=== PATIENT | female | born 1965 | race Caucasian/White ===

== ENCOUNTER → 2020-06-30 17:28 | Outpatient (BNVA) | payer MEDICARE, MEDICAID, SELFPAY | PROVIDERS: PCP Family Medicine; Visit Provider Internal Medicine Pulmonary Disease | DX: Z01.812 Encounter for preprocedural laboratory examination (principal); Z20.828 Contact with and (suspected) exposure to other viral communicable diseases | CPT/HCPCS: 87635 ==

== ENCOUNTER 2020-07-04 11:06 | Outpatient (CLI) | payer MEDICARE, MEDICAID, SELFPAY ==
[2020-07-04 15:00] VITALS: BP 119/72; BP 126/76; O2SAT 83; O2SAT 91
--- NOTE | 2020-07-04 15:11 | PFTS_ITS ---
Date of Study:07/04/20 Date of Dictation: MECHANICS: Forced vital capacity (FVC) is reduced. Forced expiratory volume in one second (FEV1) is very severely reduced . FEV1/FVC is reduced No significant response to bronchodilator . FLOW VOLUME LOOP: Scooping of end expiratory limb suggestive of air way obstruction. LUNG VOLUMES: not measured DIFFUSING CAPACITY FOR CARBON MONOXIDE: moderately reduced . INTERPRETATION: The Spirometry suggestive of obstructive ventilatory defect. Moderately reduced gas transfer. Please correlate clinically. MTDD
== END 2020-07-04 11:07 | disposition home or self-care (01) ==
PROVIDERS: PCP Family Medicine; Visit Provider Internal Medicine Pulmonary Disease
DX: E11.319 Type 2 diabetes mellitus with unspecified diabetic retinopathy without macular edema (principal); E11.42 Type 2 diabetes mellitus with diabetic polyneuropathy; E11.649 Type 2 diabetes mellitus with hypoglycemia without coma; Z79.4 Long term (current) use of insulin; E78.00 Pure hypercholesterolemia, unspecified; I10 Essential (primary) hypertension; E11.9 Type 2 diabetes mellitus without complications
CPT/HCPCS: 36415; 80053; 80061; 83036; 94060; 94618; 94726; 99205; J7611

== ENCOUNTER 2020-07-04 11:07 | Outpatient (CLI) | payer MEDICARE, MEDICAID, SELFPAY ==
[2020-07-04 12:16] LABS: Alanine Aminotransferase 13 U/L (0-33); Albumin Level 3.2 g/dL (3.5-5.2); Alkaline Phosphatase 134 IU/L (35-105); Anion Gap 9.5 (5-19); Aspartate Amino Transferase 16 U/L (0-32); Blood Urea Nitrogen 9 mg/dL (6-20); Calcium 7.6 mg/dL (8.5-10.5); Carbon Dioxide 38 mmol/L (22-29); Chloride 93 mmol/L (98-107); Chol HDL Ratio 4.08 mg/dL (0.0-4.40); Cholesterol 196 mg/dL (0-200); Globulin 3.7 g/dL (1.3-4.6); Glomerular Filtration Rate 87.5 mL/min (90-130); Glucose 445 mg/dL (65-115); HDL Cholesterol 48 mg/dL (60-100); LDL Cholesterol Calculated 116 mg/dL (50-129); LDL HDL Ratio 2.42 RATIO (0.00-3.22); Osmolality Calculated 300 mOsm/kg (285-295); Potassium 4.5 mmol/L (3.5-5.1); Sodium 136 mmol/L (136-145); Total Bilirubin 0.2 mg/dL (0.15-1.2); Total Protein 6.9 g/dL (6.6-8.7); Triglycerides 158 mg/dL (0-150)
[2020-07-04 14:23] LABS: Estmated Average Glucose 275; Hemoglobin A1C 11.2 % (4.0-6.0)
== END 2020-07-04 11:08 | disposition home or self-care (01) ==
PROVIDERS: PCP Family Medicine; Visit Provider Internal Medicine
DX: E11.9 Type 2 diabetes mellitus without complications (principal); E78.00 Pure hypercholesterolemia, unspecified
CPT/HCPCS: 36415; 80053; 80061; 83036

== ENCOUNTER 2020-07-23 08:29 | Outpatient (CLI) | payer MEDICARE, MEDICAID, SELFPAY ==
--- NOTE | 2020-07-23 08:30 | MR_ITS ---
WS: [id number] MRI NECK WITH CONTRAST TECHNIQUE: Noncontrast axial T1, axial T2 FSE fat sat, coronal T2 fat sat, coronal T1, coronal T1 fat sat, sagittal T2 fat sat, plus contrast enhanced coronal, sagittal, and axial T1 fat sat images obta ined. CLINICAL INFORMATION: DYSPHAGIA COMPARISON: None. FINDINGS: Images moderately degraded by patient motion. Parotid glands are normal. Normal submandibular glands. Normal posterior nasopharynx. Prominent enhan cing symmetric tissue at the tongue base may represent prominent lymphoid tissue although unusually p rominent for a patient this age. Tongue base mass is not excluded and Recommend direct visualization. Otherwise no evidence of supraglottic or glottic mass. Normal piriform sinuses. Prominent left jugulo digastric lymph node measuring 11 mm in short axis dimension. Prominent right supraclavicular lymph n ode measuring 10 mm in short axis dimension. Otherwise no cervical lymphadenopathy. Normal posterior fossa. Normal vascular flow voids at the skull base. Paranasal sinuses and mastoid air cells appear w ell aerated. Normal parapharyngeal fat. MR/MR orbit face neck wo/w* [id number] IMPRESSION: 1. Prominent symmetric enhancing tissue at the tongue base may represent lymph oid tissue but unusually prominent for patient this age. Tongue base neoplasm n ot excluded. Recommend direct visualization for further evaluation. 2. Otherwise no evidence of supraglottic or glottic mass. 3. Normal parapharyngeal fat. 4. Prominent left jugulodigastric and right supraclavicular lymph nodes upper limits of normal. Otherwise no cervical lymphadenopathy. 5. Partially visualized paranasal sinuses and mastoid air cells are well aerat ed.
== END 2020-07-23 08:30 | disposition home or self-care (01) ==
LOC: RADSHAW 08:29
PROVIDERS: PCP Family Medicine; Visit Provider Specialist
DX: R13.10 Dysphagia, unspecified (principal)
CPT/HCPCS: 70543; A9577

== ENCOUNTER 2020-08-01 12:00 | Outpatient (CLI) | payer MEDICARE, MEDICAID, SELFPAY | END 2020-08-01 12:01 | disposition home or self-care (01) | LOC: SLEEP 08-03 11:36 | PROVIDERS: PCP Family Medicine; Visit Provider Internal Medicine Pulmonary Disease | DX: G47.33 Obstructive sleep apnea (adult) (pediatric) (principal) | CPT/HCPCS: G0399 ==

== ENCOUNTER 2020-08-20 13:22 | Outpatient (CLI) | payer MEDICARE, MEDICAID, SELFPAY ==
--- NOTE | 2020-08-20 14:14 | ECG_ITS ---
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 Measurements Intervals [place] Rate: 97 P: 70 ND: 160 QRS: 75 QRSD: 78 T: 75 QT: 367 QTc: 468 Interpretive Statements SINUS RHYTHM Compared to ECG 06/10/2018 14:09:07 No significant changes Electronically Signed On 08-21-2020 6:08:41 REAL ESTATE AGENCY LICENSEE by Nita Meza M.D. [email or web address] Technology Corpcleveland clinic medina hospital.[employer]/store/NU/[id number] f
[2020-08-20 14:52] LABS: Alanine Aminotransferase 51 U/L (0-33); Albumin Level 3.4 g/dL (3.5-5.2); Alkaline Phosphatase 231 IU/L (35-105); Anion Gap 12.3 (5-19); Aspartate Amino Transferase 22 U/L (0-32); Blood Urea Nitrogen 10 mg/dL (6-20); Calcium 7.4 mg/dL (8.5-10.5); Carbon Dioxide 37 mmol/L (22-29); Chloride 90 mmol/L (98-107); Globulin 4.4 g/dL (1.3-4.6); Glucose 220 mg/dL (65-115); Osmolality Calculated 286 mOsm/kg (285-295); Potassium 4.3 mmol/L (3.5-5.1); Sodium 135 mmol/L (136-145); Total Bilirubin 0.3 mg/dL (0.15-1.2); Total Protein 7.8 g/dL (6.6-8.7)
== END 2020-08-20 13:23 | disposition home or self-care (01) ==
PROVIDERS: PCP Family Medicine; Visit Provider Specialist
DX: Z01.810 Encounter for preprocedural cardiovascular examination (principal); R13.19 Other dysphagia
CPT/HCPCS: 36415; 80053; 93005

== ENCOUNTER → 2020-08-23 13:56 | Outpatient (BNVA) | payer MEDICARE, MEDICAID, SELFPAY | PROVIDERS: PCP Family Medicine; Visit Provider Internal Medicine Pulmonary Disease | DX: R06.02 Shortness of breath (principal) | CPT/HCPCS: 87635 ==

== ENCOUNTER 2020-08-28 07:06 | Day surgery (SDC) | payer MEDICARE, MEDICAID, SELFPAY ==
[2020-08-27 12:49] VITALS: BMI 43.2
[2020-08-28 07:36] LABS: Glucose Point of Care 263 mg/dL (70-110)
[2020-08-28] MEDS: sodium chloride 0.9% 1,000 ML 30 ML IV (07:36)
[2020-08-28 07:42] VITALS: BP 124/85; PULSE 105; RESP 18; TEMP 36.3; O2SAT 92
--- NOTE | 2020-08-28 07:47 | ANES.PREANE2 ---
Pre-Anesthetic Assessment Pre-Anesthetic Assessment: Height/Weight: Height 1.6 m Weight 110.677 kg Temp Pulse Resp BP Pulse Ox 97.3 F L 105 H 18 124/85 92 08/28/20 07:42 08/28/20 07:42 08/28/20 07:42 08/28/20 07:42 08/28/20 07:42 Preop Diagnosis: Tongue mass Proposed Procedure: Operation Date: 08/28/20 08:50 Proposed Procedures p Direct Laryngoscopy with biopsy [id number] R13.19 J35.1(Not Applicable) - Duran Portillo MD s Esophagoscopy(Not Applicable) - Duran Portillo MD s Tonsillectomy(Not Applicable) - Duran Portillo MD Familial anesthetic complications: Does like to lay flat d/t her COPD, has trouble breathing. No toher issues Was Beta Shayla taken within 24 hours: N/A Last intake: Intake Last Liquid Date 08/27/20 Last Liquid Time 22:00 Last Solid Date 08/27/20 Last Solid Time 17:00 Social: Social History: No alcohol and No tobacco Comment: former smoker Exam: Pre-Anes Outpt Exam: alert, oriented x 3, clear to auscultation bilaterally and regular rate & rhythm Airway: Cervical ROM: WNL MP: 3 Dentition: Other (missing, poor dentition, rotten and discolored) Pulmonary: Pulmonary: COPD (severe) and Sleep apnea Comments: obesity hypoventilation syndrome (3 L NC during the day and trilogy at night) Lung nodules s/p resection CV/HEM: CV/HEM: HTN (states she's on losartan for kidney protection, no HTN) Metabolic: Metabolic: DM, Hyperlipidemia and Morbid obesity Comments: cushingoid appearance, has been taking prednisone chronically, but has now stopped it Anesthetic Plan: ASA status: 4 Anesthesia: General Risk of > 500 ml blood loss (7ml/kg in children): No Meds/Allergies Current Medications: Current Medications Generic Name Dose Route Start Last Admin Trade Name Freq PRN Reason Stop Dose Admin Sodium Chloride 1,000 mls @ 30 ml s/hr 08/28/20 07:15 08/28/20 07:36 Sodium Chloride 0.9% IV 30 mls/hr .Q24H JOSE Administration PFSH Anesthesia PFSH: Medical History Anxiety disorder Asthma Chronic obstructive pulmonary disease Hypercholesteremia Type 2 diabetes mellitus Surgical History History of carpal tunnel release History of tonsillectomy History of total abdominal hysterectomy Family History Father , at the of 70 Diabetes Cancer lung CAD (coronary artery disease) Mother , at the age of 55 Hypertension Lung disease Social History Smoking and tobacco status: current every day smoker cigarettes Packs smoked per day: 0.5 Years cigarettes smoked: 35 Quit status (tobacco): considering quitting Second hand smoke exposure: Yes Smoking risk assessment/counseling performed?: Yes Alcohol intake: current Alcohol intake frequency: holidays/special occasions only Alcohol type: wine Desire information about substance/drug rehabilitation?: No Counseling given: No Caregiver/support person: No Lives independently: Yes Household members: children Housing: House Marital status: Legally Current occupational status: disabled Pets and animals: No History of recent travel: No Current gender identity: Female Data Anesthesia Other Labs: Laboratory Results - last 48 hr 08/28/20 07:34 POC Glucose 263 H Cardiac Studies: No Data to Display
[2020-08-28] MEDS: insulin regular-human 100 units/1 mL 10 UNIT IVP (07:52)
--- NOTE | 2020-08-28 09:09 | W.PM.OPSUD ---
Surgery/Procedure H&P Update DATE OF PROCEDURE: August 28, 2020 DATE H&P PERFORMED: 08/17/20 H&P UPDATE INFORMATION: I have reviewed H&P completed within last 30 days, I have examined patient prior to procedure and No changes to prior documentation PREOP DIAGNOSIS: Lingual tonsillar hypertrophy, Dysphagia PRIMARY INDICATION FOR PROCEDURE: Lingual tonsilar hypertrophy, Dysphagia PLANNED PROCEDURE: Operation Date: 08/28/20 08:50 Proposed Procedures p Direct Laryngoscopy with biopsy [id number] R13.19 J35.1(Not Applicable) - Duran Portillo MD s Esophagoscopy(Not Applicable) - Duran Portillo MD s Tonsillectomy(Not Applicable) - Duran Portillo MD
--- NOTE | 2020-08-28 09:38 | PM.OP ---
Operative Report Date of procedure: August 28, 2020 Pre-op Diagnosis: Lingual tonsillar hypertrophy, Dysphagia Post-op diagnosis: same Post-op Findings: N/A - See below Procedure Done: None Pathology: none sent Surgeon: Duran Portillo Anesthesia: General Estimated blood loss (mL): 0 IV fluids (mL): 0 Complications: N/A Findings: N/A Condition: stable Disposition: same day Brief History: 54 yo wf with a h/o dysphagia and lingual tonsillar hypertrophy who presents today for surgical evaluation and therapy. Procedure: The patient was done from the preop holding area was taken the operating where she operating room. There was a communication mishap and the patient was unable to attend her preop visit, but on review of her pulmonology records anesthesia was uncomfortable with placing the patient under general anesthesia. After reviewing the patient's pulmonology records and pulmonology clearance, we (ENT and Anesthesia) elected to cancel the case and reschedule her for evaluation at [facility]. I explained this to the patient and her daughter - they express understanding and agree with this plan.
--- NOTE | 2020-08-28 09:44 | PC.NURSE ---
SURGERY ABORTED. PATIENT TO BE REFERRED TO [facility]. SEE PHYSICIAN, ANESTHESIA NOTES
== END 2020-08-28 09:53 | disposition home or self-care (01) ==
PROVIDERS: PCP Family Medicine; Visit Provider Specialist
PROC: (CPT 31536; principal; 2020-08-28 08:50)
DX: Z53.8 Procedure and treatment not carried out for other reasons (principal); J35.1 Hypertrophy of tonsils; R13.10 Dysphagia, unspecified; Z87.891 Personal history of nicotine dependence; J44.9 Chronic obstructive pulmonary disease, unspecified; Z99.81 Dependence on supplemental oxygen; I10 Essential (primary) hypertension; E11.9 Type 2 diabetes mellitus without complications; E78.5 Hyperlipidemia, unspecified; E66.01 Morbid (severe) obesity due to excess calories; Z68.41 Body mass index [BMI] 40.0-44.9, adult
CPT/HCPCS: 31536; 12345; 36416; 82962; 96374; J1815; J7030

== ENCOUNTER 2020-09-14 12:19 | Inpatient (IN) | payer MEDICARE, MEDICAID, SELFPAY ==
[2020-09-14] VITALS (46 sets, daily range): BP systolic 95–152; BP diastolic 62–84; PULSE 91–101; RESP 13–24; TEMP 36.7–36.9; O2SAT 74–95; BMI 43.2
--- NOTE | 2020-09-14 12:51 | XR_ITS ---
WS: [id number] Portable AP upright chest, 09/14/2020 Clinical Data: SOB, hypoxia Comparison: Portable chest, 06/10/2018. Findings: No nodules, masses or effusions are seen. The heart is normal. The pulmonary vascularity is not increased. No pneumonia or pneumothorax is seen. Monitor leads are on the chest wall. XR/XR chest 1V portable [id number] Impression: Negative chest.
--- NOTE | 2020-09-14 12:51 | ECG_ITS ---
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 Measurements Intervals [place] Rate: 93 P: FL: QRS: 84 QRSD: 82 T: 73 QT: 358 QTc: 446 Interpretive Statements Sinus rhythm with occasional PVCs ABNORMAL RHYTHM ECG Compared to ECG 08/20/2020 14:02:31 Aberrant conduction of supraventricular beat(s) now present Sinus rhythm no longer present Electronically Signed On 09-14-2020 23:14:55 CDT by Kaya Mansfield M.D. [email or web address] [email or web address] dublin method[facility] hospital.[employer]/store/NU/[id number] f
[2020-09-14 13:04] LABS: ABG PH Result 7.32 (7.35-7.45); Arterial Blood Gas Hematocrit 44.6 % (37-47); Base Excess ABG 15.8 mmol/L (-2.0-2.0); Blood Gas Allen Test Pos; Blood Gas Operator Identificat CAK; Blood Gas Sample Site Brachial, left; Blood Gas Sample Type Arterial; HCO3 ABG 47.1 mmol/L (22-26); Oxygen Device NC; PO2 ABG 71.6 mmHg (80.0-100.0)
[2020-09-14 13:06] LABS: ABG PCO2 92.2 mmHg (35-45)
[2020-09-14 13:16] LABS: Basophils % 0.3 %; Eosinophils # 0.1 10^3/uL (0.0-0.8); Eosinophils % 0.6 %; Hemoglobin 14.6 g/dL (11.5-15.3); Lymphocytes # 1.2 10^3/uL (0.8-4.8); Lymphocytes % 14.8 %; Mean Corpuscular HGB Conc 28.6 g/dL (30.0-36.0); Mean Corpuscular Hemoglobin 27.1 pg (28.0-34.0); Mean Corpuscular Volume 94.6 fL (81-99); Mean Platelet Volume 9.7 fL (7.4-10.4); Monocytes # 0.5 10^3/uL (0.2-0.9); Monocytes % 6.9 %; Neutrophils # 6.04 10^3/uL (1.8-7.7); Neutrophils % 77.1 %; Nucleated Red Blood Cells % 0 %; Platelet Count 208 10^3/cmm (130-400); Red Blood Count 5.39 10^6/uL (4.1-5.3); White Blood Count 7.8 10^3/uL (4.0-10.0)
[2020-09-14 13:32] LABS: D Dimer 0.53 ug/mIFEU (0-0.59)
[2020-09-14 13:38] LABS: Lactic Sepsis W/Reflex 1.2 mmol/L (0.5-2.2)
[2020-09-14 13:40] LABS: Troponin T (5th) Once 8 ng/L (0-10)
[2020-09-14 13:50] LABS: NT Pro B Type Natriuretic Pept 113 pg/mL (0-125); Procalcitonin 0.05 ng/mL (0-0.5)
[2020-09-14 14:01] LABS: Alanine Aminotransferase 41 U/L (0-33); Albumin Level 3.5 g/dL (3.5-5.2); Alkaline Phosphatase 174 IU/L (35-105); Anion Gap 8.4 (5-19); Aspartate Amino Transferase 20 U/L (0-32); Blood Urea Nitrogen 13 mg/dL (6-20); C Reactive Protein 19.6 mg/L (0.0-4.9); Calcium 7.5 mg/dL (8.5-10.5); Chloride 87 mmol/L (98-107); Globulin 3.7 g/dL (1.3-4.6); Glucose 243 mg/dL (65-115); Osmolality Calculated 288 mOsm/kg (285-295); Potassium 4.4 mmol/L (3.5-5.1); Sodium 135 mmol/L (136-145); Total Bilirubin 0.4 mg/dL (0.15-1.2); Total Protein 7.2 g/dL (6.6-8.7)
[2020-09-14 14:06] LABS: Carbon Dioxide 44 mmol/L (22-29)
--- NOTE | 2020-09-14 14:08 | PC.PHAR ---
PT STATES SHE TAKES CARE OF HER OWN MEDICATIONS-PT STATES SHE IS ONLY USING BROVANA AND IPRA-ALBU IN THE [facility]UL[facility] STATES THEY HAVE A ARNUITY INHALER READY FOR THE PT TO SVP DIGITAL AD SALES FILLED ON 09/07/20-PT STATES SHE USES NOVOLOG FLEXPEN SLIDING SCALE QID (WITH MEALS AND HS)-[facility] LAST FILLED ON 09/11/20 FOR 10 UNITS BEFORE EACH MEAL PLUS SLIDING SCALE-PT STATES SHE USES LANTUS SOLOSTAR 50 UNITS AT BEDTIME-[facility] LAST FILLED ON 09/10/20 25 UNITS BEDTIME-
[2020-09-14 15:24] LABS: ABG PCO2 89.6 mmHg (35-45); ABG PH Result 7.34 (7.35-7.45); Arterial Blood Gas Hematocrit 43.9 % (37-47); Base Excess ABG 17.3 mmol/L (-2.0-2.0); Blood Gas Allen Test Pos; Blood Gas Operator Identificat CAK; Blood Gas Sample Site Brachial, left; Blood Gas Sample Type Arterial; HCO3 ABG 48.2 mmol/L (22-26); Oxygen Device BIPAP
[2020-09-14] MEDS: azithromycin 500 MG in sodium chloride 0.9% 250 ML 250 MG IV (15:35)
[2020-09-14 15:43] LABS: SARS Covid-2 Antigen Negative (Negative)
[2020-09-14 15:43] LABS: Influenza A by IFA Negative (Negative); Influenza B by IFA Negative (Negative)
[2020-09-14 15:51] LABS: Glucose Point of Care 189 mg/dL (70-110)
--- NOTE | 2020-09-14 16:56 | P.HP_ITS ---
Providers/Chief Complaint Admitting Physician: Torri Bettencourt MD Primary Care Provider: Wes Hart MD Chief Complaint: LOW OXYGEN History of Present Illness Patricia Butcher is a 54 year old female with PMH as outlined below, significantly diabetes, COPD on 3 L home oxygen and obesity hypoventilation syndrome on triology at night, recently moved [place] [facility] [place]. She presents to the ER today due to worsening shortness of breath over the past week. Also reports subjective fever. She went to [facility] to get tested for covid and was noted to be hypoxic to sp02 60s and sent over to the ER. ABG upon presentation with acute hypoxic hypercapnic respiratory failure for which she was placed on BiPAP. In spite of 1 hour on the BiPAP CO2 still ranging between 80-90. Rapid Covid ag negative. No increased sputum production. D dimer negative, CXR without consolidation. + smoker, states has not smoked in last 3 weeks . No chest pain. Review of Systems General: Reports: 10 or more systems reviewed and unremarkable except in HPI and below Const: Denies: fever(s), chills or body aches Eyes: Denies: change in vision, blurry vision or photophobia ENMT: Denies: throat pain, enlarged tonsils, odynophagia, hoarseness or nasal congestion Card: Denies: chest pain, palpitations, irregular heart rhythm, edema, swelling of feet/ankles, lightheadedness, pre-syncope, dyspnea on exertion or orthopnea Resp: Denies: dyspnea, productive cough, non-productive cough, wheezing, stridor, pain on inspiration, change in phlegm color, hemoptysis or chest congestion GI: Denies: abdominal pain, nausea, vomiting, hematemesis, coffee ground e mesis, dysphagia, heartburn, diarrhea, constipation, GI cramping, change in stool character, hematochezia or melena : Denies: flank pain, difficulty voiding, dysuria, urinary frequency, urinary urgency, urinary hesitancy or hematuria Musc: Denies: neck pain, back pain, extremity pain, joint swelling, joint warmth or deformity Neuro: Denies: headache(s), numbness in extremities, weakness in extremities, sensory changes, difficulty walking, frequent falls, dizziness, vertigo, behavioral changes, Slurred speech present or seizure-like activity Psych: Denies: anxiety, depression, suicidal ideation or homicidal ideation Endo: Denies: polyuria, polydipsia, tired all the time, cold intolerance or hot flashes Mario/Lymph: Denies: easy bruising or easy bleeding Medications/Allergies Home Medications Medication Instructions Recorded Confirmed Last Taken Type clonazepam 0.5 mg tablet 0.5 mg PO TID PRN 06/07/20 09/14/20 09/13/20 History dapagliflozin 10 mg tablet 10 mg PO DAILY 06/07/20 09/14/20 09/13/20 History duloxetine 30 mg capsule,delayed 30 mg PO DAILY 06/07/20 09/14/20 09/13/20 Histo ry release insulin glargine 100 unit/mL (3 See Rx Instructions .ROUTE 06/07/20 09/14/20 08/27/20 History mL) subcutaneous pen .COMPLEX ml losartan 50 mg tablet 25 mg PO DAILY tab 06/07/20 09/14/20 08/28/20 History albuterol sulfate 90 mcg/actuation 2 puff INHALATION QID PRN #18 g 07/19/20 09/14/20 08/28/20 Rx aerosol inhaler arformoterol 15 mcg/2 mL solution 2 ml INHALATION Q12H #60 ml 08/09/20 09/14/20 08/28/20 Rx for nebulization budesonide 0.25 mg/2 mL suspension 0.5 mg INHALATION BID #60 ml 08/09/20 09/14/20 08/27/20 Rx for nebulization fluticasone furoate [Arnuity See Rx Instructions .ROUTE .COMPLEX 09/14/20 09/14/20 Unknown History Ellipta] insulin aspart U-100 [Novolog See Rx Instructions .ROUTE .COMPLEX 09/14/20 09/14/20 Unknown History Flexpen U-100 Insulin] ipratropium-albuterol 3 ml INHALATION QID PRN 09/14/20 09/14/20 Unknown History ipratropium-albuterol [Combivent 1 puff INHALATION QID PRN 09/14/20 09/14/20 Unknown History Respimat] liraglutide [Victoza 3-Greg] 1.8 mg SUBCUT QAM 09/14/20 09/14/20 09/13/20 History prednisone 10 mg PO EVERY OTHER DAY 09/14/20 09/14/20 09/12/20 History Allergies Allergy/AdvReac Type Severity Reaction Status Date / Time naproxen Allergy Mild nausea and Verified 09/14/20 13:48 vomiting Penicillins Allergy Mild itching Verified 09/14/20 13:48 PFSH Acute PFSH: Medical History Anxiety disorder Asthma Chronic obstructive pulmonary disease Hypercholesteremia Type 2 diabetes mellitus Surgical History History of carpal tunnel release History of tonsillectomy History of total abdominal hysterectomy Family History Father , at the of 70 Diabetes Cancer lung CAD (coronary artery disease) Mother , at the age of 55 Hypertension Lung disease Social History Smoking and tobacco status: current every day smoker cigarettes Packs smoked per day: 0.5 Years cigarettes smoked: 35 Quit status (tobacco): considering quitting Second hand smoke exposure: Yes Smoking risk assessment/counseling performed?: Yes Alcohol intake: current Alcohol intake frequency: holidays/special occasions only Alcohol type: wine Desire information about substance/drug rehabilitation?: No Counseling given: No Caregiver/support person: No Lives independently: Yes Household members: children Housing: House Marital status: Legally Current occupational status: disabled Pets and animals: No History of recent travel: No Current gender identity: Female Vitals/I&O/Wt Last Vital Signs Temp 98.5 F 09/14/20 12:28 Pulse 100 09/14/20 16:32 Resp 20 H 09/14/20 16:32 BP 125/79 09/14/20 16:32 Pulse Ox 94 09/14/20 16:32 Weight last 48 hrs Weight 110.677 kg Physical Exam Narrative: EXAM NARRATIVE: General: No acute distress, AO x3 HEENT: PERRLA, pupils bilaterally equal and reactive, pallors not present Chest: Coarse breath sounds, no added sounds, equal good air entry bilaterally CVS: S1-S2 regular, no murmurs, no tachycardia, no gallops, no rubs Abdomen: Soft, nontender, no organomegaly, bowel sounds present Neuro: No focal deficits, no facial deformity, AO x3, power 5/5 in all limbs Extremities: no edema, clubbing or cyanosis Data : 09/14/20 13:04 09/14/20 13:04 Other Labs: Laboratory Results WBC 7.8 10^3/uL (4.0-10.0) 09/14/20 13:04 RBC 5.39 10^6/uL (4.1-5.3) H 09/14/20 13:04 Hgb 14.6 g/dL (11.5-15.3) 09/14/20 13:04 Hct 51.0 % (37.0-47.0) H 09/14/20 13:04 MCV 94.6 fL (81-99) 09/14/20 13:04 MCH 27.1 pg (28.0-34.0) L 09/14/20 13:04 MCHC 28.6 g/dL (30.0-36.0) L 09/14/20 13:04 RDW 14.0 % (12.1-15.1) 09/14/20 13:04 Plt Count 208 10^3/cmm (130-400) 09/14/20 13:04 MPV 9.7 fL (7.4-10.4) 09/14/20 13:04 Neut % (Auto) 77.1 % 09/14/20 13:04 Lymph % (Auto) 14.8 % 09/14/20 13:04 [place] % (Auto) 6.9 % 09/14/20 13:04 Eos % (Auto) 0.6 % 09/14/20 13:04 Baso % (Auto) 0.3 % 09/14/20 13:04 Neut # (Auto) 6.04 10^3/uL (1.8-7.7) 09/14/20 13:04 Lymph # (Auto) 1.2 10^3/uL (0.8-4.8) 09/14/20 13:04 [place] # (Auto) 0.5 10^3/uL (0.2-0.9) 09/14/20 13:04 Eos # (Auto) 0.1 10^3/uL (0.0-0.8) 09/14/20 13:04 Baso # (Auto) 0.0 10^3/uL (0.0-0.1) 09/14/20 13:04 Nucleated RBC % (auto) 0 % 09/14/20 13:04 Nucleated RBCs # 0.0 /100WBC 09/14/20 13:04 D-Dimer 0.53 ug/mIFEU (0-0.59) 09/14/20 13:04 Specimen Type Arterial 09/14/20 15:12 Sample Site Brachial, left 09/14/20 15:12 ABG pH 7.34 (7.35-7.45) L 09/14/20 15:12 ABG pCO2 89.6 mmHg (35-45) H* 09/14/20 15:12 ABG pO2 53.0 mmHg (80.0-100.0) L 09/14/20 15:12 ABG HCO3 48.2 mmol/L (22-26) H 09/14/20 15:12 ABG Base Excess 17.3 mmol/L (-2.0-2.0) H 09/14/20 15:12 Carlos Test Pos 09/14/20 15:12 Hematocrit 43.9 % (37-47) 09/14/20 15:12 O2 Delivery Device Bipap 09/14/20 15:12 O2 Liters/Min 5.0 % 09/14/20 12:53 FiO2 30.0 % 09/14/20 15:12 Locomotive Repairer Diesel ID Cak 09/14/20 15:12 Sodium 135 mmol/L (136-145) L 09/14/20 13:04 Potassium 4.4 mmol/L (3.5-5.1) 09/14/20 13:04 Chloride 87 mmol/L (98-107) L 09/14/20 13:04 Carbon Dioxide 44 mmol/L (22-29) H* 09/14/20 13:04 Anion Gap 8.4 (5-19) 09/14/20 13:04 BUN 13 mg/dL (6-20) 09/14/20 13:04 Creatinine 0.4 mg/dL (0.5-0.9) L 09/14/20 13:04 GFR Calculation 167.0 mL/min (90-130) H 09/14/20 13:04 Glucose 243 mg/dL (65-115) H 09/14/20 13:04 POC Glucose 189 mg/dL (70-110) H 09/14/20 15:48 Calculated Osmolality 288 mOsm/kg (285-295) 09/14/20 13:04 Lactic Acid 1.2 mmol/L (0.5-2.2) 09/14/20 13:04 Calcium 7.5 mg/dL (8.5-10.5) L 09/14/20 13:04 Total Bilirubin 0.4 mg/dL (0.15-1.2) 09/14/20 13:04 AST 20 U/L (0-32) 09/14/20 13:04 ALT 41 U/L (0-33) H 09/14/20 13:04 Alkaline Phosphatase 174 IU/L (35-105) H 09/14/20 13:04 Troponin T Gen 5 ng/L 8 ng/L (0-10) 09/14/20 13:04 C-Reactive Protein 19.6 mg/L (0.0-4.9) H 09/14/20 13:04 NT-Pro-B Natriuret Pep 113 pg/mL (0-125) 09/14/20 13:04 Total Protein 7.2 g/dL (6.6-8.7) 09/14/20 13:04 Albumin 3.5 g/dL (3.5-5.2) 09/14/20 13:04 Globulin 3.7 g/dL (1.3-4.6) 09/14/20 13:04 Procalcitonin 0.05 ng/mL (0-0.5) 09/14/20 13:04 Influenza Type A Ag Negative (Negative) 09/14/20 14:45 Influenza Type B Ag Negative (Negative) 09/14/20 14:45 SARS-CoV-2 Ag (Rapid) Negative (Negative) 09/14/20 13:04 Impressions Chest X-Ray 09/14/20 12:51 Impression: Negative chest. 09/14/20 09/14/20 12:53 15:12 ABG pH 7.32 L 7.34 L ABG pCO2 92.2 H* 89.6 H* ABG pO2 71.6 L 53.0 L ABG HCO3 47.1 H 48.2 H ABG Base Excess 15.8 H 17.3 H Attestation for Other Data: I personally reviewed and interpreted the following: Other data: CXR, ABG A&P Assessment and plan (1) Acute on chronic respiratory failure with hypoxia and hypercapnia: Admit to ICU given hypoxic ypercapneic respiratory failure from COPD exacerbation Solumedrol 60mg iv q8h duoneb q4h tonja, budesonide 0.5mg BID tonja, albuterol prn continue Bipap until Ph on blood gas normalized, rpt ABG in one hour procal negative, CXR without consolidation, low suspcion for PNA BNP 113, no current signs of pulmonary edema or volume overload Status: Acute (2) Long-term insulin use: continue insulin sliding scale Status: Acute (3) Type 2 diabetes mellitus: Status: Acute Qualifiers: 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 use Diabetes mellitus complication status: with neurologic complications Diabetes mellitus complication detail: with polyneuropathy Qualified Code(s): E11.42 - Type 2 diabetes mellitus with diabetic polyneuropathy; Z79.4 - 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
[2020-09-14 21:28] LABS: Glucose Point of Care 294 mg/dL (70-110)
[2020-09-14] MEDS: budesonide 0.5 mg/2 mL Neb INHALATION (22:04)
[2020-09-14] MEDS: ipratropium-albuterol 3 mL Neb INHALATION (22:04)
--- NOTE | 2020-09-14 22:40 | W.ED.SOB ---
HPI - SOB/Dyspnea General: Chief Complaint: Shortness of Breath/Dyspnea Stated Complaint: LOW OXYGEN Source: patient Mode of arrival: ambulatory Limitations: no limitations History of Present Illness: HPI Narrative: Patient is a 54-year-old female with a history of COPD, diabetes mellitus, hypertension, obesity who presents to the emergency department with complaints of shortness of breath. She wears home oxygen all the time on between 2 and 4 L/min but states that in the last few days she has been feeling short of breath even while on oxygen. She denies any fever, but has some cough. She denies any chest pain. Denies any sick contacts. MD elicited complaint: shortness of breath Pertinent past history: COPD and diabetes Onset (ago): day(s) (1) Timing: constant Severity: severe Exacerbating factors: nothing Relieving factors: nothing Known history of: COPD and diabetes Associated symptoms: Reports cough; Deny abdominal pain, chest congestion, chest pain, diaphoresis, dizziness, extremity pain, fever(s), hemoptysis, lightheadedness, myalgias, nausea, orthopnea, palpitations, paresthesias, polydipsia, polyuria, rash, sense of impending doom, syncope or vomiting Treatment prior to arrival: oxygen Related Data: Home oxygen amount: 3 liters Review of Systems General: Reports: 10 or more systems reviewed and unremarkable except in HPI and below Const: Denies: fever(s) or diaphoresis Eyes: Denies: change in vision or blurry vision ENMT: Denies: throat pain, enlarged tonsils, odynophagia, hoarseness, mouth pain or swelling of lips/tongue Card: Denies: chest pain, palpitations, lightheadedness, syncope or orthopnea Resp: Denies: hemoptysis or chest congestion GI: Denies: abdominal pain, nausea or vomiting : Denies: flank pain, difficulty voiding, dysuria, urinary frequency, urinary urgency or urinary hesitancy Musc: Denies: extremity pain Skin/Breast: Denies: rash, pruritus or erythema Neuro: Denies: dizziness Endo: Denies: polyuria or polydipsia PFS ED PFSH: Medical History (Reviewed 09/14/20 @ 22:44 by Juan Jose Maravilla MD, [facility] [place] Anxiety disorder Asthma Chronic obstructive pulmonary disease Hypercholesteremia Type 2 diabetes mellitus Surgical History (Reviewed 09/14/20 @ 22:44 by Juan Jose Maravilla MD, [facility] [place] History of carpal tunnel release History of tonsillectomy History of total abdominal hysterectomy Family History (Reviewed 09/14/20 @ 22:44 by Juan Jose Maravilla MD, [facility] [place] Father , at the of 70 Diabetes Cancer lung CAD (coronary artery disease) Mother , at the age of 55 Hypertension Lung disease Social History (Reviewed 09/14/20 @ 22:44 by Juan Jose Maravilla MD, [facility] [place] Smoking and tobacco status: current every day smoker cigarettes Packs smoked per day: 0.5 Years cigarettes smoked: 35 Quit status (tobacco): considering quitting Second hand smoke exposure: Yes Smoking risk assessment/counseling performed?: Yes Alcohol intake: current Alcohol intake frequency: holidays/special occasions only Alcohol type: wine Desire information about substance/drug rehabilitation?: No Counseling given: No Caregiver/support person: No Lives independently: Yes Household members: children Housing: House Marital status: Legally Current occupational status: disabled Pets and animals: No History of recent travel: No Current gender identity: Female Physical Exam Const: COMMON NORMALS: no acute distress, average body habitus, patient oriented x3, no limitations, healthy appearing, alert and well nourished HENMT: COMMON NORMALS: normocephalic, atraumatic and moist oral mucous membranes HEAD & SCALP: normocephalic and atraumatic Neck/C-Spine: COMMON NORMALS: no meningeal signs and no JVD Resp: COMMON NORMALS: normal respiratory effort, No retractions, No use of accessory muscles and percussion normal AUSCULTATION: diminished lung sounds PERCUSSION: percussion normal Cardio: COMMON NORMALS: no JVD, regular rate, regular rhythm, S1 normal heart sound present, S2 normal heart sound present, No gallops present (Cardio), No clicks present (Cardio), No murmurs present (Cardio), No rub (Cardio) and Peripheral pulses 2+ throughout RATE: regular rate RHYTHM: regular rhythm HEART SOUNDS: S1 normal heart sound present and S2 normal heart sound present PERIPHERAL PULSES: Peripheral pulses 2+ throughout GI: COMMON NORMALS: Normal to inspection, nondistended, normoactive bowel sounds present, Soft to palpation, non-tender, No hepatosplenomegaly present, no masses and no bruits PALPATION: Yes Soft to palpation and Yes No hepatosplenomegaly present Extremity: COMMON NORMALS: normal to inspection, full ROM, capillary refill normal, no calf tenderness and no pedal edema Neuro: COMMON NORMALS: patient oriented x3 SENSORIUM/ORIENTATION: Yes alert MENINGEAL SIGNS: Yes no meningeal signs Skin: COMMON NORMALS: no rashes or lesions noted, no wounds, turgor normal, no jaundice, no petechiae and no mottling GENERAL SKIN EXAM: no rashes or lesions noted and turgor normal Course Reevaluation(s): Reevaluation #1: Discussed her labs and imaging findings with her, advised that she is in respiratory failure and will benefit from inpatient stay. She voiced understanding and all questions answered. Time: 15:45 Consultations: Consultation #1: Discussed the patient with Dr. Bettencourt, she kindly accepted the patient to her service. Time: 15:52 Vital Signs: Vital signs: Vital Signs Temperature 98.5 F 09/14/20 20:53 Pulse Rate 99 09/14/20 22:20 Respiratory Rate 17 09/14/20 22:20 Blood Pressure 128/62 09/14/20 22:20 Pulse Oximetry 93 09/14/20 22:20 MDM - SOB/Dyspnea MDM Narrative: Medical decision making narrative: 54-year-old female patient with a history of COPD who presents to the emergency department with worsening shortness of breath. In the emergency department evaluation is consistent with a COPD exacerbation and acute respiratory failure with hypercapnia. She had critically elevated PCO2 on blood gas and required BiPAP. She was given a dose of corticosteroids and IV antibiotics and admitted to the ICU for further evaluation and management. Medical Records: Attestation: I reviewed the patient's medical records. Lab Data: Attestation: I reviewed the patient's lab results. Labs: Lab Results 09/14/20 09/14/20 09/14/20 Range/Units 12:53 13:04 13:04 WBC 7.8 (4.0-10.0) 10^3/ uL RBC 5.39 H (4.1-5.3) 10^6/u L Hgb 14.6 (11.5-15.3) g/dL Hct 51.0 H (37.0-47.0) % MCV 94.6 (81-99) fL MCH 27.1 L (28.0-34.0) pg MCHC 28.6 L (30.0-36.0) g/dL RDW 14.0 (12.1-15.1) % Plt Count 208 (130-400) 10^3/c mm MPV 9.7 (7.4-10.4) fL Neut % (Auto) 77.1 % Lymph % (Auto) 14.8 % Leslie % (Auto) 6.9 % Eos % (Auto) 0.6 % Baso % (Auto) 0.3 % Neut # (Auto) 6.04 (1.8-7.7) 10^3/u L Lymph # (Auto) 1.2 (0.8-4.8) 10^3/u L Leslie # (Auto) 0.5 (0.2-0.9) 10^3/u L Eos # (Auto) 0.1 (0.0-0.8) 10^3/u L Baso # (Auto) 0.0 (0.0-0.1) 10^3/u L Nucleated RBC % (a uto) 0 % Nucleated RBCs # 0.0 /100WBC D-Dimer 0.53 (0-0.59) ug/mIFE U Specimen Type Arterial Sample Site Brachial, left ABG pH 7.32 L (7.35-7.45) ABG pCO2 92.2 H* (35-45) mmHg ABG pO2 71.6 L (80.0-100.0) mmH g ABG HCO3 47.1 H (22-26) mmol/L ABG Base Excess 15.8 H (-2.0-2.0) mmol/ L Carlos Test Pos Hematocrit 44.6 (37-47) % O2 Delivery Device Nc O2 Liters/Min 5.0 % FiO2 % Comp Field Case Manager ID Cak Sodium (136-145) mmol/L Potassium (3.5-5.1) mmol/L Chloride (98-107) mmol/L Carbon Dioxide (22-29) mmol/L Anion Gap (5-19) BUN (6-20) mg/dL Creatinine (0.5-0.9) mg/dL GFR Calculation (90-130) mL/min Glucose (65-115) mg/dL POC Glucose (70-110) mg/dL Calculated Osmolal ity (285-295) mOsm/k g Lactic Acid (0.5-2.2) mmol/L Calcium (8.5-10.5) mg/dL Total Bilirubin (0.15-1.2) mg/dL AST (0-32) U/L ALT (0-33) U/L Alkaline Phosphata se (35-105) IU/L Troponin T Gen 5 n g/L (0-10) ng/L C-Reactive Protein (0.0-4.9) mg/L NT-Pro-B Natriuret Pep (0-125) pg/mL Total Protein (6.6-8.7) g/dL Albumin (3.5-5.2) g/dL Globulin (1.3-4.6) g/dL Procalcitonin (0-0.5) ng/mL Influenza Type A A g (Negative) Influenza Type B A g (Negative) SARS-CoV-2 Ag (Rap id) (Negative) 09/14/20 09/14/20 09/14/20 Range/Units 13:04 13:04 13:04 WBC (4.0-10.0) 10^3/ uL RBC (4.1-5.3) 10^6/u L Hgb (11.5-15.3) g/dL Hct (37.0-47.0) % MCV (81-99) fL MCH (28.0-34.0) pg MCHC (30.0-36.0) g/dL RDW (12.1-15.1) % Plt Count (130-400) 10^3/c mm MPV (7.4-10.4) fL Neut % (Auto) % Lymph % (Auto) % Leslie % (Auto) % Eos % (Auto) % Baso % (Auto) % Neut # (Auto) (1.8-7.7) 10^3/u L Lymph # (Auto) (0.8-4.8) 10^3/u L Leslie # (Auto) (0.2-0.9) 10^3/u L Eos # (Auto) (0.0-0.8) 10^3/u L Baso # (Auto) (0.0-0.1) 10^3/u L Nucleated RBC % (a uto) % Nucleated RBCs # /100WBC D-Dimer (0-0.59) ug/mIFE U Specimen Type Sample Site ABG pH (7.35-7.45) ABG pCO2 (35-45) mmHg ABG pO2 (80.0-100.0) mmH g ABG HCO3 (22-26) mmol/L ABG Base Excess (-2.0-2.0) mmol/ L Carlos Test Hematocrit (37-47) % O2 Delivery Device O2 Liters/Min % FiO2 % Comp Field Case Manager ID Sodium 135 L (136-145) mmol/L Potassium 4.4 (3.5-5.1) mmol/L Chloride 87 L (98-107) mmol/L Carbon Dioxide 44 H* (22-29) mmol/L Anion Gap 8.4 (5-19) BUN 13 (6-20) mg/dL Creatinine 0.4 L (0.5-0.9) mg/dL GFR Calculation 167.0 H (90-130) mL/min Glucose 243 H (65-115) mg/dL POC Glucose (70-110) mg/dL Calculated Osmolal ity 288 (285-295) mOsm/k g Lactic Acid 1.2 (0.5-2.2) mmol/L Calcium 7.5 L (8.5-10.5) mg/dL Total Bilirubin 0.4 (0.15-1.2) mg/dL AST 20 (0-32) U/L ALT 41 H (0-33) U/L Alkaline Phosphata se 174 H (35-105) IU/L Troponin T Gen 5 n g/L 8 (0-10) ng/L C-Reactive Protein 19.6 H (0.0-4.9) mg/L NT-Pro-B Natriuret Pep 113 (0-125) pg/mL Total Protein 7.2 (6.6-8.7) g/dL Albumin 3.5 (3.5-5.2) g/dL Globulin 3.7 (1.3-4.6) g/dL Procalcitonin 0.05 (0-0.5) ng/mL Influenza Type A A g (Negative) Influenza Type B A g (Negative) SARS-CoV-2 Ag (Rap id) (Negative) 09/14/20 09/14/20 09/14/20 Range/Units 13:04 14:45 15:12 WBC (4.0-10.0) 10^3/ uL RBC (4.1-5.3) 10^6/u L Hgb (11.5-15.3) g/dL Hct (37.0-47.0) % MCV (81-99) fL MCH (28.0-34.0) pg MCHC (30.0-36.0) g/dL RDW (12.1-15.1) % Plt Count (130-400) 10^3/c mm MPV (7.4-10.4) fL Neut % (Auto) % Lymph % (Auto) % Leslie % (Auto) % Eos % (Auto) % Baso % (Auto) % Neut # (Auto) (1.8-7.7) 10^3/u L Lymph # (Auto) (0.8-4.8) 10^3/u L Leslie # (Auto) (0.2-0.9) 10^3/u L Eos # (Auto) (0.0-0.8) 10^3/u L Baso # (Auto) (0.0-0.1) 10^3/u L Nucleated RBC % (a uto) % Nucleated RBCs # /100WBC D-Dimer (0-0.59) ug/mIFE U Specimen Type Arterial Sample Site Brachial, left ABG pH 7.34 L (7.35-7.45) ABG pCO2 89.6 H* (35-45) mmHg ABG pO2 53.0 L (80.0-100.0) mmH g ABG HCO3 48.2 H (22-26) mmol/L ABG Base Excess 17.3 H (-2.0-2.0) mmol/ L Carlos Test Pos Hematocrit 43.9 (37-47) % O2 Delivery Device Bipap O2 Liters/Min % FiO2 30.0 % Comp Field Case Manager ID Cak Sodium (136-145) mmol/L Potassium (3.5-5.1) mmol/L Chloride (98-107) mmol/L Carbon Dioxide (22-29) mmol/L Anion Gap (5-19) BUN (6-20) mg/dL Creatinine (0.5-0.9) mg/dL GFR Calculation (90-130) mL/min Glucose (65-115) mg/dL POC Glucose (70-110) mg/dL Calculated Osmolal ity (285-295) mOsm/k g Lactic Acid (0.5-2.2) mmol/L Calcium (8.5-10.5) mg/dL Total Bilirubin (0.15-1.2) mg/dL AST (0-32) U/L ALT (0-33) U/L Alkaline Phosphata se (35-105) IU/L Troponin T Gen 5 n g/L (0-10) ng/L C-Reactive Protein (0.0-4.9) mg/L NT-Pro-B Natriuret Pep (0-125) pg/mL Total Protein (6.6-8.7) g/dL Albumin (3.5-5.2) g/dL Globulin (1.3-4.6) g/dL Procalcitonin (0-0.5) ng/mL Influenza Type A A g Negative (Negative) Influenza Type B A g Negative (Negative) SARS-CoV-2 Ag (Rap id) Negative (Negative) 09/14/20 Range/Units 15:48 WBC (4.0-10.0) 10^3/ uL RBC (4.1-5.3) 10^6/u L Hgb (11.5-15.3) g/dL Hct (37.0-47.0) % MCV (81-99) fL MCH (28.0-34.0) pg MCHC (30.0-36.0) g/dL RDW (12.1-15.1) % Plt Count (130-400) 10^3/c mm MPV (7.4-10.4) fL Neut % (Auto) % Lymph % (Auto) % Leslie % (Auto) % Eos % (Auto) % Baso % (Auto) % Neut # (Auto) (1.8-7.7) 10^3/u L Lymph # (Auto) (0.8-4.8) 10^3/u L Leslie # (Auto) (0.2-0.9) 10^3/u L Eos # (Auto) (0.0-0.8) 10^3/u L Baso # (Auto) (0.0-0.1) 10^3/u L Nucleated RBC % (a uto) % Nucleated RBCs # /100WBC D-Dimer (0-0.59) ug/mIFE U Specimen Type Sample Site ABG pH (7.35-7.45) ABG pCO2 (35-45) mmHg ABG pO2 (80.0-100.0) mmH g ABG HCO3 (22-26) mmol/L ABG Base Excess (-2.0-2.0) mmol/ L Carlos Test Hematocrit (37-47) % O2 Delivery Device O2 Liters/Min % FiO2 % Comp Field Case Manager ID Sodium (136-145) mmol/L Potassium (3.5-5.1) mmol/L Chloride (98-107) mmol/L Carbon Dioxide (22-29) mmol/L Anion Gap (5-19) BUN (6-20) mg/dL Creatinine (0.5-0.9) mg/dL GFR Calculation (90-130) mL/min Glucose (65-115) mg/dL POC Glucose 189 H (70-110) mg/dL Calculated Osmolal ity (285-295) mOsm/k g Lactic Acid (0.5-2.2) mmol/L Calcium (8.5-10.5) mg/dL Total Bilirubin (0.15-1.2) mg/dL AST (0-32) U/L ALT (0-33) U/L Alkaline Phosphata se (35-105) IU/L Troponin T Gen 5 n g/L (0-10) ng/L C-Reactive Protein (0.0-4.9) mg/L NT-Pro-B Natriuret Pep (0-125) pg/mL Total Protein (6.6-8.7) g/dL Albumin (3.5-5.2) g/dL Globulin (1.3-4.6) g/dL Procalcitonin (0-0.5) ng/mL Influenza Type A A g (Negative) Influenza Type B A g (Negative) SARS-CoV-2 Ag (Rap id) (Negative) Imaging Data^: CXR: Attestation: I personally reviewed and interpreted this imaging study as follows: Radiologist's impression: [address] [place] [address] XRay Report Signed Patient: Patricia Butcher #: [id number] : 1965Acct#:[id number] Age/Sex: 54 / FADM Date: 09/14/20 Loc: ERRoom/Bed: Attending Dr: Ordering Provider/Ordering MD: Juan Jose Maravilla MD, [facility] [place] of Service: 09/14/20 Procedure(s): XR chest 1V portable [id number] Accession Number(s): [id number] Report Number: [id number] WS: [id number] Portable AP upright chest, 09/14/2020 Clinical Data: SOB, hypoxia Comparison: Portable chest, 06/10/2018. Findings: No nodules, masses or effusions are seen. The heart is normal. The pulmonary vascularity is not increased. No pneumonia or pneumothorax is seen. Monitor leads are on the chest wall. XR/XR chest 1V portable [id number] Impression: Negative chest. Dictated By:Elaine Sauceda MD Signed By:Elaine Sauceda MDSigned Date/Time:09/14/20 1324 DD/ 1324 EKG Data^: EKG 1: Attestation: I personally reviewed and interpreted this EKG as follows: EKG Interpretation Date: 09/14/20 EKG interpretation time: 13:05 Computer Generated Interpretation: [address] [place] [address] Electrocardiograph Report Draft Patient: Patricia Butcher #: [id number] : 1965Acct#:[id number] Age/Sex: 54 / FADM Date: 09/14/20 Loc: ERRoom/Bed: Attending Dr: Ordering Provider/Ordering MD: Juan Jose Maravilla MD, [facility] [place] of Service: 09/14/20 Procedure(s): ECG 12 lead EKG Accession Number(s): [id number] Report Number: [id number] [facility] Test Date: 2020-09-14 Pat Name: Patricia Butcher Department: Room: Gender: Female Cartographic Technician: : 1965 Requested By: Juan Jose Maravilla I Order Number: [id number] Reading MD: Measurements Intervals [place] Rate: 93 P: [place]: QRS: 84 QRSD: 82 T: 73 QT: 358 QTc: 446 Interpretive Statements ATRIAL FLUTTER/TACHYCARDIA WITH ABERRANT CONDUCTION OR VENTRICULAR PREMATURE COMPLEXES ABNORMAL RHYTHM ECG No previous ECG available for comparison [email or web address] Dictated By:INTERFACE,USER Signed By:Signed Date/Time: DD/ 1305 Critical Care Time Critical Care Time: Critical Care Time: Yes Total Critical Care Time: 60 Attestation: This case had a high probability of a clinically significant, sudden, or life threatening deterioration of this patient's condition which required my full and direct attention, intervention and personal management. Discharge Plan Discharge Patient Disposition: Admitted As Inpatient Admit Provider: Torri Bettencourt Clinical Impression: Acute on chronic respiratory failure with hypoxia and hypercapnia, Acute exacerbation of chronic obstructive airways disease, Obesity hypoventilation syndrome Condition: Stable Coding Level of Care Code ED Property Management Bookkeeper for Aditya Lyons
[2020-09-15] VITALS (101 sets, daily range): BP systolic 99–158; BP diastolic 65–91; PULSE 70–124; RESP 4–27; TEMP 36.4–36.6; O2SAT 86–98
--- NOTE | 2020-09-15 01:05 | PC.NURSE ---
TRANSFER FROM ER Patient received from ED at 210. Patient is on nasal cannula at 4L and is alert and oriented x 4. Patient is sinus rhythm and denies any pain at this time. Patients blood sugar is 294, 10 units novolog given.
--- NOTE | 2020-09-15 01:26 | PC.NURSE ---
report received from Lilliam CONRAD and care transferred to ANAMARIA Burciaga
--- NOTE | 2020-09-15 01:49 | PC.NURSE ---
patient pannis cleaned and interdry applied by nurse.
[2020-09-15] MEDS: ipratropium-albuterol 3 mL Neb INHALATION (02:32)
[2020-09-15 03:43] LABS: Basophils % 0.1 %; Eosinophils % 0.2 %; Hematocrit 47.7 % (37.0-47.0); Hemoglobin 14.2 g/dL (11.5-15.3); Lymphocytes # 0.6 10^3/uL (0.8-4.8); Lymphocytes % 6.9 %; Mean Corpuscular HGB Conc 29.8 g/dL (30.0-36.0); Mean Corpuscular Hemoglobin 27.4 pg (28.0-34.0); Mean Corpuscular Volume 92.1 fL (81-99); Monocytes % 0.5 %; Neutrophils # 8.14 10^3/uL (1.8-7.7); Nucleated Red Blood Cells % 0 %; Platelet Count 190 10^3/cmm (130-400); Red Blood Count 5.18 10^6/uL (4.1-5.3); Red Cell Distribution Width 13.2 % (12.1-15.1); White Blood Count 8.9 10^3/uL (4.0-10.0)
[2020-09-15 04:06] LABS: Alanine Aminotransferase 30 U/L (0-33); Alkaline Phosphatase 147 IU/L (35-105); Anion Gap 9.3 (5-19); Aspartate Amino Transferase 13 U/L (0-32); Blood Urea Nitrogen 15 mg/dL (6-20); Calcium 7.6 mg/dL (8.5-10.5); Chloride 87 mmol/L (98-107); Glucose 263 mg/dL (65-115); Osmolality Calculated 290 mOsm/kg (285-295); Potassium 4.3 mmol/L (3.5-5.1); Sodium 135 mmol/L (136-145); Total Bilirubin 0.4 mg/dL (0.15-1.2)
[2020-09-15 04:09] LABS: Carbon Dioxide 43 mmol/L (22-29)
[2020-09-15 07:33] LABS: Glucose Point of Care 232 mg/dL (70-110)
[2020-09-15] MEDS: losartan 50 mg Tablet 25 MG PO (08:02)
[2020-09-15] MEDS: duloxetine 30 mg Capsule PO (08:02)
--- NOTE | 2020-09-15 11:05 | P.PN_ITS ---
Subjective Subjective: Interval history: feels close to baseline. coughing but no sputum which would be normal for her. She is nervous for final COVID test. Says she was tested negtive 5 other times. Able to walk to bathroom today. Medications: Reviewed: Yes Vitals/I&O/Wt Last Vital Signs Temp 98 F 09/15/20 10:00 Pulse 95 09/15/20 10:00 Resp 15 09/15/20 10:00 BP 138/80 09/15/20 10:00 Pulse Ox 93 09/15/20 10:00 09/14/20 09/15/20 09/15/20 22:59 06:59 14:59 Intake Total 250 / 250 250 / 250 Output Total 450 / 450 Balance 250 / 250 -200 / -200 Weight last 48 hrs Weight 113.455 kg Weight 115.485 kg Weight 110.677 kg Physical Exam Narrative: EXAM NARRATIVE: General: Patient appears older than her stated age of 54 she is in no distress. She is morbidly obese. Heart normal S1-S2 without murmurs clicks gallops or rubs regular rate and rhythm Lungs: Poor air movement overall expiratory wheezing throughout prolonged expiration phase Abdomen: Soft nontender nondistended positive bowel sounds Extremities: No clubbing cyanosis or edema Data : 09/15/20 03:27 09/15/20 03:27 A&P Assessment and plan (1) Acute exacerbation of chronic obstructive airways disease: Baseline on 3L oxygen with trilogy at night with normal sats of 88-92%. Currently on 5L sating 93%. Turned down to 4L with RN present. Wean steroids to solumedrol 40 mg q12h On appropriate inhalers and nebs Status: Acute (2) Acute on chronic respiratory failure with hypoxia and hypercapnia: close to baseline. increase ambulation. order PT Status: Acute (3) Hypertension: continue home meds Status: Acute Qualifiers: Hypertension type: essential hypertension Qualified Code(s): I10 - Essential (primary) hypertension (4) Diabetic retinopathy associated with controlled type 2 diabetes mellitus: Status: Acute (5) Long-term insulin use: Status: Acute (6) Type 2 diabetes mellitus: Status: Acute Qualifiers: Diabetes mellitus residential insulin use: with residential use Diabetes mellitus complication status: with neurologic complications Diabetes mellitus complication detail: with polyneuropathy Qualified Code(s): E11.42 - Type 2 diabetes mellitus with diabetic polyneuropathy; Z79.4 - [facility] (current) use of insulin (7) URTI (acute upper respiratory infection): with COPD exac. pt placed on zmax for 5 days. Status: Acute (8) Chronic obstructive pulmonary disease: Status: Acute Qualifiers: COPD type: emphysema Emphysema type: centrilobular Qualified Code(s): J43.2 - Centrilobular emphysema (9) Smoker: Status: Acute (10) Obesity hypoventilation syndrome: Status: Acute Attestations Medical Necessity Statement*: just off bipap. requires another MN which will be second. Coding Level of Care Code Acute Training Lead for [facility] Fwd Diagnoses Acute exacerbation of chronic obstructive airways disease J44.1 Acute on chronic respiratory failure with hypoxia and hypercapnia J96.21; J96.22 Hypertension I10 Hypertension type: essential hypertension Diabetic retinopathy associated with controlled type 2 diabetes mellitus E11.319 Long-term insulin use Z79.4 Type 2 diabetes mellitus E11.42; Z79.4 Diabetes mellitus superintendent terminal insulin use: with residential use Diabetes mellitus complication status: with neurologic complications Diabetes mellitus complication detail: with polyneuropathy URTI (acute upper respiratory infection) J06.9 Chronic obstructive pulmonary disease J43.2 COPD type: emphysema Emphysema type: centrilobular Smoker F17.200 Obesity hypoventilation syndrome E66.2
[2020-09-15 11:34] LABS: Glucose Point of Care 302 mg/dL (70-110)
[2020-09-15] MEDS: azithromycin 250 mg Tablet 500 MG PO (11:39)
[2020-09-15] MEDS: heparin 5,000 unit/mL INJ 1 mL 5000 UNIT SUBCUT ×2 (11:39→18:16)
[2020-09-15 16:51] LABS: Coronavirus Test Green County Not Detected
[2020-09-15 16:56] LABS: Glucose Point of Care 306 mg/dL (70-110)
[2020-09-15] MEDS: budesonide 0.5 mg/2 mL Neb INHALATION (19:50)
[2020-09-15] MEDS: saline nasal spray 44mL Btl 1 SPRAY NASAL (19:56)
[2020-09-15] MEDS: CLONazepam 0.5 mg Tablet PO (20:04)
[2020-09-15 20:48] LABS: Glucose Point of Care 290 mg/dL (70-110)
--- NOTE | 2020-09-15 21:52 | PC.NURSE ---
Received bed side shift report from off going nurse. Pt's plan of care reviewed. Pt resting in bed watching tv. Respirations are even and unlabored. No s/sx of distress noted. Pt denies any pains or concerns at this time. Pt is asking for her anxiety medication before she has to wear to bi-pap tonight. Bed in lowest and locked position, call light and water within reach, x's 2 rails up. Will continue to monitor pt.
[2020-09-16] VITALS (21 sets, daily range): BP systolic 116–148; BP diastolic 66–89; PULSE 78–105; RESP 12–28; TEMP 36.5–37.3; O2SAT 89–98; BMI 45.2
[2020-09-16] MEDS: ipratropium-albuterol 3 mL Neb INHALATION ×2 (03:01→08:28)
[2020-09-16] MEDS: heparin 5,000 unit/mL INJ 1 mL 5000 UNIT SUBCUT ×2 (03:50→10:16)
[2020-09-16 05:27] LABS: Hemoglobin 13.9 g/dL (11.5-15.3); Lymphocytes # 1.1 10^3/uL (0.8-4.8); Lymphocytes % 11.8 %; Mean Corpuscular HGB Conc 29.6 g/dL (30.0-36.0); Mean Corpuscular Hemoglobin 26.9 pg (28.0-34.0); Mean Corpuscular Volume 91.1 fL (81-99); Monocytes # 0.3 10^3/uL (0.2-0.9); Monocytes % 2.8 %; Neutrophils # 7.97 10^3/uL (1.8-7.7); Neutrophils % 85.1 %; Nucleated Red Blood Cells % 0 %; Platelet Count 213 10^3/cmm (130-400); Red Blood Count 5.16 10^6/uL (4.1-5.3); Red Cell Distribution Width 13.5 % (12.1-15.1); White Blood Count 9.4 10^3/uL (4.0-10.0)
[2020-09-16 05:51] LABS: Alanine Aminotransferase 25 U/L (0-33); Albumin Level 3.2 g/dL (3.5-5.2); Alkaline Phosphatase 142 IU/L (35-105); Anion Gap 8.5 (5-19); Aspartate Amino Transferase 12 U/L (0-32); Blood Urea Nitrogen 19 mg/dL (6-20); Calcium 7.6 mg/dL (8.5-10.5); Chloride 90 mmol/L (98-107); Glucose 290 mg/dL (65-115); Osmolality Calculated 297 mOsm/kg (285-295); Potassium 4.5 mmol/L (3.5-5.1); Sodium 137 mmol/L (136-145); Total Bilirubin 0.3 mg/dL (0.15-1.2); Total Protein 7.2 g/dL (6.6-8.7)
[2020-09-16 05:53] LABS: Carbon Dioxide 43 mmol/L (22-29)
--- NOTE | 2020-09-16 07:00 | PC.NURSE ---
Report received, care assumed. Monitor alarms, plan of care et previous orders reviewed. Please see physical assessment et vital sign flow sheet for details.
[2020-09-16 07:37] LABS: Glucose Point of Care 253 mg/dL (70-110)
[2020-09-16] MEDS: losartan 50 mg Tablet 25 MG PO (08:02)
[2020-09-16] MEDS: duloxetine 30 mg Capsule PO (08:02)
[2020-09-16] MEDS: azithromycin 250 mg Tablet 500 MG PO (08:02)
[2020-09-16] MEDS: budesonide 0.5 mg/2 mL Neb INHALATION (08:28)
--- NOTE | 2020-09-16 09:35 | PC.NURSE ---
Dr. Schmitt to see patient. Updated on patient condition.New orders noted et implemented. Will continue to monitor.
[2020-09-16] MEDS: CLONazepam 0.5 mg Tablet PO (10:10)
[2020-09-16] MEDS: insulin glargine 100 units/1 mL 25 UNIT SUBCUT (10:11)
--- NOTE | 2020-09-16 10:15 | P.DS_ITS ---
Discharge Providers Date of Admission: 09/14/20 16:00 Date of Discharge: September 16, 2020 Attending Provider at Admission: Torri Bettencourt MD Attending Provider at Discharge: Kumar Rocha DO Primary Care Provider: Wes Hart MD Diagnoses at Discharge Discharge Diagnosis (1) Acute exacerbation of chronic obstructive airways disease: Status: Acute (2) Acute on chronic respiratory failure with hypoxia and hypercapnia: Status: Acute (3) Hypertension: Status: Acute Qualifiers: Hypertension type: essential hypertension Qualified Code(s): I10 - Essential (primary) hypertension (4) Diabetic retinopathy associated with controlled type 2 diabetes mellitus: Status: Acute (5) Long-term insulin use: Status: Acute (6) Type 2 diabetes mellitus: Status: Acute Qualifiers: Diabetes mellitus adjunct faculty for medical terminology insulin use: with adjunct faculty for medical terminology use Diabetes mellitus complication status: with neurologic complications Diabetes mellitus complication detail: with polyneuropathy Qualified Code(s): E11.42 - Type 2 diabetes mellitus with diabetic polyneuropathy; Z79.4 - halfway (current) use of insulin (7) URTI (acute upper respiratory infection): Status: Acute (8) Chronic obstructive pulmonary disease: Status: Acute Qualifiers: COPD type: emphysema Emphysema type: centrilobular Qualified Code(s): J43.2 - Centrilobular emphysema (9) Smoker: Status: Acute (10) Obesity hypoventilation syndrome: Status: Acute Reason for Visit Reason for Visit: LOW OXYGEN Hospital Course Hospital Course Patient admitted for acute on chronic respiratory failure. She was requiring more oxygen and was also hypercapnic. She was placed on BiPAP. Patient was tested for COVID. Rapid COVID was negative as well as confirmatory PCR. she received IV steroids and improved over the course of a few days. Initally she received IV antibiotics. I switched to po zithromax for total 5 days. Rx written. Pt returned to baseline 3L of oxygen. Please note that pt is significantly hypercapneic and expected pulse ox should range from 88-92% otherwise her CO2 rises and pt becomes confused. she declines SNF recommendation however she is agreeable to [facility] for RN, PT, OT. Physical Exam Narrative: EXAM NARRATIVE: EXAM NARRATIVE: General: Patient appears older than her stated age of 54 she is in no distress. She is morbidly obese. Heart normal S1-S2 without murmurs clicks gallops or rubs regular rate and rhythm Lungs: Poor air movement overall. only end expiratory wheezing today, prolonged expiration phase Abdomen: Soft nontender nondistended positive bowel sounds Extremities: No clubbing cyanosis or edema Discharge Data Data Completed and Pending: Completed Studies During Hospitalization Category Date Time Status XR chest 1V chavo ble [id number] Stat Exams 09/14/20 12:51 Completed Pending at discharge Category Date Time Status Complete Blood Co unt w/Auto AM LABS Lab 09/17/20 04:00 Ordered Comprehensive Met abolic Panel AM LA BS Lab 09/17/20 04:00 Ordered Labs from last 24 hours 09/16/20 09/16/20 09/16/20 07:23 04:52 04:52 WBC 9.4 RBC 5.16 Hgb 13.9 Hct 47.0 MCV 91.1 MCH 26.9 L MCHC 29.6 L RDW 13.5 Plt Count 213 MPV 10.0 Neut % (Auto) 85.1 Lymph % (Auto) 11.8 [place] % (Auto) 2.8 Eos % (Auto) 0.0 Baso % (Auto) 0.0 Neut # (Auto) 7.97 H Lymph # (Auto) 1.1 [place] # (Auto) 0.3 Eos # (Auto) 0.0 Baso # (Auto) 0.0 Nucleated RBC % (a uto) 0 Nucleated RBCs # 0.0 Sodium 137 Potassium 4.5 Chloride 90 L Carbon Dioxide 43 H* Anion Gap 8.5 BUN 19 Creatinine 0.4 L GFR Calculation 167.0 H Glucose 290 H POC Glucose 253 H Calculated Osmolal ity 297 H Calcium 7.6 L Total Bilirubin 0.3 AST 12 ALT 25 Alkaline Phosphata se 142 H Total Protein 7.2 Albumin 3.2 L Globulin 4.0 Nasal/Oral COVID-1 9 PCR 09/15/20 09/15/20 09/15/20 19:55 16:54 11:31 WBC RBC Hgb Hct MCV MCH MCHC RDW Plt Count MPV Neut % (Auto) Lymph % (Auto) [place] % (Auto) Eos % (Auto) Baso % (Auto) Neut # (Auto) Lymph # (Auto) [place] # (Auto) Eos # (Auto) Baso # (Auto) Nucleated RBC % (a uto) Nucleated RBCs # Sodium Potassium Chloride Carbon Dioxide Anion Gap BUN Creatinine GFR Calculation Glucose POC Glucose 290 H 306 H 302 H Calculated Osmolal ity Calcium Total Bilirubin AST ALT Alkaline Phosphata se Total Protein Albumin Globulin Nasal/Oral COVID-1 9 PCR 09/14/20 14:45 WBC RBC Hgb Hct MCV MCH MCHC RDW Plt Count MPV Neut % (Auto) Lymph % (Auto) [place] % (Auto) Eos % (Auto) Baso % (Auto) Neut # (Auto) Lymph # (Auto) [place] # (Auto) Eos # (Auto) Baso # (Auto) Nucleated RBC % (a uto) Nucleated RBCs # Sodium Potassium Chloride Carbon Dioxide Anion Gap BUN Creatinine GFR Calculation Glucose POC Glucose Calculated Osmolal ity Calcium Total Bilirubin AST ALT Alkaline Phosphata se Total Protein Albumin Globulin Nasal/Oral COVID-1 9 PCR Not detected Vitals: Last Vital Signs Temp 99.1 F 09/16/20 07:00 Pulse 89 09/16/20 10:00 Resp 17 09/16/20 10:00 BP 116/66 09/16/20 10:00 Pulse Ox 93 09/16/20 10:00 Discharge Plan Discharge Patient Disposition: Home Condition: Stable Prescriptions: New azithromycin 250 mg Tablet 500 mg PO DAILY Qty: 7 RF: 0 Saline Mist 0.65 % Aerosol,Mcdonald 1 spray nasal PRN PRN (Reason: Dryness) Qty: 1 RF: 0 Continued albuterol sulfate [Ventolin HFA] 90 mcg/actuation HFA aerosol inhaler 2 puff inhalation QID PRN (Reason: shortness of breath or wheezing) Qty: 18 RF: 3 Lantus Solostar U-100 Insulin 100 unit/mL (3 mL) insulin pen See Rx Instructions .ROUTE .COMPLEX RF: 0 Farxiga 10 mg tablet 10 mg PO DAILY RF: 0 losartan 50 mg tablet 25 mg PO DAILY RF: 0 clonazepam 0.5 mg tablet 0.5 mg PO TID PRN (Reason: Anxiety) RF: 0 duloxetine 30 mg capsule,delayed release(DR/EC) 30 mg PO DAILY RF: 0 Brovana 15 mcg/2 mL solution for nebulization 2 ml inhalation Q12H Qty: 60 RF: 3 budesonide [Pulmicort] 0.25 mg/2 mL suspension for nebulization 0.5 mg inhalation BID Qty: 60 RF: 3 prednisone 10 mg tablet 10 mg PO EVERY OTHER DAY RF: 0 ipratropium-albuterol 0.5 mg-3 mg(2.5 mg base)/3 mL solution for nebulization 3 ml INHALATION QID PRN (Reason: Shortness Of Breath) RF: 0 Novolog Flexpen U-100 Insulin 100 unit/mL (3 mL) insulin pen See Rx Instructions .ROUTE .COMPLEX RF: 0 Victoza 3-Greg 0.6 mg/0.1 mL (18 mg/3 mL) pen injector 1.8 mg SUBCUT QAM RF: 0 Arnuity Ellipta 100 mcg/actuation blister with device See Rx Instructions .ROUTE .COMPLEX RF: 0 Combivent Respimat 20-100 mcg/actuation mist 1 puff INHALATION QID PRN (Reason: Shortness Of Breath) RF: 0 Discharge Orders: Discharge Order (Routine); Ordered 09/16/20 Ordered By: Kumar Rocha Discharge Diet: Advance as tolerated Discharge Activity: Increase activity as tolerated Discharge Attestations Time Spent in Discharge Care*: greater than 30 min Quality Metrics Clinical Quality Measures During this hospital stay, did patient experience: None Coding Level of Care Code Acute g FW DC note Diagnoses Acute exacerbation of chronic obstructive airways disease J44.1 Acute on chronic respiratory failure with hypoxia and hypercapnia J96.21; J96.22 Hypertension I10 Hypertension type: essential hypertension Diabetic retinopathy associated with controlled type 2 diabetes mellitus E11.319 Long-term insulin use Z79.4 Type 2 diabetes mellitus E11.42; Z79.4 Diabetes mellitus adjunct faculty for medical terminology insulin use: with adjunct faculty for medical terminology use Diabetes mellitus complication status: with neurologic complications Diabetes mellitus complication detail: with polyneuropathy URTI (acute upper respiratory infection) J06.9 Chronic obstructive pulmonary disease J43.2 COPD type: emphysema Emphysema type: centrilobular Smoker F17.200 Obesity hypoventilation syndrome E66.2
[2020-09-16 10:49] LABS: Glucose Point of Care 415 mg/dL (70-110)
--- NOTE | 2020-09-17 13:22 | PC.RESP ---
Smoking Cessation and Pulmonary Rehab discussed on phone with pt. Pt scheduled for Evaluation in Pulmonary Rehab.
== END 2020-09-16 15:00 | disposition home health service (06) | DRG 189 ==
LOC: ER 16:12 → ICU 19:06
PROVIDERS: Admitting Provider Student in an Organized Health Care Education/Training Program; Emergency Provider Family Medicine; PCP Family Medicine; Visit Provider Internal Medicine
DX: J96.22 Acute and chronic respiratory failure with hypercapnia (principal); E66.2 Morbid (severe) obesity with alveolar hypoventilation; Z68.42 Body mass index [BMI] 45.0-49.9, adult; J96.21 Acute and chronic respiratory failure with hypoxia; E11.42 Type 2 diabetes mellitus with diabetic polyneuropathy; Z79.4 Long term (current) use of insulin; J43.2 Centrilobular emphysema; F17.210 Nicotine dependence, cigarettes, uncomplicated; I10 Essential (primary) hypertension; E11.319 Type 2 diabetes mellitus with unspecified diabetic retinopathy without macular edema; Z20.822 Contact with and (suspected) exposure to COVID-19; Z99.81 Dependence on supplemental oxygen; F41.9 Anxiety disorder, unspecified
CPT/HCPCS: 36415; 36416; 36600; 71045; 80053; 82803; 82962; 83605; 83880; 84145; 84484; 85025; 85378; 86140; 87426; 87635; 87804; 93005; 94640; 94660; 94664; 96365; 96372; 96375; 97110; 97116; 97161; 97530; 99285; 99291; J0456; J1644; J1815 ×2; J2920; J2930; J3535; J7050; J7626; Q0144

== ENCOUNTER 2020-10-09 12:45 | Outpatient (RCR) | payer MEDICARE, MEDICAID, SELFPAY | END 2020-10-26 23:59 | disposition home or self-care (01) | LOC: PULRHB 12:45 | PROVIDERS: PCP Family Medicine; Visit Provider Internal Medicine Pulmonary Disease | DX: J44.9 Chronic obstructive pulmonary disease, unspecified (principal) | CPT/HCPCS: 94618; G0424 ==

== ENCOUNTER 2020-10-27 06:00 | Outpatient (RCR) | payer MEDICARE, MEDICAID, SELFPAY | END 2020-11-26 23:59 | disposition home or self-care (01) | LOC: PULRHB 06:00 | PROVIDERS: PCP Family Medicine; Visit Provider Internal Medicine Pulmonary Disease | DX: J44.9 Chronic obstructive pulmonary disease, unspecified (principal) | CPT/HCPCS: G0424 ==

== ENCOUNTER 2020-11-02 12:41 | Outpatient (CLI) | payer MEDICARE, MEDICAID, SELFPAY ==
--- NOTE | 2020-11-02 12:50 | XR_ITS ---
WS: [id number] Chest 2 views, 11/02/2020 Clinical Data: ACUTE BRONCHITIS Comparison: Portable chest, 09/14/2020. Findings: No nodules, masses or effusions are seen. The heart is normal. The pulmonary vascularity is not increased. No pneumonia or pneumothorax is seen. XR/XR chest 2V* [id number] Impression: Negative chest.
== END 2020-11-02 12:42 | disposition home or self-care (01) ==
PROVIDERS: PCP Family Medicine; Visit Provider Family Medicine
DX: J20.9 Acute bronchitis, unspecified (principal)
CPT/HCPCS: 71046

== ENCOUNTER 2020-11-06 10:52 | Inpatient (IN) | payer MEDICARE, MEDICAID, SELFPAY ==
[2020-11-06] VITALS (15 sets, daily range): BP systolic 95–160; BP diastolic 61–89; PULSE 86–110; RESP 16–28; TEMP 36.6–37.3; O2SAT 89–98; BMI 42.8
--- NOTE | 2020-11-06 11:04 | XRR_ITS ---
PROCEDURE INFORMATION: Exam: XR Chest Exam date and time: 11/06/2020 11:05 AM Age: 54 years old Clinical indication: Cough and dyspnea; Additional info: Dyspnea/cough TECHNIQUE: Imaging protocol: XR of the chest. Views: 1 view. COMPARISON: CR XR chest 2V* [id number] 11/02/2020 12:55 PM FINDINGS: Lungs: Unremarkable. No consolidation. Pleural spaces: Unremarkable. No pleural effusion. No pneumothorax. Heart/Mediastinum: Unremarkable. No cardiomegaly. Bones/joints: Unremarkable. XR/XR chest 1V portable [id number] IMPRESSION: No acute findings.
[2020-11-06 11:32] LABS: ABG PH Result 7.36 (7.35-7.45); Arterial Blood Gas Hematocrit 45.6 % (37-47); Blood Gas Allen Test Pos; Blood Gas Sample Type Arterial; Carboxyhemoglobin 6.5 %THgb (0.4-20.1); HCO3 ABG 43.6 mmol/L (22-26); HGB O2 Sat 87.7 % (95-100); Methemoglobin 0.8 % (0.4-1.5); Oxygen Saturation ABG 94.6; PO2 ABG 69.3 mmHg (80.0-100.0); Potassium Level - ABG 3.3 mmol/L (3.5-5.0); Total Hemoglobin 14.9 g/dL (12-16)
[2020-11-06 11:33] LABS: Alveolar-Arterial Oxygen Gradi 12.7 mmHg (5-10); Blood Gas Operator Identificat ED; Blood Gas Sample Site Radial, left; Oxygen Device NC
[2020-11-06 11:34] LABS: ABG PCO2 76.9 mmHg (35-45)
--- NOTE | 2020-11-06 11:46 | ED_ITS ---
HPI - SOB/Dyspnea General: Chief Complaint: Shortness of Breath/Dyspnea Stated Complaint: SHORT OF BREATH Time Seen by Provider: 11/06/20 10:56 History of Present Illness: HPI Narrative: 54-year-old female with a history of COPD comes in complaining of shortness of breath she was seen last week there is at her primary care doctor with a complaint of hemoptysis was started on Zithromax and prednisone. She has not been feeling any better today was at Dr. Blount's office and was satting 74% with a productive cough she usually wears 3 L by nasal cannula and was wearing that at the time. I turned up to 6 L and the staff brought her here to the emergency room on arrival here she is still short of breath lightheaded and dizzy. Her oxygen is immediately turned down is concerned that she was retaining CO2. She does report being done with the steroids. She has been using albuterol 5-6 times a day with minimal relief of symptoms. MD elicited complaint: shortness of breath and cough Pertinent past history: COPD Onset (ago): day(s) Timing: constant Severity: moderate Exacerbating factors: exertion, movement and coughing Relieving factors: oxygen, rest and bronchodilators Associated symptoms: Reports chest congestion, cough and hemoptysis; Deny abdominal pain, chest pain, diaphoresis, dizziness, extremity pain, fever(s), lightheadedness, myalgias, nausea, orthopnea, palpitations, paresthesias, polydipsia, polyuria, rash, sense of impending doom, syncope or vomiting Treatment prior to arrival: oxygen Review of Systems Const: Denies: fever(s) or diaphoresis ENMT: Denies: throat pain, ear or mastoid pain, nasal discharge or nasal congestion Card: Denies: chest pain, palpitations, lightheadedness, syncope or orthopnea Resp: Reports: dyspnea, productive cough, hemoptysis and chest congestion GI: Denies: abdominal pain, nausea or vomiting : Denies: flank pain, difficulty voiding, dysuria, urinary frequency or urinary urgency Musc: Denies: extremity pain Skin/Breast: Denies: rash or pruritus Neuro: Denies: dizziness Endo: Denies: polyuria or polydipsia PFSH ED PFSH: Medical History Anxiety disorder Asthma Chronic obstructive pulmonary disease Chronic respiratory failure with hypoxia and hypercapnia Diabetic retinopathy associated with controlled type 2 diabetes mellitus Erythrocytosis Hypercholesteremia Hypertension Hypokalemia Long-term insulin use Obesity hypoventilation syndrome Obesity hypoventilation syndrome Smoker Type 2 diabetes mellitus Surgical History History of carpal tunnel release History of tonsillectomy History of total abdominal hysterectomy Family History Father , at the of 70 Diabetes Cancer lung CAD (coronary artery disease) Mother , at the age of 55 Hypertension Lung disease Social History Smoking and tobacco status: current every day smoker cigarettes Years cigarettes smoked: 35 Quit status (tobacco): considering quitting Second hand smoke exposure: Yes Smoking risk assessment/counseling performed?: Yes Alcohol intake: current Alcohol intake frequency: holidays/special occasions only Alcohol type: wine Desire information about substance/drug rehabilitation?: No Counseling given: No Caregiver/support person: No Lives independently: Yes Household members: children Housing: House Marital status: Legally Current occupational status: disabled Pets and animals: No History of recent travel: No Current gender identity: Female Physical Exam Const: COMMON NORMALS: no acute distress GENERAL APPEARANCE: cooperative and comfortable ORIENTATION/CONSCIOUSNESS: Yes awake, Yes oriented to person, Yes oriented to place and Yes oriented to time HENMT: COMMON NORMALS: normocephalic, atraumatic and hearing grossly normal bilaterally HEAD & SCALP: normocephalic and atraumatic Neck/C-Spine: COMMON NORMALS: no JVD Resp: AUSCULTATION: rhonchi and wheezes Cardio: COMMON NORMALS: no JVD, regular rate, regular rhythm and No murmurs present (Cardio) RATE: regular rate RHYTHM: regular rhythm GI: COMMON NORMALS: Soft to palpation and No hepatosplenomegaly present AUSCULTATION: Yes normoactive bowel sounds PALPATION: Yes Soft to palpation, No Tenderness to palpation present (GI), No Guarding due to palpation present (GI) and Yes No hepatosplenomegaly present Extremity: COMMON NORMALS: normal to inspection, capillary refill normal, no clubbing, cyanosis or edema, no calf tenderness and no pedal edema Neuro: SENSORIUM/ORIENTATION: Yes oriented to person, Yes oriented to place and Yes oriented to time Skin: COMMON NORMALS: no rashes or lesions noted GENERAL SKIN EXAM: no rashes or lesions noted Course Vital Signs: Vital signs: Vital Signs Temperature 98.5 F 11/08/20 13:26 Pulse Rate 96 11/08/20 13:26 Respiratory Rate 18 11/08/20 13:26 Blood Pressure 138/81 11/08/20 13:26 Pulse Oximetry 94 11/08/20 13:26 MDM - SOB/Dyspnea MDM Narrative: Medical decision making narrative: Discussed with patient acute exacerbation COPD surgery given steroids and nebs. Chest x-ray did not show anything concerning other than chronic respiratory changes. Will admit discussed Dr. Cunningham orders written at this point he did not have clinical indication that Covid is a concern. Lab Data: Labs: Lab Results 11/06/20 11/06/20 11/06/20 Range/Units 11:21 11:41 11:41 WBC 9.2 (4.0-10.0) 10^3/ uL RBC 5.67 H (4.1-5.3) 10^6/u L Hgb 15.5 H (11.5-15.3) g/dL Hct 51.5 H (37.0-47.0) % MCV 90.8 (81-99) fL MCH 27.3 L (28.0-34.0) pg MCHC 30.1 (30.0-36.0) g/dL RDW 14.0 (12.1-15.1) % Plt Count 229 (130-400) 10^3/c mm MPV 9.7 (7.4-10.4) fL Neut % (Auto) 66.0 % Lymph % (Auto) 25.9 % [place] % (Auto) 5.9 % Eos % (Auto) 1.5 % Baso % (Auto) 0.4 % Neut # (Auto) 6.09 (1.8-7.7) 10^3/u L Lymph # (Auto) 2.4 (0.8-4.8) 10^3/u L [place] # (Auto) 0.5 (0.2-0.9) 10^3/u L Eos # (Auto) 0.1 (0.0-0.8) 10^3/u L Baso # (Auto) 0.0 (0.0-0.1) 10^3/u L Nucleated RBC % (a uto) 0 % Nucleated RBCs # 0.0 /100WBC Specimen Type Arterial Sample Site Radial, left ABG pH 7.36 (7.35-7.45) ABG pCO2 76.9 H* (35-45) mmHg ABG pO2 69.3 L (80.0-100.0) mmH g ABG HCO3 43.6 H (22-26) mmol/L ABG O2 Saturation 94.6 ABG Base Excess 14.0 H (-2.0-2.0) mmol/ L Carlos Test Pos A-a O2 Gradient 12.7 H (5-10) mmHg Hematocrit 45.6 (37-47) % Hgb O2 Saturation 87.7 L (95-100) % Carboxyhemoglobin 6.5 (0.4-20.1) %THgb Methemoglobin 0.8 (0.4-1.5) % Total Hemoglobin 14.9 (12-16) g/dL Sodium 140.0 140 (131-143) mmol/L Potassium 3.3 L 3.3 L (3.5-5.0) mmol/L Glucose 190.0 H 183 H (70-115) mg/dL Ionized Calcium 1.0 L (1.1-1.4) mmol/L O2 Delivery Device Nc O2 Liters/Min 4.0 % FiO2 36.0 % Income Auditor ID Ed Chloride 92 L (98-107) mmol/L Carbon Dioxide 42 H* (22-29) mmol/L Anion Gap 9.3 (5-19) BUN 8 (6-20) mg/dL Creatinine 0.3 L (0.5-0.9) mg/dL GFR Calculation 232.7 H (90-130) mL/min Calculated Osmolal ity 293 (285-295) mOsm/k g Calcium 7.5 L (8.5-10.5) mg/dL Total Bilirubin 0.4 (0.15-1.2) mg/dL AST 13 (0-32) U/L ALT 9 (0-33) U/L Alkaline Phosphata se 153 H (35-105) IU/L Total Protein 7.5 (6.6-8.7) g/dL Albumin 3.7 (3.5-5.2) g/dL Globulin 3.8 (1.3-4.6) g/dL Urine Color (Yellow) Urine Appearance (CLEAR) Urine pH (5-7) Ur Specific Gravit y (1.005-1.030) Urine Protein (Negative) Urine Glucose (UA) (Normal) Urine Ketones (Negative) Urine Blood (Negative) Urine Nitrate (Negative) Urine Bilirubin (Negative) Urine Urobilinogen (Negative) mg/dL Ur Leukocyte Isabella ase (Negative) Urine RBC (0-2) /hpf Urine WBC (0-5) /hpf Ur Squamous Epith Cells (0-5) /hpf Amorphous Sediment Urine Bacteria (NONE) /hpf Urine Yeast /hpf 11/06/20 11/06/20 Range/Units 12:27 13:21 WBC (4.0-10.0) 10^3/ uL RBC (4.1-5.3) 10^6/u L Hgb (11.5-15.3) g/dL Hct (37.0-47.0) % MCV (81-99) fL MCH (28.0-34.0) pg MCHC (30.0-36.0) g/dL RDW (12.1-15.1) % Plt Count (130-400) 10^3/c mm MPV (7.4-10.4) fL Neut % (Auto) % Lymph % (Auto) % [place] % (Auto) % Eos % (Auto) % Baso % (Auto) % Neut # (Auto) (1.8-7.7) 10^3/u L Lymph # (Auto) (0.8-4.8) 10^3/u L [place] # (Auto) (0.2-0.9) 10^3/u L Eos # (Auto) (0.0-0.8) 10^3/u L Baso # (Auto) (0.0-0.1) 10^3/u L Nucleated RBC % (a uto) % Nucleated RBCs # /100WBC Specimen Type Arterial Sample Site Radial, left ABG pH 7.36 (7.35-7.45) ABG pCO2 81.7 H* (35-45) mmHg ABG pO2 72.1 L (80.0-100.0) mmH g ABG HCO3 46.0 H (22-26) mmol/L ABG O2 Saturation 94.9 ABG Base Excess 15.8 H (-2.0-2.0) mmol/ L Carlos Test Pos A-a O2 Gradient 11.6 H (5-10) mmHg Hematocrit 45.6 (37-47) % Hgb O2 Saturation 88.7 L (95-100) % Carboxyhemoglobin 5.8 (0.4-20.1) %THgb Methemoglobin 0.8 (0.4-1.5) % Total Hemoglobin 14.9 (12-16) g/dL Sodium 139.0 (131-143) mmol/L Potassium 3.2 L (3.5-5.0) mmol/L Glucose 158.0 H (70-115) mg/dL Ionized Calcium 1.0 L (1.1-1.4) mmol/L O2 Delivery Device Bipap O2 Liters/Min % FiO2 36.0 % Income Auditor ID Ed Chloride (98-107) mmol/L Carbon Dioxide (22-29) mmol/L Anion Gap (5-19) BUN (6-20) mg/dL Creatinine (0.5-0.9) mg/dL GFR Calculation (90-130) mL/min Calculated Osmolal ity (285-295) mOsm/k g Calcium (8.5-10.5) mg/dL Total Bilirubin (0.15-1.2) mg/dL AST (0-32) U/L ALT (0-33) U/L Alkaline Phosphata se (35-105) IU/L Total Protein (6.6-8.7) g/dL Albumin (3.5-5.2) g/dL Globulin (1.3-4.6) g/dL Urine Color Yellow (Yellow) Urine Appearance Cloudy (CLEAR) Urine pH 6 (5-7) Ur Specific Gravit y 1.015 (1.005-1.030) Urine Protein Neg (Negative) Urine Glucose (UA) Norm (Normal) Urine Ketones Negative (Negative) Urine Blood Neg (Negative) Urine Nitrate Negative (Negative) Urine Bilirubin Neg (Negative) Urine Urobilinogen Norm (Negative) mg/dL Ur Leukocyte Isabella ase 2+ H (Negative) Urine RBC 0-4 H (0-2) /hpf Urine WBC 5-10 H (0-5) /hpf Ur Squamous Epith Cells 25-40 H (0-5) /hpf Amorphous Sediment Not Reportable Urine Bacteria 2+ H (NONE) /hpf Urine Yeast 2+ H /hpf Discharge Plan Discharge Patient Disposition: Admitted As Inpatient Admit Provider: Denver Cunningham Clinical Impression: Acute exacerbation of chronic obstructive airways disease, Chronic respiratory failure with hypercapnia, Type 2 diabetes mellitus Condition: Stable Coding Level of Care Code ED Studio Associate for Aditya Lyons
[2020-11-06 12:00] LABS: Basophils % 0.4 %; Eosinophils # 0.1 10^3/uL (0.0-0.8); Eosinophils % 1.5 %; Hematocrit 51.5 % (37.0-47.0); Hemoglobin 15.5 g/dL (11.5-15.3); Lymphocytes # 2.4 10^3/uL (0.8-4.8); Lymphocytes % 25.9 %; Mean Corpuscular HGB Conc 30.1 g/dL (30.0-36.0); Mean Corpuscular Hemoglobin 27.3 pg (28.0-34.0); Mean Corpuscular Volume 90.8 fL (81-99); Mean Platelet Volume 9.7 fL (7.4-10.4); Monocytes # 0.5 10^3/uL (0.2-0.9); Monocytes % 5.9 %; Neutrophils # 6.09 10^3/uL (1.8-7.7); Nucleated Red Blood Cells % 0 %; Platelet Count 229 10^3/cmm (130-400); Red Blood Count 5.67 10^6/uL (4.1-5.3); White Blood Count 9.2 10^3/uL (4.0-10.0)
--- NOTE | 2020-11-06 12:00 | ECG_ITS ---
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 Measurements Intervals [place] Rate: 94 P: 73 DC: 150 QRS: 76 QRSD: 81 T: 74 QT: 363 QTc: 454 Interpretive Statements SINUS RHYTHM POSSIBLE LEFT ATRIAL ENLARGEMENT [-0.1mV P WAVE IN V1/V2] Compared to ECG 09/14/2020 13:05:09 Ventricular premature complex(es) no longer present Electronically Signed On 11-06-2020 19:26:01 CDT by Kaya Mansfield M.D. [id number]
[2020-11-06 12:14] LABS: Alanine Aminotransferase 9 U/L (0-33); Albumin Level 3.7 g/dL (3.5-5.2); Alkaline Phosphatase 153 IU/L (35-105); Anion Gap 9.3 (5-19); Aspartate Amino Transferase 13 U/L (0-32); Blood Urea Nitrogen 8 mg/dL (6-20); Calcium 7.5 mg/dL (8.5-10.5); Chloride 92 mmol/L (98-107); Globulin 3.8 g/dL (1.3-4.6); Glomerular Filtration Rate 232.7 mL/min (90-130); Glucose 183 mg/dL (65-115); Osmolality Calculated 293 mOsm/kg (285-295); Potassium 3.3 mmol/L (3.5-5.1); Sodium 140 mmol/L (136-145); Total Bilirubin 0.4 mg/dL (0.15-1.2); Total Protein 7.5 g/dL (6.6-8.7)
[2020-11-06 12:25] LABS: Carbon Dioxide 42 mmol/L (22-29)
[2020-11-06 12:39] LABS: Add Urine Microscopic? YES; Bilirubin Urine Neg (Negative); Blood Urine Neg (Negative); Glucose Urine UA Norm (Normal); Ketones Urine Negative (Negative); Leukocyte Esterase Urine 2+ (Negative); Nitrate Urine Negative (Negative); Protein Urine Neg (Negative); Specific Gravity, Urine 1.015 (1.005-1.030); Urine Appearance Cloudy (CLEAR); Urine Color Yellow (Yellow); Urobilinogen Urine Norm (Negative); pH Urine 6 (5-7)
[2020-11-06 13:30] LABS: ABG PH Result 7.36 (7.35-7.45); Arterial Blood Gas Hematocrit 45.6 % (37-47); Base Excess ABG 15.8 mmol/L (-2.0-2.0); Blood Gas Allen Test Pos; Blood Gas Sample Type Arterial; Carboxyhemoglobin 5.8 %THgb (0.4-20.1); HGB O2 Sat 88.7 % (95-100); Methemoglobin 0.8 % (0.4-1.5); Oxygen Saturation ABG 94.9; PO2 ABG 72.1 mmHg (80.0-100.0); Potassium Level - ABG 3.2 mmol/L (3.5-5.0); Total Hemoglobin 14.9 g/dL (12-16)
[2020-11-06 13:32] LABS: Alveolar-Arterial Oxygen Gradi 11.6 mmHg (5-10); Blood Gas Operator Identificat ED; Blood Gas Sample Site Radial, left; Oxygen Device BIPAP
[2020-11-06 13:33] LABS: ABG PCO2 81.7 mmHg (35-45)
--- NOTE | 2020-11-06 13:41 | ECG_ITS ---
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 Measurements Intervals [place] Rate: 96 P: 69 [place]: 161 QRS: 77 QRSD: 76 T: 76 QT: 380 QTc: 481 Interpretive Statements SINUS RHYTHM POSSIBLE LEFT ATRIAL ENLARGEMENT [-0.1mV P WAVE IN V1/V2] Compared to ECG 09/14/2020 13:05:09 Ventricular premature complex(es) no longer present Electronically Signed On 11-06-2020 19:23:16 CDT by Kaya Mansfield M.D. [email or web address] ([id number]
[2020-11-06 14:06] LABS: Bacteria Urine 2+ /hpf; RBC Urine 0-4 /hpf (0-2); Squamous Epithelial Cell Urine 25-40 /hpf (0-5)
[2020-11-06 14:07] LABS: Add Urine Culture? No
[2020-11-06] MEDS: levofloxacin-dextrose 5 % 500 MG/100 ML PREMIX 100 MG IV (14:33)
--- NOTE | 2020-11-06 15:04 | DCPLANNER ---
senior sales operations manager had message to schedule an outpatient echo and carotid for patient. senior sales operations manager faxed signed order to centralized scheduling, will call for appointment information.
--- NOTE | 2020-11-06 15:37 | PM.HP ---
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 Upon arrival in the ER she was worked up for above-mentioned complaint. Imaging studies; XR chest : No infiltrates, no pulmonary effusion, no acute findings EKG; normal sinus rhythm, ABG: pH: 7.38, PCO2:81, PO2:72, FiO2: 30% ECA medications: Solu-Medrol 125 mg IV 1 time dose, levofloxacin: 500 mg IV 1 time dose. DuoNeb's She was placed on BiPAP Review of Systems Const: Denies: fever(s), chills, body aches, change in appetite or diaphoresis Card: Denies: palpitations, edema or swelling of feet/ankles Resp: Denies: pain on inspiration GI: Denies: abdominal pain, nausea, vomiting, diarrhea or constipation : Denies: flank pain Musc: Denies: back pain, extremity pain or extremity swelling Neuro: Denies: headache(s), difficulty walking or confusion Medications/Allergies Home Medications Medication Instructions Recorded Confirmed Last Taken Type clonazepam 0.5 mg tablet 0.5 mg PO TID PRN 06/07/20 11/06/20 11/05/20 History dapagliflozin 10 mg tablet 10 mg PO DAILY 06/07/20 11/06/20 09/13/20 History duloxetine 30 mg capsule,delayed 30 mg PO DAILY 06/07/20 11/06/20 09/13/20 History release insulin glargine 100 unit/mL (3 75 unit SUBCUT BEDTIME ml 06/07/20 11/06/20 11/05/20 History mL) subcutaneous pen losartan 50 mg tablet 25 mg PO DAILY tab 06/07/20 11/06/20 08/28/20 History Combivent Respimat 1 puff INHALATION QID PRN 09/14/20 11/06/20 Unknown History Victoza 3-Greg 1.8 mg SUBCUT QAM 09/14/20 11/06/20 11/05/20 History insulin aspart U-100 [Novolog See Rx Instructions .ROUTE .COMPLEX 09/14/20 11/06/20 11/05/20 History Flexpen U-100 Insulin] see pharmacy comment albuterol sulfate 90 mcg/actuation 2 puff INHALATION Q6H PRN #8.5 g 10/24/20 11/06/20 11/06/20 Rx aerosol inhaler ipratropium 0.5 mg-albuterol 3 mg 3 ml INHALATION QID PRN #360 ml 10/24/20 11/06/20 Unknown Rx (2.5 mg base)/3 mL nebulization soln doxycycline hyclate 100 mg PO BID 11/06/20 11/06/20 11/05/20 History xnxtrdliunr-lqiroqxey-rpqbhnri 1 ea INHALATION DAILY 11/06/20 11/06/20 Unknown History [Trelegy Ellipta] levofloxacin 750 mg PO DAILY 11/06/20 11/06/20 Unknown History methylprednisolone 4 mg tablets in See Rx Instructions PO PER PKG DIR 11/06/20 11/06/20 11/05/20 History a dose pack see pharmacy comment revefenacin [Yupelri] 175 mcg INHALATION QAM 11/06/20 11/06/20 11/05/20 History Allergies Allergy/AdvReac Type Severity Reaction Status Date / Time naproxen Allergy Mild nausea and Verified 11/06/20 12:26 vomiting Penicillins Allergy Mild itching Verified 11/06/20 12:26 PFSH Acute PFSH: Medical History (Updated 11/06/20 @ 19:25 by Denver Cunningham MD) Anxiety disorder Asthma Chronic obstructive pulmonary disease Diabetic retinopathy associated with controlled type 2 diabetes mellitus Hypercholesteremia Hypertension Long-term insulin use Obesity hypoventilation syndrome Smoker Type 2 diabetes mellitus Surgical History History of carpal tunnel release History of tonsillectomy History of total abdominal hysterectomy Family History Father , at the of 70 Diabetes Cancer lung CAD (coronary artery disease) Mother , at the age of 55 Hypertension Lung disease Social History Smoking and tobacco status: current every day smoker cigarettes Years cigarettes smoked: 35 Quit status (tobacco): considering quitting Second hand smoke exposure: Yes Smoking risk assessment/counseling performed?: Yes Alcohol intake: current Alcohol intake frequency: holidays/special occasions only Alcohol type: wine Desire information about substance/drug rehabilitation?: No Counseling given: No Caregiver/support person: No Lives independently: Yes Household members: children Housing: House Marital status: Legally Current occupational status: disabled Pets and animals: No History of recent travel: No Current gender identity: Female Vitals/I&O/Wt Last Vital Signs Temp 98.4 F 11/06/20 11:01 Pulse 87 11/06/20 14:40 Resp 18 11/06/20 14:40 BP 130/73 11/06/20 14:40 Pulse Ox 93 11/06/20 14:40 Weight last 48 hrs Weight 109.769 kg Physical Exam Const: COMMON NORMALS: patient oriented x3 HENMT: COMMON NORMALS: normocephalic, atraumatic, hearing grossly normal bilaterally and external ears normal HEAD & SCALP: normocephalic and atraumatic EXTERNAL EAR: Yes external ears normal Eye: COMMON NORMALS: no scleral icterus GENERAL EYE: appearance normal, both eyes and all related structures Resp: COMMON NORMALS: normal respiratory effort OTHER: Bilateral wheezing present in both the lungs mcintosh Cardio: COMMON NORMALS: regular rate, regular rhythm, S1 normal heart sound present, S2 normal heart sound present, No gallops present (Cardio), No murmurs present (Cardio), No rub (Cardio) and Peripheral pulses 2+ throughout RATE: regular rate RHYTHM: regular rhythm HEART SOUNDS: S1 normal heart sound present and S2 normal heart sound present PERIPHERAL PULSES: Peripheral pulses 2+ throughout GI: COMMON NORMALS: Normal to inspection, nondistended, normoactive bowel sounds present, Soft to palpation, non-tender, No hepatosplenomegaly present and no masses AUSCULTATION: Yes normoactive bowel sounds PALPATION: Yes Soft to palpation and Yes No hepatosplenomegaly present RECTAL EXAM: deferred Extremity: COMMON NORMALS: no clubbing, cyanosis or edema and no pedal edema Neuro: COMMON NORMALS: patient oriented x3 Data : 11/06/20 11:41 11/06/20 11:41 Micro: Microbiology 11/06/20 13:45 Blood Culture - Preliminary Blood SPECIMEN COLLECTED 11/06/20 11:41 Blood Culture - Preliminary Blood SPECIMEN COLLECTED A&P Assessment and plan (1) Chronic obstructive pulmonary disease: Solu-Medrol 60 IV every 8h daily DuoNeb's Levofloxacin 750 mg IV daily BiPAP Status: Acute Qualifiers: COPD type: emphysema Emphysema type: centrilobular Qualified Code(s): J43.2 - Centrilobular emphysema (2) Chronic respiratory failure with hypoxia and hypercapnia: Status: Acute (3) Obesity hypoventilation syndrome: Status: Acute (4) Hypertension: Status: Acute Qualifiers: Hypertension type: essential hypertension Qualified Code(s): I10 - Essential (primary) hypertension (5) Type 2 diabetes mellitus: Status: Acute Qualifiers: Diabetes mellitus prison insulin use: with computer terminal operator use Diabetes mellitus complication status: with neurologic complications Diabetes mellitus complication detail: with polyneuropathy Qualified Code(s): E11.42 - Type 2 diabetes mellitus with diabetic polyneuropathy; Z79.4 - prison (current) use of insulin (6) Erythrocytosis: Status: Acute (7) Hypokalemia: Status: Acute Additional A&P Information CODE STATUS: Full code DVT prophylaxis: Lovenox 40 mg subcu daily Disposition: Home Attestations Medical Necessity Statement*: Patient needs to be in hospital for management of COPD exacerbation. 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
[2020-11-06] MEDS: ipratropium-albuterol 3 mL Neb INHALATION ×2 (15:59→21:12)
[2020-11-06 16:40] LABS: Glucose Point of Care 197 mg/dL (70-110)
[2020-11-06] MEDS: potassium chloride ER 20 mEq Tablet PO (17:09)
[2020-11-06] MEDS: enoxaparin 40 mg/0.4 mL Syringe SUBCUT (17:09)
[2020-11-06 17:38] LABS: ABG PH Result 7.38 (7.35-7.45); Arterial Blood Gas Hematocrit 47.9 % (37-47); Base Excess ABG 14.3 mmol/L (-2.0-2.0); Blood Gas Allen Test Pos; Blood Gas Sample Type Arterial; HCO3 ABG 43.6 mmol/L (22-26); PO2 ABG 55.9 mmHg (80.0-100.0)
[2020-11-06 17:39] LABS: ABG PCO2 73.3 mmHg (35-45); Blood Gas Operator Identificat ED; Blood Gas Sample Site Radial, right; Oxygen Device NC
[2020-11-06] MEDS: acetaminophen 325 mg Tablet 650 MG PO (18:05)
[2020-11-06 21:10] LABS: Glucose Point of Care 384 mg/dL (70-110)
[2020-11-06] MEDS: insulin glargine 100 units/1 mL 50 UNIT SUBCUT (22:11)
[2020-11-06] MEDS: CLONazepam 0.5 mg Tablet PO (22:20)
[2020-11-07] VITALS (19 sets, daily range): BP systolic 120–146; BP diastolic 64–87; PULSE 72–101; RESP 16–20; TEMP 36.4–37.1; O2SAT 92–98
[2020-11-07] MEDS: ipratropium-albuterol 3 mL Neb INHALATION ×5 (03:22→19:13)
[2020-11-07 06:35] LABS: Basophils % 0.1 %; Hematocrit 48.9 % (37.0-47.0); Hemoglobin 14.9 g/dL (11.5-15.3); Lymphocytes # 0.8 10^3/uL (0.8-4.8); Lymphocytes % 9.4 %; Mean Corpuscular HGB Conc 30.5 g/dL (30.0-36.0); Mean Corpuscular Volume 88.7 fL (81-99); Mean Platelet Volume 9.8 fL (7.4-10.4); Monocytes # 0.1 10^3/uL (0.2-0.9); Monocytes % 0.8 %; Neutrophils # 7.99 10^3/uL (1.8-7.7); Neutrophils % 89.1 %; Nucleated Red Blood Cells % 0 %; Platelet Count 229 10^3/cmm (130-400); Red Blood Count 5.51 10^6/uL (4.1-5.3); Red Cell Distribution Width 13.3 % (12.1-15.1)
[2020-11-07 06:44] LABS: Alanine Aminotransferase 9 U/L (0-33); Albumin Level 3.3 g/dL (3.5-5.2); Alkaline Phosphatase 132 IU/L (35-105); Anion Gap 11.8 (5-19); Aspartate Amino Transferase 8 U/L (0-32); Blood Urea Nitrogen 10 mg/dL (6-20); Calcium 7.3 mg/dL (8.5-10.5); Carbon Dioxide 37 mmol/L (22-29); Chloride 94 mmol/L (98-107); Globulin 3.7 g/dL (1.3-4.6); Glomerular Filtration Rate 232.7 mL/min (90-130); Glucose 266 mg/dL (65-115); Osmolality Calculated 296 mOsm/kg (285-295); Potassium 3.8 mmol/L (3.5-5.1); Sodium 139 mmol/L (136-145); Total Bilirubin 0.3 mg/dL (0.15-1.2)
[2020-11-07 07:02] LABS: Magnesium 1.9 mg/dL (1.7-2.3)
[2020-11-07 07:06] LABS: Glucose Point of Care 269 mg/dL (70-110)
[2020-11-07 07:33] LABS: NT Pro B Type Natriuretic Pept 130 pg/mL (0-125)
[2020-11-07] MEDS: duloxetine 30 mg Capsule PO (07:45)
[2020-11-07] MEDS: losartan 50 mg Tablet 25 MG PO (07:45)
--- NOTE | 2020-11-07 10:37 | PC.NURSE ---
Offered patient a bath and she said she wanted to wait until after lunch. Did change linens.
[2020-11-07 10:56] LABS: Glucose Point of Care 312 mg/dL (70-110)
[2020-11-07] MEDS: acetaminophen 325 mg Tablet 650 MG PO (12:45)
--- NOTE | 2020-11-07 13:17 | PM.PN ---
Subjective Subjective: Interval history: Patient continues to complain of shortness of breath, particularly with minimal exertion. Her other vitals and labs have been reviewed. Vitals/I&O/Wt Last Vital Signs Temp 98.7 F 11/07/20 12:00 Pulse 73 11/07/20 12:00 Resp 16 11/07/20 12:00 BP 133/87 11/07/20 12:00 Pulse Ox 98 11/07/20 12:00 11/06/20 11/07/20 11/07/20 22:59 06:59 14:59 Intake Total 700 / 700 820 / 820 Balance 700 / 700 820 / 820 Weight last 48 hrs Weight 109.769 kg Physical Exam Const: COMMON NORMALS: patient oriented x3 HENMT: COMMON NORMALS: normocephalic, atraumatic, hearing grossly normal bilaterally and external ears normal HEAD & SCALP: normocephalic and atraumatic EXTERNAL EAR: Yes external ears normal Eye: COMMON NORMALS: no scleral icterus GENERAL EYE: appearance normal, both eyes and all related structures Resp: COMMON NORMALS: normal respiratory effort OTHER: Bilateral wheezing present in both the lungs mcintosh Cardio: COMMON NORMALS: regular rate, regular rhythm, S1 normal heart sound present, S2 normal heart sound present, No gallops present (Cardio), No murmurs present (Cardio), No rub (Cardio) and Peripheral pulses 2+ throughout RATE: regular rate RHYTHM: regular rhythm HEART SOUNDS: S1 normal heart sound present and S2 normal heart sound present PERIPHERAL PULSES: Peripheral pulses 2+ throughout GI: COMMON NORMALS: Normal to inspection, nondistended, normoactive bowel sounds present, Soft to palpation, non-tender, No hepatosplenomegaly present and no masses AUSCULTATION: Yes normoactive bowel sounds PALPATION: Yes Soft to palpation and Yes No hepatosplenomegaly present RECTAL EXAM: deferred Extremity: COMMON NORMALS: no clubbing, cyanosis or edema and no pedal edema Neuro: COMMON NORMALS: patient oriented x3 Data : 11/07/20 05:36 11/07/20 05:36 Micro: Microbiology 11/06/20 11:41 Blood Culture - Preliminary Blood NEGATIVE TO DATE 11/06/20 13:45 Blood Culture - Preliminary Blood SPECIMEN COLLECTED A&P Assessment and plan (1) Chronic obstructive pulmonary disease: Solu-Medrol 60 IV every 8h daily DuoNeb's Levofloxacin 750 mg IV daily BiPAP Status: Acute Qualifiers: COPD type: emphysema Emphysema type: centrilobular Qualified Code(s): J43.2 - Centrilobular emphysema (2) Chronic respiratory failure with hypoxia and hypercapnia: Status: Acute (3) Obesity hypoventilation syndrome: Status: Acute (4) Hypertension: Status: Acute Qualifiers: Hypertension type: essential hypertension Qualified Code(s): I10 - Essential (primary) hypertension (5) Type 2 diabetes mellitus: Status: Acute Qualifiers: Diabetes mellitus complication detail: with polyneuropathy Diabetes mellitus complication status: with neurologic complications Diabetes mellitus correction insulin use: with correction use Qualified Code(s): E11.42 - Type 2 diabetes mellitus with diabetic polyneuropathy; Z79.4 - terminal carman (current) use of insulin (6) Erythrocytosis: Status: Acute (7) Hypokalemia: Resolved Status: Acute Additional A&P Information CODE STATUS: Full code DVT prophylaxis: Lovenox 40 mg subcu daily Disposition: Home Attestations Medical Necessity Statement*: Patient needs to be in hospital for management of COPD exacerbation. 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
[2020-11-07] MEDS: levofloxacin-dextrose 5 % 750 MG/150 ML PREMIX 100 MG IV (15:49)
[2020-11-07] MEDS: enoxaparin 40 mg/0.4 mL Syringe SUBCUT (15:49)
[2020-11-07 17:34] LABS: Glucose Point of Care 422 mg/dL (70-110)
[2020-11-07 20:04] LABS: Glucose Point of Care 286 mg/dL (70-110)
[2020-11-07] MEDS: insulin glargine 100 units/1 mL 50 UNIT SUBCUT (21:22)
[2020-11-08] VITALS (17 sets, daily range): BP systolic 109–138; BP diastolic 64–81; PULSE 69–96; RESP 17–18; TEMP 36.1–36.9; O2SAT 93–96
[2020-11-08] MEDS: ipratropium-albuterol 3 mL Neb INHALATION ×4 (00:02→11:17)
[2020-11-08] MEDS: CLONazepam 0.5 mg Tablet PO (00:50)
[2020-11-08 06:06] LABS: Basophils % 0.1 %; Hemoglobin 14.5 g/dL (11.5-15.3); Lymphocytes # 0.9 10^3/uL (0.8-4.8); Lymphocytes % 7.5 %; Mean Corpuscular HGB Conc 30.2 g/dL (30.0-36.0); Mean Corpuscular Hemoglobin 27.1 pg (28.0-34.0); Mean Corpuscular Volume 89.6 fL (81-99); Mean Platelet Volume 10.1 fL (7.4-10.4); Monocytes # 0.2 10^3/uL (0.2-0.9); Monocytes % 1.8 %; Neutrophils # 11.13 10^3/uL (1.8-7.7); Neutrophils % 90.1 %; Nucleated Red Blood Cells % 0 %; Platelet Count 237 10^3/cmm (130-400); Red Blood Count 5.36 10^6/uL (4.1-5.3); Red Cell Distribution Width 13.6 % (12.1-15.1); White Blood Count 12.4 10^3/uL (4.0-10.0)
[2020-11-08 06:16] LABS: Alanine Aminotransferase 9 U/L (0-33); Albumin Level 3.2 g/dL (3.5-5.2); Alkaline Phosphatase 128 IU/L (35-105); Anion Gap 7.3 (5-19); Aspartate Amino Transferase 8 U/L (0-32); Blood Urea Nitrogen 13 mg/dL (6-20); Calcium 7.3 mg/dL (8.5-10.5); Carbon Dioxide 40 mmol/L (22-29); Chloride 92 mmol/L (98-107); Globulin 3.6 g/dL (1.3-4.6); Glucose 221 mg/dL (65-115); Osmolality Calculated 287 mOsm/kg (285-295); Potassium 4.3 mmol/L (3.5-5.1); Sodium 135 mmol/L (136-145); Total Bilirubin 0.3 mg/dL (0.15-1.2); Total Protein 6.8 g/dL (6.6-8.7)
[2020-11-08 06:44] LABS: Glucose Point of Care 227 mg/dL (70-110)
[2020-11-08] MEDS: duloxetine 30 mg Capsule PO (08:28)
[2020-11-08] MEDS: losartan 50 mg Tablet 25 MG PO (08:28)
--- NOTE | 2020-11-08 11:27 | P.DS_ITS ---
Discharge Providers Date of Admission: 11/06/20 13:56 Date of Discharge: November 08, 2020 Attending Provider at Admission: Denver Cunningham MD Attending Provider at Discharge: Denver Cunningham MD Primary Care Provider: Wes Hart MD Diagnoses at Discharge Discharge Diagnosis (1) Chronic obstructive pulmonary disease: Qualifiers: COPD type: emphysema Emphysema type: centrilobular Qualified Code(s): J43.2 - Centrilobular emphysema (2) Chronic respiratory failure with hypoxia and hypercapnia: (3) Obesity hypoventilation syndrome: (4) Hypertension: Qualifiers: Hypertension type: essential hypertension Qualified Code(s): I10 - Essential (primary) hypertension (5) Type 2 diabetes mellitus: Qualifiers: Diabetes mellitus complication detail: with polyneuropathy Diabetes mellitus complication status: with neurologic complications Diabetes mellitus [facility] insulin use: with termite helper use Qualified Code(s): E11.42 - Type 2 diabetes mellitus with diabetic polyneuropathy; Z79.4 - jail (current) use of insulin (6) Erythrocytosis: (7) Hypokalemia: Reason for Visit Reason for Visit: SHORT OF BREATH Hospital Course Hospital Course Beatris Butcher is a 54 year old female with past medical history of COPD Gold class D on 3 L home oxygen, diabetes, obesity hypoventilation syndrome,on triology at night, came in today with worsening shortness of breath as well as cough with productive of sputum for the past 3 to 4 days, 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 Upon arrival in the ER she was worked up for above-mentioned complaint. Imaging studies; XR chest : No infiltrates, no pulmonary effusion, no acute findings , EKG; normal sinus rhythm, ABG: pH: 7.38, PCO2:81, PO2:72, FiO2: 30% ECA medications: Solu-Medrol 125 mg IV 1 time dose, levofloxacin: 500 mg IV 1 time dose. DuoNeb's. During the hospital stay she was continued on duo nebs, steroids, BiPAP at night, levofloxacin antibiotic. She responded well to the above medical management, at the time of discharge, her shortness of breath had improved,she was at her baseline oxygen requirement. She was afebrile, hemodynamically stable. She was discharged on, steroids for additional 5 days, along with levofloxacin oral for additional 5 days. She will continue to follow as an outpatient. Physical Exam Const: COMMON NORMALS: patient oriented x3 HENMT: COMMON NORMALS: normocephalic, atraumatic, hearing grossly normal bilaterally and external ears normal HEAD & SCALP: normocephalic and atraumatic EXTERNAL EAR: Yes external ears normal Eye: COMMON NORMALS: no scleral icterus GENERAL EYE: appearance normal, both eyes and all related structures Resp: COMMON NORMALS: normal respiratory effort and clear to auscultation bilaterally AUSCULTATION: clear to auscultation bilaterally Cardio: COMMON NORMALS: regular rate, regular rhythm, S1 normal heart sound present, S2 normal heart sound present, No gallops present (Cardio), No murmurs present (Cardio), No rub (Cardio) and Peripheral pulses 2+ throughout RATE: regular rate RHYTHM: regular rhythm HEART SOUNDS: S1 normal heart sound present and S2 normal heart sound present PERIPHERAL PULSES: Peripheral pulses 2+ throughout GI: COMMON NORMALS: Normal to inspection, nondistended, normoactive bowel sounds present, Soft to palpation, non-tender, No hepatosplenomegaly present and no masses AUSCULTATION: Yes normoactive bowel sounds PALPATION: Yes Soft to palpation and Yes No hepatosplenomegaly present RECTAL EXAM: deferred Extremity: COMMON NORMALS: no clubbing, cyanosis or edema and no pedal edema Neuro: COMMON NORMALS: patient oriented x3 Discharge Data Data Completed and Pending: Completed Studies During Hospitalization Category Date Time Status XR chest 1V chavo ble [id number] Stat Exams 11/06/20 11:04 Completed Pending at discharge Category Date Time Status Blood Culture Sta t Lab 11/06/20 13:45 Results Complete Blood Co unt w/Auto AM LABS Lab 11/09/20 04:00 Ordered Comprehensive Met abolic Panel AM LA BS Lab 11/09/20 04:00 Ordered Sputum Culture an d Gram Stain Stat Lab 11/06/20 11:03 Uncollected Labs from last 24 hours 11/08/20 11/08/20 11/08/20 06:03 04:29 04:29 WBC 12.4 H RBC 5.36 H Hgb 14.5 Hct 48.0 H MCV 89.6 MCH 27.1 L MCHC 30.2 RDW 13.6 Plt Count 237 MPV 10.1 Neut % (Auto) 90.1 Lymph % (Auto) 7.5 Barton % (Auto) 1.8 Eos % (Auto) 0.0 Baso % (Auto) 0.1 Neut # (Auto) 11.13 H Lymph # (Auto) 0.9 Barton # (Auto) 0.2 Eos # (Auto) 0.0 Baso # (Auto) 0.0 Nucleated RBC % (a uto) 0 Nucleated RBCs # 0.0 Sodium 135 L Potassium 4.3 Chloride 92 L Carbon Dioxide 40 H Anion Gap 7.3 BUN 13 Creatinine 0.4 L GFR Calculation 167.0 H Glucose 221 H POC Glucose 227 H Calculated Osmolal ity 287 Calcium 7.3 L Total Bilirubin 0.3 AST 8 ALT 9 Alkaline Phosphata se 128 H Total Protein 6.8 Albumin 3.2 L Globulin 3.6 11/07/20 11/07/20 20:01 16:37 WBC RBC Hgb Hct MCV MCH MCHC RDW Plt Count MPV Neut % (Auto) Lymph % (Auto) Barton % (Auto) Eos % (Auto) Baso % (Auto) Neut # (Auto) Lymph # (Auto) Barton # (Auto) Eos # (Auto) Baso # (Auto) Nucleated RBC % (a uto) Nucleated RBCs # Sodium Potassium Chloride Carbon Dioxide Anion Gap BUN Creatinine GFR Calculation Glucose POC Glucose 286 H 422 H Calculated Osmolal ity Calcium Total Bilirubin AST ALT Alkaline Phosphata se Total Protein Albumin Globulin Vitals: Last Vital Signs Temp 98.0 F 11/08/20 07:43 Pulse 89 11/08/20 11:23 Resp 18 11/08/20 11:17 BP 123/73 11/08/20 08:28 Pulse Ox 96 11/08/20 11:17 Discharge Plan Discharge Patient Disposition: Home Condition: Stable Prescriptions: New prednisone 20 mg tablet 20 mg PO DAILY Qty: 5 RF: 0 levofloxacin 500 mg tablet 500 mg PO DAILY 5 Days RF: 0 Continued Lantus Solostar U-100 Insulin 100 unit/mL (3 mL) insulin pen 75 unit SUBCUT BEDTIME RF: 0 Farxiga 10 mg tablet 10 mg PO DAILY RF: 0 losartan 50 mg tablet 25 mg PO DAILY RF: 0 clonazepam 0.5 mg tablet 0.5 mg PO TID PRN (Reason: Anxiety) RF: 0 duloxetine 30 mg capsule,delayed release(DR/EC) 30 mg PO DAILY RF: 0 ipratropium-albuterol 0.5 mg-3 mg(2.5 mg base)/3 mL solution for nebulization 3 ml INHALATION QID PRN (Reason: Shortness Of Breath) Qty: 360 RF: 3 albuterol sulfate 90 mcg/actuation HFA aerosol inhaler 2 puff inhalation Q6H PRN (Reason: shortness of breath or wheezing) Qty: 8.5 RF: 3 doxycycline hyclate 100 mg capsule 100 mg PO BID RF: 0 Trelegy Ellipta 100-62.5-25 mcg blister with device 1 ea INHALATION DAILY RF: 0 Yupelri 175 mcg/3 mL solution for nebulization 175 mcg inhalation QAM RF: 0 insulin aspart U-100 [Novolog Flexpen U-100 Insulin] 100 unit/mL (3 mL) insulin pen See Rx Instructions .ROUTE .COMPLEX RF: 0 Victoza 3-Greg 0.6 mg/0.1 mL (18 mg/3 mL) pen injector 1.8 mg SUBCUT QAM RF: 0 Combivent Respimat 20-100 mcg/actuation mist 1 puff INHALATION QID PRN (Reason: Shortness Of Breath) RF: 0 Discontinued methylprednisolone 4 mg tablets,dose pack See Rx Instructions PO PER PKG DIR RF: 0 levofloxacin 750 mg tablet 750 mg PO DAILY RF: 0 Discharge Orders: Discharge Order (Routine); Ordered 11/08/20 Ordered By: Denver Cunningham Referrals: DatarBienvenido MD [Physician] - 6 Weeks ([facility] will call you with an appointment.) Patient Instructions: COPD, Prednisone (By mouth), Levofloxacin (By mouth), Hyperglycemia, COPD Stoplight, Opioid Safety Discharge Attestations Time Spent in Discharge Care*: less than 30 min Specific Discharge Activities: educating patient, educating and/or supporting family/caregiver, discussing with pcp/other providers, discussing with case management rn/social workers/dc planners, documenting/other paperwork and evaluating patient/reviewing data Status at Discharge: Cognitive status at discharge: cognitively intact , Behavioral status at discharge: cooperative , Functional status at discharge: independent ambulation Overall status at discharge: patient is back to baseline Quality Metrics Clinical Quality Measures During this hospital stay, did patient experience: None Coding Level of Care Code Acute Chg FW DC note Diagnoses Chronic obstructive pulmonary disease J43.2 COPD type: emphysema Emphysema type: centrilobular Chronic respiratory failure with hypoxia and hypercapnia J96.11; J96.12 Obesity hypoventilation syndrome E66.2 Hypertension I10 Hypertension type: essential hypertension Type 2 diabetes mellitus E11.42; Z79.4 Diabetes mellitus complication detail: with polyneuropathy Diabetes mellitus complication status: with neurologic complications Diabetes mellitus [facility] insulin use: with termite helper use Erythrocytosis D75.1 Hypokalemia E87.6
[2020-11-08 11:30] LABS: Glucose Point of Care 285 mg/dL (70-110)
--- NOTE | 2020-11-22 08:54 | DCPLANNER ---
Patient has a follow up appointment scheduled for Thursday December 24, 2020 at 1:30 for an outpatient echo and 2l15 for an outpatient carotid.
--- NOTE | 2021-01-23 07:11 | DCPLANNER ---
Patient had a follow up appointment scheduled for 12.24.20 for an outpatient echo and carotid - patient did not attend appointment.
== END 2020-11-08 14:03 | disposition home or self-care (01) | DRG 191 ==
LOC: ER 11:35 → MEDSURG 15:36
PROVIDERS: Admitting Provider Internal Medicine; Emergency Provider Family Medicine; PCP Family Medicine; Visit Provider Internal Medicine
DX: J43.2 Centrilobular emphysema (principal); E66.2 Morbid (severe) obesity with alveolar hypoventilation; Z68.41 Body mass index [BMI] 40.0-44.9, adult; J96.12 Chronic respiratory failure with hypercapnia; J96.11 Chronic respiratory failure with hypoxia; Z99.81 Dependence on supplemental oxygen; E11.42 Type 2 diabetes mellitus with diabetic polyneuropathy; E11.319 Type 2 diabetes mellitus with unspecified diabetic retinopathy without macular edema; F41.9 Anxiety disorder, unspecified; E78.00 Pure hypercholesterolemia, unspecified; I10 Essential (primary) hypertension; F17.210 Nicotine dependence, cigarettes, uncomplicated; E87.6 Hypokalemia; Z79.4 Long term (current) use of insulin; Z79.51 Long term (current) use of inhaled steroids
CPT/HCPCS: 36415; 36416; 36600; 71045; 80051; 80053; 81001; 82330; 82803; 82805; 82962; 83735; 83880; 85025; 87040; 93005; 94640; 94660; 96365; 96372; 96375; 99291; J1650; J1815 ×2; J1956; J2930

== ENCOUNTER 2020-11-23 14:58 | Inpatient (IN) | payer MEDICARE, MEDICAID, SELFPAY ==
[2020-11-23] VITALS (13 sets, daily range): BP systolic 106–142; BP diastolic 53–99; PULSE 102–136; RESP 17–22; TEMP 37.2–39.2; O2SAT 84–94; BMI 42.0
--- NOTE | 2020-11-23 15:25 | XR_ITS ---
WS: [id number] Exam: XR chest 1V portable [id number] Date/Time of Exam: 11/23/2020 3:25 PM Reason For Exam: fever, SOB Comparison 11/07/2019. There is consolidating pneumonia in the lower lobe of the right lung. The left lung is clear. The john gs are fully inflated. No pleural effusion. Normal cardiomediastinal structures and bony elements. XR/XR chest 1V portable [id number] IMPRESSION: 1. Consolidating right lower lobe pneumonia.
--- NOTE | 2020-11-23 15:30 | ECG_ITS ---
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 Measurements Intervals Turner Rate: 130 P: 69 WY: 138 QRS: 83 QRSD: 84 T: 78 QT: 297 QTc: 437 Interpretive Statements SINUS TACHYCARDIA ABNORMAL RHYTHM ECG Compared to ECG 11/06/2020 13:48:23 Sinus rhythm no longer present Electronically Signed On 11-24-2020 9:46:17 CDT by Nita Meza M.D. [id number]
--- NOTE | 2020-11-23 15:34 | W.ED.SOB ---
HPI - SOB/Dyspnea General: Chief Complaint: Shortness of Breath/Dyspnea Stated Complaint: FEVER HIGH BLOOD SUGAR Time Seen by Provider: 11/23/20 15:16 Source: patient Mode of arrival: ambulatory Limitations: no limitations History of Present Illness: HPI Narrative: This is a 55-year-old female patient with severe COPD, who is on oxygen at 4 L/min at baseline. This morning she woke up with a fever that went as high as 101.5, has increased shortness of breath, states that her blood sugar was in the 500s earlier at home. She got back from [place] last night where she was seen for possible biopsy of a tongue lesion which is concerning for cancer. She said the provider felt she was too high risk for the procedure. On arrival to the emergency department she was with an oxygen saturation of 84% on 4 L of oxygen. Had a temperature of 102.5. She has not had COVID-19 or the vaccination. She has frequent episodes of pneumonia. MD elicited complaint: shortness of breath Pertinent past history: COPD and diabetes Onset (ago): hour(s) (8) Context: recent illness Timing: constant Severity: severe Exacerbating factors: nothing Relieving factors: nothing Known history of: COPD Associated symptoms: Reports cough and lightheadedness; Deny abdominal pain, chest congestion, chest pain, diaphoresis, dizziness, extremity pain, fever(s), hemoptysis, myalgias, nausea, orthopnea, palpitations, paresthesias, polydipsia, polyuria, rash, sense of impending doom, syncope or vomiting Treatment prior to arrival: oxygen Review of Systems General: Reports: 10 or more systems reviewed and unremarkable except in HPI and below Const: Denies: fever(s) or diaphoresis Card: Reports: lightheadedness; Denies: chest pain, palpitations, syncope or orthopnea Resp: Denies: hemoptysis or chest congestion GI: Denies: abdominal pain, nausea or vomiting Musc: Denies: extremity pain Neuro: Denies: dizziness Endo: Denies: polyuria or polydipsia PFS ED PFSH: Medical History (Updated 11/24/20 @ 00:32 by Juan Jose Maravilla MD, [facility] [place] Acute exacerbation of chronic obstructive airways disease Anxiety disorder Asthma Chronic obstructive pulmonary disease Chronic respiratory failure with hypercapnia Chronic respiratory failure with hypoxia and hypercapnia Diabetic retinopathy associated with controlled type 2 diabetes mellitus Erythrocytosis Hypercholesteremia Hypertension Hypokalemia Long-term insulin use Obesity hypoventilation syndrome Obesity hypoventilation syndrome Smoker Type 2 diabetes mellitus Type 2 diabetes mellitus Surgical History History of carpal tunnel release History of tonsillectomy History of total abdominal hysterectomy Family History Father , at the of 70 Diabetes Cancer lung CAD (coronary artery disease) Mother , at the age of 55 Hypertension Lung disease Social History Smoking and tobacco status: current some day smoker cigarettes Years cigarettes smoked: 35 Quit status (tobacco): considering quitting Second hand smoke exposure: Yes Smoking risk assessment/counseling performed?: Yes Alcohol intake: current Alcohol intake frequency: holidays/special occasions only Alcohol type: wine Desire information about substance/drug rehabilitation?: No Counseling given: No Caregiver/support person: No Lives independently: Yes Household members: children Housing: House Marital status: Legally Current occupational status: disabled Pets and animals: No History of recent travel: No Current gender identity: Female Physical Exam Const: COMMON NORMALS: no acute distress, average body habitus, patient oriented x3, no limitations, healthy appearing, alert and well nourished HENMT: COMMON NORMALS: normocephalic, atraumatic and moist oral mucous membranes HEAD & SCALP: normocephalic and atraumatic Neck/C-Spine: COMMON NORMALS: no meningeal signs and no JVD Resp: COMMON NORMALS: normal respiratory effort, No retractions, No use of accessory muscles, clear to auscultation bilaterally and percussion normal AUSCULTATION: clear to auscultation bilaterally PERCUSSION: percussion normal Cardio: COMMON NORMALS: no JVD, regular rate, regular rhythm, S1 normal heart sound present, S2 normal heart sound present, No gallops present (Cardio), No clicks present (Cardio), No murmurs present (Cardio), No rub (Cardio) and Peripheral pulses 2+ throughout RATE: regular rate RHYTHM: regular rhythm HEART SOUNDS: S1 normal heart sound present and S2 normal heart sound present PERIPHERAL PULSES: Peripheral pulses 2+ throughout GI: COMMON NORMALS: Normal to inspection, nondistended, normoactive bowel sounds present, Soft to palpation, non-tender, No hepatosplenomegaly present, no masses and no bruits PALPATION: Yes Soft to palpation and Yes No hepatosplenomegaly present Extremity: COMMON NORMALS: normal to inspection, full ROM, capillary refill normal, no calf tenderness and no pedal edema Neuro: COMMON NORMALS: patient oriented x3 SENSORIUM/ORIENTATION: Yes alert MENINGEAL SIGNS: Yes no meningeal signs Course ED course: 1615: Updated her on her chest x-ray findings, upon her white cell counts. Explained that she has pneumonia and I have ordered cefepime. She will be admitted to the hospital since she is hypoxic, has a significant white cell count and has a pneumonia. Her other labs are pending including lactic acid. She voiced understanding and is in agreement with the plan. Consultations: Consultation #1: Discussed the patient with Dr. Mariee, hospitalist and he kindly accepted patient to his service. Time: 16:36 Vital Signs: Vital signs: Vital Signs Temperature 97.1 F L 11/24/20 00:00 Pulse Rate 106 H 11/24/20 00:00 Respiratory Rate 18 11/24/20 00:00 Blood Pressure 122/53 11/24/20 00:00 Pulse Oximetry 97 11/24/20 00:00 MDM - SOB/Dyspnea MDM Narrative: Medical decision making narrative: 55-year-old female patient who was brought into the emergency department with with fever, shortness of breath, and in the ED she was hypoxic on her usual 4 L of oxygen. She needed to have her oxygen levels increased to 6 L/min to maintain her saturations above 90%. In the emergency department she was febrile, tachycardic, had a right lower lobe pneumonia, and still meets sepsis criteria. She was given a dose of intravenous cefepime in the ED and admitted to the hospital for further evaluation and management. She also had significant leukocytosis. Lab Data: Labs: Lab Results 11/23/20 11/23/20 11/23/20 Range/Units 15:14 15:30 15:40 WBC (4.0-10.0) 10^3/ uL RBC (4.1-5.3) 10^6/u L Hgb (11.5-15.3) g/dL Hct (37.0-47.0) % MCV (81-99) fL MCH (28.0-34.0) pg MCHC (30.0-36.0) g/dL RDW (12.1-15.1) % Plt Count (130-400) 10^3/c mm MPV (7.4-10.4) fL Neut % (Auto) % Lymph % (Auto) % [place] % (Auto) % Eos % (Auto) % Baso % (Auto) % Neut # (Auto) (1.8-7.7) 10^3/u L Lymph # (Auto) (0.8-4.8) 10^3/u L [place] # (Auto) (0.2-0.9) 10^3/u L Eos # (Auto) (0.0-0.8) 10^3/u L Baso # (Auto) (0.0-0.1) 10^3/u L Nucleated RBC % (a uto) % Nucleated RBCs # /100WBC D-Dimer (0-0.59) ug/mIFE U Specimen Type Arterial Sample Site Radial, left ABG pH 7.47 H (7.35-7.45) ABG pCO2 53.3 H (35-45) mmHg ABG pO2 65.9 L (80.0-100.0) mmH g ABG HCO3 38.3 H (22-26) mmol/L ABG Base Excess 12.2 H (-2.0-2.0) mmol/ L Carlos Test Pos Hematocrit 45.8 (37-47) % O2 Delivery Device Nc O2 Liters/Min 6.0 % Consulting Senior Practice Director ID [id number] Sodium (136-145) mmol/L Potassium (3.5-5.1) mmol/L Chloride (98-107) mmol/L Carbon Dioxide (22-29) mmol/L Anion Gap (5-19) BUN (6-20) mg/dL Creatinine (0.5-0.9) mg/dL GFR Calculation (90-130) mL/min Glucose (65-115) mg/dL POC Glucose 191 H (70-110) mg/dL Calculated Osmolal ity (285-295) mOsm/k g Lactic Acid (0.5-2.2) mmol/L Calcium (8.5-10.5) mg/dL Magnesium (1.7-2.3) mg/dL Total Bilirubin (0.15-1.2) mg/dL AST (0-32) U/L ALT (0-33) U/L Alkaline Phosphata se (35-105) IU/L Troponin T Baselin e (0-10) ng/L Total Protein (6.6-8.7) g/dL Albumin (3.5-5.2) g/dL Globulin (1.3-4.6) g/dL Urine Color (Yellow) Urine Appearance (CLEAR) Urine pH (5-7) Ur Specific Gravit y (1.005-1.030) Urine Protein (Negative) Urine Glucose (UA) (Normal) Urine Ketones (Negative) Urine Blood (Negative) Urine Nitrate (Negative) Urine Bilirubin (Negative) Urine Urobilinogen (Negative) mg/dL Ur Leukocyte Isabella ase (Negative) Urine RBC (0-2) /hpf Urine WBC (0-5) /hpf Ur Squamous Epith Cells (0-5) /hpf Amorphous Sediment Urine Bacteria (NONE) /hpf Urine Yeast /hpf Influenza Type A A g (Negative) Influenza Type B A g (Negative) SARS-CoV-2 Ag (Rap id) Negative (Negative) 11/23/20 11/23/20 11/23/20 Range/Units 15:40 15:40 15:40 WBC 23.0 H (4.0-10.0) 10^3/ uL RBC 5.44 H (4.1-5.3) 10^6/u L Hgb 14.8 (11.5-15.3) g/dL Hct 47.6 H (37.0-47.0) % MCV 87.5 (81-99) fL MCH 27.2 L (28.0-34.0) pg MCHC 31.1 (30.0-36.0) g/dL RDW 13.9 (12.1-15.1) % Plt Count 198 (130-400) 10^3/c mm MPV 10.5 H (7.4-10.4) fL Neut % (Auto) 86.3 % Lymph % (Auto) 4.5 % [place] % (Auto) 7.6 % Eos % (Auto) 0.0 % Baso % (Auto) 0.3 % Neut # (Auto) 19.86 H (1.8-7.7) 10^3/u L Lymph # (Auto) 1.0 (0.8-4.8) 10^3/u L [place] # (Auto) 1.7 H (0.2-0.9) 10^3/u L Eos # (Auto) 0.0 (0.0-0.8) 10^3/u L Baso # (Auto) 0.1 (0.0-0.1) 10^3/u L Nucleated RBC % (a uto) 0 % Nucleated RBCs # 0.0 /100WBC D-Dimer (0-0.59) ug/mIFE U Specimen Type Sample Site ABG pH (7.35-7.45) ABG pCO2 (35-45) mmHg ABG pO2 (80.0-100.0) mmH g ABG HCO3 (22-26) mmol/L ABG Base Excess (-2.0-2.0) mmol/ L Carlos Test Hematocrit (37-47) % O2 Delivery Device O2 Liters/Min % Consulting Senior Practice Director ID Sodium 135 L (136-145) mmol/L Potassium 4.1 (3.5-5.1) mmol/L Chloride 91 L (98-107) mmol/L Carbon Dioxide 34 H (22-29) mmol/L Anion Gap 14.1 (5-19) BUN 10 (6-20) mg/dL Creatinine 0.5 (0.5-0.9) mg/dL GFR Calculation 128.6 (90-130) mL/min Glucose 181 H (65-115) mg/dL POC Glucose (70-110) mg/dL Calculated Osmolal ity 284 L (285-295) mOsm/k g Lactic Acid 2.0 (0.5-2.2) mmol/L Calcium 7.8 L (8.5-10.5) mg/dL Magnesium (1.7-2.3) mg/dL Total Bilirubin 1.0 (0.15-1.2) mg/dL AST 22 (0-32) U/L ALT 33 (0-33) U/L Alkaline Phosphata se 171 H (35-105) IU/L Troponin T Baselin e (0-10) ng/L Total Protein 6.3 L (6.6-8.7) g/dL Albumin 3.7 (3.5-5.2) g/dL Globulin 2.6 (1.3-4.6) g/dL Urine Color (Yellow) Urine Appearance (CLEAR) Urine pH (5-7) Ur Specific Gravit y (1.005-1.030) Urine Protein (Negative) Urine Glucose (UA) (Normal) Urine Ketones (Negative) Urine Blood (Negative) Urine Nitrate (Negative) Urine Bilirubin (Negative) Urine Urobilinogen (Negative) mg/dL Ur Leukocyte Isabella ase (Negative) Urine RBC (0-2) /hpf Urine WBC (0-5) /hpf Ur Squamous Epith Cells (0-5) /hpf Amorphous Sediment Urine Bacteria (NONE) /hpf Urine Yeast /hpf Influenza Type A A g (Negative) Influenza Type B A g (Negative) SARS-CoV-2 Ag (Rap id) (Negative) 11/23/20 11/23/20 11/23/20 Range/Units 15:40 15:40 15:40 WBC (4.0-10.0) 10^3/ uL RBC (4.1-5.3) 10^6/u L Hgb (11.5-15.3) g/dL Hct (37.0-47.0) % MCV (81-99) fL MCH (28.0-34.0) pg MCHC (30.0-36.0) g/dL RDW (12.1-15.1) % Plt Count (130-400) 10^3/c mm MPV (7.4-10.4) fL Neut % (Auto) % Lymph % (Auto) % [place] % (Auto) % Eos % (Auto) % Baso % (Auto) % Neut # (Auto) (1.8-7.7) 10^3/u L Lymph # (Auto) (0.8-4.8) 10^3/u L [place] # (Auto) (0.2-0.9) 10^3/u L Eos # (Auto) (0.0-0.8) 10^3/u L Baso # (Auto) (0.0-0.1) 10^3/u L Nucleated RBC % (a uto) % Nucleated RBCs # /100WBC D-Dimer (0-0.59) ug/mIFE U Specimen Type Sample Site ABG pH (7.35-7.45) ABG pCO2 (35-45) mmHg ABG pO2 (80.0-100.0) mmH g ABG HCO3 (22-26) mmol/L ABG Base Excess (-2.0-2.0) mmol/ L Carlos Test Hematocrit (37-47) % O2 Delivery Device O2 Liters/Min % Consulting Senior Practice Director ID Sodium (136-145) mmol/L Potassium (3.5-5.1) mmol/L Chloride (98-107) mmol/L Carbon Dioxide (22-29) mmol/L Anion Gap (5-19) BUN (6-20) mg/dL Creatinine (0.5-0.9) mg/dL GFR Calculation (90-130) mL/min Glucose (65-115) mg/dL POC Glucose (70-110) mg/dL Calculated Osmolal ity (285-295) mOsm/k g Lactic Acid (0.5-2.2) mmol/L Calcium (8.5-10.5) mg/dL Magnesium 1.8 (1.7-2.3) mg/dL Total Bilirubin (0.15-1.2) mg/dL AST (0-32) U/L ALT (0-33) U/L Alkaline Phosphata se (35-105) IU/L Troponin T Baselin e 8 (0-10) ng/L Total Protein (6.6-8.7) g/dL Albumin (3.5-5.2) g/dL Globulin (1.3-4.6) g/dL Urine Color (Yellow) Urine Appearance (CLEAR) Urine pH (5-7) Ur Specific Gravit y (1.005-1.030) Urine Protein (Negative) Urine Glucose (UA) (Normal) Urine Ketones (Negative) Urine Blood (Negative) Urine Nitrate (Negative) Urine Bilirubin (Negative) Urine Urobilinogen (Negative) mg/dL Ur Leukocyte Isabella ase (Negative) Urine RBC (0-2) /hpf Urine WBC (0-5) /hpf Ur Squamous Epith Cells (0-5) /hpf Amorphous Sediment Urine Bacteria (NONE) /hpf Urine Yeast /hpf Influenza Type A A g Negative (Negative) Influenza Type B A g Negative (Negative) SARS-CoV-2 Ag (Rap id) (Negative) 11/23/20 11/23/20 Range/Units 16:15 16:30 WBC (4.0-10.0) 10^3/ uL RBC (4.1-5.3) 10^6/u L Hgb (11.5-15.3) g/dL Hct (37.0-47.0) % MCV (81-99) fL MCH (28.0-34.0) pg MCHC (30.0-36.0) g/dL RDW (12.1-15.1) % Plt Count (130-400) 10^3/c mm MPV (7.4-10.4) fL Neut % (Auto) % Lymph % (Auto) % [place] % (Auto) % Eos % (Auto) % Baso % (Auto) % Neut # (Auto) (1.8-7.7) 10^3/u L Lymph # (Auto) (0.8-4.8) 10^3/u L [place] # (Auto) (0.2-0.9) 10^3/u L Eos # (Auto) (0.0-0.8) 10^3/u L Baso # (Auto) (0.0-0.1) 10^3/u L Nucleated RBC % (a uto) % Nucleated RBCs # /100WBC D-Dimer 1.63 H (0-0.59) ug/mIFE U Specimen Type Sample Site ABG pH (7.35-7.45) ABG pCO2 (35-45) mmHg ABG pO2 (80.0-100.0) mmH g ABG HCO3 (22-26) mmol/L ABG Base Excess (-2.0-2.0) mmol/ L Carlos Test Hematocrit (37-47) % O2 Delivery Device O2 Liters/Min % Consulting Senior Practice Director ID Sodium (136-145) mmol/L Potassium (3.5-5.1) mmol/L Chloride (98-107) mmol/L Carbon Dioxide (22-29) mmol/L Anion Gap (5-19) BUN (6-20) mg/dL Creatinine (0.5-0.9) mg/dL GFR Calculation (90-130) mL/min Glucose (65-115) mg/dL POC Glucose (70-110) mg/dL Calculated Osmolal ity (285-295) mOsm/k g Lactic Acid (0.5-2.2) mmol/L Calcium (8.5-10.5) mg/dL Magnesium (1.7-2.3) mg/dL Total Bilirubin (0.15-1.2) mg/dL AST (0-32) U/L ALT (0-33) U/L Alkaline Phosphata se (35-105) IU/L Troponin T Baselin e (0-10) ng/L Total Protein (6.6-8.7) g/dL Albumin (3.5-5.2) g/dL Globulin (1.3-4.6) g/dL Urine Color [place] (Yellow) Urine Appearance Cloudy (CLEAR) Urine pH 5 (5-7) Ur Specific Gravit y 1.025 (1.005-1.030) Urine Protein 3+ H (Negative) Urine Glucose (UA) 2+ (Normal) Urine Ketones 1+ H (Negative) Urine Blood 2+ H (Negative) Urine Nitrate Negative (Negative) Urine Bilirubin 1+ H (Negative) Urine Urobilinogen 4 H (Negative) mg/dL Ur Leukocyte Isabella ase 1+ H (Negative) Urine RBC 5-10 H (0-2) /hpf Urine WBC 15-25 H (0-5) /hpf Ur Squamous Epith Cells 25-40 H (0-5) /hpf Amorphous Sediment Not Reportable Urine Bacteria 3+ H (NONE) /hpf Urine Yeast 3+ H /hpf Influenza Type A A g (Negative) Influenza Type B A g (Negative) SARS-CoV-2 Ag (Rap id) (Negative) Imaging Data^: CTA Chest: Attestation: I personally reviewed and interpreted this imaging study as follows: Radiologist's impression: [address] [id number] Scan ReportSigned Patient: Patricia ButcherUnit #: [id number]: [id number]#:[id number]/Sex: 55 / FADM Date: 11/23/20Loc: [facility]/Bed: 250-2Attending Dr: Rey Mariee MD Ordering Provider/Ordering MD: Juan Jose Maravilla MD, [facility] [place] Date of Service: 11/23/20 Procedure(s): CT angio chest PE protcl [id number] Accession Number(s): [id number] Report Number: [id number] PROCEDURE INFORMATION: Exam: CTA Chest With Contrast Exam date and time: 11/23/2020 5:27 PM Age: 55 years old Clinical indication: Shortness of breath; Additional info: SOB w tachycardia TECHNIQUE: Imaging protocol: Computed tomographic angiography of the chest with contrast. 3D rendering (Not supervised by radiologist): MIP and/or 3D reconstructed images were created by the technologist. Radiation optimization: All CT scans at this facility use at least one of these dose optimization techniques: automated exposure control; mA and/or kV adjustment per patient size (includes targeted exams where dose is matched to clinical indication); or iterative reconstruction. Contrast material: OMNI 350; Contrast volume: 69 ml; Contrast route: INTRAVENOUS (IV); COMPARISON: CR (CHEST, ) 11/23/2020 3:43 PM RADIATION DOSE METRICS: Total DLP (mGy-cm): 600.33 FINDINGS: Pulmonary arteries: There is no evidence of filling defects within the pulmonary arterial circulation to suggest pulmonary embolism. Aorta: There is no thoracic aortic aneurysm or dissection. Lungs: There is moderate centrilobular emphysema. There is pneumonic consolidation of much of the right lower lobe involving mainly the basilar segments and sparing the medial basal segment and the superior segment. There is minimal peripheral infiltrate at the left lung base. Pleural spaces: Unremarkable. No pneumothorax. No pleural effusion. Heart: Unremarkable. No cardiomegaly. No pericardial effusion. Lymph nodes: There is mild right paratracheal and subcarinal adenopathy with paratracheal nodes measuring up to 14 x 29 mm in subcarinal adenopathy measuring around 17 x 36 mm period Bones/joints: Unremarkable. No acute fracture. Soft tissues: Unremarkable. CT/CT angio chest PE protcl [id number] IMPRESSION: 1. Lobar pneumonia right lower lobe 2. Mild mediastinal adenopathy of uncertain significance. 3. No evidence of pulmonary embolism. Radiation Dose CTDIVOL = (mGy): DLP = 600.33 (mGy-cm) Dictated By:Xavier Allen By:Xavier Allen Date/Time:11/23/20 1909DD/ 1749 CXR: Attestation: I personally reviewed and interpreted this imaging study as follows: Radiologist's impression: [address] [facility], [place] [address]SGpq ReportSigned Patient: Patricia Butcher #: [id number]: [id number]#:[id number]/Sex: 55 / FADM Date: 11/23/20Loc: [facility]/Bed:Attending Dr: Ordering Provider/Ordering MD: Juan Jose Maravilla MD, [facility] [place] Date of Service: 11/23/20 Procedure(s): XR chest 1V portable [id number] Accession Number(s): [id number] Report Number: [id number] WS: [id number] Exam: XR chest 1V portable [id number] Date/Time of Exam: 11/23/2020 3:25 PM Reason For Exam: fever, SOB Comparison 11/07/2019. There is consolidating pneumonia in the lower lobe of the right lung. The left lung is clear. The lungs are fully inflated. No pleural effusion. Normal cardiomediastinal structures and bony elements. XR/XR chest 1V portable [id number] IMPRESSION: 1. Consolidating right lower lobe pneumonia. Dictated By:Saira Zhang By:Saira Zhang Date/Time:11/23/20 1554DD/ 1553 EKG Data^: EKG 1: Attestation: I personally reviewed and interpreted this EKG as follows: EKG Interpretation Date: 11/23/20 EKG interpretation time: 16:40 Prior EKG tracings: not available for review Interpretation: Sinus tachycardia. Heart rate [address] changes. EKG 2: Attestation: I personally reviewed and interpreted this EKG as follows: EKG Interpretation Date: 11/23/20 EKG interpretation time: 18:07 Prior EKG tracings: available for review Interpretation: Sinus tachycardia. Heart rate [address] changes. No significant change from earlier Discharge Plan Discharge Patient Disposition: Admitted As Inpatient Admit Provider: Rey Mariee Clinical Impression: Sepsis with acute hypoxic respiratory failure Qualifiers: Sepsis type: sepsis due to unspecified organism Severe sepsis shock status: without septic shock Qualified Code(s): A41.9 - Sepsis, unspecified organism Chronic obstructive pulmonary disease Qualifiers: COPD type: unspecified COPD Qualified Code(s): J44.9 - Chronic obstructive pulmonary disease, unspecified Pneumonia Qualifiers: Pneumonia type: due to unspecified organism Laterality: right Lung location: lower lobe of lung Qualified Code(s): J18.9 - Pneumonia, unspecified organism Condition: Stable Coding Level of Care Code ED Quality Assurance Qa Lab Analyst for g Fwd Exam Detailed
[2020-11-23 15:51] LABS: ABG PCO2 53.3 mmHg (35-45); ABG PH Result 7.47 (7.35-7.45); Arterial Blood Gas Hematocrit 45.8 % (37-47); Base Excess ABG 12.2 mmol/L (-2.0-2.0); Blood Gas Allen Test Pos; Blood Gas Sample Site Radial, left; Blood Gas Sample Type Arterial; HCO3 ABG 38.3 mmol/L (22-26); Oxygen Device NC; PO2 ABG 65.9 mmHg (80.0-100.0)
[2020-11-23 15:58] LABS: Basophils # 0.1 10^3/uL (0.0-0.1); Basophils % 0.3 %; Hematocrit 47.6 % (37.0-47.0); Hemoglobin 14.8 g/dL (11.5-15.3); Lymphocytes % 4.5 %; Mean Corpuscular HGB Conc 31.1 g/dL (30.0-36.0); Mean Corpuscular Hemoglobin 27.2 pg (28.0-34.0); Mean Corpuscular Volume 87.5 fL (81-99); Mean Platelet Volume 10.5 fL (7.4-10.4); Monocytes # 1.7 10^3/uL (0.2-0.9); Monocytes % 7.6 %; Neutrophils # 19.86 10^3/uL (1.8-7.7); Neutrophils % 86.3 %; Nucleated Red Blood Cells % 0 %; Platelet Count 198 10^3/cmm (130-400); Red Blood Count 5.44 10^6/uL (4.1-5.3); Red Cell Distribution Width 13.9 % (12.1-15.1)
[2020-11-23 16:13] LABS: SARS Covid-2 Antigen Negative (Negative)
[2020-11-23 16:16] LABS: Alanine Aminotransferase 33 U/L (0-33); Albumin Level 3.7 g/dL (3.5-5.2); Alkaline Phosphatase 171 IU/L (35-105); Anion Gap 14.1 (5-19); Aspartate Amino Transferase 22 U/L (0-32); Blood Urea Nitrogen 10 mg/dL (6-20); Calcium 7.8 mg/dL (8.5-10.5); Carbon Dioxide 34 mmol/L (22-29); Chloride 91 mmol/L (98-107); Creatinine Clr Calc Pharmacy 151.1554; Globulin 2.6 g/dL (1.3-4.6); Glomerular Filtration Rate 128.6 mL/min (90-130); Glucose 181 mg/dL (65-115); Influenza A by IFA Negative (Negative); Influenza B by IFA Negative (Negative); Osmolality Calculated 284 mOsm/kg (285-295); Potassium 4.1 mmol/L (3.5-5.1); Sodium 135 mmol/L (136-145); Total Protein 6.3 g/dL (6.6-8.7)
[2020-11-23] MEDS: cefepime 2,000 MG in sodium chloride 0.9% (plus) 50 ML 100 MG IV (16:22)
[2020-11-23 16:23] LABS: Troponin(5th) Baseline 8 ng/L (0-10)
[2020-11-23 16:55] LABS: Urine Color Orange (Yellow)
[2020-11-23 16:56] LABS: Add Urine Microscopic? YES; Bilirubin Urine 1+ (Negative); Blood Urine 2+ (Negative); Glucose Urine UA 2+ (Normal); Ketones Urine 1+ (Negative); Leukocyte Esterase Urine 1+ (Negative); Nitrate Urine Negative (Negative); Protein Urine 3+ (Negative); Specific Gravity, Urine 1.025 (1.005-1.030); Urine Appearance Cloudy (CLEAR); Urobilinogen Urine 4 mg/dL (Negative); pH Urine 5 (5-7)
[2020-11-23 16:57] LABS: D Dimer 1.63 ug/mIFEU (0-0.59)
[2020-11-23 17:03] LABS: WBC Urine 15-25 /hpf (0-5)
[2020-11-23 17:11] LABS: Add Urine Culture? No; Bacteria Urine 3+ /hpf; Squamous Epithelial Cell Urine 25-40 /hpf (0-5)
--- NOTE | 2020-11-23 17:14 | P.HP_ITS ---
Providers/Chief Complaint Primary Care Provider: Wes Hart MD Chief Complaint: FEVER HIGH BLOOD SUGAR History of Present Illness Pleasant 55-year-old lady with history of advanced COPD, GRISELDA, OHS, head and neck lesion in her lingular tonsil with consideration of biopsy at [facility], but was found to be too high risk for procedure, as well as with consideration of resection, deemed to be too high risk of aspiration after procedure, had just come back yesterday from [place], has been progressively getting more short of breath, with cough, yellowish, greenish, sputum, also with pink tinge, was having some pain in her right side, has been also having cramps in her legs. At home noted fever 101.5, here febrile with 102.5 temperature noted in ER. Sinus tachycardia 130s. Blood pressure 142/80. Respirate 18. Saturation 94% on 6 L. Normally on 4 L nasal cannula at home. At home she also uses a trilogy machine. She has a nebulizer. Follows with pulmonology in clinic. She is still an active smoker, smoking about 4 cigarettes a day. States she cut down from about 4 packs a day. States she is aware she needs to quit entirely. She reports that she may on occasion cough with food or drink but states this is not common. WBC count noted 23,000. Denies receiving recent steroids. Previously on pr ednisone daily but was weaned off. ABG 7.47/53.3/65.9. Sodium 135, glucose 181, but says has been having a lot of trouble keeping her glucose down currently. Normally follows with endocrinology. Says glucose has been as high as 500. Calcium 7.4. Alk phos 171, appears to be chronically elevated. Total protein 6.3. UA with 3+ protein, 1+ ketones, 2+ blood, negative nitrate, 1+ bilirubin, 4 urobilinogen, 1+ leukocyte Estrace, pending cell counts. Rapid influenza and COVID-19 antigens are negative. EKG with sinus tachycardia. Chest x-ray with consolidating right lower lobe pneumonia. Review of Systems Const: Reports: fever(s), malaise and other (LE cramps) Eyes: Denies: change in vision or eye redness ENMT: Denies: throat pain, oral sores or ear or mastoid pain Card: Denies: chest pain, edema, pre-syncope or dyspnea on exertion Resp: Reports: dyspnea, productive cough, change in phlegm color and hemoptysis ([place] phlegm) GI: Reports: nausea; Denies: abdominal pain, vomiting, diarrhea, constipation, hematochezia or melena : Denies: flank pain, urinary frequency or hematuria Musc: Reports: muscle cramps (legs, feet); Denies: back pain, joint swelling or joint redness Skin/Breast: Denies: rash, sores or new lesions Neuro: Denies: headache(s), numbness in extremities, weakness in extremities, dizziness, confusion or seizure-like activity Endo: Denies: polyuria or polydipsia Mario/Lymph: Denies: easy bleeding or purpura All/Imm: Denies: urticaria, throat swelling or tongue swelling Medications/Allergies Home Medications Medication Instructions Recorded Confirmed Last Taken Type clonazepam 0.5 mg tablet 0.5 mg PO TID PRN 06/07/20 11/23/20 11/23/20 History dapagliflozin 10 mg tablet 10 mg PO DAILY 06/07/20 11/23/20 11/23/20 History duloxetine 30 mg capsule,delayed 30 mg PO DAILY 06/07/20 11/23/20 11/23/20 History release insulin glargine 100 unit/mL (3 75 unit SUBCUT BEDTIME ml 06/07/20 11/23/20 11/23/20 History mL) subcutaneous pen 44 units losartan 50 mg tablet 25 mg PO DAILY tab 06/07/20 11/23/20 08/28/20 History Combivent Respimat 1 puff INHALATION QID PRN 09/14/20 11/23/20 11/23/20 History Victoza 3-Greg 1.8 mg SUBCUT QAM 09/14/20 11/23/20 11/22/20 History insulin aspart U-100 [Novolog See Rx Instructions .ROUTE .COMPLEX 09/14/20 11/23/20 11/23/20 History Flexpen U-100 Insulin] 50 units albuterol sulfate 90 mcg/actuation 2 puff INHALATION Q6H PRN #8.5 g 10/24/20 11/23/20 11/23/20 Rx aerosol inhaler ipratropium 0.5 mg-albuterol 3 mg 3 ml INHALATION QID PRN #360 ml 10/24/20 11/23/20 11/23/20 Rx (2.5 mg base)/3 mL nebulization soln Shreyapelri 175 mcg INHALATION QAM 11/06/20 11/23/20 11/23/20 History Allergies Allergy/AdvReac Type Severity Reaction Status Date / Time naproxen Allergy Mild nausea and Verified 11/23/20 15:37 vomiting Penicillins Allergy Mild itching Verified 11/23/20 15:37 PFSH Acute PFSH: Medical History (Updated 11/23/20 @ 17:38 by Rey Mariee MD) Acute exacerbation of chronic obstructive airways disease Anxiety disorder Asthma Chronic obstructive pulmonary disease Chronic respiratory failure with hypercapnia Chronic respiratory failure with hypoxia and hypercapnia Diabetic retinopathy associated with controlled type 2 diabetes mellitus Erythrocytosis Hypercholesteremia Hypertension Hypokalemia Long-term insulin use Obesity hypoventilation syndrome Obesity hypoventilation syndrome Smoker Type 2 diabetes mellitus Type 2 diabetes mellitus Surgical History History of carpal tunnel release History of tonsillectomy History of total abdominal hysterectomy Family History Father , at the of 70 Diabetes Cancer lung CAD (coronary artery disease) Mother , at the age of 55 Hypertension Lung disease Social History Smoking and tobacco status: current some day smoker cigarettes Years cigarettes smoked: 35 Quit status (tobacco): considering quitting Second hand smoke exposure: Yes Smoking risk assessment/counseling performed?: Yes Alcohol intake: current Alcohol intake frequency: holidays/special occasions only Alcohol type: wine Desire information about substance/drug rehabilitation?: No Counseling given: No Caregiver/support person: No Lives independently: Yes Household members: children Housing: House Marital status: Legally Current occupational status: disabled Pets and animals: No History of recent travel: No Current gender identity: Female Vitals/I&O/Wt Last Vital Signs Temp 102.5 F H 11/23/20 15:00 Pulse 130 H 11/23/20 15:50 Resp 18 11/23/20 15:50 BP 142/80 11/23/20 15:50 Pulse Ox 94 11/23/20 15:50 Weight last 48 hrs Weight 107.501 kg Physical Exam Narrative: EXAM NARRATIVE: Significant other at bedside. Const: COMMON NORMALS: no acute distress and patient oriented x3 GENERAL APPEARANCE: cooperative and anxious NUTRITIONAL APPEARANCE: obese HENMT: COMMON NORMALS: oropharynx normal Neck/C-Spine: COMMON NORMALS: no JVD Resp: COMMON NORMALS: normal respiratory effort AUSCULTATION: rhonchi, wheezes and diminished lung sounds Cardio: COMMON NORMALS: no JVD, regular rhythm, S1 normal heart sound present, S2 normal heart sound present and No murmurs present (Cardio) RHYTHM: regular rhythm HEART SOUNDS: S1 normal heart sound present and S2 normal heart sound present GI: COMMON NORMALS: Normal to inspection, nondistended, normoactive bowel sounds present, Soft to palpation and non-tender PALPATION: Yes Soft to palpation Extremity: COMMON NORMALS: no joint enlargement and no pedal edema Neuro: COMMON NORMALS: patient oriented x3 and moves all extremities Skin: COMMON NORMALS: no rashes or lesions noted GENERAL SKIN EXAM: no rashes or lesions noted and dry skin Data : 11/23/20 15:40 11/23/20 15:40 Micro: Microbiology 11/23/20 16:25 Blood Culture - Preliminary Blood SPECIMEN COLLECTED 11/23/20 16:30 Blood Culture - Preliminary Blood SPECIMEN COLLECTED A&P Assessment and plan (1) Sepsis with acute hypoxic respiratory failure: Pneumonia with noted right lower lobe consolidation, with fever, leuk ocytosis, sinus tachycardia, sepsis. No sign of septic shock at this point, although lactate is borderline at 2. Blood cultures collected. So far received cefepime. Given she was recently in the hospital in [place] we will continue with coverage for possible hospital- acquired pneumonia, cefepime, vancomycin. Collect sputum cultures, urine bacterial antigens, nasal MRSA. She reports rare aspiration with food or drink. Will obtain speech therapy evaluation. Appears to also have concomitant COPD exacerbation with cough, productive yellowish-green sputum, with pink tinge. Dyspnea, hypoxia. Requiring 6 L oxygen whereas normally uses 4. With hypoxia, hypercapnia on ABG. Previously on daily steroids, however, was weaned off. Add methylprednisolone to antibiotics as above for severe COPD exacerbation. Breathing treatments. Pulmonary toilet. Cultures as above. With recent travel, pink-tinged sputum, leg cramps, also reported transient pain in the right side chest, with sinus tachycardia, cough, although as discussed with her does have what appears to be pneumonia, sepsis, however, is also at high risk of PE. D-dimer was checked in ER and is abnormal. As per discussion with her regarding risks and benefits and ER physician we are obtaining CT angiogram chest to additionally assess possibility of PE. Status: Acute (2) Pneumonia: As above Status: Acute (3) Tonsillar enlargement: Assess for possible resection at [facility] in [place], however, found to be too high risk for procedure as well as to high risk for aspiration subsequently, and so procedure was canceled. Status: Acute (4) Obesity hypoventilation syndrome: On trilogy at home. Continue AVAPS here. Status: Acute (5) Asthma: Status: Acute (6) Type 2 diabetes mellitus: Recently with hyperglycemia which is difficult to control, likely secondary to acute infection, sepsis. Continue Lantus, sliding scale insulin. Glucose monitoring. Consistent carbohydrate diet. Status: Acute Qualifiers: Diabetes mellitus terminal operations manager insulin use: with fdc use Diabetes mellitus complication status: with neurologic complications Diabetes mellitus c omplication detail: with polyneuropathy Qualified Code(s): E11.42 - Type 2 diabetes mellitus with diabetic polyneuropathy; Z79.4 - ocean transportation intermediary (current) use of insulin (7) Smoker: We discussed smoking cessation for 5 minutes. She is well aware that she needs to quit especially in the setting of advanced leg disease, as well as head and neck tonsillar hypertrophy with possible lesion, she states has cut down to about 4 cigarettes/day. States she never smokes near oxygen and is aware of fire hazard. She is continue to try to quit. We will provide her with nicotine replacement as needed for cravings. Continue to encourage cessation. Status: Acute (8) Acute exacerbation of chronic obstructive airways disease: As above Status: Acute (9) Leg cramps: Check magnesium. Recent travel, abnormal D-dimer. Check lower extremity duplex ultrasound. Status: Acute (10) D-dimer, elevated: As above. Status: Acute Additional A&P Information Anxiety/depression Other chronic medical problems noted Attestations Medical Necessity Statement*: Admission of over 2 midnights is going to be needed for assessment management of sepsis with pneumonia, COPD suppression, acute on chronic hypoxic respiratory failure, and lady with advanced age chronic lung disease, chronic hypoxia, current smoker. Coding Level of Care Code Acute Waiter/[employer]ress [employer] for g Fwd Diagnoses Sepsis with acute hypoxic respiratory failure A41.9; R65.20; J96.01 Pneumonia J18.9 Tonsillar enlargement J35.1 Obesity hypoventilation syndrome E66.2 Asthma J45.909 Type 2 diabetes mellitus E11.42; Z79.4 Diabetes mellitus fdc insulin use: with terminal operations manager use Diabetes mellitus complication status: with neurologic complications Diabetes mellitus complication detail: with polyneuropathy Smoker F17.200 Acute exacerbation of chronic obstructive airways disease J44.1 Leg cramps R25.2 D-dimer, elevated R79.89
--- NOTE | 2020-11-23 17:15 | CTR_ITS ---
PROCEDURE INFORMATION: Exam: CTA Chest With Contrast Exam date and time: 11/23/2020 5:27 PM Age: 55 years old Clinical indication: Shortness of breath; Additional info: SOB w tachycardia TECHNIQUE: Imaging protocol: Computed tomographic angiography of the chest with contrast. 3D rendering (Not supervised by radiologist): MIP and/or 3D reconstructed images were created by the technologist. Radiation optimization: All CT scans at this facility use at least one of these dose optimization techniques: automated exposure control; mA and/or kV adjustment per patient size (includes targeted exams where dose is matched to clinical indication); or iterative reconstruction. Contrast material: OMNI 350; Contrast volume: 69 ml; Contrast route: INTRAVENOUS (IV); COMPARISON: CR (CHEST, ) 11/23/2020 3:43 PM RADIATION DOSE METRICS: Total DLP (mGy-cm): 600.33 FINDINGS: Pulmonary arteries: There is no evidence of filling defects within the pulmonary arterial circulation to suggest pulmonary embolism. Aorta: There is no thoracic aortic aneurysm or dissection. Lungs: There is moderate centrilobular emphysema. There is pneumonic consolidation of much of the right lower lobe involving mainly the basilar segments and sparing the medial basal segment and the superior segment. There is minimal peripheral infiltrate at the left lung base. Pleural spaces: Unremarkable. No pneumothorax. No pleural effusion. Heart: Unremarkable. No cardiomegaly. No pericardial effusion. Lymph nodes: There is mild right paratracheal and subcarinal adenopathy with paratracheal nodes measuring up to 14 x 29 mm in subcarinal adenopathy measuring around 17 x 36 mm period Bones/joints: Unremarkable. No acute fracture. Soft tissues: Unremarkable. CT/CT angio chest PE protcl [id number] IMPRESSION: 1. Lobar pneumonia right lower lobe 2. Mild mediastinal adenopathy of uncertain significance. 3. No evidence of pulmonary embolism. Radiation Dose CTDIVOL = (mGy): DLP = 600.33 (mGy-cm)
--- NOTE | 2020-11-23 17:30 | ECG_ITS ---
[facility] Test Date: 2020-11-23 Pat Name: Patricia Butcher Department: Room: 250 Gender: Female Director Surface Transportation: : 1965 Requested By: Juan Jose Maravilla I Order Number: [id number] Carlos MD: Nita Meza M.D. Measurements Intervals [place] Rate: 127 P: 70 [place]: 144 QRS: 75 QRSD: 83 T: 77 QT: 292 QTc: 425 Interpretive Statements SINUS TACHYCARDIA ABNORMAL RHYTHM ECG Compared to ECG 11/23/2020 16:40:03 No significant changes Electronically Signed On 11-24-2020 9:51:42 CDT by Nita Meza M.D. [email or web address], [facility] [id number]
[2020-11-23] MEDS: iohexol 350 mg/mL 100 mL Btl IV (17:31)
[2020-11-23 17:56] LABS: Magnesium 1.8 mg/dL (1.7-2.3)
[2020-11-23] MEDS: acetaminophen 325 mg Tablet 650 MG PO (18:25)
[2020-11-23 19:13] LABS: Glucose Point of Care 191 mg/dL (70-110)
[2020-11-23] MEDS: ipratropium-albuterol 3 mL Neb INHALATION ×2 (19:37→23:00)
[2020-11-23 20:02] LABS: Troponin 5 2HR 8.96 ng/L (0-10); Troponin 5 2HR Delta 0.96 ABS# (0-10)
[2020-11-23] MEDS: heparin 5,000 unit/mL INJ 1 mL 5000 UNIT SUBCUT (20:43)
[2020-11-23] MEDS: insulin glargine 100 units/1 mL 75 UNIT SUBCUT (20:47)
[2020-11-23 20:53] LABS: Glucose Point of Care 292 mg/dL (70-110)
[2020-11-23] MEDS: vancomycin 1,250 MG/250 ML PIGGYBACK 200 MG IV (20:56)
[2020-11-23] MEDS: cefepime 1,000 MG in sodium chloride 0.9% (plus) 50 ML 100 MG IV (23:51)
[2020-11-24] VITALS (21 sets, daily range): BP systolic 96–136; BP diastolic 53–78; PULSE 85–109; RESP 14–18; TEMP 36.2–37.1; O2SAT 90–98
[2020-11-24 00:29] LABS: Glucose Point of Care 235 mg/dL (70-110)
[2020-11-24] MEDS: ipratropium-albuterol 3 mL Neb INHALATION ×5 (03:32→20:50)
[2020-11-24 06:31] LABS: Glucose Point of Care 285 mg/dL (70-110)
[2020-11-24 07:03] LABS: Basophils # 0.1 10^3/uL (0.0-0.1); Basophils % 0.3 %; Eosinophils # 0.1 10^3/uL (0.0-0.8); Eosinophils % 0.4 %; Hemoglobin 14.6 g/dL (11.5-15.3); Lymphocytes # 0.8 10^3/uL (0.8-4.8); Lymphocytes % 4.1 %; Mean Corpuscular HGB Conc 30.4 g/dL (30.0-36.0); Mean Corpuscular Hemoglobin 27.3 pg (28.0-34.0); Mean Corpuscular Volume 89.7 fL (81-99); Mean Platelet Volume 10.5 fL (7.4-10.4); Monocytes # 0.4 10^3/uL (0.2-0.9); Monocytes % 2.2 %; Neutrophils % 92.1 %; Nucleated Red Blood Cells % 0 %; Platelet Count 218 10^3/cmm (130-400); Red Blood Count 5.35 10^6/uL (4.1-5.3); White Blood Count 19.3 10^3/uL (4.0-10.0)
--- NOTE | 2020-11-24 07:24 | PC.NURSE ---
US at bedside
[2020-11-24 07:37] LABS: Alanine Aminotransferase 23 U/L (0-33); Albumin Level 3.1 g/dL (3.5-5.2); Alkaline Phosphatase 162 IU/L (35-105); Anion Gap 14.4 (5-19); Aspartate Amino Transferase 20 U/L (0-32); Blood Urea Nitrogen 15 mg/dL (6-20); Calcium 7.9 mg/dL (8.5-10.5); Carbon Dioxide 34 mmol/L (22-29); Chloride 91 mmol/L (98-107); Globulin 3.8 g/dL (1.3-4.6); Glomerular Filtration Rate 166.3 mL/min (90-130); Glucose 292 mg/dL (65-115); Osmolality Calculated 292 mOsm/kg (285-295); Potassium 4.4 mmol/L (3.5-5.1); Sodium 135 mmol/L (136-145); Total Bilirubin 0.6 mg/dL (0.15-1.2); Total Protein 6.9 g/dL (6.6-8.7)
[2020-11-24] MEDS: heparin 5,000 unit/mL INJ 1 mL 5000 UNIT SUBCUT ×2 (07:45→21:08)
[2020-11-24] MEDS: pantoprazole DR 40 mg Tablet PO (07:46)
[2020-11-24] MEDS: duloxetine 30 mg Capsule PO (07:46)
[2020-11-24] MEDS: cefepime 1,000 MG in sodium chloride 0.9% (plus) 50 ML 100 MG IV ×3 (07:56→23:54)
[2020-11-24] MEDS: vancomycin 1,250 MG/250 ML PIGGYBACK 200 MG IV (09:19)
[2020-11-24 10:46] LABS: Add Urine Microscopic? YES; Bilirubin Urine 1+ (Negative); Blood Urine 2+ (Negative); Glucose Urine UA 4+ (Normal); Ketones Urine 2+ (Negative); Leukocyte Esterase Urine 1+ (Negative); Nitrate Urine Negative (Negative); Protein Urine 1+ (Negative); Urine Appearance Hazy (CLEAR); Urine Color Yellow (Yellow); Urobilinogen Urine Norm (Negative); pH Urine 5 (5-7)
[2020-11-24 10:47] LABS: Bacteria Urine 2+ /hpf
[2020-11-24 10:48] LABS: Add Urine Culture? Yes
[2020-11-24 11:03] LABS: Glucose Point of Care 371 mg/dL (70-110)
--- NOTE | 2020-11-24 14:06 | PM.PN ---
Subjective Subjective: Interval history: She is feeling slight bit better. Still coughing. Having chills. Has not had a bowel movement/no diarrhea. No nausea vomiting. Vitals/I&O/Wt Last Vital Signs Temp 97.9 F 11/24/20 11:02 Pulse 102 H 11/24/20 11:44 Resp 16 11/24/20 11:41 BP 96/62 11/24/20 11:02 Pulse Ox 95 11/24/20 11:41 11/23/20 11/24/20 11/24/20 22:59 06:59 14:59 Intake Total 300 / 300 50 / 350 690 / 690 Output Total 300 / 300 Balance 300 / 300 -250 / 50 690 / 690 Weight last 48 hrs Weight 113.03 kg Weight 107.501 kg Physical Exam Const: COMMON NORMALS: no acute distress, patient oriented x3 and alert GENERAL APPEARANCE: cooperative and anxious NUTRITIONAL APPEARANCE: obese ORIENTATION/CONSCIOUSNESS: Yes awake HENMT: COMMON NORMALS: oropharynx normal Neck/C-Spine: COMMON NORMALS: no JVD Resp: COMMON NORMALS: normal respiratory effort AUSCULTATION: no rhonchi, wheezes (With improvement) and diminished lung sounds Cardio: COMMON NORMALS: no JVD, regular rhythm, S1 normal heart sound present, S2 normal heart sound present and No murmurs present (Cardio) RHYTHM: regular rhythm HEART SOUNDS: S1 normal heart sound present and S2 normal heart sound present GI: COMMON NORMALS: Normal to inspection, nondistended, normoactive bowel sounds present, Soft to palpation and non-tender PALPATION: Yes Soft to palpation Extremity: COMMON NORMALS: no joint enlargement and no pedal edema Neuro: COMMON NORMALS: patient oriented x3 and moves all extremities SENSORIUM/ORIENTATION: Yes alert Skin: COMMON NORMALS: no rashes or lesions noted GENERAL SKIN EXAM: no rashes or lesions noted and dry skin Data : 11/24/20 05:58 11/24/20 05:58 Micro: Microbiology 11/24/20 06:24 MRSA Culture - Final Nose 11/24/20 06:36 Gram Stain - Final Sputum - Expectorated Sputum 11/24/20 06:23 Legionella Urinary Antigen - Final Urine,Voided Bacterial Antigens - Final 11/23/20 16:25 Blood Culture - Preliminary Blood SPECIMEN COLLECTED 11/23/20 16:30 Blood Culture - Preliminary Blood SPECIMEN COLLECTED A&P Assessment and plan (1) Sepsis with acute hypoxic respiratory failure: Overall slightly better. Sepsis improving. Mild decrease in leukocytosis to 19,000. Some persistence of sinus tachycardia 102. Still symptomatic. Wheezing, rhonchi with improvement. Oxygen requirement appears to be improving. Continue IV antibiotic treatment with cefepime, vancomycin. Follow-up culture results. Sputum Gram stain so far mixed with moderate gram-positive cocci in clusters, moderate budding yeast. Few gram-positive rods. Follow-up culture results. MRSA PCR negative. If continues to improve, will likely discontinue vancomycin. Urine bacterial antigens including strep pneumo, HIV, GBS, Legionella negative. Was seen by speech therapy. She reports rare aspiration with food or drink. Appears to also have concomitant COPD exacerbation with cough, productive yellowish-green sputum, with pink tinge. Dyspnea, hypoxia. On admit requiring 6 L oxygen whereas normally uses 4. With hypoxia, hypercapnia on ABG. Previously on daily steroids, however, was weaned off. Continue methylprednisolone for now at current dose given soft blood pressure, 96/62. Possible adrenal insufficiency. With recent travel, normal D-dimer, pancreas pain, cramps, assessed by CT angiogram chest./Possible PE. No PE noted. Venous duplex negative for DVT. Status: Acute Qualifiers: Sepsis type: sepsis due to unspecified organism Severe sepsis shock status: without septic shock Qualified Code(s): A41.9 - Sepsis, unspecified organism; R65.20 - Severe sepsis without septic shock; J96.01 - Acute respiratory failure with hypoxia (2) Pneumonia: As above Status: Acute Qualifiers: Laterality: right Lung location: lower lobe of lung Pneumonia type: due to unspecified organism Qualified Code(s): J18.9 - Pneumonia, unspecified organism (3) Tonsillar enlargement: Assess for possible resection at [facility] in [place], however, found to be too high risk for procedure as well as to high risk for aspiration subsequently, and so procedure was canceled. Status: Acute (4) Obesity hypoventilation syndrome: On trilogy at home. Continue AVAPS here. Requested to inquire if her machine can be brought here. Status: Acute (5) Asthma: Status: Acute (6) Type 2 diabetes mellitus: Persistent hypoglycemia. Lowest glucose 181 yesterday afternoon. Expect will be difficult to control in presence of steroid as well. Increase Lantus to 77 units. Continue high-dose sliding scale. Glucose monitoring. Consistent carbohydrate diet. Status: Acute Qualifiers: Diabetes mellitus detention insulin use: with detention use Diabetes mellitus complication status: with neurologic complications Diabetes mellitus complication detail: with polyneuropathy Qualified Code(s): E11.42 - Type 2 diabetes mellitus with diabetic polyneuropathy; Z79.4 - medical terminologist (current) use of insulin (7) Smoker: Continue to encourage cessation. Status: Acute (8) Acute exacerbation of chronic obstructive airways disease: As above Status: Acute (9) Leg cramps: Magnesium 1.8. Give magnesium replacement. No VTE on lower extremity duplex. Status: Acute (10) D-dimer, elevated: As above. CTA negative for PE. No VTE on lower extremity duplex. Status: Acute Additional A&P Information Anxiety/depression Other chronic medical problems noted Attestations Medical Necessity Statement*: Admission for assessment management of pneumonia, COPD exacerbation, and lady with underlying OHS, optimization of hyperglycemia with underlying diabetes, requiring steroids, previously with chronic steroid use, with possible adrenal insufficiency. Coding Level of Care Code Acute Head Golf Coach for [facility] Fwd Diagnoses Sepsis with acute hypoxic respiratory failure A41.9; R65.20; J96.01 Sepsis type: sepsis due to unspecified organism Severe sepsis shock status: without septic shock Pneumonia J18.9 Laterality: right Lung location: lower lobe of lung Pneumonia type: due to unspecified organism Tonsillar enlargement J35.1 Obesity hypoventilation syndrome E66.2 Asthma J45.909 Type 2 diabetes mellitus E11.42; Z79.4 Diabetes mellitus manager long term care insulin use: with detention use Diabetes mellitus complication status: with neurologic complications Diabetes mellitus complication detail: with polyneuropathy Smoker F17.200 Acute exacerbation of chronic obstructive airways disease J44.1 Leg cramps R25.2 D-dimer, elevated R79.89
[2020-11-24] MEDS: magnesium sulfate premix 2 GM/50 ML PIGGYBACK IV (14:37)
[2020-11-24 16:51] LABS: Glucose Point of Care 359 mg/dL (70-110)
[2020-11-24] MEDS: CLONazepam 0.5 mg Tablet PO (19:18)
--- NOTE | 2020-11-24 19:19 | PC.NURSE ---
Report to Angélica CONRAD at this time.
--- NOTE | 2020-11-24 19:28 | USR_ITS ---
PROCEDURE INFORMATION: Exam: US Duplex Lower Extremity Veins, Bilateral Exam date and time: 11/24/2020 7:08 AM Age: 55 years old Clinical indication: Pain; Leg, lower; Bilateral; Additional info: Assess poss vte TECHNIQUE: Imaging protocol: Real-time duplex ultrasound of the extremities with 2-D may scale, color Doppler flow and spectral waveform analysis with image documentation. Complete exam focused on the bilateral lower extremity veins. COMPARISON: No relevant prior studies available. FINDINGS: Right deep veins: Unremarkable. The common femoral, femoral, proximal profunda femoral and popliteal veins are patent without thrombus. Normal Doppler waveforms. Normal compressibility and/or augmentation response. Right superficial veins: Saphenofemoral junction is patent without thrombus. Left deep veins: Unremarkable. The common femoral, femoral, proximal profunda femoral and popliteal veins are patent without thrombus. Normal Doppler waveforms. Normal compressibility and/or augmentation response. Left superficial veins: Saphenofemoral junction is patent without thrombus. Soft tissues: Unremarkable. US/CV venous duplex [facility] [id number] IMPRESSION: No evidence of deep vein thrombosis.
[2020-11-24 20:42] LABS: Glucose Point of Care 460 mg/dL (70-110)
[2020-11-24] MEDS: insulin glargine 100 units/1 mL 77 UNIT SUBCUT (21:08)
[2020-11-24] MEDS: vancomycin 1,250 MG/250 ML PIGGYBACK 250 MG IV (21:08)
[2020-11-25] VITALS (23 sets, daily range): BP systolic 99–122; BP diastolic 60–76; PULSE 81–105; RESP 13–21; TEMP 35.9–36.6; O2SAT 88–99
[2020-11-25] MEDS: ipratropium-albuterol 3 mL Neb INHALATION ×6 (00:18→21:00)
[2020-11-25 06:16] LABS: Glucose Point of Care 331 mg/dL (70-110)
[2020-11-25 06:22] LABS: Basophils % 0.2 %; Hematocrit 47.5 % (37.0-47.0); Hemoglobin 14.4 g/dL (11.5-15.3); Lymphocytes # 0.6 10^3/uL (0.8-4.8); Lymphocytes % 3.7 %; Mean Corpuscular HGB Conc 30.3 g/dL (30.0-36.0); Mean Corpuscular Hemoglobin 27.3 pg (28.0-34.0); Mean Corpuscular Volume 90.1 fL (81-99); Mean Platelet Volume 10.5 fL (7.4-10.4); Monocytes # 0.3 10^3/uL (0.2-0.9); Monocytes % 1.9 %; Neutrophils # 15.88 10^3/uL (1.8-7.7); Neutrophils % 93.4 %; Nucleated Red Blood Cells % 0 %; Platelet Count 235 10^3/cmm (130-400); Red Blood Count 5.27 10^6/uL (4.1-5.3); Red Cell Distribution Width 13.8 % (12.1-15.1)
[2020-11-25 06:44] LABS: Alanine Aminotransferase 19 U/L (0-33); Albumin Level 2.8 g/dL (3.5-5.2); Alkaline Phosphatase 145 IU/L (35-105); Aspartate Amino Transferase 12 U/L (0-32); Blood Urea Nitrogen 23 mg/dL (6-20); Calcium 7.7 mg/dL (8.5-10.5); Carbon Dioxide 33 mmol/L (22-29); Chloride 90 mmol/L (98-107); Creatinine Clr Calc Pharmacy 159.0396; Globulin 4.4 g/dL (1.3-4.6); Glomerular Filtration Rate 128.6 mL/min (90-130); Glucose 329 mg/dL (65-115); Osmolality Calculated 290 mOsm/kg (285-295); Sodium 132 mmol/L (136-145); Total Bilirubin 0.3 mg/dL (0.15-1.2); Total Protein 7.2 g/dL (6.6-8.7)
[2020-11-25 06:47] LABS: Anion Gap 13.1 (5-19); Potassium 4.1 mmol/L (3.5-5.1)
[2020-11-25] MEDS: heparin 5,000 unit/mL INJ 1 mL 5000 UNIT SUBCUT ×2 (07:48→20:47)
[2020-11-25] MEDS: CLONazepam 0.5 mg Tablet PO ×2 (07:49→21:28)
[2020-11-25] MEDS: pantoprazole DR 40 mg Tablet PO (07:49)
[2020-11-25] MEDS: losartan 50 mg Tablet 25 MG PO (07:51)
[2020-11-25] MEDS: duloxetine 30 mg Capsule PO (07:54)
[2020-11-25] MEDS: cefepime 1,000 MG in sodium chloride 0.9% (plus) 50 ML 100 MG IV ×3 (07:58→23:00)
[2020-11-25] MEDS: vancomycin 1,250 MG/250 ML PIGGYBACK 250 MG IV (09:03)
--- NOTE | 2020-11-25 09:12 | PC.NURSE ---
Patient's Vancomycin was held until the lab was drawn.
[2020-11-25 09:58] LABS: Vancomycin Trough 8.5 ug/mL (10-15)
[2020-11-25] MEDS: vancomycin 750 MG in sodium chloride 0.9% 250 ML 250 MG IV (10:39)
[2020-11-25 10:58] LABS: Glucose Point of Care 495 mg/dL (70-110)
--- NOTE | 2020-11-25 15:21 | PM.PN ---
Subjective Subjective: Interval history: She is doing about the same. She is coughing. Today is having a headache. Oxygenation worsened slightly today, requiring 6 L of oxygen. Leg cramps have resolved. Vitals/I&O/Wt Last Vital Signs Temp 97.8 F 11/25/20 15:07 Pulse 96 11/25/20 15:07 Resp 17 11/25/20 15:07 BP 116/62 11/25/20 15:07 Pulse Ox 95 11/25/20 15:07 11/25/20 11/25/20 11/25/20 06:59 14:59 22:59 Intake Total 300 / 1440 860 / 860 Output Total 1800 / 1800 Balance -1500 / -360 860 / 860 Weight last 48 hrs Weight 117.208 kg Weight 113.03 kg Physical Exam Const: COMMON NORMALS: no acute distress, patient oriented x3 and alert GENERAL APPEARANCE: cooperative and anxious NUTRITIONAL APPEARANCE: obese ORIENTATION/CONSCIOUSNESS: Yes awake HENMT: COMMON NORMALS: oropharynx normal Neck/C-Spine: COMMON NORMALS: no JVD Resp: COMMON NORMALS: normal respiratory effort AUSCULTATION: no rhonchi, no wheezes and diminished lung sounds Cardio: COMMON NORMALS: no JVD, regular rhythm, S1 normal heart sound present, S2 normal heart sound present and No murmurs present (Cardio) RHYTHM: regular rhythm HEART SOUNDS: S1 normal heart sound present and S2 normal heart sound present GI: COMMON NORMALS: Normal to inspection, nondistended, normoactive bowel sounds present, Soft to palpation and non-tender PALPATION: Yes Soft to palpation Extremity: COMMON NORMALS: no joint enlargement and no pedal edema Neuro: COMMON NORMALS: patient oriented x3 and moves all extremities SENSORIUM/ORIENTATION: Yes alert Skin: COMMON NORMALS: no rashes or lesions noted GENERAL SKIN EXAM: no rashes or lesions noted and dry skin Data : 11/25/20 05:28 11/25/20 05:28 Micro: Microbiology 11/24/20 06:23 Urine Culture - Preliminary Urine,Clean Catch 11/24/20 06:36 Gram Stain - Final Sputum - Expectorated Sputum Sputum Culture - Preliminary 11/23/20 16:25 Blood Culture - Preliminary Blood NEGATIVE TO DATE 11/23/20 16:30 Blood Culture - Preliminary Blood NEGATIVE TO DATE 11/24/20 06:24 MRSA Culture - Final Nose A&P Assessment and plan (1) Sepsis with acute hypoxic respiratory failure: Increasing oxygen requirement up to 6 L. Leukocytosis is somewhat better. Tachycardia improved. She has been using incentive spirometer, but not the flutter valve. Instructed on use. Continue antibiotics at this time. With hypoxia, headache we will check COVID-19 PCR. Will follow-up additional chest x-ray. Follow-up culture results. Sputum Gram stain so far mixed with moderate gram-positive cocci in clusters, moderate budding yeast. Few gram-positive rods. Follow-up culture results. MRSA PCR negative. If shows improvement, will likely discontinue vancomycin. Urine bacterial antigens including strep pneumo, HIV, GBS, Legionella negative. Was seen by speech therapy. She reports rare aspiration with food or drink. Continue steroids, antibiotic for COPD exacerbation. This appears to be improving, wheezing resolved. Decrease Solu-Medrol dose. Possible adrenal sufficiency with improvement, blood pressures improved. Previously on daily steroids, however, was taken off. CTA on admission. No PE noted. Venous duplex negative for DVT. Status: Acute Qualifiers: Sepsis type: sepsis due to unspecified organism Severe sepsis shock status: without septic shock Qualified Code(s): A41.9 - Sepsis, unspecified organism; R65.20 - Severe sepsis without septic shock; J96.01 - Acute respiratory failure with hypoxia (2) Pneumonia: As above Status: Acute Qualifiers: Laterality: right Lung location: lower lobe of lung Pneumonia type: due to unspecified organism Qualified Code(s): J18.9 - Pneumonia, unspecified organism (3) Tonsillar enlargement: Assess for possible resection at [facility] in [place], however, found to be too high risk for procedure as well as to high risk for aspiration subsequently, and so procedure was canceled. Status: Acute (4) Obesity hypoventilation syndrome: On trilogy at home. Was started on AVAPS, but did better with BiPAP here. Continue trilogy at home. Requested to inquire if her machine can be brought here. Status: Acute (5) Asthma: Status: Acute (6) Type 2 diabetes mellitus: Severe hyperglycemia, will additionally increase Lantus dose. Lantus 80 units. Continue high-dose sliding scale. Glucose monitoring. Consistent carbohydrate diet. Status: Acute Qualifiers: Diabetes mellitus drafter heating and ventilating insulin use: with care home use Diabetes mellitus complication status: with neurologic complications Diabetes mellitus complication detail: with polyneuropathy Qualified Code(s): E11.42 - Type 2 diabetes mellitus with diabetic polyneuropathy; Z79.4 - correction (current) use of insulin (7) Smoker: Continue to encourage cessation. Status: Acute (8) Acute exacerbation of chronic obstructive airways disease: As above Status: Acute (9) Leg cramps: Leg cramps resolved after magnesium replacement. No VTE on lower extremity duplex. Status: Acute (10) D-dimer, elevated: As above. CTA negative for PE. No VTE on lower extremity duplex. Status: Acute Additional A&P Information Anxiety/depression Other chronic medical problems noted Attestations Medical Necessity Statement*: Continue admission for assessment management of hypoxic respiratory failure, pneumonia, CAP exacerbation, hyperglycemia. Coding Level of Care Code Acute Clinical Trial Associate for [facility] Fwd Diagnoses Sepsis with acute hypoxic respiratory failure A41.9; R65.20; J96.01 Sepsis type: sepsis due to unspecified organism Severe sepsis shock status: without septic shock Pneumonia J18.9 Laterality: right Lung location: lower lobe of lung Pneumonia type: due to unspecified organism Tonsillar enlargement J35.1 Obesity hypoventilation syndrome E66.2 Asthma J45.909 Type 2 diabetes mellitus E11.42; Z79.4 Diabetes mellitus drafter heating and ventilating insulin use: with care home use Diabetes mellitus complication status: with neurologic complications Diabetes mellitus complication detail: with polyneuropathy Smoker F17.200 Acute exacerbation of chronic obstructive airways disease J44.1 Leg cramps R25.2 D-dimer, elevated R79.89
[2020-11-25 16:54] LABS: Glucose Point of Care 349 mg/dL (70-110)
--- NOTE | 2020-11-25 19:19 | PC.NURSE ---
Report to Becca MARTIN at this time
[2020-11-25 21:17] LABS: Glucose Point of Care 376 mg/dL (70-110)
[2020-11-25] MEDS: insulin glargine 100 units/1 mL 80 UNIT SUBCUT (21:27)
[2020-11-26] VITALS (23 sets, daily range): BP systolic 98–124; BP diastolic 53–69; PULSE 85–98; RESP 12–93; TEMP 36.2–36.7; O2SAT 92–99
[2020-11-26] MEDS: ipratropium-albuterol 3 mL Neb INHALATION ×7 (00:40→23:07)
--- NOTE | 2020-11-26 06:00 | XRR_ITS ---
PROCEDURE INFORMATION: Exam: XR Chest Exam date and time: 11/26/2020 7:00 AM Age: 55 years old Clinical indication: Shortness of breath; Patient HX: SOB and hypoxia. History of emphysema. TECHNIQUE: Imaging protocol: XR of the chest. Views: 1 view. COMPARISON: CR (CHEST, ) 11/23/2020 3:43 PM FINDINGS: Lungs: Airspace opacity in the right lower lobe, corresponding to consolidation seen on chest CT. Left basilar atelectasis. Possible trace right pleural effusion. No pneumothorax. Pleural spaces: See Lungs finding. Heart/Mediastinum: Stable cardiomediastinal silhouette. Bones/joints: Unremarkable. XR/XR chest 1V portable [id number] IMPRESSION: Right lower lobe pneumonia.
[2020-11-26 06:45] LABS: Basophils % 0.1 %; Hematocrit 44.1 % (37.0-47.0); Hemoglobin 13.4 g/dL (11.5-15.3); Lymphocytes # 0.7 10^3/uL (0.8-4.8); Mean Corpuscular HGB Conc 30.4 g/dL (30.0-36.0); Mean Corpuscular Volume 88.9 fL (81-99); Mean Platelet Volume 10.5 fL (7.4-10.4); Monocytes # 0.3 10^3/uL (0.2-0.9); Monocytes % 2.1 %; Neutrophils # 13.21 10^3/uL (1.8-7.7); Neutrophils % 92.4 %; Nucleated Red Blood Cells % 0 %; Platelet Count 218 10^3/cmm (130-400); Red Blood Count 4.96 10^6/uL (4.1-5.3); Red Cell Distribution Width 13.8 % (12.1-15.1); White Blood Count 14.3 10^3/uL (4.0-10.0)
[2020-11-26 06:49] LABS: Glucose Point of Care 268 mg/dL (70-110)
[2020-11-26 07:04] LABS: Alanine Aminotransferase 18 U/L (0-33); Alkaline Phosphatase 129 IU/L (35-105); Anion Gap 11.5 (5-19); Aspartate Amino Transferase 8 U/L (0-32); Blood Urea Nitrogen 25 mg/dL (6-20); Calcium 7.4 mg/dL (8.5-10.5); Carbon Dioxide 34 mmol/L (22-29); Chloride 93 mmol/L (98-107); Globulin 3.6 g/dL (1.3-4.6); Glomerular Filtration Rate 231.8 mL/min (90-130); Glucose 299 mg/dL (65-115); Osmolality Calculated 294 mOsm/kg (285-295); Potassium 4.5 mmol/L (3.5-5.1); Sodium 134 mmol/L (136-145); Total Bilirubin 0.2 mg/dL (0.15-1.2); Total Protein 6.6 g/dL (6.6-8.7)
--- NOTE | 2020-11-26 09:05 | PC.SOCIAL ---
*IMM UPDATE* Systems Technologist gave verbal IMM update to patient. Patient verbalized understanding. 11/26/20 @ 0852 Initialed, dated, timed and placed in chart.
[2020-11-26] MEDS: cefepime 1,000 MG in sodium chloride 0.9% (plus) 50 ML 100 MG IV ×2 (09:57→15:16)
[2020-11-26] MEDS: duloxetine 30 mg Capsule PO (09:58)
[2020-11-26] MEDS: pantoprazole DR 40 mg Tablet PO (09:58)
[2020-11-26] MEDS: losartan 50 mg Tablet 25 MG PO (10:00)
[2020-11-26] MEDS: heparin 5,000 unit/mL INJ 1 mL 5000 UNIT SUBCUT ×2 (10:00→21:37)
[2020-11-26] MEDS: CLONazepam 0.5 mg Tablet PO ×2 (10:03→21:39)
[2020-11-26 11:23] LABS: Glucose Point of Care 360 mg/dL (70-110)
[2020-11-26 16:48] LABS: Glucose Point of Care 254 mg/dL (70-110)
--- NOTE | 2020-11-26 20:42 | PM.PN ---
Subjective Subjective: Interval history: She is gradually improving. Down to 4 L oxygen. Still feeling somewhat weak. Cough. Not bringing up much phlegm. Vitals/I&O/Wt Last Vital Signs Temp 97.8 F 11/26/20 19:43 Pulse 91 11/26/20 20:06 Resp 16 11/26/20 19:55 BP 106/66 11/26/20 19:43 Pulse Ox 95 11/26/20 19:55 11/26/20 11/26/20 11/26/20 06:59 14:59 22:59 Intake Total 550 / 2060 910 / 910 170 / 1080 Output Total 500 / 500 600 / 1100 Balance 550 / 2060 410 / 410 -430 / -20 Weight last 48 hrs Weight 114.56 kg Weight 117.208 kg Physical Exam Const: COMMON NORMALS: no acute distress, patient oriented x3 and alert GENERAL APPEARANCE: cooperative and anxious NUTRITIONAL APPEARANCE: obese ORIENTATION/CONSCIOUSNESS: Yes awake HENMT: COMMON NORMALS: oropharynx normal Neck/C-Spine: COMMON NORMALS: no JVD Resp: COMMON NORMALS: normal respiratory effort AUSCULTATION: no rhonchi, no wheezes and diminished lung sounds (Improving) Cardio: COMMON NORMALS: no JVD, regular rhythm, S1 normal heart sound present, S2 normal heart sound present and No murmurs present (Cardio) RHYTHM: regular rhythm HEART SOUNDS: S1 normal heart sound present and S2 normal heart sound present GI: COMMON NORMALS: Normal to inspection, nondistended, normoactive bowel sounds present, Soft to palpation and non-tender PALPATION: Yes Soft to palpation Extremity: COMMON NORMALS: no joint enlargement and no pedal edema Neuro: COMMON NORMALS: patient oriented x3 and moves all extremities SENSORIUM/ORIENTATION: Yes alert Skin: COMMON NORMALS: no rashes or lesions noted GENERAL SKIN EXAM: no rashes or lesions noted and dry skin Data : 11/26/20 06:11 11/26/20 06:11 Micro: Microbiology 11/24/20 06:36 Gram Stain - Final Sputum - Expectorated Sputum Sputum Culture - Final Strep agalactiae - (group b) A&P Assessment and plan (1) Sepsis with acute hypoxic respiratory failure: Oxygen requirement improving. Down to 4 L nasal cannula. No wheezing, rhonchi. Reports good try to cough up phlegm, but nothing coming up. Add Mucinex. Discussed with her to continue flutter valve, incentive parameter. We will de-escalate from IV steroid, monitor condition. Start prednisone. Continue antibiotic. Stop vancomycin. Follow-up sputum culture result. Overall condition appears to be improving. If continues to improve, potentially may be able to return home within the next 1-2 days. Follow-up pending COVID-19 PCR. Repeat chest x-ray with persistent right lower lobe pneumonia. MRSA PCR negative. If shows improvement, will likely discontinue vancomycin. Urine bacterial antigens including strep pneumo, HIV, GBS, Legionella negative. Was seen by speech therapy. On admission she reported rare aspiration with food or drink. We have not seen this in the hospital. Continue steroids, antibiotic for COPD exacerbation. This appears to be improving, wheezing resolved. Decrease Solu-Medrol dose. Possible adrenal sufficiency with improvement, blood pressures improved. Previously on daily steroids, however, was taken off. Taper down steroids, attempt to switch to oral. CTA on admission. No PE noted. Venous duplex negative for DVT. She asks to update Dr. Reyez if possible of the events of the hospitalization. Status: Acute Qualifiers: Sepsis type: sepsis due to unspecified organism Severe sepsis shock status: without septic shock Qualified Code(s): A41.9 - Sepsis, unspecified organism; R65.20 - Severe sepsis without septic shock; J96.01 - Acute respiratory failure with hypoxia (2) Pneumonia: As above Status: Acute Qualifiers: Laterality: right Lung location: lower lobe of lung Pneumonia type: due to unspecified organism Qualified Code(s): J18.9 - Pneumonia, unspecified organism (3) Tonsillar enlargement: Assess for possible resection at [facility] in [place], however, found to be too high risk for procedure as well as to high risk for aspiration subsequently, and so procedure was canceled. Status: Acute (4) Obesity hypoventilation syndrome: On trilogy at home. Was started on AVAPS, but did better with BiPAP here. Continue trilogy at home. Requested to inquire if her machine can be brought here. Status: Acute (5) Asthma: Status: Acute (6) Type 2 diabetes mellitus: Severe hyperglycemia, will additionally increase Lantus dose to 82 units. Anticipate insulin requirements are decreased with tapering of steroids. Continue high-dose sliding scale. Glucose monitoring. Consistent carbohydrate diet. Status: Acute Qualifiers: Diabetes mellitus skilled nursing insulin use: with skilled nursing use Diabetes mellitus complication status: with neurologic complications Diabetes mellitus complication detail: with polyneuropathy Qualified Code(s): E11.42 - Type 2 diabetes mellitus with diabetic polyneuropathy; Z79.4 - meterman (current) use of insulin (7) Smoker: Continue to encourage cessation. Status: Acute (8) Acute exacerbation of chronic obstructive airways disease: As above Status: Acute (9) Leg cramps: Leg cramps resolved after magnesium replacement. No VTE on lower extremity duplex. Status: Acute (10) D-dimer, elevated: As above. CTA negative for PE. No VTE on lower extremity duplex. Status: Acute Additional A&P Information Anxiety/depression Other chronic medical problems noted Attestations Medical Necessity Statement*: Continue admission for assessment management of acute pneumonia, hypoxia, and lady with underlying OHS, tonsillar enlargement, current smoker, with adrenal insufficiency requiring stress dose steroids support and taper. De-escalation of antibiotics and steroids. Coding Level of Care Code Acute Plastic Worker for [facility] Fwd Diagnoses Sepsis with acute hypoxic respiratory failure A41.9; R65.20; J96.01 Sepsis type: sepsis due to unspecified organism Severe sepsis shock status: without septic shock Pneumonia J18.9 Laterality: right Lung location: lower lobe of lung Pneumonia type: due to unspecified organism Tonsillar enlargement J35.1 Obesity hypoventilation syndrome E66.2 Asthma J45.909 Type 2 diabetes mellitus E11.42; Z79.4 Diabetes mellitus skilled nursing insulin use: with intermodal owner operator truck driver use Diabetes mellitus complication status: with neurologic complications Diabetes mellitus complication detail: with polyneuropathy Smoker F17.200 Acute exacerbation of chronic obstructive airways disease J44.1 Leg cramps R25.2 D-dimer, elevated R79.89
[2020-11-26 20:52] LABS: Glucose Point of Care 295 mg/dL (70-110)
[2020-11-26] MEDS: insulin glargine 100 units/1 mL 82 UNIT SUBCUT (21:38)
[2020-11-26 22:11] LABS: Vancomycin Trough 14.7 ug/mL (10-15)
[2020-11-27] VITALS (17 sets, daily range): BP systolic 97–135; BP diastolic 58–81; PULSE 83–104; RESP 13–20; TEMP 36.4–37.1; O2SAT 89–98
[2020-11-27] MEDS: cefepime 1,000 MG in sodium chloride 0.9% (plus) 50 ML 100 MG IV ×3 (00:03→17:06)
[2020-11-27] MEDS: ipratropium-albuterol 3 mL Neb INHALATION ×3 (03:02→20:26)
[2020-11-27 06:15] LABS: Basophils # 0.1 10^3/uL (0.0-0.1); Basophils % 0.4 %; Hematocrit 45.8 % (37.0-47.0); Hemoglobin 13.6 g/dL (11.5-15.3); Lymphocytes # 2.3 10^3/uL (0.8-4.8); Lymphocytes % 15.5 %; Mean Corpuscular HGB Conc 29.7 g/dL (30.0-36.0); Mean Corpuscular Hemoglobin 27.1 pg (28.0-34.0); Mean Corpuscular Volume 91.2 fL (81-99); Mean Platelet Volume 10.2 fL (7.4-10.4); Monocytes # 0.9 10^3/uL (0.2-0.9); Neutrophils # 11.44 10^3/uL (1.8-7.7); Neutrophils % 76.3 %; Nucleated Red Blood Cells % 0 %; Platelet Count 253 10^3/cmm (130-400); Red Blood Count 5.02 10^6/uL (4.1-5.3); Red Cell Distribution Width 14.2 % (12.1-15.1)
[2020-11-27 06:30] LABS: Alanine Aminotransferase 20 U/L (0-33); Albumin Level 3.1 g/dL (3.5-5.2); Alkaline Phosphatase 120 IU/L (35-105); Anion Gap 8.3 (5-19); Aspartate Amino Transferase 10 U/L (0-32); Blood Urea Nitrogen 22 mg/dL (6-20); Calcium 7.5 mg/dL (8.5-10.5); Carbon Dioxide 38 mmol/L (22-29); Chloride 98 mmol/L (98-107); Globulin 3.1 g/dL (1.3-4.6); Glomerular Filtration Rate 231.8 mL/min (90-130); Glucose 121 mg/dL (65-115); Osmolality Calculated 295 mOsm/kg (285-295); Potassium 4.3 mmol/L (3.5-5.1); Sodium 140 mmol/L (136-145); Total Bilirubin 0.3 mg/dL (0.15-1.2); Total Protein 6.2 g/dL (6.6-8.7)
[2020-11-27 06:49] LABS: Glucose Point of Care 97 mg/dL (70-110)
[2020-11-27] MEDS: losartan 50 mg Tablet 25 MG PO (08:41)
[2020-11-27] MEDS: guaiFENesin 600 mg Tablet 1200 MG PO ×2 (08:41→17:01)
[2020-11-27] MEDS: pantoprazole DR 40 mg Tablet PO (08:41)
[2020-11-27] MEDS: heparin 5,000 unit/mL INJ 1 mL 5000 UNIT SUBCUT ×2 (08:41→17:01)
[2020-11-27] MEDS: predniSONE 20 mg Tablet 40 MG PO (08:41)
[2020-11-27] MEDS: duloxetine 30 mg Capsule PO (08:41)
[2020-11-27] MEDS: CLONazepam 0.5 mg Tablet PO ×2 (08:47→21:26)
[2020-11-27 10:59] LABS: Glucose Point of Care 157 mg/dL (70-110)
[2020-11-27 13:14] LABS: Coronavirus Test Green County Not Detected
[2020-11-27 17:03] LABS: Glucose Point of Care 156 mg/dL (70-110)
--- NOTE | 2020-11-27 17:23 | P.PN_ITS ---
Subjective Subjective: Interval history: Hospital course, labs appreciated. Examination patient lying comfortably in bed. States she is not feeling well today. She is feeling tired and weak been down. Currently she is on 4 L saturating 96%. Patient was sitting up in chair for around 2 hours prior to the day today. Patient denying any cough, abdominal pain, headache. As per the nurse patient not having any cough during feeding as well. Vitals/I&O/Wt Last Vital Signs Temp 98.1 F 11/27/20 15:18 Pulse 95 11/27/20 15:18 Resp 17 11/27/20 15:18 BP 97/59 11/27/20 15:18 Pulse Ox 93 11/27/20 15:18 11/27/20 11/27/20 11/27/20 06:59 14:59 22:59 Intake Total 800 / 1880 530 / 530 Output Total 700 / 1800 350 / 350 Balance 100 / 80 180 / 180 Weight last 48 hrs Weight 114.986 kg Weight 114.56 kg Data : 11/27/20 05:40 11/27/20 05:40 Micro: Microbiology 11/24/20 06:23 Urine Culture - Final Urine,Clean Catch A&P Assessment and plan (1) Acute exacerbation of chronic obstructive airways disease: As above Status: Acute (2) Sepsis with acute hypoxic respiratory failure: Status: Acute Qualifiers: Sepsis type: sepsis due to unspecified organism Severe sepsis shock status: without septic shock Qualified Code(s): A41.9 - Sepsis, unspecified organism; R65.20 - Severe sepsis without septic shock; J96.01 - Acute respiratory failure with hypoxia (3) Pneumonia: As above Status: Acute Qualifiers: Laterality: right Lung location: lower lobe of lung Pneumonia type: due to unspecified organism Qualified Code(s): J18.9 - Pneumonia, unspecified organism (4) Tonsillar enlargement: Assess for possible resection at [facility] in [place], however, found to be too high risk for procedure as well as to high risk for aspiration subsequently, and so procedure was canceled. Status: Acute (5) Obesity hypoventilation syndrome: On trilogy at home. Was started on AVAPS, but did better with BiPAP here. Continue trilogy at home. Requested to inquire if her machine can be brought here. Status: Acute (6) Asthma: Status: Acute (7) Type 2 diabetes mellitus: Status: Acute Qualifiers: Diabetes mellitus intermediate school teacher insulin use: with half-way use Diabetes mellitus complication status: with neurologic complications Diabetes mellitus complication detail: with polyneuropathy Qualified Code(s): E11.42 - Type 2 diabetes mellitus with diabetic polyneuropathy; Z79.4 - halfway (current) use of insulin (8) Smoker: Continue to encourage cessation. Status: Acute (9) Leg cramps: Leg cramps resolved after magnesium replacement. No VTE on lower extremity duplex. Status: Acute (10) D-dimer, elevated: As above. CTA negative for PE. No VTE on lower extremity duplex. Status: Acute Additional A&P Information Sepsis with acute hypoxic respiratory failure: Resolving. Patient is at baseline oxygen supplementation. For now continue with cefepime. Sputum culture growing strep. Can most likely be discharged on Augmentin but patient is penicillin allergic so will be discharged on Keflex. Speech and swallow evaluation appreciated. Will check modified barium swallow. Oxygen supplementation keeping saturation over 88%. Continue DuoNeb every 6 hour. Continue prednisone 40 mg daily. Most likely patient will need a slow taper as an outpatient with close follow-up with architectural manager. Type 2 diabetes mellitus: Blood sugars elevated early in the admission. Continue with Lantus 80 units at bedtime. Insulin Sliding scale at high-dose. Carb consistent diet. Anxiety/depression Other chronic medical problems noted. Full code. Cardiac carb consistent diet for now. Heparin for DVT prophylaxis. Attestations Medical Necessity Statement*: Patient requires further hospitalization for management of acute hypoxic respiratory failure because of aspiration pneumonia, obstructive sleep apnea, exacerbation of COPD. Time Spent in Patient Care: Greater than 35 minutes (>than 50% of time spent in counselling and/or direct pt care on unit) . Coding Level of Care Code Acute Airline Mechanic for [facility] Fwd Diagnoses Acute exacerbation of chronic obstructive airways disease J44.1 Sepsis with acute hypoxic respiratory failure A41.9; R65.20; J96.01 Sepsis type: sepsis due to unspecified organism Severe sepsis shock status: without septic shock Pneumonia J18.9 Laterality: right Lung location: lower lobe of lung Pneumonia type: due to unspecified organism Tonsillar enlargement J35.1 Obesity hypoventilation syndrome E66.2 Asthma J45.909 Type 2 diabetes mellitus E11.42; Z79.4 Diabetes mellitus intermediate school teacher insulin use: with half-way use Diabetes mellitus complication status: with neurologic complications Diabetes mellitus complication detail: with polyneuropathy Smoker F17.200 Leg cramps R25.2 D-dimer, elevated R79.89
[2020-11-27 21:01] LABS: Glucose Point of Care 149 mg/dL (70-110)
[2020-11-27] MEDS: insulin glargine 100 units/1 mL 80 UNIT SUBCUT (21:27)
[2020-11-28] VITALS (12 sets, daily range): BP systolic 107–145; BP diastolic 66–79; PULSE 57–98; RESP 14–18; TEMP 36.4–37.1; O2SAT 91–98
[2020-11-28] MEDS: heparin 5,000 unit/mL INJ 1 mL 5000 UNIT SUBCUT ×2 (01:20→08:18)
[2020-11-28] MEDS: cefepime 1,000 MG in sodium chloride 0.9% (plus) 50 ML 100 MG IV ×2 (02:15→10:12)
[2020-11-28] MEDS: ipratropium-albuterol 3 mL Neb INHALATION ×2 (02:25→08:31)
[2020-11-28 02:44] LABS: Basophils # 0.1 10^3/uL (0.0-0.1); Basophils % 0.7 %; Eosinophils # 0.1 10^3/uL (0.0-0.8); Eosinophils % 0.6 %; Hematocrit 45.5 % (37.0-47.0); Hemoglobin 13.5 g/dL (11.5-15.3); Lymphocytes # 2.7 10^3/uL (0.8-4.8); Lymphocytes % 23.1 %; Mean Corpuscular HGB Conc 29.7 g/dL (30.0-36.0); Mean Corpuscular Hemoglobin 27.2 pg (28.0-34.0); Mean Corpuscular Volume 91.5 fL (81-99); Mean Platelet Volume 9.8 fL (7.4-10.4); Monocytes # 1.1 10^3/uL (0.2-0.9); Monocytes % 9.3 %; Neutrophils # 7.54 10^3/uL (1.8-7.7); Nucleated Red Blood Cells % 0 %; Platelet Count 227 10^3/cmm (130-400); Red Blood Count 4.97 10^6/uL (4.1-5.3); White Blood Count 11.8 10^3/uL (4.0-10.0)
[2020-11-28 03:09] LABS: Alanine Aminotransferase 20 U/L (0-33); Albumin Level 2.7 g/dL (3.5-5.2); Alkaline Phosphatase 104 IU/L (35-105); Aspartate Amino Transferase 17 U/L (0-32); Blood Urea Nitrogen 16 mg/dL (6-20); Calcium 7.3 mg/dL (8.5-10.5); Chloride 98 mmol/L (98-107); Glomerular Filtration Rate 231.8 mL/min (90-130); Glucose 64 mg/dL (65-115); Osmolality Calculated 293 mOsm/kg (285-295); Sodium 142 mmol/L (136-145); Total Bilirubin 0.2 mg/dL (0.15-1.2); Total Protein 5.7 g/dL (6.6-8.7)
[2020-11-28 03:14] LABS: Carbon Dioxide 44 mmol/L (22-29)
[2020-11-28 07:21] LABS: Glucose Point of Care 31 mg/dL (70-110)
[2020-11-28 07:21] LABS: Glucose Point of Care 32 mg/dL (70-110)
[2020-11-28 07:21] LABS: Glucose Point of Care 165 mg/dL (70-110)
[2020-11-28 07:21] LABS: Glucose Point of Care 29 mg/dL (70-110)
--- NOTE | 2020-11-28 07:22 | PC.NURSE ---
BLOOD GLUCOSE: THE AUTOMOTIVE SERVICES MANAGER REPORTED TO THIS NURSE THAT THE PATIENT'S BLOOD SUGAR WAS 31. INSTRUCTED AUTOMOTIVE SERVICES MANAGER TO RECHECK IN OPPOSITE HAND AND THE RESULT WAS 29. FOLLOWED PROTOCOL THE PATIENT WAS GIVEN ORANGE JUICE WITH SUGAR, CHEERIOS WITH SUGAR ADDED, AND SOME PEDRO CRACKERS WITH PEANUT BUTTER. ALONG WITH ALL THAT THE PATIENT RECIEVED IVP D-50. 15 MINUTES FOLLOWING D-50, THE PATIENT'S BLOOD SUGAR IS 165.
[2020-11-28 08:09] LABS: Glucose 169 mg/dL (65-115)
[2020-11-28 08:13] LABS: Glucose Point of Care 167 mg/dL (70-110)
[2020-11-28] MEDS: predniSONE 20 mg Tablet 40 MG PO (08:17)
[2020-11-28] MEDS: duloxetine 30 mg Capsule PO (08:17)
[2020-11-28] MEDS: pantoprazole DR 40 mg Tablet PO (08:17)
[2020-11-28] MEDS: CLONazepam 0.5 mg Tablet PO (08:18)
[2020-11-28] MEDS: guaiFENesin 600 mg Tablet 1200 MG PO (08:18)
[2020-11-28] MEDS: losartan 50 mg Tablet 25 MG PO (08:18)
--- NOTE | 2020-11-28 09:30 | FL_ITS ---
WS: [id number] Modified barium swallow, 11/28/2020 Clinical Data: Pharyngeal dysphagia Comparison: None. Fluoroscopy time: 2.3 minutes. Findings: The patient had a delayed bolus propulsion but there was a functional seal. There was penetration wit h thin barium. There is no observed aspiration but the patient didn't cough. There is delayed bolus p ropulsion because of weakness of the hilar laryngeal and pharyngeal musculature. FL/FL barium swallow modifd [id number] Impression: 1. Delayed bolus propulsion. 2. Penetration but no observed aspiration, however coughing did occur. 3. Delayed bolus propulsion.
--- NOTE | 2020-11-28 10:20 | PC.SOCIAL ---
IMM Updated Updated pt on Pg 2 IMM. Explained to pt Pg 2 IMM. Provided pt a copy. Signed, dated, & timed copy in chart.
[2020-11-28 11:04] LABS: Glucose Point of Care 226 mg/dL (70-110)
--- NOTE | 2020-11-28 13:50 | P.DS_ITS ---
Discharge Providers Date of Admission: 11/23/20 16:42 Date of Discharge: November 28, 2020 Attending Provider at Admission: Rey Mariee Attending Provider at Discharge: Edson Varela MD Primary Care Provider: Wes Hart MD Diagnoses at Discharge Discharge Diagnosis (1) Acute exacerbation of chronic obstructive airways disease: Status: Acute (2) Sepsis with acute hypoxic respiratory failure: Status: Acute Qualifiers: Sepsis type: sepsis due to unspecified organism Severe sepsis shock status: without septic shock Qualified Code(s): A41.9 - Sepsis, unspecified organism; R65.20 - Severe sepsis without septic shock; J96.01 - Acute respiratory failure with hypoxia (3) Pneumonia: Status: Acute Qualifiers: Laterality: right Lung location: lower lobe of lung Pneumonia type: due to unspecified organism Qualified Code(s): J18.9 - Pneumonia, unspecified organism (4) Tonsillar enlargement: Status: Acute (5) Obesity hypoventilation syndrome: Status: Acute (6) Asthma: Status: Acute (7) Type 2 diabetes mellitus: Status: Acute Qualifiers: Diabetes mellitus ferry terminal supervisor insulin use: with skilled nursing use Diabetes mellitus complication status: with neurologic complications Diabetes mellitus complication detail: with polyneuropathy Qualified Code(s): E11.42 - Type 2 diabetes mellitus with diabetic polyneuropathy; Z79.4 - custodial (current) use of insulin (8) Smoker: Status: Acute (9) Leg cramps: Status: Acute (10) D-dimer, elevated: Status: Acute (11) Oropharyngeal dysphagia: Status: Acute Reason for Visit Reason for Visit: FEVER HIGH BLOOD SUGAR Hospital Course Hospital Course Pleasant 55-year-old lady with history of advanced COPD, GRISELDA, OHS, head and neck lesion in her lingular tonsil with consideration of biopsy at [facility], but was found to be too high risk for procedure, as well as with consideration of resection, deemed to be too high risk of aspiration after procedure, had just come back yesterday from [place], has been progressively getting more short of breath, with cough, yellowish, greenish, sputum, also with pink tinge, was having some pain in her right side, has been also having cramps in her legs. At home noted fever 101.5, here febrile with 102.5 temperature noted in ER. Sinus tachycardia 130s. Blood pressure 142/80. Respirate 18. Saturation 94% on 6 L. Normally on 4 L nasal cannula at home. At home she also uses a trilogy machine. She has a nebulizer. Follows with pulmonology in clinic. She is still an active smoker, smoking about 4 cigarettes a day. States she cut down from about 4 packs a day. States she is aware she needs to quit entirely. She reports that she may on occasion cough with food or drink but states this is not common. WBC count noted 23,000. Denies receiving recent steroids. Previously on prednisone daily but was weaned off. ABG 7.47/53.3/65.9. Sodium 135, glucose 181, but says has been having a lot of trouble keeping her glucose down currently. Normally follows with endocrinology. Says glucose has been as high as 500. Calcium 7.4. Alk phos 171, appears to be chronically elevated. Total protein 6.3. UA with 3+ protein, 1+ ketones, 2+ blood, negative nitrate, 1+ bilirubin, 4 urobilinogen, 1+ leukocyte Estrace, pending cell counts. Rapid influenza and COVID-19 antigens are negative. EKG with sinus tachycardia. Chest x-ray with consolidating right lower lobe pneumonia. Found patient went to the hospital for further management of aspiration pneumonia. Patient was seen multiple times by speech therapy and diet was modified accordingly. Sputum culture finally grew strep for which her antibiotics were tailored accordingly. Patient responded well to the treatment and is back on her baseline oxygen requirement of 4 L. Her hospital stay was complicated by labile blood sugar levels. Patient is advised to take Lantus 30 units twice daily along with insulin sliding scale. She is advised to maintain blood sugar diary for next 1 week and prior to follow-up with her primary care provider for further adjustment of hypoglycemics as needed. Patient underwent modified barium swallow which showed oropharyngeal dysphagia for which she is advised to follow-up with speech therapy as an outpatient for further evaluation. Patient is also advised to follow-up with ENT physician at [place] who refills have been provided to the patient for further evaluation of tonsillar enlargement and possible surgery as an outpatient. Physical Exam Narrative: EXAM NARRATIVE: Significant other at bedside. Const: COMMON NORMALS: no acute distress, patient oriented x3 and alert GENERAL APPEARANCE: cooperative and anxious NUTRITIONAL APPEARANCE: obese ORIENTATION/CONSCIOUSNESS: Yes awake HENMT: COMMON NORMALS: oropharynx normal Neck/C-Spine: COMMON NORMALS: no JVD Resp: COMMON NORMALS: normal respiratory effort AUSCULTATION: no rhonchi, no wheezes and diminished lung sounds (Improving) Cardio: COMMON NORMALS: no JVD, regular rhythm, S1 normal heart sound present, S2 normal heart sound present and No murmurs present (Cardio) RHYTHM: regular rhythm HEART SOUNDS: S1 normal heart sound present and S2 normal heart sound present GI: COMMON NORMALS: Normal to inspection, nondistended, normoactive bowel sounds present, Soft to palpation and non-tender PALPATION: Yes Soft to palpation Extremity: COMMON NORMALS: no joint enlargement and no pedal edema Neuro: COMMON NORMALS: patient oriented x3 and moves all extremities SENSORIUM/ORIENTATION: Yes alert Skin: COMMON NORMALS: no rashes or lesions noted GENERAL SKIN EXAM: no rashes or lesions noted and dry skin Discharge Data Data Completed and Pending: Completed Studies During Hospitalization Category Date Time Status CT angio chest PE protcl [id number] Stat Cat Scan 11/23/20 17:15 Completed FL barium swallow modifd [id number] Rout ine Exams 11/28/20 09:30 Completed XR chest 1V chavo ble [id number] Routine Exams 11/26/20 06:00 Completed XR chest 1V chavo ble [id number] Urgent Exams 11/23/20 15:25 [place] [id number] Routin e Ultrasound 11/24/20 19:28 Completed Pending at discharge Category Date Time Status Blood Culture Sta t Lab 11/23/20 16:25 Results Complete Blood Co unt w/Auto AM LABS Lab 11/29/20 04:00 Ordered Comprehensive Met abolic Panel AM LA BS Lab 11/29/20 04:00 Ordered Labs from last 24 hours 11/28/20 11/28/20 11/28/20 10:58 08:08 07:17 WBC RBC Hgb Hct MCV MCH MCHC RDW Plt Count MPV Neut % (Auto) Lymph % (Auto) [place] % (Auto) Eos % (Auto) Baso % (Auto) Neut # (Auto) Lymph # (Auto) [place] # (Auto) Eos # (Auto) Baso # (Auto) Nucleated RBC % (a uto) Nucleated RBCs # Sodium Potassium Chloride Carbon Dioxide Anion Gap BUN Creatinine GFR Calculation Glucose POC Glucose 226 H 167 H 165 H Calculated Osmolal ity Calcium Total Bilirubin AST ALT Alkaline Phosphata se Total Protein Albumin Globulin 11/28/20 11/28/20 11/28/20 07:14 07:00 06:52 WBC RBC Hgb Hct MCV MCH MCHC RDW Plt Count MPV Neut % (Auto) Lymph % (Auto) [place] % (Auto) Eos % (Auto) Baso % (Auto) Neut # (Auto) Lymph # (Auto) [place] # (Auto) Eos # (Auto) Baso # (Auto) Nucleated RBC % (a uto) Nucleated RBCs # Sodium Potassium Chloride Carbon Dioxide Anion Gap BUN Creatinine GFR Calculation Glucose 169 H POC Glucose 32 L* 29 L* Calculated Osmolal ity Calcium Total Bilirubin AST ALT Alkaline Phosphata se Total Protein Albumin Globulin 11/28/20 11/28/20 11/28/20 06:49 02:33 02:33 WBC 11.8 H RBC 4.97 Hgb 13.5 Hct 45.5 MCV 91.5 MCH 27.2 L MCHC 29.7 L RDW 14.0 Plt Count 227 MPV 9.8 Neut % (Auto) 64.0 Lymph % (Auto) 23.1 [place] % (Auto) 9.3 Eos % (Auto) 0.6 Baso % (Auto) 0.7 Neut # (Auto) 7.54 Lymph # (Auto) 2.7 [place] # (Auto) 1.1 H Eos # (Auto) 0.1 Baso # (Auto) 0.1 Nucleated RBC % (a uto) 0 Nucleated RBCs # 0.0 Sodium 142 Potassium 4.0 Chloride 98 Carbon Dioxide 44 H* Anion Gap 4.0 L BUN 16 Creatinine 0.3 L GFR Calculation 231.8 H Glucose 64 L POC Glucose 31 L* Calculated Osmolal ity 293 Calcium 7.3 L Total Bilirubin 0.2 AST 17 ALT 20 Alkaline Phosphata se 104 Total Protein 5.7 L Albumin 2.7 L Globulin 3.0 11/27/20 11/27/20 20:58 16:43 WBC RBC Hgb Hct MCV MCH MCHC RDW Plt Count MPV Neut % (Auto) Lymph % (Auto) [place] % (Auto) Eos % (Auto) Baso % (Auto) Neut # (Auto) Lymph # (Auto) [place] # (Auto) Eos # (Auto) Baso # (Auto) Nucleated RBC % (a uto) Nucleated RBCs # Sodium Potassium Chloride Carbon Dioxide Anion Gap BUN Creatinine GFR Calculation Glucose POC Glucose 149 H 156 H Calculated Osmolal ity Calcium Total Bilirubin AST ALT Alkaline Phosphata se Total Protein Albumin Globulin Addt'l Data from Hospital Stay: Laboratory Results WBC 11.8 10^3/uL (4.0 -10.0) H 11/28/20 02:33 RBC 4.97 10^6/uL (4.1 -5.3) 11/28/20 02:33 Hgb 13.5 g/dL (11.5-1 5.3) 11/28/20 02:33 Hct 45.5 % (37.0-47.0 ) 11/28/20 02:33 MCV 91.5 fL (81-99) 11/28/20 02:33 MCH 27.2 pg (28.0-34. 0) L 11/28/20 02:33 MCHC 29.7 g/dL (30.0-3 6.0) L 11/28/20 02:33 RDW 14.0 % (12.1-15.1 ) 11/28/20 02:33 Plt Count 227 10^3/cmm (130 -400) 11/28/20 02:33 MPV 9.8 fL (7.4-10.4) 11/28/20 02:33 Neut % (Auto) 64.0 % 11/28/20 02:33 Lymph % (Auto) 23.1 % 11/28/20 02:33 [place] % (Auto) 9.3 % 11/28/20 02:33 Eos % (Auto) 0.6 % 11/28/20 02:33 Baso % (Auto) 0.7 % 11/28/20 02:33 Neut # (Auto) 7.54 10^3/uL (1.8 -7.7) 11/28/20 02:33 Lymph # (Auto) 2.7 10^3/uL (0.8- 4.8) 11/28/20 02:33 [place] # (Auto) 1.1 10^3/uL (0.2- 0.9) H 11/28/20 02:33 Eos # (Auto) 0.1 10^3/uL (0.0- 0.8) 11/28/20 02:33 Baso # (Auto) 0.1 10^3/uL (0.0- 0.1) 11/28/20 02:33 Nucleated RBC % (a uto) 0 % 11/28/20 02:33 Nucleated RBCs # 0.0 /100WBC 11/28/20 02:33 D-Dimer 1.63 ug/mIFEU (0- 0.59) H 11/23/20 16:30 Specimen Type Arterial 11/23/20 15:40 Sample Site Radial, left 11/23/20 15:40 ABG pH 7.47 (7.35-7.45) H 11/23/20 15:40 ABG pCO2 53.3 mmHg (35-45) H 11/23/20 15:40 ABG pO2 65.9 mmHg (80.0-1 00.0) L 11/23/20 15:40 ABG HCO3 38.3 mmol/L (22-2 6) H 11/23/20 15:40 ABG Base Excess 12.2 mmol/L (-2.0 -2.0) H 11/23/20 15:40 Carlos Test Pos 11/23/20 15:40 Hematocrit 45.8 % (37-47) 11/23/20 15:40 O2 Delivery Device Nc 11/23/20 15:40 O2 Liters/Min 6.0 % 11/23/20 15:40 Reel Film Inspector ID [id number] 11/23/20 15:40 Sodium 142 mmol/L (136-1 45) 11/28/20 02:33 Potassium 4.0 mmol/L (3.5-5 .1) 11/28/20 02:33 Chloride 98 mmol/L (98-107 ) 11/28/20 02:33 Carbon Dioxide 44 mmol/L (22-29) H* 11/28/20 02:33 Anion Gap 4.0 (5-19) L 11/28/20 02:33 BUN 16 mg/dL (6-20) 11/28/20 02:33 Creatinine 0.3 mg/dL (0.5-0. 9) L 11/28/20 02:33 GFR Calculation 231.8 mL/min (90- 130) H 11/28/20 02:33 Glucose 169 mg/dL (65-115 ) H 11/28/20 07:14 POC Glucose 226 mg/dL (70-110 ) H 11/28/20 10:58 Calculated Osmolal ity 293 mOsm/kg (285- 295) 11/28/20 02:33 Lactic Acid 2.0 mmol/L (0.5-2 .2) 11/23/20 15:40 Calcium 7.3 mg/dL (8.5-10 .5) L 11/28/20 02:33 Magnesium 3.0 mg/dL (1.7-2. 3) H 11/25/20 05:28 Total Bilirubin 0.2 mg/dL (0.15-1 .2) 11/28/20 02:33 AST 17 U/L (0-32) 11/28/20 02:33 ALT 20 U/L (0-33) 11/28/20 02:33 Alkaline Phosphata se 104 IU/L (35-105) 11/28/20 02:33 Troponin T Baselin e 8 ng/L (0-10) 11/23/20 15:40 Troponin T [address] [facility] 8.96 ng/L (0-10) 11/23/20 17:50 Delta Troponin T 0.96 ABS# (0-10) 11/23/20 17:50 Troponin T Hi Sens 6Hr 6.00 ng/L (0-10) 11/23/20 21:40 Troponin T Hi Sens 6Hr Delta -2.00 ng/L (0-12) L 11/23/20 21:40 Total Protein 5.7 g/dL (6.6-8.7 ) L 11/28/20 02:33 Albumin 2.7 g/dL (3.5-5.2 ) L 11/28/20 02:33 Globulin 3.0 g/dL (1.3-4.6 ) 11/28/20 02:33 Urine Color Yellow (Yellow) 11/24/20 09:50 Urine Appearance Hazy (CLEAR) A 11/24/20 09:50 Urine pH 5 (5-7) 11/24/20 09:50 Ur Specific Gravit y 1.020 (1.005-1.0 30) 11/24/20 09:50 Urine Protein 1+ (Negative) H 11/24/20 09:50 Urine Glucose (UA) 4+ (Normal) H 11/24/20 09:50 Urine Ketones 2+ (Negative) H 11/24/20 09:50 Urine Blood 2+ (Negative) H 11/24/20 09:50 Urine Nitrate Negative (Negati ve) 11/24/20 09:50 Urine Bilirubin 1+ (Negative) H 11/24/20 09:50 Urine Urobilinogen Norm mg/dL (Negat ward) 11/24/20 09:50 Ur Leukocyte Isabella ase 1+ (Negative) H 11/24/20 09:50 Urine RBC 5-10 /hpf (0-2) H 11/24/20 09:50 Urine WBC 5-10 /hpf (0-5) H 11/24/20 09:50 Ur Squamous Epith Cells 5-10 /hpf (0-5) H 11/24/20 09:50 Amorphous Sediment Not Reportable 11/24/20 09:50 Urine Bacteria 2+ /hpf (NONE) H 11/24/20 09:50 Urine Yeast 1+ /hpf H 11/24/20 09:50 Vancomycin Trough 14.7 ug/mL (10-15 ) 11/26/20 21:27 Nasal/Oral COVID-1 9 PCR Not detected 11/25/20 11:20 Influenza Type A A g Negative (Negati ve) 11/23/20 15:40 Influenza Type B A g Negative (Negati ve) 11/23/20 15:40 SARS-CoV-2 RNA (RT -PCR) Cancelled 11/25/20 11:30 SARS-CoV-2 Ag (Rap id) Negative (Negati ve) 11/23/20 15:30 Impressions Chest CTA 11/23/20 17:15 IMPRESSION: 1. Lobar pneumonia right lower lobe 2. Mild mediastinal adenopathy of uncertain significance. 3. No evidence of pulmonary embolism. Radiation Dose CTDIVOL = (mGy): DLP = 600.33 (mGy-cm) Venous Duplex 11/24/20 19:28 IMPRESSION: No evidence of deep vein thrombosis. Chest X-Ray 11/26/20 06:00 IMPRESSION: Right lower lobe pneumonia. Modified Barium Swallow 11/28/20 09:30 Impression: 1. Delayed bolus propulsion. 2. Penetration but no observed aspiration, however coughing did occur. 3. Delayed bolus propulsion. Vitals: Last Vital Signs Temp 97.6 F 11/28/20 12:00 Pulse 57 L 11/28/20 12:00 Resp 17 11/28/20 12:00 BP 145/78 11/28/20 12:00 Pulse Ox 98 11/28/20 12:00 Discharge Plan Discharge Patient Disposition: Home Condition: Stable Prescriptions: New Keflex 750 mg capsule 750 mg PO BID 5 Days Qty: 10 RF: 0 prednisone 20 mg Tablet See Taper mg PO DAILY Qty: 14 RF: 0 Continued Farxiga 10 mg tablet 10 mg PO DAILY RF: 0 losartan 50 mg tablet 25 mg PO DAILY RF: 0 clonazepam 0.5 mg tablet 0.5 mg PO TID PRN (Reason: Anxiety) RF: 0 duloxetine 30 mg capsule,delayed release(DR/EC) 30 mg PO DAILY RF: 0 albuterol sulfate 90 mcg/actuation HFA aerosol inhaler 2 puff inhalation Q6H PRN (Reason: shortness of breath or wheezing) Qty: 8.5 RF: 3 Yupelri 175 mcg/3 mL solution for nebulization 175 mcg inhalation QAM RF: 0 insulin aspart U-100 [Novolog Flexpen U-100 Insulin] 100 unit/mL (3 mL) insulin pen See Rx Instructions .ROUTE .COMPLEX RF: 0 Victoza 3-Greg 0.6 mg/0.1 mL (18 mg/3 mL) pen injector 1.8 mg SUBCUT QAM RF: 0 Combivent Respimat 20-100 mcg/actuation mist 1 puff INHALATION QID PRN (Reason: Shortness Of Breath) RF: 0 ipratropium-albuterol 0.5 mg-3 mg(2.5 mg base)/3 mL solution for nebulization 3 ml INHALATION QID PRN (Reason: Shortness Of Breath) Qty: 360 RF: 3 Changed Lantus Solostar U-100 Insulin 100 unit/mL (3 mL) insulin pen 30 unit SUBCUT BID Qty: 0 RF: 0 Discharge Orders: Discharge Order (Routine); Ordered 11/28/20 Ordered By: Edson Varela Other Ambulatory Orders: Speech Language Pathology Eval and Treat Outpatient (Order) Timeframe: 1 Week Facility: [facility] - Location: [facility] [place] Ordered By: Edson Varela Referrals: Wes Hart MD [Primary Care Provider] - 4-7 days (Please follow-up with your blood sugar diary.) Patient Instructions: Opioid Safety Activity Restrictions/Additional Instructions: Please follow-up with speech therapy as an outpatient for further management of aspiration pneumonia. Please follow-up with your primary care provider within next 1 week. You need to follow-up with ENT physician in [place]. Please try to make appointment to see Dr. Kulkarni or Dr. Pat for further management of tonsillar enlargement. The dose of Lantus has been changed as we discussed in detail. He supposed to take Lantus 30 units twice daily rather than 80 units at night. Please continue taking sliding scale as discussed before. Please continue checking blood sugar 3 times a day and maintain a blood sugar diary to follow-up with a primary care provider for further adjustment of hypoglycemics as possible. Discharge Attestations Time Spent in Discharge Care*: greater than 30 min Specific Discharge Activities: educating patient, educating and/or supporting family/caregiver, discussing with pcp/other providers, discussing with pillowcase maker/social workers/dc planners, documenting/other paperwork and evaluating patient/reviewing data Status at Discharge: Cognitive status at discharge: cognitively intact , Behavioral status at discharge: cooperative , Functional status at discharge: uses cane/walker Overall status at discharge: patient is progressing back to baseline Quality Metrics Clinical Quality Measures During this hospital stay, did patient experience: None Coding Level of Care Code Acute [facility] note Diagnoses Acute exacerbation of chronic obstructive airways disease J44.1 Sepsis with acute hypoxic respiratory failure A41.9; R65.20; J96.01 Sepsis type: sepsis due to unspecified organism Severe sepsis shock status: without septic shock Pneumonia J18.9 Laterality: right Lung location: lower lobe of lung Pneumonia type: due to unspecified organism Tonsillar enlargement J35.1 Obesity hypoventilation syndrome E66.2 Asthma J45.909 Type 2 diabetes mellitus E11.42; Z79.4 Diabetes mellitus ferry terminal supervisor insulin use: with ferry terminal supervisor use Diabetes mellitus complication status: with neurologic complications Diabetes mellitus complication detail: with polyneuropathy Smoker F17.200 Leg cramps R25.2 D-dimer, elevated R79.89 Oropharyngeal dysphagia R13.12
[2020-11-28 16:32] LABS: Glucose Point of Care 146 mg/dL (70-110)
== END 2020-11-28 16:45 | disposition home or self-care (01) | DRG 871 ==
LOC: ER 16:49 → MEDSURG 17:34
PROVIDERS: Admitting Provider Internal Medicine; Emergency Provider Family Medicine; PCP Family Medicine; Visit Provider Student in an Organized Health Care Education/Training Program
DX: A41.9 Sepsis, unspecified organism (principal); J69.0 Pneumonitis due to inhalation of food and vomit; J18.9 Pneumonia, unspecified organism; J96.21 Acute and chronic respiratory failure with hypoxia; J44.1 Chronic obstructive pulmonary disease with (acute) exacerbation; J44.0 Chronic obstructive pulmonary disease with (acute) lower respiratory infection; E66.2 Morbid (severe) obesity with alveolar hypoventilation; Z68.42 Body mass index [BMI] 45.0-49.9, adult; E27.40 Unspecified adrenocortical insufficiency; J35.1 Hypertrophy of tonsils; E11.42 Type 2 diabetes mellitus with diabetic polyneuropathy; F17.210 Nicotine dependence, cigarettes, uncomplicated; R25.2 Cramp and spasm; R79.1 Abnormal coagulation profile; R13.12 Dysphagia, oropharyngeal phase; B95.1 Streptococcus, group B, as the cause of diseases classified elsewhere; E11.65 Type 2 diabetes mellitus with hyperglycemia; E11.319 Type 2 diabetes mellitus with unspecified diabetic retinopathy without macular edema; E78.00 Pure hypercholesterolemia, unspecified; I10 Essential (primary) hypertension; F32.9 Major depressive disorder, single episode, unspecified; F41.9 Anxiety disorder, unspecified; Z79.4 Long term (current) use of insulin; Z99.81 Dependence on supplemental oxygen
CPT/HCPCS: 36415; 36416; 36600; 71045; 71275; 74230; 80053; 80202; 81001; 82803; 82947; 82962; 83605; 83735; 84484; 85025; 85378; 86403; 87040; 87070; 87086; 87205; 87426; 87449; 87635; 87641; 87804; 92526; 92610; 92611; 93005; 93970; 94640; 94660; 94664; 96365; 96372; 99285; J0692; J1644; J1815 ×2; J2920; J2930; J3370; J3475; J7040; J7050; J7512; Q9967

== ENCOUNTER 2020-11-27 06:00 | Outpatient (RCR) | payer MEDICARE, MEDICAID, SELFPAY | END 2020-12-26 23:59 | disposition home or self-care (01) | LOC: PULRHB 06:00 | PROVIDERS: PCP Family Medicine; Visit Provider Internal Medicine Pulmonary Disease | DX: J44.9 Chronic obstructive pulmonary disease, unspecified (principal) | CPT/HCPCS: G0424 ==

== ENCOUNTER 2020-12-07 06:00 | Outpatient (RCR) | payer MEDICARE, MEDICAID, SELFPAY | END 2020-12-26 23:59 | disposition home or self-care (01) | LOC: SST 06:00 | PROVIDERS: PCP Family Medicine; Referring Provider Student in an Organized Health Care Education/Training Program; Visit Provider Student in an Organized Health Care Education/Training Program | DX: R13.12 Dysphagia, oropharyngeal phase (principal); J35.1 Hypertrophy of tonsils; J18.9 Pneumonia, unspecified organism | CPT/HCPCS: 92526; 92610 ==

== ENCOUNTER 2020-12-25 15:08 | Emergency (ER) | payer MEDICARE, MEDICAID, SELFPAY ==
[2020-12-25 15:09] VITALS: BP 111/74; PULSE 107; RESP 25; TEMP 36.7; O2SAT 93; BMI 40.7
--- NOTE | 2020-12-25 15:29 | XRR_ITS ---
PROCEDURE INFORMATION: Exam: XR Chest Exam date and time: 12/25/2020 3:29 PM Age: 55 years old Clinical indication: Shortness of breath; Additional info: SOB TECHNIQUE: Imaging protocol: XR of the chest. Views: 1 view. COMPARISON: CR (CHEST, ) 11/26/2020 7:33 AM FINDINGS: Lungs: Unremarkable. No consolidation. Pleural spaces: Unremarkable. No pleural effusion. No pneumothorax. Heart/Mediastinum: Unremarkable. No cardiomegaly. Bones/joints: Unremarkable. XR/XR chest 1V portable [id number] IMPRESSION: No acute findings.
[2020-12-25 16:01] VITALS: BP 133/80; PULSE 103; RESP 20; O2SAT 92
[2020-12-25 16:06] LABS: Basophils % 0.6 %; Eosinophils # 0.1 10^3/uL (0.0-0.8); Eosinophils % 1.3 %; Hematocrit 46.1 % (37.0-47.0); Hemoglobin 14.6 g/dL (11.5-15.3); Lymphocytes # 1.7 10^3/uL (0.8-4.8); Lymphocytes % 35.7 %; Mean Corpuscular HGB Conc 31.7 g/dL (30.0-36.0); Mean Corpuscular Hemoglobin 27.2 pg (28.0-34.0); Mean Platelet Volume 9.6 fL (7.4-10.4); Monocytes # 0.6 10^3/uL (0.2-0.9); Monocytes % 12.6 %; Neutrophils # 2.34 10^3/uL (1.8-7.7); Neutrophils % 49.2 %; Nucleated Red Blood Cells % 0 %; Platelet Count 188 10^3/cmm (130-400); Red Blood Count 5.36 10^6/uL (4.1-5.3); Red Cell Distribution Width 14.2 % (12.1-15.1); White Blood Count 4.8 10^3/uL (4.0-10.0)
[2020-12-25 16:39] LABS: Alanine Aminotransferase 18 U/L (0-33); Albumin Level 3.3 g/dL (3.5-5.2); Alkaline Phosphatase 109 IU/L (35-105); Anion Gap 11.6 (5-19); Aspartate Amino Transferase 23 U/L (0-32); Blood Urea Nitrogen 5 mg/dL (6-20); C Reactive Protein 45.7 mg/L (0.0-4.9); Calcium 6.9 mg/dL (8.5-10.5); Carbon Dioxide 34 mmol/L (22-29); Chloride 88 mmol/L (98-107); Globulin 3.4 g/dL (1.3-4.6); Glomerular Filtration Rate 166.3 mL/min (90-130); Glucose 307 mg/dL (65-115); Osmolality Calculated 279 mOsm/kg (285-295); Potassium 3.6 mmol/L (3.5-5.1); Sodium 130 mmol/L (136-145); Total Bilirubin 0.3 mg/dL (0.15-1.2); Total Protein 6.7 g/dL (6.6-8.7)
--- NOTE | 2020-12-25 17:23 | ED_ITS ---
HPI - COVID General: Chief Complaint: COVID symptoms Stated Complaint: covid +, SOB Time Seen by Provider: 12/25/20 15:11 Source: patient Mode of arrival: ambulatory Limitations: no limitations Triage information: No fever, cough or shortness of breath . Exposure to COVID + person last 14 days History of Present Illness: HPI Narrative: This 55-year-old female patient with a history of COPD and diabetes mellitus presents to the emergency department with complaints of shortness of breath. Symptoms started about 6 days ago and she got tested for COVID-19 today at her primary care provider's office and she tested positive. She felt short of breath and increased oxygen from 3 L/min to 4 L/min although her oxygen saturations did not change. She was brought into the emergency department to be evaluated for these. She denies any fever, loss of taste or smell but endorses reduced appetite. She endorses weakness and generalized body aches. MD complaint: known COVID positive Prior covid testing: yes, results known Prior testing date: 12/25/20 COVID 19 common symptoms: positive cough, dyspnea, fatigue and body aches; negative fever(s), chills, headache(s), loss of sense of smell and/or taste, throat pain, nasal congestion, nausea, vomiting or diarrhea COVID 19 other sytmptoms: positive lethargy; negative chest pain, pleuritic pain, requiring oxygen, requiring more oxygen, respiratory distress, cyanosis, confusion or new neurological complaints Onset (ago): day(s) (6) Severity: moderate Pertinent comorbid conditions: diabetes, COPD/respiratory disease and on home oxygen Treatment prior to arrival: none COVID Results: SARS-CoV-2 Antigen (Rapid) Negative (Negative) 11/23/20 15:30 11/23/20 SARS-CoV-2 RNA (RT-PCR) Not detected (NOT DETECTED) 06/30/20 17:28 06/30/20 Nasal/Oral Coronavirus 2019 PCR Not detected 11/25/20 11:20 11/25/20 Review of Systems General: Reports: 10 or more systems reviewed and unremarkable except in HPI and below Const: Reports: body aches and fatigue; Denies: fever(s) or chills ENMT: Denies: throat pain or nasal congestion Card: Denies: chest pain Resp: Reports: dyspnea GI: Denies: nausea, vomiting or diarrhea Neuro: Denies: headache(s) or confusion PFSH ED PFSH: Medical History (Reviewed 12/26/20 @ 00:21 by Juan Jose Maravilla MD, [facility] [place]) Acute exacerbation of chronic obstructive airways disease Anxiety disorder Asthma Chronic obstructive pulmonary disease Chronic respiratory failure with hypercapnia Chronic respiratory failure with hypoxia and hypercapnia D-dimer, elevated Diabetic retinopathy associated with controlled type 2 diabetes mellitus Erythrocytosis Hypercholesteremia Hypertension Hypokalemia Leg cramps Long-term insulin use Obesity hypoventilation syndrome Obesity hypoventilation syndrome Oropharyngeal dysphagia Sepsis with acute hypoxic respiratory failure Smoker Tonsillar enlargement Type 2 diabetes mellitus Type 2 diabetes mellitus Surgical History (Reviewed 12/26/20 @ 00:21 by Juan Jose Maravilla MD, [facility] [place]) History of carpal tunnel release History of tonsillectomy History of total abdominal hysterectomy Family History (Reviewed 12/26/20 @ 00:21 by Juan Jose Maravilla MD, [facility] [place]) Father , at the of 70 Diabetes Cancer lung CAD (coronary artery disease) Mother , at the age of 55 Hypertension Lung disease Social History (Reviewed 12/26/20 @ 00:21 by Juan Jose Maravilla MD, [facility] [place]) Smoking and tobacco status: current some day smoker cigarettes Years cigarettes smoked: 35 Quit status (tobacco): considering quitting Second hand smoke exposure: Yes Smoking risk assessment/counseling performed?: Yes Alcohol intake: current Alcohol intake frequency: holidays/special occasions only Alcohol type: wine Desire information about substance/drug rehabilitation?: No Counseling given: No Caregiver/support person: No Lives independently: Yes Household members: children Housing: House Marital status: Legally Current occupational status: disabled Pets and animals: No History of recent travel: No Current gender identity: Female Physical Exam Const: COMMON NORMALS: no acute distress, average body habitus, patient oriented x3, no limitations, healthy appearing, alert and well nourished HENMT: COMMON NORMALS: normocephalic, atraumatic and moist oral mucous membranes HEAD & SCALP: normocephalic and atraumatic Neck/C-Spine: COMMON NORMALS: no meningeal signs and no JVD Resp: COMMON NORMALS: normal respiratory effort, No retractions, No use of accessory muscles, clear to auscultation bilaterally and percussion normal AUSCULTATION: clear to auscultation bilaterally PERCUSSION: percussion normal Cardio: COMMON NORMALS: no JVD, regular rate, regular rhythm, S1 normal heart sound present, S2 normal heart sound present, No gallops present (Cardio), No clicks present (Cardio), No murmurs present (Cardio), No rub (Cardio) and Peripheral pulses 2+ throughout RATE: regular rate RHYTHM: regular rhythm HEART SOUNDS: S1 normal heart sound present and S2 normal heart sound present PERIPHERAL PULSES: Peripheral pulses 2+ throughout GI: COMMON NORMALS: Normal to inspection, nondistended, normoactive bowel sounds present, Soft to palpation, non-tender, No hepatosplenomegaly present, no masses and no bruits PALPATION: Yes Soft to palpation and Yes No hepatosplenomegaly present Extremity: COMMON NORMALS: normal to inspection, full ROM, capillary refill normal, no calf tenderness and no pedal edema Neuro: COMMON NORMALS: patient oriented x3 SENSORIUM/ORIENTATION: Yes alert MENINGEAL SIGNS: Yes no meningeal signs Course Reevaluation(s): Reevaluation #1: Discussed her lab and imaging findings with her. Also discussed that her oxygen saturations have been stable on her home 3 L/min of oxygen. She meets criteria for monoclonal antibody treatments and will be scheduled to receive an outpatient dose of the monoclonal antibody infusion. She has a pulse oximeter at home and she is advised to continue to check her oxygen saturation and to return if it remains below 90% consistently. She voiced understanding and is in agreement with the plan. Time: 17:23 Vital Signs: Vital signs: Vital Signs Temperature 98.1 F 12/25/20 15:09 Pulse Rate 104 H 12/25/20 18:32 Respiratory Rate 18 12/25/20 18:32 Blood Pressure 138/83 12/25/20 18:32 Pulse Oximetry 90 12/25/20 18:32 MDM - COVID MDM Narrative: Medical decision making narrative: 55-year-old female patient with a history of diabetes mellitus and COPD who has been feeling unwell for 6 days and who tested positive for COVID-19 today. She on that and is saturating well in the ER on 3 L/min. Evaluation is otherwise unremarkable she is discharged home and will be returning for monoclonal antibody infusion. Either tomorrow or the day after when it can be scheduled. Medical Records: Attestation: I reviewed the patient's medical records. Lab Data: Attestation: I reviewed the patient's lab results. Labs: Lab Results 12/25/20 12/25/20 12/25/20 Range/Units 15:50 15:50 15:50 WBC 4.8 (4.0-10.0) 10^3/ uL RBC 5.36 H (4.1-5.3) 10^6/u L Hgb 14.6 (11.5-15.3) g/dL Hct 46.1 (37.0-47.0) % MCV 86.0 (81-99) fL MCH 27.2 L (28.0-34.0) pg MCHC 31.7 (30.0-36.0) g/dL RDW 14.2 (12.1-15.1) % Plt Count 188 (130-400) 10^3/c mm MPV 9.6 (7.4-10.4) fL Neut % (Auto) 49.2 % Lymph % (Auto) 35.7 % Starr % (Auto) 12.6 % Eos % (Auto) 1.3 % Baso % (Auto) 0.6 % Neut # (Auto) 2.34 (1.8-7.7) 10^3/u L Lymph # (Auto) 1.7 (0.8-4.8) 10^3/u L Starr # (Auto) 0.6 (0.2-0.9) 10^3/u L Eos # (Auto) 0.1 (0.0-0.8) 10^3/u L Baso # (Auto) 0.0 (0.0-0.1) 10^3/u L Nucleated RBC % (a uto) 0 % Nucleated RBCs # 0.0 /100WBC D-Dimer 1.30 H (0-0.59) ug/mIFE U Sodium 130 L (136-145) mmol/L Potassium 3.6 (3.5-5.1) mmol/L Chloride 88 L (98-107) mmol/L Carbon Dioxide 34 H (22-29) mmol/L Anion Gap 11.6 (5-19) BUN 5 L (6-20) mg/dL Creatinine 0.4 L (0.5-0.9) mg/dL GFR Calculation 166.3 H (90-130) mL/min Glucose 307 H (65-115) mg/dL Calculated Osmolal ity 279 L (285-295) mOsm/k g Lactic Acid (0.5-2.2) mmol/L Calcium 6.9 L (8.5-10.5) mg/dL Total Bilirubin 0.3 (0.15-1.2) mg/dL AST 23 (0-32) U/L ALT 18 (0-33) U/L Alkaline Phosphata se 109 H (35-105) IU/L C-Reactive Protein 45.7 H (0.0-4.9) mg/L Total Protein 6.7 (6.6-8.7) g/dL Albumin 3.3 L (3.5-5.2) g/dL Globulin 3.4 (1.3-4.6) g/dL 12/25/20 Range/Units 15:50 WBC (4.0-10.0) 10^3/ uL RBC (4.1-5.3) 10^6/u L Hgb (11.5-15.3) g/dL Hct (37.0-47.0) % MCV (81-99) fL MCH (28.0-34.0) pg MCHC (30.0-36.0) g/dL RDW (12.1-15.1) % Plt Count (130-400) 10^3/c mm MPV (7.4-10.4) fL Neut % (Auto) % Lymph % (Auto) % Starr % (Auto) % Eos % (Auto) % Baso % (Auto) % Neut # (Auto) (1.8-7.7) 10^3/u L Lymph # (Auto) (0.8-4.8) 10^3/u L Starr # (Auto) (0.2-0.9) 10^3/u L Eos # (Auto) (0.0-0.8) 10^3/u L Baso # (Auto) (0.0-0.1) 10^3/u L Nucleated RBC % (a uto) % Nucleated RBCs # /100WBC D-Dimer (0-0.59) ug/mIFE U Sodium (136-145) mmol/L Potassium (3.5-5.1) mmol/L Chloride (98-107) mmol/L Carbon Dioxide (22-29) mmol/L Anion Gap (5-19) BUN (6-20) mg/dL Creatinine (0.5-0.9) mg/dL GFR Calculation (90-130) mL/min Glucose (65-115) mg/dL Calculated Osmolal ity (285-295) mOsm/k g Lactic Acid 1.0 (0.5-2.2) mmol/L Calcium (8.5-10.5) mg/dL Total Bilirubin (0.15-1.2) mg/dL AST (0-32) U/L ALT (0-33) U/L Alkaline Phosphata se (35-105) IU/L C-Reactive Protein (0.0-4.9) mg/L Total Protein (6.6-8.7) g/dL Albumin (3.5-5.2) g/dL Globulin (1.3-4.6) g/dL Imaging Data: CXR: Attestation: I personally reviewed and interpreted this imaging study as follows: Radiologist's impression: [address] [id number] ReportSigned Patient: Patricia Butcher #: [id number]: 1965Acct#:[id number]/Sex: 55 / FADM Date: 12/25/20Loc: ERRoom/Bed:Attending Dr: Ordering Provider/Ordering MD: Juan Jose Maravilla MD, [facility] [place] Date of Service: 12/25/20 Procedure(s): XR chest 1V portable [id number] Accession Number(s): [id number] Report Number: [id number] PROCEDURE INFORMATION: Exam: XR Chest Exam date and time: 12/25/2020 3:29 PM Age: 55 years old Clinical indication: Shortness of breath; Additional info: SOB TECHNIQUE: Imaging protocol: XR of the chest. Views: 1 view. COMPARISON: CR (CHEST, ) 11/26/2020 7:33 AM FINDINGS: Lungs: Unremarkable. No consolidation. Pleural spaces: Unremarkable. No pleural effusion. No pneumothorax. Heart/Mediastinum: Unremarkable. No cardiomegaly. Bones/joints: Unremarkable. XR/XR chest 1V portable [id number] IMPRESSION: No acute findings. Dictated By:Chilango Mina By:Chilango Mina Date/Time:12/25/201646DD/ COVID Results: SARS-CoV-2 Antigen (Rapid) Negative (Negative) 11/23/20 15:30 11/23/20 SARS-CoV-2 RNA (RT-PCR) Not detected (NOT DETECTED) 06/30/20 17:28 06/30/20 Nasal/Oral Coronavirus 2019 PCR Not detected 11/25/20 11:20 11/25/20 Monoclonal Antibody Treatments Inclusion/Exclusion Criteria weight >/= 40 kg and + direct Sars-Cov-2 test less than 7-10 days ago age not >/= 65, BMI >/= 35, has diabetes, does not have CKD, not receiving immunosuppressive therapy, does not have immunosuppressive disease and age >/= 55 and has COPD/lung diease not requiring hospitalization and no increase oxygen requirement (if chronically on oxygen) Patient education patient/family/caregiver received/reviewed fact sheet, Emergency Use Authorization/unapproved drug status discussed with patient/family/caregiver, alternatives to this treatment discussed with patient/family/caregiver, risks and benefits of medication reviewed with patient/family/caregiver, patient/family/caregiver given opportunity for questions, which were answered and patient consents to receiving Monoclonal Antibody Treatment Plan for treatment Meets criteria for Monoclonal Antibody infusion Monoclonal antibody information given and Ordering Monoclonal Antibody infusion for another day Discharge Plan Discharge Patient Disposition: Home Clinical Impression: COVID-19 Condition: Stable Prescriptions: Continued Farxiga 10 mg tablet 10 mg PO DAILY RF: 0 losartan 50 mg tablet 25 mg PO DAILY RF: 0 clonazepam 0.5 mg tablet 0.5 mg PO TID PRN (Reason: Anxiety) RF: 0 duloxetine 30 mg capsule,delayed release(DR/EC) 30 mg PO DAILY RF: 0 albuterol sulfate 90 mcg/actuation HFA aerosol inhaler 2 puff inhalation Q6H PRN (Reason: shortness of breath or wheezing) Qty: 8.5 RF: 3 Yupelri 175 mcg/3 mL solution for nebulization 175 mcg inhalation QAM RF: 0 prednisone 20 mg Tablet See Taper mg PO DAILY Qty: 14 RF: 0 ipratropium-albuterol 0.5 mg-3 mg(2.5 mg base)/3 mL solution for nebulization 3 ml INHALATION QID PRN (Reason: Shortness Of Breath) Qty: 360 RF: 3 Lantus Solostar U-100 Insulin 100 unit/mL (3 mL) insulin pen 30 unit SUBCUT BID Qty: 0 RF: 0 insulin aspart U-100 [Novolog Flexpen U-100 Insulin] 100 unit/mL (3 mL) insulin pen See Rx Instructions .ROUTE .COMPLEX RF: 0 Victoza 3-Greg 0.6 mg/0.1 mL (18 mg/3 mL) pen injector 1.8 mg SUBCUT QAM RF: 0 Combivent Respimat 20-100 mcg/actuation mist 1 puff INHALATION QID PRN (Reason: Shortness Of Breath) RF: 0 Discharge Orders: Discharge ED (Routine); Ordered 12/25/20 Ordered By: Juan Jose Maravilla Referrals: Wes Hart MD [Primary Care Provider] - 1-3 days Discharge Diet: Usual diet Discharge Activity: Increase activity as tolerated Patient Instructions: Viral Syndrome (ED) Activity Restrictions/Additional Instructions: Return for any new or worsening symptoms. Follow-up with your primary care provider within 3 days via telemedicine. Return to the emergency department tomorrow morning about 5:30 AM to receive the monoclonal antibody infusion. The infusion is to prevent you from getting very sick and to prevent hospitalization. Meanwhile continue home medications including your home oxygen. Coding Level of Care Code ED Senior Manufacturing Engineer for Aditya Lyons
[2020-12-25 18:32] VITALS: BP 138/83; PULSE 104; RESP 18; O2SAT 90
--- NOTE | 2020-12-26 08:46 | PC.SOCIAL ---
Call placed to [facility] ADV plan spoke with Rep W. to verify if PA is required for the Regeneron infusion which is the combination Casirivimab and imdevimab with CPT Code of M0243. And Per W. No PA is required Ref# [id number]. Notified Aye in Cent Scheduling.
== END 2020-12-25 18:34 | disposition home or self-care (01) ==
PROVIDERS: Emergency Provider Family Medicine; PCP Family Medicine
DX: U07.1 COVID-19 (principal); Z79.899 Other long term (current) drug therapy; J44.9 Chronic obstructive pulmonary disease, unspecified; E11.9 Type 2 diabetes mellitus without complications; I10 Essential (primary) hypertension; F17.210 Nicotine dependence, cigarettes, uncomplicated
CPT/HCPCS: 71045; 80053; 83605; 85025; 85378; 86140; 99283

== ENCOUNTER 2020-12-27 05:46 | Outpatient (CLI) | payer MEDICARE, MEDICAID, SELFPAY ==
[2020-12-27 06:44] VITALS: BP 113/71; PULSE 100; RESP 22; TEMP 37.4; O2SAT 96
--- NOTE | 2020-12-27 07:22 | ED_ITS ---
HPI - General Adult General: Source: patient Mode of arrival: ambulatory Limitations: no limitations History of Present Illness: HPI narrative: Here for Covid infusion. Patient recently diagnosed with Covid. complaint: Here for Covid infusion Severity: mild Exacerbating factors: none Associated symptoms: Reports cough; Deny chest pain, fevers/chills, headache(s), nausea, rash or vomiting Treatments prior to arrival: none Review of Systems Const: Denies: fever(s) or chills Eyes: Denies: change in vision ENMT: Denies: throat pain Card: Denies: chest pain Resp: Reports: productive cough (Clear sputum) GI: Denies: abdominal pain, nausea or vomiting : Denies: flank pain Musc: Denies: neck pain or back pain Skin/Breast: Denies: rash or pruritus Neuro: Denies: headache(s) or numbness in extremities Psych: Denies: anxiety Mario/Lymph: Denies: enlarged lymph nodes PFSH ED PFSH: Medical History Acute exacerbation of chronic obstructive airways disease Anxiety disorder Asthma Chronic obstructive pulmonary disease Chronic respiratory failure with hypercapnia Chronic respiratory failure with hypoxia and hypercapnia D-dimer, elevated Diabetic retinopathy associated with controlled type 2 diabetes mellitus Erythrocytosis Hypercholesteremia Hypertension Hypokalemia Leg cramps Long-term insulin use Obesity hypoventilation syndrome Obesity hypoventilation syndrome Oropharyngeal dysphagia Sepsis with acute hypoxic respiratory failure Smoker Tonsillar enlargement Type 2 diabetes mellitus Type 2 diabetes mellitus Surgical History History of carpal tunnel release History of tonsillectomy History of total abdominal hysterectomy Family History Father , at the of 70 Diabetes Cancer lung CAD (coronary artery disease) Mother , at the age of 55 Hypertension Lung disease Social History Smoking and tobacco status: current some day smoker cigarettes Years cigarettes smoked: 35 Quit status (tobacco): considering quitting Second hand smoke exposure: Yes Smoking risk assessment/counseling performed?: Yes Alcohol intake: current Alcohol intake frequency: holidays/special occasions only Alcohol type: wine Desire information about substance/drug rehabilitation?: No Counseling given: No Caregiver/support person: No Lives independently: Yes Household members: children Housing: House Marital status: Legally Current occupational status: disabled Pets and animals: No History of recent travel: No Current gender identity: Female Physical Exam Const: COMMON NORMALS: no acute distress, patient oriented x3, no limitations and well nourished GENERAL APPEARANCE: cooperative HENMT: COMMON NORMALS: normocephalic and atraumatic HEAD & SCALP: normocephalic and atraumatic FACE & SINUS: normal facial exam Eye: COMMON NORMALS: EOMs intact bilaterally Neck/C-Spine: COMMON NORMALS: full ROM, no lymphadenopathy, supple and no meningeal signs GENERAL: Yes normal visual inspection Lymph: LYMPHATIC: no lymphadenopathy noted Chest: COMMONS NORMALS: normal inspection of the chest and normal palpation of entire chest wall CHEST: No Ecchymosis present and No rash Resp: COMMON NORMALS: normal respiratory effort, No retractions and clear to auscultation bilaterally EFFORT & INSPECTION: No respiratory distress AUSCULTATION: clear to auscultation bilaterally Cardio: COMMON NORMALS: regular rate, regular rhythm and Peripheral pulses 2+ throughout JUGULAR VENOUS DISTENTION: no JVD RATE: regular rate RHYTHM: regular rhythm PERIPHERAL PULSES: Peripheral pulses 2+ throughout GI: COMMON NORMALS: Normal to inspection, nondistended, normoactive bowel sounds present and non-tender : COMMON NORMALS: Yes no CVA tenderness BLADDER/KIDNEY EXAM: Yes no CVA tenderness Back/Pelvis: COMMON NORMALS: no CVA tenderness Extremity: COMMON NORMALS: normal to inspection, full ROM and capillary refill normal Neuro: COMMON NORMALS: patient oriented x3, CN's II-XII intact bilaterally, no focal motor deficits and no sensory deficits noted MENINGEAL SIGNS: Yes no meningeal signs Psych: COMMON NORMALS: mental status grossly normal and Normal thought process present THOUGHT PROCESS: Normal thought process present Skin: COMMON NORMALS: no rashes or lesions noted and no wounds GENERAL SKIN EXAM: no rashes or lesions noted Course Vital Signs: Vital signs: Vital Signs Temperature 99.4 F 12/27/20 06:44 Pulse Rate 100 12/27/20 06:44 Respiratory Rate 22 H 12/27/20 06:44 Blood Pressure 113/71 12/27/20 06:44 Pulse Oximetry 96 07/01/21 06:44 Discharge Plan Discharge Patient Disposition: Home Prescriptions: No Action Farxiga 10 mg tablet 10 mg PO DAILY RF: 0 losartan 50 mg tablet 25 mg PO DAILY RF: 0 clonazepam 0.5 mg tablet 0.5 mg PO TID PRN (Reason: Anxiety) RF: 0 duloxetine 30 mg capsule,delayed release(DR/EC) 30 mg PO DAILY RF: 0 albuterol sulfate 90 mcg/actuation HFA aerosol inhaler 2 puff inhalation Q6H PRN (Reason: shortness of breath or wheezing) Qty: 8.5 RF: 3 Yupelri 175 mcg/3 mL solution for nebulization 175 mcg inhalation QAM RF: 0 prednisone 20 mg Tablet See Taper mg PO DAILY Qty: 14 RF: 0 ipratropium-albuterol 0.5 mg-3 mg(2.5 mg base)/3 mL solution for nebulization 3 ml INHALATION QID PRN (Reason: Shortness Of Breath) Qty: 360 RF: 3 Lantus Solostar U-100 Insulin 100 unit/mL (3 mL) insulin pen 30 unit SUBCUT BID Qty: 0 RF: 0 insulin aspart U-100 [Novolog Flexpen U-100 Insulin] 100 unit/mL (3 mL) insulin pen See Rx Instructions .ROUTE .COMPLEX RF: 0 Victoza 3-Greg 0.6 mg/0.1 mL (18 mg/3 mL) pen injector 1.8 mg SUBCUT QAM RF: 0 Combivent Respimat 20-100 mcg/actuation mist 1 puff INHALATION QID PRN (Reason: Shortness Of Breath) RF: 0 Referrals: Wes Hart MD [Primary Care Provider] - Coding Level of Care Code ED Centrifugal Extractor Operator for Chg Fwdella
[2020-12-27 07:45] VITALS: BP 116/61; PULSE 101; RESP 22; O2SAT 91
[2020-12-27 08:13] VITALS: BP 109/74; PULSE 97; RESP 20; O2SAT 94
[2020-12-27 08:44] VITALS: PULSE 98; RESP 20; O2SAT 92
== END 2020-12-27 05:47 | disposition home or self-care (01) ==
PROVIDERS: PCP Family Medicine; Visit Provider Family Medicine
DX: U07.1 COVID-19 (principal)
CPT/HCPCS: 96365

== ENCOUNTER → 2021-05-14 08:40 | Outpatient (BNVA) | payer MEDICARE, MEDICAID, SELFPAY | PROVIDERS: PCP Family Medicine; Referring Provider Family Medicine; Visit Provider Internal Medicine | DX: E11.42 Type 2 diabetes mellitus with diabetic polyneuropathy (principal); E11.319 Type 2 diabetes mellitus with unspecified diabetic retinopathy without macular edema; E11.649 Type 2 diabetes mellitus with hypoglycemia without coma; Z79.4 Long term (current) use of insulin | CPT/HCPCS: 99214 ==

== ENCOUNTER → 2021-07-16 11:12 | Outpatient (BNVA) | payer MEDICARE, MEDICAID, SELFPAY | PROVIDERS: PCP Family Medicine; Visit Provider Family Medicine | DX: Z20.822 Contact with and (suspected) exposure to COVID-19 (principal) | CPT/HCPCS: 87635 ==

== ENCOUNTER → 2021-08-12 13:58 | Outpatient (BNVA) | payer MEDICARE, MEDICAID, SELFPAY | PROVIDERS: PCP Family Medicine; Visit Provider Internal Medicine | DX: E11.42 Type 2 diabetes mellitus with diabetic polyneuropathy (principal); E11.319 Type 2 diabetes mellitus with unspecified diabetic retinopathy without macular edema; E11.649 Type 2 diabetes mellitus with hypoglycemia without coma; Z79.4 Long term (current) use of insulin; Z87.891 Personal history of nicotine dependence | CPT/HCPCS: 99214 ==

== ENCOUNTER → 2021-08-26 10:08 | Outpatient (BNVA) | payer MEDICARE, MEDICAID, SELFPAY | PROVIDERS: PCP Family Medicine; Visit Provider Internal Medicine | DX: E11.42 Type 2 diabetes mellitus with diabetic polyneuropathy (principal); E11.319 Type 2 diabetes mellitus with unspecified diabetic retinopathy without macular edema; E11.649 Type 2 diabetes mellitus with hypoglycemia without coma; Z79.4 Long term (current) use of insulin; Z87.891 Personal history of nicotine dependence | CPT/HCPCS: 99214 ==

== ENCOUNTER → 2021-09-05 15:17 | Outpatient (BNVA) | payer MEDICARE, MEDICAID, SELFPAY | PROVIDERS: PCP Family Medicine; Visit Provider Surgery | DX: Z11.52 Encounter for screening for COVID-19 (principal) | CPT/HCPCS: 87635 ==

== ENCOUNTER 2021-09-09 10:50 | Outpatient (CLI) | payer MEDICARE, MEDICAID, SELFPAY ==
--- NOTE | 2021-09-09 11:01 | MM_ITS ---
WS: [id number] BILATERAL 3D TOMOSYNTHESIS DIGITAL SCREENING MAMMOGRAPHY WITH CAD CLINICAL INFORMATION: SCREENING HISTORY: Screening mammogram. No current complaints. COMPARISON: None. TECHNIQUE: Bilateral CC and MLO views. FINDINGS: Scattered fibroglandular densities bilaterally. No suspicious focal mass, asymmetry, calcifications, or architectural distortion. No evidence of malignancy. HISTORY: Screening mammogram. No current complaints. COMPARISON: TECHNIQUE: Bilateral CC and MLO views. FINDINGS: Scattered fibroglandular densities bilaterally. Benign incidental punctate calcifications. Vascular c alcification. No suspicious focal mass, asymmetry, calcifications, or architectural distortion. No ev idence of malignancy. MM/[place] [id number] IMPRESSION: BI-RADS: FOLLOW UP: Recommend return to annual screening mammography. BILATERAL 3D TOMOSYNTHESIS DIGITAL SCREENING MAMMOGRAPHY WITH CAD CLINICAL INFORMATION: SCREENING IMPRESSION: BI-RADS: 2-Benign FOLLOW UP: 1 Year Follow-up Recommend return to annual screening mammography.
== END 2021-09-09 10:51 | disposition home or self-care (01) ==
LOC: RADSHAW 10:52
PROVIDERS: PCP Family Medicine; Visit Provider Nurse Practitioner Family
DX: Z12.31 Encounter for screening mammogram for malignant neoplasm of breast (principal)
CPT/HCPCS: 77063; 77067

== ENCOUNTER 2021-09-11 08:00 | Day surgery (SDC) | payer MEDICARE, MEDICAID, SELFPAY ==
[2021-09-06 13:02] VITALS: BMI 38.9
--- NOTE | 2021-09-11 08:43 | P.ANESASSM_ITS ---
Pre-Anesthetic Assessment Height/Weight: Height 1.6 m Weight 99.79 kg Preop Diagnosis: Occult blood positive in stool Operation Date: 09/11/21 09:45 Proposed Procedures p Colonoscopy 035260/k92.1(Not Applicable) - Franco Heredia MD Familial anesthetic complications: None Was Beta Shayla taken within 24 hours: N/A Was Clonidine taken within 24 hours: N/A Last intake: > 8 hrs Social Tobacco and No alcohol Exam alert, oriented x 3, clear to auscultation bilaterally and regular rate & rhythm diminished Airway Mallampati: Class III Dentition: chipped and other (poor dentition) Pulmonary stage IV COPD CV/HEM None reported None reported Hepatic None reported Metabolic Diabetes Mellitus and Morbid Obesity Neuropsych None reported Anesthetic Plan ASA status: 4 Anesthesia: MAC Risk of > 500 ml blood loss (7ml/kg in children): No Medications/Allergies Home Medications Medication Instructions Recorded Confirmed Last Taken Type clonazepam 0.5 mg tablet 0.5 mg PO TID PRN 06/07/20 09/06/21 11/23/20 History dapagliflozin 10 mg tablet 10 mg PO DAILY 06/07/20 09/06/21 11/23/20 History (Farxiga) duloxetine 30 mg capsule,delayed 30 mg PO DAILY 06/07/20 09/06/21 11/23/20 History release losartan 50 mg tablet 25 mg PO DAILY tab 06/07/20 09/06/21 08/28/20 History ipratropium 20 mcg-albuterol 100 1 puff INHALATION QID PRN 09/14/20 09/06/21 11/23/20 History mcg/actuation mist for inhalation (Combivent Respimat) revefenacin 175 mcg/3 mL solution 175 mcg INHALATION QAM 11/06/20 09/06/21 11/23/20 History for nebulization (Yupelri) ipratropium 0.5 mg-albuterol 3 mg 3 ml INHALATION QID PRN #360 ml 11/28/20 09/06/21 11/23/20 Rx (2.5 mg base)/3 mL nebulization soln blood-glucose meter,continuous #1 ea 05/14/21 08/26/21 Unknown Rx (Dexcom G6 Bobbin Dumper) blood-glucose sensor (Dexcom G6 #3 ea 05/14/21 08/26/21 Unknown Rx Sensor) blood-glucose transmitter (Dexcom #1 ea 05/14/21 08/26/21 Unknown Rx G6 Transmitter) insulin glargine 100 unit/mL (3 50 unit SUBCUT BID ml 05/14/21 09/06/21 Unknown History mL) subcutaneous pen (Lantus Solostar U-100 Insulin) formoterol fumarate 20 mcg/2 mL 2 ml INHALATION BID #120 ml 06/17/21 09/06/21 Unknown Rx solution for nebulization (Perforomist) guaifenesin 600 mg tablet, 600 mg PO BID PRN #60 tab 06/17/21 09/06/21 Unknown Rx extended release 12 hr (Mucinex) ProAir HFA 90 mcg/actuation 2 inh INHALATION QID PRN #8.5 g NS 07/02/21 09/06/21 Unknown Rx aerosol inhaler (albuterol sulfate) insulin lispro 100 unit/mL 17 unit (0.17 mL) SUBCUT TID #15 ml 08/26/21 09/06/21 Unknown Rx subcutaneous pen (Humalog KwikPen (U-100) Insulin) furosemide 20 mg tablet (Lasix) 20 mg PO DAILY #30 tab 09/02/21 09/06/21 Unknown Rx potassium chloride 10 mEq 10 meq PO DAILY #30 tab 09/02/21 09/06/21 Unknown Rx tablet,extended release Allergies Allergy/AdvReac Type Severity Reaction Status Date / Time naproxen Allergy Mild nausea and Verified 08/26/21 10:17 vomiting Penicillins Allergy Mild itching Verified 08/26/21 10:17 FORMERLY [facility], 1928–1983 Anesthesia Medical History (Updated 09/02/21 @ 15:14 by Bienvenido Reyez MD) Acute exacerbation of chronic obstructive airways disease Anxiety disorder Asthma Chronic obstructive pulmonary disease Chronic respiratory failure with hypercapnia Chronic respiratory failure with hypoxia and hypercapnia D-dimer, elevated Diabetic retinopathy associated with controlled type 2 diabetes mellitus Erythrocytosis Hypercholesteremia Hypertension Hypokalemia Leg cramps Long-term insulin use Obesity hypoventilation syndrome Obesity hypoventilation syndrome Oropharyngeal dysphagia Sepsis with acute hypoxic respiratory failure Smoker Tonsillar enlargement Type 2 diabetes mellitus Type 2 diabetes mellitus Surgical History History of carpal tunnel release History of tonsillectomy History of total abdominal hysterectomy Family History Father , at the of 70 Diabetes Cancer lung CAD (coronary artery disease) Mother , at the age of 55 Hypertension Lung disease Social History Smoking and tobacco status: former smoker (40 yrs) Quit status (tobacco): considering quitting Second hand smoke exposure: Yes Smoking risk assessment/counseling performed?: Yes Alcohol intake: current Alcohol intake frequency: holidays/special occasions only Alcohol type: wine Desire information about substance/drug rehabilitation?: No Counseling given: No Caregiver/support person: No Lives independently: Yes Household members: children Housing: House Marital status: Legally Current occupational status: disabled Pets and animals: No History of recent travel: No Current gender identity: Female Data Anesthesia Cardiac Studies: No Data to Display
[2021-09-11 09:03] VITALS: BP 125/94; PULSE 96; RESP 18; TEMP 36.1; O2SAT 92
[2021-09-11] MEDS: sodium chloride 0.9% 1,000 ML 30 ML IV (09:13)
--- NOTE | 2021-09-11 10:07 | P.HP_ITS ---
Same Day Surgery H&P Indication for Procedure/HPI DATE OF PROCEDURE: September 11, 2021 CHIEF COMPLAINT/INDICATIONFOR SURGICAL PROCEDURE: Family history of colon cancer PREOP DIAGNOSIS: Occult blood positive in stool PLANNED PROCEDURE: Operation Date: 09/11/21 09:45 Proposed Procedures p Colonoscopy [id number]/k92.1(Not Applicable) - Franco Heredia MD 08/08/2021 This is a pleasant 55 years old female patient with current weight of 2 1 5 pounds and a BMI of 38 apparently she is home O2 dependent.? Was tested positive for occult blood in stool and referred to my practice for colonoscopy.? Patient reports that she had history of colon cancer in her mom's family and she lost weight from 246 to 15 pounds over a short period of time.? Apparently patient never had a colonoscopy before and she kept on postponing it. 09/11/2021 Patient comes today for diagnostic colonoscopy ROS All systems have been reviewed negative except as per the above or per problem list Medications/Allergies* Home Medications Medication Instructions Recorded Confirmed Type clonazepam 0.5 mg tablet 0.5 mg PO TID PRN 06/07/20 09/11/21 History dapagliflozin 10 mg tablet 10 mg PO DAILY 06/07/20 09/06/21 History (Farxiga) duloxetine 30 mg capsule,delayed 30 mg PO DAILY 06/07/20 09/06/21 History release losartan 50 mg tablet 25 mg PO DAILY tab 06/07/20 09/06/21 History ipratropium 20 mcg-albuterol 100 1 puff INHALATION QID PRN 09/14/20 09/11/21 History mcg/actuation mist for inhalation (Combivent Respimat) revefenacin 175 mcg/3 mL solution 175 mcg INHALATION QAM 11/06/20 09/06/21 History for nebulization (Yupelri) insulin glargine 100 unit/mL (3 50 unit SUBCUT BID ml 05/14/21 09/06/21 History mL) subcutaneous pen (Lantus Solostar U-100 Insulin) Allergies/Adverse Reactions Allergy/AdvReac Type Severity Reaction Status Date / Time naproxen Allergy Mild nausea and Verified 09/11/21 10:08 vomiting Penicillins Allergy Mild itching Verified 09/11/21 10:08 Current Medications: Generic Name Dose Route Start Last Admin Trade Name Freq PRN Reason Stop Dose Admin Sodium Chloride 1,000 mls @ 30 mls/hr 09/11/21 08:15 09/11/21 09:13 Sodium Chloride 0.9% IV 30 mls/hr .Q24H JOSE Administration Pertinent History/Comorbid Conditions* Medical History (Updated 09/02/21 @ 15:14 by Bienvenido Reyez MD) Acute exacerbation of chronic obstructive airways disease Anxiety disorder Asthma Chronic obstructive pulmonary disease Chronic respiratory failure with hypercapnia Chronic respiratory failure with hypoxia and hypercapnia D-dimer, elevated Diabetic retinopathy associated with controlled type 2 diabetes mellitus Erythrocytosis Hypercholesteremia Hypertension Hypokalemia Leg cramps Long-term insulin use Obesity hypoventilation syndrome Obesity hypoventilation syndrome Oropharyngeal dysphagia Sepsis with acute hypoxic respiratory failure Smoker Tonsillar enlargement Type 2 diabetes mellitus Type 2 diabetes mellitus Surgical History (Updated 07/07/20 @ 09:34 by Janel Byers MD) History of carpal tunnel release History of tonsillectomy History of total abdominal hysterectomy Family History (Updated 07/04/20 @ 08:19 by Khushboo Harris LPN) Father, at the of 70 Mother, at the age of 55 Diabetes Father CAD (coronary artery disease) Father Lung disease Mother Cancer Father lung Hypertension Mother Social History Smoking and tobacco status: former smoker (40 yrs) Quit status (tobacco): considering quitting Second hand smoke exposure: Yes Smoking risk assessment/counseling performed?: Yes Alcohol intake: current Alcohol intake frequency: holidays/special occasions only Alcohol type: wine Desire information about substance/drug rehabilitation?: No Counseling given: No Caregiver/support person: No Lives independently: Yes Household members: children Housing: House Marital status: Legally Current occupational status: disabled Pets and animals: No History of recent travel: No Current gender identity: Female Pertinent Exam Findings alert, oriented x 3, regular rate & rhythm and procedure specific exam findings (Abdominal examination nontender nondistended soft) Recommendations Surgery/Procedure today (Diagnostic colonoscopy) Coding Level of Care Code Acute Bridge/Structure Inspection Team Leader for Aditya Lyons
[2021-09-11 10:38] VITALS: BP 128/101; PULSE 96; RESP 18; TEMP 36.4; O2SAT 93
[2021-09-11 11:04] VITALS: BP 130/86; PULSE 91; RESP 16; TEMP 36.4; O2SAT 94
--- NOTE | 2021-09-11 12:23 | ANE.PACU2 ---
Inpatient post-anesthesia follow up: Airway intact: Yes Vital signs: Temperature 97.5 F Pulse Rate 91 Respiratory Rate 16 Blood Pressure 130/86 Pulse Oximetry 94 Oxygen Delivery Me thod Nasal Cannula Oxygen Flow Rate 3 Fraction of Inspir ed Oxygen Hydration adequate: Yes Nausea and vomiting: No Pain level: 1 Mental status: Baseline
== END 2021-09-11 11:08 | disposition home or self-care (01) ==
PROVIDERS: PCP Family Medicine; Visit Provider Surgery
PROC: 0DJD8ZZ Inspection of Lower Intestinal Tract, Via Natural or Artificial Opening Endoscopic (ICD-10-PCS; CPT 45378; principal; 2021-09-11 09:45)
DX: K92.1 Melena (principal); Z80.0 Family history of malignant neoplasm of digestive organs; R63.4 Abnormal weight loss; Z68.39 Body mass index [BMI] 39.0-39.9, adult; J44.9 Chronic obstructive pulmonary disease, unspecified; E11.9 Type 2 diabetes mellitus without complications; Z79.4 Long term (current) use of insulin; E78.00 Pure hypercholesterolemia, unspecified; I10 Essential (primary) hypertension; Z87.891 Personal history of nicotine dependence
CPT/HCPCS: 45385; 88305; J2704; J7030

== ENCOUNTER 2021-10-10 14:31 | Outpatient (CLI) | payer MEDICARE, MEDICAID, SELFPAY ==
--- NOTE | 2021-10-10 15:00 | USCV_ITS ---
Patricia Butcher Age: 55 Gender: F : 1965 Exam Date: 10/10/2021 14:48 Ordering Phys: Bienvenido Reyez MD Technologist: Exam Location: [facility] [place] Indication: sob copd BP: 119 / 70 HR: 136 Rhythm: Sinus Technical Quality: Adequate MEASUREMENTS (Male / Female) Normal Values 2D ECHO LV Diastolic Diameter PLAX 4.2 cm 4.2 - 5.9 / 3.9 - 5.3 cm LV Systolic Diameter PLAX 2.6 cm IVS Diastolic Thickness 1.4 cm 0.6 - 1.0 / 0.6 - 0.9 cm IVS Systolic Thickness 1.7 cm LVPW Diastolic Thickness 1.1 cm 0.6 - 1.0 / 0.6 - 0.9 cm LVPW Systolic Thickness 1.2 cm LVOT Diameter 2.0 cm LV Ejection Fraction 2D Teich 69.3 % LV Ejection Fraction MOD 2C 64.3 % LV Ejection Fraction 2C AL 64.6 % LA Diameter 3.3 cm Aorta at Sinotubular Diameter 2.1 cm M-MODE Aortic Annulus Diameter 2.5 cm LA Ao Ratio MM 1.4 MV E Point Septal Separation 0.8 cm DOPPLER AV Peak Velocity 116.0 cm/s LVOT Peak Velocity 78.0 cm/s AV Area Cont Eq vti 1.9 cm squared AV Area Cont Eq pk 2.1 cm squared MV Area PHT 5.0 cm squared Mitral E to A Ratio 1.1 MV E' Velocity 62.0 cm/s Mitral E to MV E' Ratio 10.4 Mitral E to LV E' Lateral Ratio 10.1 Mitral E to LV E' Septal Ratio 10.8 TR Peak Velocity 188.0 cm/s TR Peak Gradient 14.1 mmHg PV Peak Velocity 111.0 cm/s FINDINGS Left Ventricle Normal left ventricular size and systolic function, EF 65 %. No regional wall motion abnormalities. Right Ventricle The right ventricle is normal in size and function. Right Atrium The right atrium is normal in size. Left Atrium The left atrium is normal in size. Mitral Valve No gross abnormalities noted Aortic Valve No gross abnormalities noted Tricuspid Valve Trace tricuspid valve regurgitation. Pulmonic Valve Trace pulmonary valve regurgitation. Pericardium Normal pericardium without effusion. Aorta Normal ascending aorta dimension. CONCLUSIONS Normal left ventricular size and systolic function, EF 65 %. No regional wall motion abnormalities. Trace of tricuspid and pulmonic regurgitation Possibly normal cardiac chamber sizes. There is no pericardial effusion. Technically difficult study because of the poor ultrasonic window. No similar previous studies are available for comparison Dr Kaya Mansfield MD FAC (Electronically Signed) Final Date: 11 October 2021 08:18 S
== END 2021-10-10 14:32 | disposition home or self-care (01) ==
LOC: RAD 14:38
PROVIDERS: PCP Family Medicine; Visit Provider Internal Medicine Pulmonary Disease
DX: J44.9 Chronic obstructive pulmonary disease, unspecified (principal); R06.02 Shortness of breath; I37.1 Nonrheumatic pulmonary valve insufficiency; I07.1 Rheumatic tricuspid insufficiency
CPT/HCPCS: 93306

== ENCOUNTER → 2021-10-23 11:14 | Outpatient (BNVA) | payer MEDICARE, MEDICAID, SELFPAY | PROVIDERS: PCP Family Medicine; Visit Provider Internal Medicine | DX: E11.42 Type 2 diabetes mellitus with diabetic polyneuropathy (principal); E11.319 Type 2 diabetes mellitus with unspecified diabetic retinopathy without macular edema; E11.649 Type 2 diabetes mellitus with hypoglycemia without coma; E78.2 Mixed hyperlipidemia; E83.51 Hypocalcemia; Z79.4 Long term (current) use of insulin; Z87.891 Personal history of nicotine dependence | CPT/HCPCS: 99214 ==

== ENCOUNTER → 2021-12-02 08:31 | Outpatient (BNVA) | payer MEDICARE, MEDICAID, SELFPAY | PROVIDERS: PCP Family Medicine; Visit Provider Internal Medicine Pulmonary Disease | DX: R06.02 Shortness of breath (principal); Z09 Encounter for follow-up examination after completed treatment for conditions other than malignant neoplasm; J44.9 Chronic obstructive pulmonary disease, unspecified; R91.8 Other nonspecific abnormal finding of lung field; Z71.6 Tobacco abuse counseling; E66.2 Morbid (severe) obesity with alveolar hypoventilation; J35.1 Hypertrophy of tonsils; B94.8 Sequelae of other specified infectious and parasitic diseases; J18.9 Pneumonia, unspecified organism; F17.210 Nicotine dependence, cigarettes, uncomplicated; Z99.81 Dependence on supplemental oxygen; E78.5 Hyperlipidemia, unspecified; I10 Essential (primary) hypertension | CPT/HCPCS: 36415; 71045; 80053; 85025; 87635; 99214 ==

== ENCOUNTER 2021-12-26 13:12 | Outpatient (CLI) | payer MEDICARE, MEDICAID, SELFPAY ==
--- NOTE | 2021-12-26 13:32 | CT_ITS ---
WS: [id number] LDCT LUNG CANCER SCREENING HISTORY: f/u lung nodules TECHNIQUE: Axial imaging performed from the apices to 1 cm below the costophrenic angles. Coronal and sagittal reformats are submitted with axial MIP series. All CT scans at [facility] use at least one of these dose optimization techniques: automated exposure control; mA and/or kV adjustment per patient size (includes targeted exams where dose is matched to clinical indication); or iterativ e reconstruction. DLP: 69.50 mGy.cm DIvol: Mean CTDIvol: 1.60 (mGy) COMPARISON: 11/23/2020 Diagnostic quality: Satisfactory Lung Nodules: No pulmonary nodule or mass. Previously described RIGHT lower lobe pneumonia on the teena or CT has resolved. No endobronchial lesions. Lungs: Mild emphysema. Heart: Normal size heart. No pericardial effusion. Other findings: Mild atherosclerosis aorta. Small hiatal hernia. RIGHT adrenal adenoma. CT/CT lung screening [id number] IMPRESSION: LUNG-RADS: 1-Negative FOLLOW UP: 12 Month: Continue annual screening with LDCT OTHER FINDINGS (S MODIFIER): None.
== END 2021-12-26 13:13 | disposition home or self-care (01) ==
LOC: RAD 13:18
PROVIDERS: PCP Family Medicine; Visit Provider Internal Medicine Pulmonary Disease
DX: Z12.2 Encounter for screening for malignant neoplasm of respiratory organs (principal); F17.210 Nicotine dependence, cigarettes, uncomplicated
CPT/HCPCS: 71271

== ENCOUNTER 2022-01-22 10:29 | Outpatient (CLI) | payer MEDICARE, MEDICAID, SELFPAY ==
[2022-01-22 11:34] LABS: Estmated Average Glucose 203; Hemoglobin A1C 8.7 % (4.0-6.0)
[2022-01-22 11:52] LABS: Alanine Aminotransferase 12 U/L (0-33); Albumin Level 3.4 g/dL (3.5-5.2); Alkaline Phosphatase 146 IU/L (35-105); Anion Gap 10.8 (5-19); Aspartate Amino Transferase 12 U/L (0-32); Blood Urea Nitrogen 6 mg/dL (6-20); Calcium 7.6 mg/dL (8.5-10.5); Carbon Dioxide 39 mmol/L (22-29); Chloride 93 mmol/L (98-107); Chol HDL Ratio 4.48 mg/dL (0.0-4.40); Cholesterol 206 mg/dL (0-200); Globulin 4.2 g/dL (1.3-4.6); Glomerular Filtration Rate 165.7 mL/min (90-130); Glucose 142 mg/dL (65-115); HDL Cholesterol 46 mg/dL (60-100); LDL Cholesterol Calculated 123 mg/dL (50-129); LDL HDL Ratio 2.67 RATIO (0.00-3.22); Osmolality Calculated 288 mOsm/kg (285-295); Potassium 3.8 mmol/L (3.5-5.1); Sodium 139 mmol/L (136-145); Total Bilirubin 0.2 mg/dL (0.15-1.2); Total Protein 7.6 g/dL (6.6-8.7); Triglycerides 187 mg/dL (0-150)
[2022-01-22 11:56] LABS: Creatinine Urine, Random 43 mg/dL (28-217); Microalbum Creatinine Ratio Ur 93 mg/dL (0-20); Microalbumin Random Urine 4 ug/dL (0-20)
[2022-01-22 12:09] LABS: Calcium 7.7 mg/dL (8.5-10.5)
[2022-01-22 12:14] LABS: Parathyroid Hormone 38.4 pg/mL (15-65)
== END 2022-01-22 10:30 | disposition home or self-care (01) ==
LOC: LAB 10:35
PROVIDERS: PCP Family Medicine; Visit Provider Internal Medicine
DX: E11.42 Type 2 diabetes mellitus with diabetic polyneuropathy (principal); E78.2 Mixed hyperlipidemia; E83.51 Hypocalcemia; Z79.4 Long term (current) use of insulin; E11.319 Type 2 diabetes mellitus with unspecified diabetic retinopathy without macular edema; E11.649 Type 2 diabetes mellitus with hypoglycemia without coma; Z87.891 Personal history of nicotine dependence
CPT/HCPCS: 80053; 80061; 82044; 82310; 83036; 83970; 99214

== ENCOUNTER 2022-03-10 06:34 | Inpatient (IN) | payer MEDICARE, MEDICAID, SELFPAY ==
[2022-03-10] VITALS (37 sets, daily range): BP systolic 109–175; BP diastolic 61–116; PULSE 86–117; RESP 16–26; TEMP 36.6; O2SAT 91–100
--- NOTE | 2022-03-10 06:50 | PC.NURSE ---
Bedside report completed with Malik Tabor RN. Pt just arrived direct admit from [facility]. Pt intubated. No fluids infusing.
--- NOTE | 2022-03-10 07:00 | PC.NURSE ---
Bedside report completed with Malik Aguayo RN.
--- NOTE | 2022-03-10 07:15 | XR_ITS ---
WS: [id number] XR chest 1V portable [id number] REASON FOR EXAM: hypoxia FINDINGS: An endotracheal tube is in place the tip is at the level of the aortic arch. A nasogastric tube is present the tip is at the gastroesophageal junction. Compared to 12/02/2021, chronic appearing interstitial changes in both lower lung mcintosh most prominent ly on the left. No definite acute pulmonary parenchymal or pleural abnormality. XR/XR chest 1V portable [id number] IMPRESSION: Endotracheal tube and nasogastric tube positioning as above. No acute chest abnormality is identified.
--- NOTE | 2022-03-10 07:15 | P.HP_ITS ---
Providers/Chief Complaint Admitting Physician: Génesis Toledo MD Primary Care Provider: Wes Hart MD Chief Complaint: resp distress History of Present Illness Patricia Butcher is a 56 year old female who has been transferred to our facility from [facility] for acute on chronic hypercarbic respiratory failure, at that facility her pH was 7.17 PCO2 146 PO2 53 bicarb 53 on BiPAP settings 18/10 respiratory rate 22, chest x-ray did not show any infiltrates, ER physician called me to discuss whether they should intubate her first before the transfer I did asked them to intubate and repeat a blood gas, repeat blood gas showed pH 7.20 PCO2 in 130s, she remained hemodynamically stable after intubation, she received etomidate and vecuronium, no leukocytosis sodium 135, chloride 84, calcium 7.1, ALT 162, BNP 852 troponin 0.012, COVID and flu negative, she was given Lasix 40 mg, her drug screen is positive for benzodiazepines, positive for protein and glucose Her daughter is at the bedside who lives in [place] stating that her mother lives with her stepbrother, we called him to get more details, he is stating that from Thursday she has not been feeling well, she was very lethargic and fatigued, she ate her dinner to some extent but on Thursday she started getting worse, son is stating that she probably started getting worse on Thursday but they could not see the signs and send her to the ER, they waited until Thursday when she started becoming confused, she was tripoding, she was getting short of breath they have not noticed any fever, vomiting or recent diarrhea. Because of worsening of her symptoms to call 911 who took her to the [facility]. As per the family she has been compliant with her home ventilator/BiPAP, she smokes 2 packs/day. They have not noticed any COVID- related symptoms recently. At the time of my evaluation in the ICU her pressures are pretty high we are getting stat chest x-ray to check endotracheal tube position I have requested a stat CBC, BMP, troponin, D-dimer, ABG Respiratory therapist is aware Patient follows up with Dr. Reyez outpatient, patient has history of COPD uses 3 L of oxygen pickwickian syndrome uses trilogy at night Tonsillar hypertrophy not a candidate for surgical intervention Please see detailed note of Dr. Reyez for further details Patient had COVID-19 and received monoclonal antibody as per Dr. Reyez patient has been complaining of fatigue, yellow sputum production, night sweats, Recent echo showed EF 65% Review of Systems General: Reports: ROS unobtainable due to endotracheal tube Medications/Allergies Home Medications Medication Instructions Recorded Confirmed Last Taken Type clonazepam 0.5 mg tablet 0.5 mg PO TID PRN Anxiety 06/07/20 01/22/22 09/09/21 History dapagliflozin 10 mg tablet 10 mg PO DAILY 06/07/20 01/22/22 09/10/21 History (Farxiga) duloxetine 30 mg capsule,delayed 30 mg PO DAILY 06/07/20 01/22/22 09/10/21 History release losartan 50 mg tablet 25 mg PO DAILY not taken for a 06/07/20 01/22/22 09/10/21 History month per pt ipratropium 20 mcg-albuterol 100 1 puff inhalation QID PRN 09/14/20 01/22/22 09/11/21 08:59 History mcg/actuation mist for inhalation Shortness Of Breath (Combivent Respimat) revefenacin 175 mcg/3 mL solution 175 mcg inhalation QAM 11/06/20 01/22/22 09/10/21 History for nebulization (Charity) ipratropium 0.5 mg-albuterol 3 mg 3 ml inhalation QID PRN Shortness 11/28/20 01/22/22 09/10/21 Rx (2.5 mg base)/3 mL nebulization Of Breath #360 mL soln blood-glucose meter,continuous #1 ea 05/14/21 01/22/22 Unknown Rx (Dexcom G6 Appraisal Specialist) blood-glucose sensor (Dexcom G6 #3 ea 05/14/21 01/22/22 Unknown Rx Sensor) blood-glucose transmitter (Dexcom #1 ea 05/14/21 01/22/22 Unknown Rx G6 Transmitter) insulin glargine 100 unit/mL (3 50 unit SUBCUT BID see pharmacy 05/14/21 01/22/22 09/10/21 History mL) subcutaneous pen (Lantus comments Solostar U-100 Insulin) formoterol fumarate 20 mcg/2 mL 2 ml inhalation BID #120 mL 06/17/21 01/22/22 09/10/21 Rx solution for nebulization (Perforomist) guaifenesin 600 mg tablet, 600 mg PO BID PRN congestion #60 06/17/21 01/22/22 09/10/21 Rx extended release 12 hr (Mucinex) tabs insulin lispro 100 unit/mL 17 unit (0.17 mL) SUBCUT TID #15 mL 08/26/21 01/22/22 09/10/21 Rx subcutaneous pen (Humalog KwikPen (U-100) Insulin) potassium chloride 10 mEq 10 meq PO DAILY #30 tabs 09/02/21 01/22/22 09/10/21 Rx tablet,extended release rosuvastatin 20 mg tablet 20 mg PO DAILY #90 tabs 10/23/21 01/22/22 Unknown Rx levofloxacin 500 mg tablet 500 mg PO DAILY #5 tabs 11/29/21 01/22/22 Unknown Rx prednisone 20 mg tablet 20 mg PO DAILY #5 tabs 11/29/21 01/22/22 Unknown Rx acetazolamide 250 mg tablet 250 mg PO DAILY #3 tabs 12/02/21 01/22/22 Unknown Rx furosemide 20 mg tablet (Lasix) 20 mg PO DAILY #30 tabs 12/06/21 01/22/22 Unknown Rx pen needle, diabetic 31 gauge x #100 ea 01/22/22 01/22/22 Unknown Rx 5/16 (Comfort EZ Pen [place]) ProAir HFA 90 mcg/actuation 2 inh inhalation QID PRN shortness 02/18/22 Unknown Rx aerosol inhaler (albuterol sulfate) of breath or wheezing #8.5 grams Allergies Allergy/AdvReac Type Severity Reaction Status Date / Time naproxen Allergy Mild nausea and Verified 01/22/22 10:58 vomiting Penicillins Allergy Mild itching Verified 01/22/22 10:58 PFSH Acute PFSH: Medical History Acute exacerbation of chronic obstructive airways disease Anxiety disorder Asthma Chronic obstructive pulmonary disease Chronic respiratory failure with hypercapnia Chronic respiratory failure with hypoxia and hypercapnia Colon polyp D-dimer, elevated Diabetic retinopathy associated with controlled type 2 diabetes mellitus Erythrocytosis Hypercholesteremia Hypertension Hypokalemia Leg cramps Long-term insulin use Obesity hypoventilation syndrome Obesity hypoventilation syndrome Oropharyngeal dysphagia Sepsis with acute hypoxic respiratory failure Smoker Tonsillar enlargement Type 2 diabetes mellitus Type 2 diabetes mellitus Surgical History History of carpal tunnel release History of tonsillectomy History of total abdominal hysterectomy Family History Father , at the of 70 Diabetes Cancer lung CAD (coronary artery disease) Mother , at the age of 55 Hypertension Lung disease Social History Smoking and tobacco status: former smoker (40 yrs) Quit status (tobacco): considering quitting Second hand smoke exposure: Yes Smoking risk assessment/counseling performed?: Yes Alcohol intake: current Alcohol intake frequency: holidays/special occasions only Alcohol type: wine Desire information about substance/drug rehabilitation?: No Counseling given: No Caregiver/support person: No Lives independently: Yes Household members: children Housing: House Marital status: Legally Current occupational status: disabled Pets and animals: No History of recent travel: No Current gender identity: Female Physical Exam Narrative: Patient is intubated and sedated Higher PEEP, checking endotracheal tube position Clinically looks dry, dry skin Unkept appearance Onychomycosis Abdomen is distended, umbilical hernia, however feels soft, She is hemodynamically stable FiO2 40%, PEEP 12 S1, S2 Bilateral breath sounds with rhonchi and wheezing Neuro exam is limited Cardozo catheter draining yellow-colored urine A&P Assessment and plan (1) Umbilical hernia: Status: Acute (2) Diverticulosis large intestine w/o perforation or abscess w/bleeding: Status: Chronic (3) Chronic respiratory failure with hypercapnia: Status: Acute (4) Chronic obstructive pulmonary disease: Status: Acute Qualifiers: COPD type: unspecified COPD Qualified Code(s): J44.9 - Chronic obstructive pulmonary disease, unspecified (5) Aspiration into airway: Status: Acute (6) Oropharyngeal dysphagia: Status: Acute (7) Acute exacerbation of chronic obstructive airways disease: Status: Acute (8) Nocturnal oxygen desaturation: Status: Acute (9) Multiple lung nodules on CT: Status: Acute (10) Acute and chronic respiratory failure with hypercapnia: Status: Acute (11) Endotracheally intubated: Status: Acute Plan Acute on chronic hypercarbic respiratory failure Pickwickian syndrome Trilogy dependent at home At baseline uses 3 L of oxygen Active smoker Follows up with Dr. Reyez Upper airway obstruction due to lingular tonsillar hypertrophy, surgery was not an option because of her high risk of perioperative morbidity and mortality Acute respiratory failure requiring mechanical ventilation Stat ABG, pH was 7.20 PCO2 around 130s at the [facility] after intubation Her respiratory rate was increased Stat ABG, chest x-ray As per outside work-up there were no infiltrates on the x-ray I do believe this is related to her active smoking, pickwickian syndrome Once her pH has normalized and PCO2 is back to baseline, she will need sedation vacation and weaning trial, she will remain intubated today Will try to obtain CTA chest High pressures on mechanical ventilator, added DuoNeb, she is showing signs of active wheezing, will add steroids as well Stat troponin and EKG Check D-dimer Recent echo shows preserved ejection fraction I will treat her empirically with ceftriaxone and azithromycin for now She is afebrile, no leukocytosis as per outside facility work-up COVID and flu negative I have spoken with her daughter and the son Patient is full code All of the questions were answered DVT prophylaxis with heparin She might need pulmonary consult because of her chronic multiple comorbid conditions Start gentle fluid hydration, she might need tube feeding if remains intubated until tomorrow Attestations Medical Necessity Statement*: Continue ICU management she will need more than 2 midnights for management of hypercarbic respiratory failure Time Spent in Patient Care: 45 Critical Care Time: 45 Coding Level of Care Code Acute Customer Account Administrator for [facility] Fwd Diagnoses Umbilical hernia K42.9 Diverticulosis large intestine w/o perforation or abscess w/bleeding K57.31 Chronic respiratory failure with hypercapnia J96.12 Chronic obstructive pulmonary disease J44.9 COPD type: unspecified COPD Aspiration into airway T17.908A Oropharyngeal dysphagia R13.12 Acute exacerbation of chronic obstructive airways disease J44.1 Nocturnal oxygen desaturation G47.[address] R91.8 Acute and chronic respiratory failure with hypercapnia J96.22 Endotracheally intubated Z97.8
[2022-03-10] MEDS: ipratropium-albuterol 3 mL Neb INHALATION ×3 (07:33→20:07)
[2022-03-10 07:39] LABS: Basophils % 0.3 %; Eosinophils % 0.1 %; Hematocrit 48.5 % (37.0-47.0); Hemoglobin 14.1 g/dL (11.5-15.3); Lymphocytes # 1.1 10^3/uL (0.8-4.8); Lymphocytes % 11.7 %; Mean Corpuscular HGB Conc 29.1 g/dL (30.0-36.0); Mean Corpuscular Hemoglobin 27.9 pg (28.0-34.0); Mean Corpuscular Volume 95.8 fl (81-99); Monocytes # 0.7 10^3/uL (0.2-0.9); Monocytes % 7.1 %; Neutrophils # 7.63 10^3/uL (1.8-7.7); Neutrophils % 79.7 %; Nucleated Red Blood Cells % 0 %; Platelet Count 158 10^3/cmm (130-400); Red Blood Count 5.06 10^6/uL (4.1-5.3); Red Cell Distribution Width 12.8 % (12.1-15.1); White Blood Count 9.6 10^3/uL (4.0-10.0)
[2022-03-10 07:56] LABS: D Dimer 0.55 ug/mIFEU (0-0.59)
[2022-03-10 08:01] LABS: Troponin(5th) Baseline 6 ng/L (0-10)
[2022-03-10 08:06] LABS: Estmated Average Glucose 209; Hemoglobin A1C 8.9 % (4.0-6.0)
[2022-03-10 08:07] LABS: Procalcitonin 0.11 ng/mL (0-0.5); Thyroid Stimulating Hormone 0.81 uIU/mL (0.27-4.20)
--- NOTE | 2022-03-10 08:13 | ECG_ITS ---
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 Measurements Intervals [place] Rate: 108 P: 68 OK: 146 QRS: 83 QRSD: 81 T: 74 QT: 345 QTc: 464 Interpretive Statements SINUS TACHYCARDIA Compared to ECG 11/23/2020 18:07:00 No significant changes Electronically Signed On 03-10-2022 18:09:48 CDT by Marcelo Amezquita M.D. [id number]
[2022-03-10 08:18] LABS: Anion Gap 12.8 (5-19); Blood Urea Nitrogen 11 mg/dL (6-20); Calcium 7.4 mg/dL (8.5-10.5); Chloride 84 mmol/L (98-107); Glucose 282 mg/dL (65-115); Osmolality Calculated 292 mOsm/kg (285-295); Potassium 4.8 mmol/L (3.5-5.1); Sodium 136 mmol/L (136-145)
[2022-03-10 08:24] LABS: ABG PH Result 7.36 (7.35-7.45); Arterial Blood Gas Hematocrit 44.5 % (37-47); Base Excess ABG 17.7 mmol/L (-2.0-2.0); Blood Gas Operator Identificat GD; Blood Gas Sample Site Brachial, left; Blood Gas Sample Type Arterial; Blood Gas Tidal Volume 0.35; HCO3 ABG 48.3 mmol/L (22-26); Oxygen Device VENT; PO2 ABG 49.8 mmHg (80.0-100.0)
[2022-03-10 08:25] LABS: ABG PCO2 86.3 mmHg (35-45)
[2022-03-10] MEDS: propofol 1,000 MG/100 ML INJ 12.79 MG IV (08:54)
[2022-03-10] MEDS: sennosides-docusate Tablet 1 TAB PO (08:58)
[2022-03-10] MEDS: azithromycin 250 mg Tablet 500 MG PO (08:58)
--- NOTE | 2022-03-10 09:01 | PC.PHAR ---
unable to verify medications with pt pt is intubated-pt had brought in medication bottles-talked to pts daughter angelia pagan [phone] she states she doesnt really know her mothers medications-called pts consuelo [phone] he states the pt takes care of her own medications-medications entered are meds the pt brought in,ext med history and meds that were on previously entered med list notes are made in the pharmacy comments
[2022-03-10 09:05] LABS: Carbon Dioxide 44 mmol/L (22-29)
[2022-03-10] MEDS: heparin 5,000 unit/mL INJ 1 mL 5000 UNIT SUBCUT ×3 (09:09→23:04)
[2022-03-10] MEDS: sodium chloride 0.9% 1,000 ML 75 ML IV (09:09)
[2022-03-10] MEDS: pantoprazole 40 mg SDV IVP ×2 (09:09→21:47)
[2022-03-10] MEDS: cefTRIAXone 1,000 MG in sodium chloride 0.9% (plus) 50 ML 100 MG IV (09:09)
[2022-03-10] MEDS: insulin lispro 100 unit/1 mL SUBCUT ×3 (09:10→16:40)
[2022-03-10 09:50] LABS: Troponin 5 2HR 7.07 ng/L (0-10)
[2022-03-10 10:22] LABS: Troponin 5 2HR Delta 1.07 ABS# (0-10)
--- NOTE | 2022-03-10 10:37 | PC.CHAP ---
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 department store door greeter visit [] Patient/Family/Request visit [] Outpatient visit [] Follow-up visit [] Physician referral [] Code/Alert [x] Routine visit [] Staff referral [] Actively dying [x] Patient sleeping [] Family support [] [] Out of room [] Palliative care [] [] Receiving care in room [] Pre-surgical visit [] Trauma [] Long length of stay [x] ICU visit [x] Other: vent Relational/Emotional Strength [] Patient feels connected with others/family/visitors/staff [] Distress [] Loneliness/isolation [] Abandonment Spirituality of Patient [] Person of Alla [] Attends Zoroastrianism of their Alla [] Believes in Prayer [] Reads Bible or Baptist materials [] There are Spiritual issues to be addressed Chief Enterprise Architect Interventions [x] Prayer [] Active listening [] Non-anxious presence [] Spiritual/emotional support [] Crisis/trauma care [] Spiritual counseling [] Bereavement support [] Provided bereavement packet [] Provided Bible/devotional materials [] Provided toy/stuffed animal, coloring book to patient or family member [] Provided Communion [] Anointing/[place] [] Salvation [x] Completed spiritual assessment [] Other: Impact on Illness or Injury [] Angry [] Fearful [] Anxious [] Often cries [] Exhaustion [] Unable to work [] Unable to attend synagogue [] Unable to walk/stand [] Unable to read [] Unable to drive [] Unable to eat/drink [] Unable to sleep [] Unable to be with family [] Patient intubated [] Other: Summary Time spent with patient
--- NOTE | 2022-03-10 10:42 | ECG_ITS ---
[facility] Test Date: 2022-03-10 Pat Name: Patricia Butcher Department: Room: [facility]07 Gender: Female Physicist Nuclear: : 1965 Requested By: Génesis Toledo Order Number: [id number] Carlos MD: Marcelo Amezquita M.D. Measurements Intervals [place] Rate: 115 P: 77 NC: 140 QRS: 84 QRSD: 80 T: 74 QT: 338 QTc: 469 Interpretive Statements SINUS TACHYCARDIA POSSIBLE LEFT ATRIAL ENLARGEMENT [-0.1mV P-WAVE IN V1/V2] Compared to ECG 03/10/2022 08:13:51 No significant changes Electronically Signed On 03-10-2022 18:13:21 CDT by Marcelo Amezquita M.D. [id number]
[2022-03-10 12:35] LABS: Glucose Point of Care 305 mg/dL (70-110)
[2022-03-10 13:29] LABS: Troponin 5 6HR 8.12 ng/L (0-10)
[2022-03-10 13:36] LABS: Troponin 5 6HR Delta 2.12 ng/L (0-12)
[2022-03-10] MEDS: propofol 1,000 MG/100 ML INJ 19.19 MG IV (13:53)
--- NOTE | 2022-03-10 14:30 | PC.NURSE ---
Report given to ANAMARIA Caceres.
[2022-03-10 16:33] LABS: Glucose Point of Care 274 mg/dL (70-110)
--- NOTE | 2022-03-10 16:45 | ECG_ITS ---
[facility] Test Date: 2022-03-10 Pat Name: Patricia Butcher Department: Room: [facility]07 Gender: Female Management Associate: : 1965 Requested By: Génesis Toledo Order Number: [id number] Carlos MD: Marcelo Amezquita M.D. Measurements Intervals [place] Rate: 109 P: 73 CT: 146 QRS: 82 QRSD: 80 T: 76 QT: 351 QTc: 474 Interpretive Statements SINUS TACHYCARDIA POSSIBLE LEFT ATRIAL ENLARGEMENT [-0.1mV P-WAVE IN V1/V2] Compared to ECG 03/10/2022 10:42:57 No significant changes Electronically Signed On 03-10-2022 18:12:11 CDT by Marcelo Amezquita M.D. [id number]
[2022-03-10 17:16] LABS: ABG PH Result 7.46 (7.35-7.45); Alveolar-Arterial Oxygen Gradi 18.6 mmHg (5-10); Arterial Blood Gas Hematocrit 41.4 % (37-47); Base Excess ABG 20.3 mmol/L (-2.0-2.0); Blood Gas Operator Identificat GD; Blood Gas Sample Site Brachial, right; Blood Gas Sample Type Arterial; Blood Gas Tidal Volume 0.35; HCO3 ABG 48.2 mmol/L (22-26); HGB O2 Sat 92.9 % (95-100); Methemoglobin 0.9 % (0.4-1.5); Oxygen Device VENT; Oxygen Saturation ABG 95.7; PO2 ABG 60.6 mmHg (80.0-100.0); Potassium Level - ABG 4.1 mmol/L (3.5-5.0); Total Hemoglobin 13.5 g/dL (12-16)
[2022-03-10 17:18] LABS: ABG PCO2 67.7 mmHg (35-45)
--- NOTE | 2022-03-10 18:19 | PC.NURSE ---
this nurse took over care approximately 1430
[2022-03-10] MEDS: propofol 1,000 MG/100 ML INJ 25.58 MG IV ×2 (18:23→20:50)
--- NOTE | 2022-03-10 19:08 | P.PN_ITS ---
Subjective Subjective: Intubated, awake, nods answers to questions. Not in pain. Asking about ET tube. Discussing with her respiratory failure, poor air entry, wheezing, as well as tenacious secretions, she is agreeable to continue intubation and mechanical ventilator support with current therapies with reassessment in the morning for possibility of extubation. Discussed with her ABG has been improving. Vitals/I&O/Wt Last Vital Signs Temp 97.9 F 03/10/22 06:45 Pulse 103 H 03/10/22 18:00 Resp 16 03/10/22 17:24 BP 114/64 03/10/22 18:00 Pulse Ox 96 03/10/22 18:00 O2 Del Method 03/10/22 14:45 FiO2 40 03/10/22 17:24 03/10/22 03/10/22 03/10/22 06:59 14:59 22:59 Intake Total 176.115 / 176.115 86.355 / 262.470 Output Total 0 / 0 450 / 450 Balance 176.115 / 176.115 -363.645 / -187.530 Weight last 48 hrs Weight 106.594 kg Physical Exam Const: COMMON NORMALS: alert GENERAL APPEARANCE: cooperative and patient mechanically ventilated NUTRITIONAL APPEARANCE: obese ORIENTATION/CONSCIOUSNESS: Yes awake HENMT: COMMON NORMALS: oropharynx normal Neck/C-Spine: COMMON NORMALS: no JVD Resp: AUSCULTATION: rhonchi, wheezes and diminished lung sounds Cardio: COMMON NORMALS: no JVD, regular rhythm, S1 normal heart sound present, S2 normal heart sound present and No murmurs present (Cardio) RHYTHM: regular rhythm HEART SOUNDS: S1 normal heart sound present and S2 normal heart sound present GI: COMMON NORMALS: Normal to inspection, nondistended, normoactive bowel sounds present, Soft to palpation and non-tender PALPATION: Yes Soft to palpation Extremity: COMMON NORMALS: no joint enlargement Neuro: COMMON NORMALS: moves all extremities SENSORIUM/ORIENTATION: Yes alert Skin: COMMON NORMALS: no rashes or lesions noted GENERAL SKIN EXAM: no rashes or lesions noted Data : 03/10/22 07:28 03/10/22 07:28 Micro: Microbiology 03/10/22 07:30 MRSA Culture - Final Nose 03/10/22 07:45 Gram Stain - Final Sputum - Endotracheal Tube Aspirate 03/10/22 07:30 Legionella Urinary Antigen - Final Urine Catheterized 03/10/22 07:30 Bacterial Antigens - Final Urine,Clean Catch A&P Assessment and plan (1) Acute and chronic respiratory failure with hypercapnia: Improving acute respiratory failure with hypoxia and hypercapnia, respiratory acidosis, tolerating mechanical ventilatory support well so far. pH with improvement up to 7.36 this morning. CO2 has been decreasing, down from 130s to 86. However, still decreased air entry bilaterally. Wheezing. Tenacious secretions this morning. Requested collection of sputum culture. At this time continue with IV steroid, empiric antibiotic. Breathing treatments. In case condition continues to improve, will reassess tomorrow for possibility of extubation. Chronically on trilogy support at home. 3 L oxygen. Records requested for CT angiogram of the chest from [facility]. Status: Acute (2) Acute exacerbation of chronic obstructive airways disease: Status: Acute (3) Umbilical hernia: Status: Acute (4) Diverticulosis large intestine w/o perforation or abscess w/bleeding: Status: Chronic (5) Chronic respiratory failure with hypercapnia: Status: Acute (6) Chronic obstructive pulmonary disease: With severe exacerbation, as above. Status: Acute Qualifiers: COPD type: unspecified COPD Qualified Code(s): J44.9 - Chronic obstructive pulmonary disease, unspecified (7) Aspiration into airway: Status: Acute (8) Oropharyngeal dysphagia: Status: Acute (9) Nocturnal oxygen desaturation: Status: Acute (10) Multiple lung nodules on CT: Status: Acute (11) Endotracheally intubated: Status: Acute Plan Chronic hypercarbic respiratory failure Pickwickian syndrome Trilogy dependent at home At baseline uses 3 L of oxygen Active smoker Follows up with Dr. Reyez Upper airway obstruction due to lingular tonsillar hypertrophy, surgery was not an option because of her high risk of perioperative morbidity and mortality Attestations Medical Necessity Statement*: Continue admission for assessment of management of acute on chronic respiratory failure with hypercapnia, hypoxia, severe exacerbation of COPD. Critical Care Time: The high probability of a clinically significant, sudden or life threatening deterioration of the patient's respiratory system(s) required my full and direct attention, intervention and personal management. The critical care time is as shown. This time is in addition to time spent performing any reported procedures but includes the following: x Data and vital sign review and interpretation x Patient assessment, examination and intervention x Documentation x Medication orders and management Critical Care Time (min): 35 Coding Level of Care Code Acute Canal Superintendent for [facility] Fwd Diagnoses Acute and chronic respiratory failure with hypercapnia J96.22 Acute exacerbation of chronic obstructive airways disease J44.1 Umbilical hernia K42.9 Diverticulosis large intestine w/o perforation or abscess w/bleeding K57.31 Chronic respiratory failure with hypercapnia J96.12 Chronic obstructive pulmonary disease J44.9 COPD type: unspecified COPD Aspiration into airway T17.908A Oropharyngeal dysphagia R13.12 Nocturnal oxygen desaturation G47.[address] R91.8 Endotracheally intubated Z97.8
[2022-03-11] VITALS (42 sets, daily range): BP systolic 92–118; BP diastolic 55–72; PULSE 68–95; RESP 16; TEMP 36.3–36.6; O2SAT 86–96
[2022-03-11] MEDS: propofol 1,000 MG/100 ML INJ 25.58 MG IV ×6 (00:57→19:07)
[2022-03-11] MEDS: ipratropium-albuterol 3 mL Neb INHALATION ×6 (02:56→22:01)
[2022-03-11 03:27] LABS: ABG PH Result 7.42 (7.35-7.45); Arterial Blood Gas Hematocrit 41.2 % (37-47); Base Excess ABG 18.8 mmol/L (-2.0-2.0); Blood Gas Allen Test Pos; Blood Gas Sample Site Radial, right; Blood Gas Sample Type Arterial; Blood Gas Tidal Volume 0.35; HCO3 ABG 47.5 mmol/L (22-26); Oxygen Device VENT; PO2 ABG 56.7 mmHg (80.0-100.0)
[2022-03-11 03:31] LABS: ABG PCO2 73.5 mmHg (35-45)
[2022-03-11 03:42] LABS: Basophils % 0.2 %; Hematocrit 42.7 % (37.0-47.0); Lymphocytes # 0.8 10^3/uL (0.8-4.8); Lymphocytes % 7.6 %; Mean Corpuscular HGB Conc 30.4 g/dL (30.0-36.0); Mean Corpuscular Hemoglobin 28.3 pg (28.0-34.0); Mean Platelet Volume 10.4 fL (7.4-10.4); Monocytes # 0.3 10^3/uL (0.2-0.9); Neutrophils # 9.04 10^3/uL (1.8-7.7); Neutrophils % 88.6 %; Nucleated Red Blood Cells % 0 %; Platelet Count 165 10^3/cmm (130-400); Red Blood Count 4.59 10^6/uL (4.1-5.3); Red Cell Distribution Width 13.2 % (12.1-15.1); White Blood Count 10.2 10^3/uL (4.0-10.0)
[2022-03-11 04:07] LABS: Alanine Aminotransferase 9 U/L (0-33); Albumin Level 2.9 g/dL (3.5-5.2); Alkaline Phosphatase 125 U/L (35-105); Aspartate Amino Transferase 12 U/L (0-32); Blood Urea Nitrogen 17 mg/dL (6-20); C Reactive Protein 99.7 mg/L (0.0-4.9); Calcium 7.4 mg/dL (8.5-10.5); Chloride 86 mmol/L (98-107); Globulin 3.6 g/dL (1.3-4.6); Glucose 250 mg/dL (65-115); Magnesium 1.8 mg/dL (1.7-2.3); Osmolality Calculated 290 mOsm/kg (285-295); Phosphorus 2.1 mg/dL (2.5-4.5); Sodium 135 mmol/L (136-145); Total Bilirubin 0.3 mg/dL (0.15-1.2); Total Protein 6.5 g/dL (6.6-8.7)
[2022-03-11 04:15] LABS: Anion Gap 10.2 (5-19); Potassium 4.2 mmol/L (3.5-5.1)
[2022-03-11 04:27] LABS: Carbon Dioxide 43 mmol/L (22-29)
[2022-03-11] MEDS: heparin 5,000 unit/mL INJ 1 mL 5000 UNIT SUBCUT ×3 (07:56→23:09)
[2022-03-11] MEDS: insulin lispro 100 unit/1 mL SUBCUT ×3 (07:56→17:07)
[2022-03-11] MEDS: azithromycin 250 mg Tablet 500 MG PO (08:00)
[2022-03-11] MEDS: cefTRIAXone 1,000 MG in sodium chloride 0.9% (plus) 50 ML 100 MG IV (08:01)
[2022-03-11] MEDS: pantoprazole 40 mg SDV IVP ×2 (08:01→20:23)
[2022-03-11] MEDS: sennosides-docusate Tablet 1 TAB PO (08:11)
--- NOTE | 2022-03-11 08:44 | XRR_ITS ---
PROCEDURE INFORMATION: Exam: XR Chest Exam date and time: 03/11/2022 8:50 AM Age: 56 years old Clinical indication: Device placement; Ett placement (vent status); Additional info: Intubated TECHNIQUE: Imaging protocol: Radiologic exam of the chest. Views: 1 view. COMPARISON: CR XR chest 1V portable [id number] 03/10/2022 7:34 AM FINDINGS: Tubes, catheters and devices: The distal tip of the endotracheal tube is not well visualized but may be approximately 6 cm above the karen. An enteric tube is noted with the distal tip below the level of the diaphragm in the region of the stomach. Lungs: No significant airspace consolidation identified. Mild interstitial prominence. Pleural spaces: No pneumothorax. No pleural effusion. Heart/Mediastinum: The cardiomediastinal silhouette is within normal limits. Bones/joints: Unremarkable. XR/XR chest 1V portable [id number] IMPRESSION: No significant acute cardiopulmonary abnormality identified.
[2022-03-11] MEDS: budesonide 0.5 mg/2 mL Neb INHALATION ×2 (08:52→19:49)
[2022-03-11] MEDS: magnesium sulfate premix 2 GM/50 ML PIGGYBACK IV (09:02)
[2022-03-11 09:15] LABS: Glucose Point of Care 245 mg/dL (70-110)
--- NOTE | 2022-03-11 10:02 | PC.CHAP ---
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 livestock judging coach visit [] Patient/Family/Request visit [] Outpatient visit [] Follow-up visit [] Physician referral [] Code/Alert [x] Routine visit [] Staff referral [] Actively dying [x] Patient sleeping [] Family support [] [] Out of room [] Palliative care [] [] Receiving care in room [] Pre-surgical visit [] Trauma [] Long length of stay [x] ICU visit [] Other: Relational/Emotional Strength [] Patient feels connected with others/family/visitors/staff [] Distress [] Loneliness/isolation [] Abandonment Spirituality of Patient [] Person of Alla [] Attends Mormon of their Alla [] Believes in Prayer [] Reads Bible or Denominational materials [] There are Spiritual issues to be addressed Book Shelver Interventions [x] Prayer [] Active listening [] Non-anxious presence [] Spiritual/emotional support [] Crisis/trauma care [] Spiritual counseling [] Bereavement support [] Provided bereavement packet [] Provided Bible/devotional materials [] Provided toy/stuffed animal, coloring book to patient or family member [] Provided Communion [] Anointing/[place] [] Salvation [x] Completed spiritual assessment [] Other: Impact on Illness or Injury [] Angry [] Fearful [] Anxious [] Often cries [] Exhaustion [] Unable to work [] Unable to attend rastafarian [] Unable to walk/stand [] Unable to read [] Unable to drive [] Unable to eat/drink [] Unable to sleep [] Unable to be with family [] Patient intubated [] Other: Summary Time spent with patient
--- NOTE | 2022-03-11 10:46 | PM.CONSULT ---
Providers/Reason For Consult Consulting Physician/Specialty*: Bienvenido Reyez MD/Pulmonary Critical Care Reason for Consult*: acute hypercapniec respiratory failure in pt with underlying COPD and OHS Requesting Physician: Rey Mariee Attending Physician: Rey Mariee Primary Care Provider: Wes Hart MD History of Present Illness History of Present Illness Ms. Patricia Butcher is a 56 year old female who has been transferred to our facility from [facility] for acute on chronic hypercarbic respiratory failure, at that facility her pH was 7.17 PCO2 146 PO2 53 bicarb 53 on BiPAP settings 18/10 respiratory rate 22, chest x-ray did not show any infiltrates, she was intubated there adn repeat blood gas showed pH 7.20 PCO2 in 130s, she remained hemodynamically stable after intubation, and transferred to [facility]. Her BNP 852 troponin 0.012, COVID and flu negative, she was given Lasix 40 mg, her drug screen is positive for benzodiazepines. As per family she has not been feeling well for last 3 days, very lethargic and fatigued, progressively worsened, confused, tripoding, she was getting short of breath they have not noticed any fever, vomiting or recent diarrhea.Because of worsening of her symptoms to call 911 who took her to the [facility].? As per the family she has been compliant with her home ventilator/BiPAP, she smokes 2 packs/day.? They have not noticed any COVID-related symptoms recently. Pulmonary Critical care consult requested for hypercapneic respiratory failure and to help with extubation. I know this patient from my pulmonary clinic, she has history of COPD uses 3 L of oxygen, GRISELDA, obesity hypoventilation syndrome and uses trilogy at night Tonsillar hypertrophy not a candidate for surgical intervention ; Recent echo showed EF 65% She is currently in ICU on ventilator MMV FIO 2 40%; PEEP of 10, TV 350, RR 16 Ppeak - 40 and p plateau 16; staff reported that she was following commands today morning but was trying to pull her lines and tubes - currently back on fentanyl 200 and propofol 75 mcg/hr all other labs and imaging reviewed Review of Systems General: Reports: ROS unobtainable due to endotracheal tube, ROS unobtainable due to medical condition and ROS unobtainable due to mental status Medications/Allergies Home Medications Medication Instructions Recorded Confirmed Last Taken Type clonazepam 0.5 mg tablet 0.5 mg PO TID PRN Anxiety 06/07/20 03/10/22 09/09/21 History dapagliflozin 10 mg tablet 10 mg PO DAILY 06/07/20 03/10/22 09/10/21 History (Farxiga) ipratropium 20 mcg-albuterol 100 1 puff inhalation QID PRN 09/14/20 03/10/22 09/11/21 08:59 History mcg/actuation mist for inhalation Shortness Of Breath (Combivent Respimat) revefenacin 175 mcg/3 mL solution 175 mcg inhalation QAM 11/06/20 03/10/22 09/10/21 History for nebulization (Yupemarquisi) ipratropium 0.5 mg-albuterol 3 mg 3 ml inhalation QID PRN Shortness 11/28/20 03/10/22 09/10/21 Rx (2.5 mg base)/3 mL nebulization Of Breath #360 mL soln blood-glucose meter,continuous #1 ea 05/14/21 03/10/22 Unknown Rx (Dexcom G6 Senior Speech Pathologist) blood-glucose sensor (Dexcom G6 #3 ea 05/14/21 03/10/22 Unknown Rx Sensor) blood-glucose transmitter (Dexcom #1 ea 05/14/21 03/10/22 Unknown Rx G6 Transmitter) insulin glargine 100 unit/mL (3 25 unit SUBCUT BEDTIME 05/14/21 03/10/22 09/10/21 History mL) subcutaneous pen (Lantus Solostar U-100 Insulin) formoterol fumarate 20 mcg/2 mL 2 ml inhalation BID #120 mL 06/17/21 03/10/22 09/10/21 Rx solution for nebulization (Perforomist) guaifenesin 600 mg tablet, 600 mg PO BID PRN congestion #60 06/17/21 03/10/22 09/10/21 Rx extended release 12 hr (Mucinex) tabs insulin lispro 100 unit/mL 17 unit (0.17 mL) SUBCUT TID #15 mL 08/26/21 03/10/22 09/10/21 Rx subcutaneous pen (Humalog KwikPen (U-100) Insulin) potassium chloride 10 mEq 10 meq PO DAILY #30 tabs 09/02/21 03/10/22 09/10/21 Rx tablet,extended release rosuvastatin 20 mg tablet 20 mg PO DAILY #90 tabs 10/23/21 03/10/22 Unknown Rx levofloxacin 500 mg tablet 500 mg PO DAILY #5 tabs 11/29/21 03/10/22 Unknown Rx furosemide 20 mg tablet (Lasix) 20 mg PO DAILY #30 tabs 12/06/21 03/10/22 Unknown Rx pen needle, diabetic 31 gauge x #100 ea 01/22/22 03/10/22 Unknown Rx 5/16 (Comfort EZ Pen Jackson) ProAir HFA 90 mcg/actuation 2 inh inhalation QID PRN shortness 02/18/22 03/10/22 Unknown Rx aerosol inhaler (albuterol sulfate) of breath or wheezing #8.5 grams ascorbic acid (vitamin C) 500 mg 500 mg PO DAILY 03/10/22 03/10/22 Unknown History tablet (Vitamin C) cholecalciferol (vitamin D3) 25 25 mcg PO DAILY 03/10/22 03/10/22 Unknown History mcg (1,000 unit) capsule (Vitamin D3) Allergies Allergy/AdvReac Type Severity Reaction Status Date / Time naproxen Allergy Mild nausea and Verified 01/22/22 10:58 vomiting Penicillins Allergy Mild itching Verified 01/22/22 10:58 Current Medications Generic Name Dose Route Start Last Admin Trade Name Freq PRN Reason Stop Dose Admin Albuterol/Ipratropium 3 ml 03/10/22 07:15 03/10/22 14:44 Ipratropium-Albuterol 3 Ml Neb INHALATION 3 ml Q6H PRN Administration SHORTNESS OF BREATH Azithromycin 500 mg 03/10/22 09:00 03/11/22 08:00 Azithromycin 250 Mg Tablet PO 500 mg DAILY TONJA Administration Protocol Budesonide 0.5 mg 03/11/22 08:42 03/11/22 08:52 Budesonide 0.5 Mg/2 Ml Neb INHALATION 0.5 mg BID.RESPIRATORY TONJA Administration Heparin Sodium (Porcine) 5,000 unit 03/10/22 08:00 03/11/22 07:56 Heparin 5,000 Unit/Ml Inj 1 Ml SUBCUT 5,000 unit Q8H TONJA Administration Ceftriaxone Sodium 1,000 mg/ 50 mls @ 100 mls/hr 03/10/22 09:00 03/11/22 08:01 Sodium Chloride IV 100 mls/hr DAILY TONJA Administration Protocol Propofol 1,000 mg in 100 mls @ 0 mls/hr 03/10/22 07:30 03/11/22 10:08 Diprivan IV 40 mcg/kg/min .Q0M TONJA 25.58 mls/hr Administration Protocol Per Protocol Fentanyl 1,000 mcg/ Sodium 100 mls @ 0 mls/hr 03/10/22 07:30 03/10/22 21:29 Chloride IV Infused .Q0M TONJA Titration Protocol Per Protocol Fentanyl 2,500 mcg/ Sodium 250 mls @ 0 mls/hr 03/10/22 20:15 03/11/22 05:44 Chloride IV 125 mcg/hr .Q0M TONJA 12.5 mls/hr Titration Protocol Per Protocol Insulin Human Lispro 0 unit 03/10/22 08:00 03/11/22 07:56 Insulin Lispro 100 Unit/1 Ml SUBCUT 10 unit TIDWM TONJA Administration Protocol Methylprednisolone Sodium Succinate 40 mg 03/10/22 08:00 03/11/22 07:56 Methylprednisolone Sod Succ 40 Mg/Ml Inj IVP 40 mg Q12H TONJA Administration Pantoprazole Sodium 40 mg 03/10/22 09:00 03/11/22 08:01 Pantoprazole 40 Mg Sdv IVP 40 mg BID@0900,2100 TONJA Administration Senna/Docusate Sodium 1 tab 03/10/22 09:00 03/11/22 08:11 Sennosides-Docusate Tablet PO 1 tab DAILY TONJA Administration PFSH Acute PFSH: Medical History Acute exacerbation of chronic obstructive airways disease Anxiety disorder Asthma Chronic obstructive pulmonary disease Chronic respiratory failure with hypercapnia Chronic respiratory failure with hypoxia and hypercapnia Colon polyp D-dimer, elevated Diabetic retinopathy associated with controlled type 2 diabetes mellitus Erythrocytosis Hypercholesteremia Hypertension Hypokalemia Leg cramps Long-term insulin use Obesity hypoventilation syndrome Obesity hypoventilation syndrome Oropharyngeal dysphagia Sepsis with acute hypoxic respiratory failure Smoker Tonsillar enlargement Type 2 diabetes mellitus Type 2 diabetes mellitus Surgical History History of carpal tunnel release History of tonsillectomy History of total abdominal hysterectomy Family History Father , at the of 70 Diabetes Cancer lung CAD (coronary artery disease) Mother , at the age of 55 Hypertension Lung disease Social History Smoking and tobacco status: former smoker (40 yrs) Quit status (tobacco): considering quitting Second hand smoke exposure: Yes Smoking risk assessment/counseling performed?: Yes Alcohol intake: current Alcohol intake frequency: holidays/special occasions only Alcohol type: wine Desire information about substance/drug rehabilitation?: No Counseling given: No Caregiver/support person: No Lives independently: Yes Household members: children Housing: House Marital status: Legally Current occupational status: disabled Pets and animals: No History of recent travel: No Current gender identity: Female Vitals/I&O/Wt Last Vital Signs Temp 98 F 03/11/22 06:00 Pulse 85 03/11/22 08:28 Resp 16 03/11/22 09:45 BP 104/62 03/11/22 06:00 Pulse Ox 95 03/11/22 09:45 O2 Del Method 03/11/22 08:12 FiO2 40 03/11/22 09:45 03/10/22 03/11/22 03/11/22 22:59 06:59 14:59 Intake Total 1292.063 / 1468.178 302.50 / 1770.678 100 / 100 Output Total 450 / 450 300 / 750 Balance 842.063 / 1018.178 2.50 / 1020.678 100 / 100 Weight last 48 hrs Weight 235 lb Physical Exam Narrative: PHYSICAL EXAM: General: morbidly obese, middle aged woman, lying in bed, sedated and intubated. HEENT:NCAT, PERRLA, EOMI Neck: Supple Lungs: Clear, Heart: s1/s2, RRR Abd: soft, NT, ND, BS + Normoactive Extremities: No edema ARTIFICIAL STONE APPLICATOR: sedated and limited ARTIFICIAL STONE APPLICATOR exam possible. SKIN: no rash Data : 03/11/22 02:47 03/11/22 02:47 Other Labs: Radiology Impressions Chest X-Ray 03/11/22 08:44 IMPRESSION: No significant acute cardiopulmonary abnormality identified. Laboratory Results WBC 10.2 10^3/uL (4.0-10.0) H 03/11/22 02:47 RBC 4.59 10^6/uL (4.1-5.3) 03/11/22 02:47 Hgb 13.0 g/dL (11.5-15.3) 03/11/22 02:47 Hct 42.7 % (37.0-47.0) 03/11/22 02:47 MCV 93.0 fl (81-99) 03/11/22 02:47 MCH 28.3 pg (28.0-34.0) 03/11/22 02:47 MCHC 30.4 g/dL (30.0-36.0) 03/11/22 02:47 RDW 13.2 % (12.1-15.1) 03/11/22 02:47 Plt Count 165 10^3/cmm (130-400) 03/11/22 02:47 MPV 10.4 fL (7.4-10.4) 03/11/22 02:47 Neut % (Auto) 88.6 % 03/11/22 02:47 Lymph % (Auto) 7.6 % 03/11/22 02:47 [place] % (Auto) 3.0 % 03/11/22 02:47 Eos % (Auto) 0.0 % 03/11/22 02:47 Baso % (Auto) 0.2 % 03/11/22 02:47 Neut # (Auto) 9.04 10^3/uL (1.8-7.7) H 03/11/22 02:47 Lymph # (Auto) 0.8 10^3/uL (0.8-4.8) 03/11/22 02:47 [place] # (Auto) 0.3 10^3/uL (0.2-0.9) 03/11/22 02:47 Eos # (Auto) 0.0 10^3/uL (0.0-0.8) 03/11/22 02:47 Baso # (Auto) 0.0 10^3/uL (0.0-0.1) 03/11/22 02:47 Nucleated RBC % (auto) 0 % 03/11/22 02:47 Nucleated RBCs # 0.0 /100WBC 03/11/22 02:47 D-Dimer 0.55 ug/mIFEU (0-0.59) 03/10/22 07:28 Specimen Type Arterial 03/11/22 04:00 Sample Site Radial, right 03/11/22 04:00 ABG pH 7.42 (7.35-7.45) 03/11/22 04:00 ABG pCO2 73.5 mmHg (35-45) H* 03/11/22 04:00 ABG pO2 56.7 mmHg (80.0-100.0) L 03/11/22 04:00 ABG HCO3 47.5 mmol/L (22-26) H 03/11/22 04:00 ABG O2 Saturation 95.7 03/10/22 16:42 ABG Base Excess 18.8 mmol/L (-2.0-2.0) H 03/11/22 04:00 Carlos Test Pos 03/11/22 04:00 A-a O2 Gradient 18.6 mmHg (5-10) H 03/10/22 16:42 Hematocrit 41.2 % (37-47) 03/11/22 04:00 Hgb O2 Saturation 92.9 % (95-100) L 03/10/22 16:42 Carboxyhemoglobin 2.0 %THgb (0.4-20.1) 03/10/22 16:42 Methemoglobin 0.9 % (0.4-1.5) 03/10/22 16:42 Total Hemoglobin 13.5 g/dL (12-16) 03/10/22 16:42 Sodium 135.0 mmol/L (131-143) 03/10/22 16:42 Potassium 4.1 mmol/L (3.5-5.0) 03/10/22 16:42 Glucose 269.0 mg/dL (70-115) H 03/10/22 16:42 Ionized Calcium 1.0 mmol/L (1.1-1.4) L 03/10/22 16:42 O2 Delivery Device Vent 03/11/22 04:00 FiO2 40.0 % 03/11/22 04:00 Tidal Volume 0.35 03/11/22 04:00 PEEP 10.0 cmH20 03/11/22 04:00 Object Oriented Programmer ID [email or web address] 03/11/22 04:00 Sodium 135 mmol/L (136-145) L 03/11/22 02:47 Potassium 4.2 mmol/L (3.5-5.1) 03/11/22 02:47 Chloride 86 mmol/L (98-107) L 03/11/22 02:47 Carbon Dioxide 43 mmol/L (22-29) H* 03/11/22 02:47 Anion Gap 10.2 (5-19) 03/11/22 02:47 BUN 17 mg/dL (6-20) 03/11/22 02:47 Creatinine 0.3 mg/dL (0.5-0.9) L 03/11/22 02:47 GFR Calculation 231.0 mL/min (90-130) H 03/11/22 02:47 Glucose 250 mg/dL (65-115) H 03/11/22 02:47 POC Glucose 238 mg/dL (70-110) H 03/11/22 11:55 Estimat Average Glucose 209 03/10/22 07:28 Hemoglobin A1c 8.9 % (4.0-6.0) H 03/10/22 07:28 Calculated Osmolality 290 mOsm/kg (285-295) 03/11/22 02:47 Calcium 7.4 mg/dL (8.5-10.5) L 03/11/22 02:47 Phosphorus 2.1 mg/dL (2.5-4.5) L 03/11/22 02:47 Magnesium 1.8 mg/dL (1.7-2.3) 03/11/22 02:47 Total Bilirubin 0.3 mg/dL (0.15-1.2) 03/11/22 02:47 AST 12 U/L (0-32) 03/11/22 02:47 ALT 9 U/L (0-33) 03/11/22 02:47 Alkaline Phosphatase 125 U/L (35-105) H 03/11/22 02:47 Troponin T Baseline 6 ng/L (0-10) 03/10/22 07:28 Troponin T 120 Minute 7.07 ng/L (0-10) 03/10/22 09:18 Delta Troponin T 1.07 ABS# (0-10) 03/10/22 09:18 Troponin T Hi Sens 6Hr 8.12 ng/L (0-10) 03/10/22 13:05 Troponin T Hi Sens 6Hr Delta 2.12 ng/L (0-12) 03/10/22 13:05 C-Reactive Protein 99.7 mg/L (0.0-4.9) H 03/11/22 02:47 Total Protein 6.5 g/dL (6.6-8.7) L 03/11/22 02:47 Albumin 2.9 g/dL (3.5-5.2) L 03/11/22 02:47 Globulin 3.6 g/dL (1.3-4.6) 03/11/22 02:47 Procalcitonin 0.11 ng/mL (0-0.5) 03/10/22 07:28 TSH 0.81 uIU/mL (0.27-4.20) 03/10/22 07:28 Micro: Microbiology 03/10/22 07:30 MRSA Culture - Final Nose 03/10/22 07:45 Gram Stain - Final Sputum - Endotracheal Tube Aspirate 03/10/22 07:30 Legionella Urinary Antigen - Final Urine Catheterized 03/10/22 07:30 Bacterial Antigens - Final Urine,Clean Catch A&P Assessment and plan (1) Endotracheally intubated: Status: Acute (2) Acute and chronic respiratory failure with hypercapnia: Status: Acute (3) Chronic respiratory failure with hypercapnia: Status: Acute (4) Chronic obstructive pulmonary disease: Status: Acute Qualifiers: COPD type: unspecified COPD Qualified Code(s): J44.9 - Chronic obstructive pulmonary disease, unspecified (5) Pneumonia: Status: Acute Qualifiers: Laterality: right Lung location: lower lobe of lung Pneumonia type: due to unspecified organism Qualified Code(s): J18.9 - Pneumonia, unspecified organism (6) Acute exacerbation of chronic obstructive airways disease: Status: Acute Plan # Acute exacerbation of COPD # Chronic hypercapnic respiratory failure with underlying obesity hypoventilation/severe COPD/upper airway obstruction due to lingular tonsillar hypertrophy -Currently Intubated on mechanical ventilator MMV 350/16/10/40% ; abg today 7.42/73/56/47 on 350/16/10/35% -serum bicarb is 43 - for respiratory acidosis compensation (it should be around 38-40; excess 3-4 reflect coexisting metabolic alkalosis) - will give acetazolamide 250 mg for next 2 days -Chest x ray today - No significant acute cardiopulmonary abnormality identified. ?-peak pressures are 40; but P plateau are 16 - suggestive of severe airway resistance - -change Duoneb to q 4 hr tonja and give 1 dose of 2mg MgSO4 -continue rocephin, vancomycin untill final cutures - currently on iv solumedrol 40 mg q 12hr - will start tapering after 2 days. -Taper down propofol and fentanyl to add precedex if needed -We will continue with with awakening trial - given her lingular tonsilar hypertrophy - need air leak test prior to extubation # CKD - Monitor Renal functions, electrolytes and input out put - ABG showed respiratory acidosis with compensation and metabolic alkalosis - - will give aceatazolaminde 250 mg daily x 3 days # H/o lingular tonsillar hypertrophy -Patient also complained of dysphagia and was evaluated by ENT for lingular tonsillar hypertrophy.Anesthesia and ENT canceled the case and reschedule her for evaluation at [facility] due to high risk of perioperative morbidity and mortality due to obesity hypoventilation syndrome and advanced COPD. -ENT at [facility] hesitating to the procedure and it was canceled given her very high risk perioperative mortality/morbidity #Grade 4 severe COPD on 3 L home oxygen #Chronic smoker 0.5 PPD X 35 years - Spirometry? 07/04/2020: very severe obstructive ventilatory defect. Postbronchodilator FEV1 28%.? Moderate gas transfer defect 56%.? Sloping of expiratory limb flow volume loop.? Patient failed to do maneuvers to measure lung volumes. -6-minute walk test 07/04/2020:?Patient 83% on room air not able to ambulate for 6 minutes but still holding her portable oxygen device -as out pt she is on Perforomist, Pulmicort 0.5 twice daily nebulizations and Yupelri 1 nebulization daily; Also uses DuoNeb as needed; Mucinex 600 mg p.o. twice daily as needed for chest congestion -she was counseled everytime in clinic to quit smoking and she said she is trying and currently down to 6 cigarettes and usually smokes whenever she is under stress -need to reschedule? pulmonary rehab and smoking cessation classes as last time she had COVID in January and could not continue -Recommended to stay up-to-date with flu vaccine and pneumonia vaccine -Previously evaluated at [facility] for EBV/LV RS/lung transplant-recommended patient to quit smoking for more than 6 months and lose weight to get BMI < 35 and patient understands the importance and says she is motivated and working towards it.. #Previously COVID? 12/25/20 - recevied monoclonal ab on 12/27/20: # Post viral syndrome - fatigue -Currently as out pt she is on her baseline 3 L nasal cannula - recommended to continue physical therapy as tolerated? #Encounter for lung cancer screening #Multiple nodules on her CAT scan October [id number] CT in October 2020 : no suspicious nodules -The patient age between 50 to 80 years, has more than [id number] history of smoking and active smoker/quit within the last 15 years, I have discussed about low-dose CT scan for lung cancer screening.? I have explained the risks and benefits to the patient.? I have explained to him that more than 90% of abnormalities that are found on the CT scan in a high risk patient turned out to be benign.? However this can lead to subsequent more CT scans as well as more invasive procedures.? The patient wants to go ahead and get the CT scan screening.?? -LDCT 12/26/21: negative LDCT #Obesity hypoventilation syndrome on Triology - Cannot rule out coexisting GRISELDA #Tiredness, daytime sleepiness, snoring, disturbed sleep-stop bang score greater than 5 - home sleep testing?08/01/2020: On Triology showed AHI less than 5 with mean saturation 89% and lowest was 70%. -she needs in lab poly somnography -face to face evaluation - no complaints ICU CHECKLIST: Problem list updated Verbal orders reviewed and signed Analgesia: fentanyl Glycemic Control: ISS Nutrition: NPO for now Restraint Renewal (within 24 hrs): yes Ulcer Prophylaxis: PPI Chemical Thromboprophylaxis: Prophylaxis:Lovenox Mechanical Thromboprophylaxis: SCD Need for Central line:na Need for Cardozo catheter: uop monitoring Critical Care Time (No Overlap):60 min This patient has a high probability of sudden, clinically significant deterioration, which requires the highest level of physician preparedness to intervene urgently. I managed/supervised life or organ supporting interventions that required frequent physician assessment. I devoted my full attention in the ICU to the direct care of this patient for the period of time indicated above. Time I spent with family or surrogate(s) is included only if the patient was incapable of providing necessary information or participating in decision making. Time devoted to teaching and to any procedures I billed separately is not included. Services Provided: Telemetry review Mechanical Ventilation Hemodynamic interpretation, assessment and management Review and interpretation of CXR Review and interpretation of lab values Review and interpretation of microbiologic data and culture results Review of medications and administration Review and interpretation of Nutrition requirements and management Discussion of management with other consultants and services Clinical update to family members recommendations conveyed to the hospitalist, RN, RT taking care of the patient. Consult Attestations Medical Necessity Statement: intubated and currently being evalutated for extubation Time Spent in Patient Care: Greater than 35 minutes (>than 50% of time spent in counselling and/or direct pt care on unit). Critical Care Time: The high probability of a clinically significant, sudden or life threatening deterioration of the patient's [respiraotry, neuology, renal ] system(s) required my full and direct attention, intervention and personal management. The critical care time is as shown. This time is in addition to time spent performing any reported procedures but includes the following: [x] Data and vital sign review and interpretation [x] Patient assessment, examination and intervention [x] Documentation [x] Medication orders and management Critical Care Time (min): 60 Coding Level of Care Code New Pt Acute Time Study Technologist for Chg Fwd Patient Type New History Comprehensive Exam Comprehensive Medical Decision Making High Complexity Diagnoses Endotracheally intubated Z97.8 Acute and chronic respiratory failure with hypercapnia J96.22 Chronic respiratory failure with hypercapnia J96.12 Chronic obstructive pulmonary disease J44.9 COPD type: unspecified COPD Pneumonia J18.9 Laterality: right Lung location: lower lobe of lung Pneumonia type: due to unspecified organism Acute exacerbation of chronic obstructive airways disease J44.1 Time Spent (min) 60
[2022-03-11 11:57] LABS: Glucose Point of Care 238 mg/dL (70-110)
--- NOTE | 2022-03-11 15:11 | P.PN_ITS ---
Subjective Subjective: Intubated, mechanically ventilated, sedated. Vitals/I&O/Wt Last Vital Signs Temp 98 F 03/11/22 06:00 Pulse 92 03/11/22 14:00 Resp 16 03/11/22 13:41 BP 97/58 03/11/22 14:00 Pulse Ox 94 03/11/22 14:00 O2 Del Method 03/11/22 13:30 O2 Flow Rate 40 03/11/22 10:10 FiO2 40 03/11/22 13:41 03/11/22 03/11/22 03/11/22 06:59 14:59 22:59 Intake Total 302.50 / 1770.678 200 / 200 Output Total 300 / 750 Balance 2.50 / 1020.678 200 / 200 Weight last 48 hrs Weight 106.594 kg Physical Exam Const: COMMON NORMALS: alert GENERAL APPEARANCE: cooperative and patient mechanically ventilated NUTRITIONAL APPEARANCE: obese ORIENTATION/CONSCIOUSNESS: Yes awake HENMT: COMMON NORMALS: oropharynx normal Neck/C-Spine: COMMON NORMALS: no JVD Resp: AUSCULTATION: rhonchi, wheezes and diminished lung sounds Cardio: COMMON NORMALS: no JVD, regular rhythm, S1 normal heart sound present, S2 normal heart sound present and No murmurs present (Cardio) RHYTHM: regular rhythm HEART SOUNDS: S1 normal heart sound present and S2 normal heart sound present GI: COMMON NORMALS: Normal to inspection, nondistended, normoactive bowel sounds present, Soft to palpation and non-tender PALPATION: Yes Soft to palpation Extremity: COMMON NORMALS: no joint enlargement Neuro: COMMON NORMALS: moves all extremities SENSORIUM/ORIENTATION: Yes alert Skin: COMMON NORMALS: no rashes or lesions noted GENERAL SKIN EXAM: no rashes or lesions noted Data : 03/11/22 02:47 03/11/22 02:47 Micro: Microbiology 03/10/22 07:45 Gram Stain - Final Sputum - Endotracheal Tube Aspirate Sputum Culture - Preliminary 03/10/22 07:30 MRSA Culture - Final Nose A&P Assessment and plan (1) Acute and chronic respiratory failure with hypercapnia: Still significantly diminished air entry today, wheezing, rhonchi. Persistent secretions. Continue pulmonary toilet and current therapy with IV steroid, nebulizer frequency has been increased, antibiotics. Sputum culture. Chronically on trilogy support at home. 3 L oxygen. Records requested for CT angiogram of the chest from [facility]. Status: Acute (2) Acute exacerbation of chronic obstructive airways disease: Status: Acute (3) Umbilical hernia: Status: Acute (4) Diverticulosis large intestine w/o perforation or abscess w/bleeding: Status: Chronic (5) Chronic respiratory failure with hypercapnia: Status: Acute (6) Chronic obstructive pulmonary disease: With severe exacerbation, as above. Status: Acute Qualifiers: COPD type: unspecified COPD Qualified Code(s): J44.9 - Chronic obstructive pulmonary disease, unspecified (7) Aspiration into airway: Status: Acute (8) Oropharyngeal dysphagia: Status: Acute (9) Nocturnal oxygen desaturation: Status: Acute (10) Multiple lung nodules on CT: Status: Acute (11) Endotracheally intubated: Status: Acute Plan Chronic hypercarbic respiratory failure Pickwickian syndrome Trilogy dependent at home At baseline uses 3 L of oxygen Active smoker Follows up with Dr. Reyez Upper airway obstruction due to lingular tonsillar hypertrophy, surgery was not an option because of her high risk of perioperative morbidity and mortality Attestations Medical Necessity Statement*: Continue assessment and management of acute respiratory failure. Critical Care Time: The high probability of a clinically significant, sudden or life threatening deterioration of the patient's respiratory system(s) required my full and direct attention, intervention and personal management. The critical care time is as shown. This time is in addition to time spent performing any reported procedures but includes the following: x Data and vital sign review and interpretation x Patient assessment, examination and intervention x Documentation x Medication orders and management Critical Care Time (min): 40 Coding Level of Care Code Acute Cold Header Operator for [facility] Fwd Diagnoses Acute and chronic respiratory failure with hypercapnia J96.22 Acute exacerbation of chronic obstructive airways disease J44.1 Umbilical hernia K42.9 Diverticulosis large intestine w/o perforation or abscess w/bleeding K57.31 Chronic respiratory failure with hypercapnia J96.12 Chronic obstructive pulmonary disease J44.9 COPD type: unspecified COPD Aspiration into airway T17.908A Oropharyngeal dysphagia R13.12 Nocturnal oxygen desaturation G47.[address] nodules on [address] R91.8 Endotracheally intubated Z97.8
[2022-03-11 16:50] LABS: Glucose Point of Care 258 mg/dL (70-110)
[2022-03-11] MEDS: propofol 1,000 MG/100 ML INJ 31.98 MG IV (21:48)
[2022-03-12] VITALS (40 sets, daily range): BP systolic 94–130; BP diastolic 57–85; PULSE 66–92; RESP 14–18; TEMP 36.3–37.3; O2SAT 92–99
[2022-03-12] MEDS: propofol 1,000 MG/100 ML INJ 31.98 MG IV ×4 (01:00→11:17)
[2022-03-12] MEDS: ipratropium-albuterol 3 mL Neb INHALATION ×5 (01:05→20:18)
[2022-03-12 01:41] LABS: ABG PH Result 7.41 (7.35-7.45); Alveolar-Arterial Oxygen Gradi 16.8 mmHg (5-10); Arterial Blood Gas Hematocrit 40.2 % (37-47); Base Excess ABG 17.7 mmol/L (-2.0-2.0); Blood Gas Allen Test Pos; Blood Gas Sample Site Radial, right; Blood Gas Tidal Volume 0.35; HCO3 ABG 46.2 mmol/L (22-26); Oxygen Device VENT
[2022-03-12 01:42] LABS: ABG PCO2 72.8 mmHg (35-45)
[2022-03-12 04:27] LABS: Alanine Aminotransferase 9 U/L (0-33); Albumin Level 2.4 g/dL (3.5-5.2); Alkaline Phosphatase 101 U/L (35-105); Aspartate Amino Transferase 24 U/L (0-32); Basophils % 0.1 %; Blood Urea Nitrogen 20 mg/dL (6-20); Calcium 7.2 mg/dL (8.5-10.5); Carbon Dioxide 34 mmol/L (22-29); Chloride 85 mmol/L (98-107); Eosinophils % 0.1 %; Globulin 3.7 g/dL (1.3-4.6); Glomerular Filtration Rate 165.7 mL/min (90-130); Glucose 255 mg/dL (65-115); Hematocrit 41.2 % (37.0-47.0); Hemoglobin 12.4 g/dL (11.5-15.3); Lymphocytes # 1.2 10^3/uL (0.8-4.8); Lymphocytes % 11.3 %; Mean Corpuscular HGB Conc 30.1 g/dL (30.0-36.0); Mean Platelet Volume 9.8 fL (7.4-10.4); Monocytes # 0.6 10^3/uL (0.2-0.9); Neutrophils % 81.9 %; Nucleated Red Blood Cells % 0 %; Osmolality Calculated 281 mOsm/kg (285-295); Platelet Count 180 10^3/cmm (130-400); Red Blood Count 4.43 10^6/uL (4.1-5.3); Red Cell Distribution Width 13.8 % (12.1-15.1); Sodium 130 mmol/L (136-145); Total Bilirubin 0.2 mg/dL (0.15-1.2); Total Protein 6.1 g/dL (6.6-8.7); White Blood Count 10.5 10^3/uL (4.0-10.0)
[2022-03-12 04:30] LABS: Anion Gap 15.1 (5-19); Potassium 4.1 mmol/L (3.5-5.1)
[2022-03-12] MEDS: budesonide 0.5 mg/2 mL Neb INHALATION ×2 (08:23→20:19)
[2022-03-12] MEDS: acetaZOLAMIDE 250 mg Tablet PO (09:02)
[2022-03-12] MEDS: cefTRIAXone 1,000 MG in sodium chloride 0.9% (plus) 50 ML 100 MG IV (09:02)
[2022-03-12] MEDS: sennosides-docusate Tablet 1 TAB PO (09:02)
[2022-03-12] MEDS: azithromycin 250 mg Tablet 500 MG PO (09:02)
[2022-03-12] MEDS: pantoprazole 40 mg SDV IVP ×2 (09:02→20:11)
[2022-03-12] MEDS: insulin lispro 100 unit/1 mL SUBCUT ×3 (09:03→16:59)
[2022-03-12] MEDS: heparin 5,000 unit/mL INJ 1 mL 5000 UNIT SUBCUT ×2 (09:03→15:26)
--- NOTE | 2022-03-12 09:07 | P.PN_ITS ---
Subjective Subjective: -Seen at bedside -On fentanyl 150 MCG/hour and propofol 45-following commands but extremely drows y -Plan is to taper off sedation will place on Precedex if needed and do breathing trials -Tolerating MMV-we will change to spontaneous and proceed with breathing trials -Other labs and imaging reviewed Vitals/I&O/Wt Last Vital Signs Temp 97.8 F 03/12/22 04:00 Pulse 80 03/12/22 08:38 Resp 14 03/12/22 08:26 BP 99/61 03/12/22 07:41 Pulse Ox 95 03/12/22 08:26 O2 Del Method 03/12/22 08:24 O2 Flow Rate 40 03/11/22 10:10 FiO2 40 03/12/22 08:26 03/11/22 03/12/22 03/12/22 22:59 06:59 14:59 Intake Total 482.718 / 682.718 200 / 882.718 100 / 100 Output Total 400 / 400 450 / 850 Balance 82.718 / 282.718 -250 / 32.718 100 / 100 Physical Exam Narrative: PHYSICAL EXAM: General: morbidly obese, middle aged woman, lying in bed, sedated and intubated. HEENT:NCAT, PERRLA, EOMI Neck: Supple Lungs: Clear, Heart: s1/s2, RRR Abd: soft, NT, ND, BS + Normoactive Extremities: No edema NAIL PROFESSIONAL: sedated and limited NAIL PROFESSIONAL exam possible. SKIN: no rash Data : 03/12/22 03:28 03/12/22 03:28 Other Labs: Radiology Impressions Chest X-Ray 03/11/22 08:44 IMPRESSION: No significant acute cardiopulmonary abnormality identified. Laboratory Results WBC 10.5 10^3/uL (4.0-10.0) H 03/12/22 03:28 RBC 4.43 10^6/uL (4.1-5.3) 03/12/22 03:28 Hgb 12.4 g/dL (11.5-15.3) 03/12/22 03:28 Hct 41.2 % (37.0-47.0) 03/12/22 03:28 MCV 93.0 fl (81-99) 03/12/22 03:28 MCH 28.0 pg (28.0-34.0) 03/12/22 03:28 MCHC 30.1 g/dL (30.0-36.0) 03/12/22 03: RDW 13.8 % (12.1-15.1) 03/12/22 03:28 Plt Count 180 10^3/cmm (130-400) 03/12/22 03:28 MPV 9.8 fL (7.4-10.4) 03/12/22 03:28 Neut % (Auto) 81.9 % 03/12/22 03:28 Lymph % (Auto) 11.3 % 03/12/22 03:28 Polk % (Auto) 6.0 % 03/12/22 03:28 Eos % (Auto) 0.1 % 03/12/22 03: Baso % (Auto) 0.1 % 03/12/22 03:28 Neut # (Auto) 8.60 10^3/uL (1.8-7.7) H 03/12/22 03:28 Lymph # (Auto) 1.2 10^3/uL (0.8-4.8) 03/12/22 03:28 Polk # (Auto) 0.6 10^3/uL (0.2-0.9) 03/12/22 03:28 Eos # (Auto) 0.0 10^3/uL (0.0-0.8) 03/12/22 03:28 Baso # (Auto) 0.0 10^3/uL (0.0-0.1) 03/12/22 03:28 Nucleated RBC % (auto) 0 % 03/12/22 03: Nucleated RBCs # 0.0 /100WBC 03/12/22 03:28 D-Dimer 0.55 ug/mIFEU (0-0.59) 03/10/22 07:28 Specimen Type Arterial 03/12/22 01:28 Sample Site Radial, right 03/12/22 01:28 ABG pH 7.41 (7.35-7.45) 03/12/22 01:28 ABG pCO2 72.8 mmHg (35-45) H* 03/12/22 01: ABG pO2 69.3 mmHg (80.0-100.0) L 03/12/22 01: ABG HCO3 46.2 mmol/L (22-26) H 03/12/22 01:28 ABG O2 Saturation 94.4 03/12/22 01:28 ABG Base Excess 17.7 mmol/L (-2.0-2.0) H 03/12/22 01:28 Carlos Test Pos 03/12/22 01:28 A-a O2 Gradient 16.8 mmHg (5-10) H 03/12/22 01:28 Hematocrit 40.2 % (37-47) 03/12/22 01:28 Hgb O2 Saturation 92.5 % (95-100) L 03/12/22 01:28 Carboxyhemoglobin 1.1 %THgb (0.4-20.1) 03/12/22 01:28 Methemoglobin 0.9 % (0.4-1.5) 03/12/22 01:28 Total Hemoglobin 13.1 g/dL (12-16) 03/12/22 01:28 Sodium 133.0 mmol/L (131-143) 03/12/22 01:28 Potassium 4.0 mmol/L (3.5-5.0) 03/12/22 01:28 Glucose 260.0 mg/dL (70-115) H 03/12/22 01:28 Ionized Calcium 1.0 mmol/L (1.1-1.4) L 03/12/22 01:28 O2 Delivery Device Vent 03/12/22 01:28 FiO2 40.0 % 03/12/22 01:28 Tidal Volume 0.35 03/12/22 01:28 PEEP 10.0 cmH20 03/12/22 01:28 Repair Service Dispatcher ID Monro 03/12/22 01:28 Sodium 130 mmol/L (136-145) L 03/12/22 03:28 Potassium 4.1 mmol/L (3.5-5.1) 03/12/22 03:28 Chloride 85 mmol/L (98-107) L 03/12/22 03:28 Carbon Dioxide 34 mmol/L (22-29) H 03/12/22 03:28 Anion Gap 15.1 (5-19) 03/12/22 03:28 BUN 20 mg/dL (6-20) 03/12/22 03:28 Creatinine 0.4 mg/dL (0.5-0.9) L 03/12/22 03:28 GFR Calculation 165.7 mL/min (90-130) H 03/12/22 03:28 Glucose 255 mg/dL (65-115) H 03/12/22 03:28 POC Glucose 258 mg/dL (70-110) H 03/11/22 16:47 Estimat Average Glucose 209 03/10/22 07:28 Hemoglobin A1c 8.9 % (4.0-6.0) H 03/10/22 07:28 Calculated Osmolality 281 mOsm/kg (285-295) L 03/12/22 03:28 Calcium 7.2 mg/dL (8.5-10.5) L 03/12/22 03:28 Phosphorus 2.1 mg/dL (2.5-4.5) L 03/11/22 02:47 Magnesium 1.8 mg/dL (1.7-2.3) 03/11/22 02:47 Total Bilirubin 0.2 mg/dL (0.15-1.2) 03/12/22 03:28 AST 24 U/L (0-32) 03/12/22 03:28 ALT 9 U/L (0-33) 03/12/22 03:28 Alkaline Phosphatase 101 U/L (35-105) 03/12/22 03:28 Troponin T Baseline 6 ng/L (0-10) 03/10/22 07:28 Troponin T 120 Minute 7.07 ng/L (0-10) 03/10/22 09:18 Delta Troponin T 1.07 ABS# (0-10) 03/10/22 09:18 Troponin T Hi Sens 6Hr 8.12 ng/L (0-10) 03/10/22 13:05 Troponin T Hi Sens 6Hr Delta 2.12 ng/L (0-12) 03/10/22 13:05 C-Reactive Protein 99.7 mg/L (0.0-4.9) H 03/11/22 02:47 Total Protein 6.1 g/dL (6.6-8.7) L 03/12/22 03:28 Albumin 2.4 g/dL (3.5-5.2) L 03/12/22 03:28 Globulin 3.7 g/dL (1.3-4.6) 03/12/22 03:28 Procalcitonin 0.11 ng/mL (0-0.5) 03/10/22 07:28 TSH 0.81 uIU/mL (0.27-4.20) 03/10/22 07:28 Micro: Microbiology 03/10/22 07:45 Gram Stain - Final Sputum - Endotracheal Tube Aspirate Sputum Culture - Preliminary A&P Assessment and plan (1) Endotracheally intubated: Status: Acute (2) Acute and chronic respiratory failure with hypercapnia: Status: Acute (3) Chronic respiratory failure with hypercapnia: Status: Acute (4) Chronic obstructive pulmonary disease: Status: Acute Qualifiers: COPD type: unspecified COPD Qualified Code(s): J44.9 - Chronic obstructive pulmonary disease, unspecified (5) Pneumonia: Status: Acute Qualifiers: Laterality: right Lung location: lower lobe of lung Pneumonia type: due to unspecified organism Qualified Code(s): J18.9 - Pneumonia, unspecified organism (6) Acute exacerbation of chronic obstructive airways disease: Status: Acute Plan # Acute exacerbation of COPD # Chronic hypercapnic respiratory failure with underlying obesity hypoventilation/severe COPD/upper airway obstruction due to lingular tonsillar hypertrophy -Currently Intubated on mechanical ventilator MMV 350/16/10/40% ; abg today 7.4 1//69/46/94% -serum bicarb down 34 - Consistent with compensation in chronin resp acidosis ?-peak pressures are 34; but P plateau are 16 - suggestive of severe airway resistance - -Duoneb to q 4 hr tonja -continue rocephin, vancomycin untill final cutures - currently on iv solumedrol 40 mg q 12hr - will start tapering tomorrow -Taper down propofol and fentanyl to add precedex -We will continue with with awakening trial - given her lingular tonsilar hypertrophy - need air leak test prior to extubation # CKD - Monitor Renal functions, electrolytes and input out put - ABG showed respiratory acidosis with compensation # H/o lingular tonsillar hypertrophy -Patient also complained of dysphagia and was evaluated by ENT for lingular tonsillar hypertrophy.Anesthesia and ENT canceled the case and reschedule her for evaluation at [facility] due to high risk of perioperative morbidity and mortality due to obesity hypoventilation syndrome and advanced COPD. -ENT at [facility] hesitating to the procedure and it was canceled given her very high risk perioperative mortality/morbidity #Grade 4 severe COPD on 3 L home oxygen #Chronic smoker 0.5 PPD X 35 years - Spirometry? 07/04/2020: very severe obstructive ventilatory defect. Postbronchodilator FEV1 28%.? Moderate gas transfer defect 56%.? Sloping of expiratory limb flow volume loop.? Patient failed to do maneuvers to measure lung volumes. -6-minute walk test 07/04/2020:?Patient 83% on room air not able to ambulate for 6 minutes but still holding her portable oxygen device -as out pt she is on Perforomist, Pulmicort 0.5 twice daily nebulizations and Yupelri 1 nebulization daily; Also uses DuoNeb as needed; Mucinex 600 mg p.o. twice daily as needed for chest congestion -she was counseled everytime in clinic to quit smoking and she said she is trying and currently down to 6 cigarettes and usually smokes whenever she is under stress -need to reschedule? pulmonary rehab and smoking cessation classes as last time she had COVID in January and could not continue -Recommended to stay up-to-date with flu vaccine and pneumonia vaccine -Previously evaluated at [place] for EBV/LV RS/lung transplant-recommended patient to quit smoking for more than 6 months and lose weight to get BMI < 35 and patient understands the importance and says she is motivated and working towards it.. #Previously COVID? 12/25/20 - recevied monoclonal ab on 12/27/20: # Post viral syndrome - fatigue -Currently as out pt she is on her baseline 3 L nasal cannula - recommended to continue physical therapy as tolerated? #Encounter for lung cancer screening #Multiple nodules on her CAT scan October [id number] CT in October 2020 : no suspicious nodules -The patient age between 50 to 80 years, has more than [id number] history of smoking and active smoker/quit within the last 15 years, I have discussed about low-dose CT scan for lung cancer screening.? I have explained the risks and benefits to the patient.? I have explained to him that more than 90% of abnormalities that are found on the CT scan in a high risk patient turned out to be benign.? However this can lead to subsequent more CT scans as well as more invasive procedures.? The patient wants to go ahead and get the CT scan screenin g.?? -LDCT 12/26/21: negative LDCT #Obesity hypoventilation syndrome on Triology - Cannot rule out coexisting GRISELDA #Tiredness, daytime sleepiness, snoring, disturbed sleep-stop bang score greater than 5 - home sleep testing?08/01/2020: On Triology showed AHI less than 5 with mean saturation 89% and lowest was 70%. -she needs in lab poly somnography -face to face evaluation - no complaints #Uncontrolled sugars ranging from 2 30-2 60-probably secondary to steroids -Normal anion gap -Currently on insulin scale coverage -As a planning to taper steroids from tomorrow-his sugars may be well controlled ICU CHECKLIST: Problem list updated Verbal orders reviewed and signed Analgesia: fentanyl Glycemic Control: ISS Nutrition: NPO for now Restraint Renewal (within 24 hrs): yes Ulcer Prophylaxis: PPI Chemical Thromboprophylaxis: Prophylaxis:Lovenox Mechanical Thromboprophylaxis: SCD Need for Central line:na Need for Cardozo catheter: uop monitoring Critical Care Time (No Overlap):60 min This patient has a high probability of sudden, clinically significant deterioration, which requires the highest level of physician preparedness to intervene urgently. I managed/supervised life or organ supporting interventions that required frequent physician assessment. I devoted my full attention in the ICU to the direct care of this patient for the period of time indicated above. Time I spent with family or surrogate(s) is included only if the patient was incapable of providing necessary information or participating in decision making. Time devoted to teaching and to any procedures I billed separately is not included. Services Provided: Telemetry review Mechanical Ventilation Hemodynamic interpretation, assessment and management Review and interpretation of CXR Review and interpretation of lab values Review and interpretation of microbiologic data and culture results Review of medications and administration Review and interpretation of Nutrition requirements and management Discussion of management with other consultants and services Clinical update to family members recommendations conveyed to the hospitalist, RN, RT taking care of the patient. Attestations Medical Necessity Statement*: Continue assessment and management of acute re spiratory failure. Time Spent in Patient Care: Greater than 35 minutes (>than 50% of time spent in counselling and/or direct pt care on unit) . Critical Care Time: The high probability of a clinically significant, sudden or life threatening deterioration of the patient's respiratory, neurological, renal, endocrine system(s) required my full and direct attention, intervention and personal management. The critical care time is as shown. This time is in addition to time spent performing any reported procedures but includes the following: x Data and vital sign review and interpretation x Patient assessment, examination and intervention x Documentation x Medication orders and management Critical Care Time (min): 55 Coding Level of Care Code Established Pt Acute Pega Developer for Chg Fwd Patient Type Established History Comprehensive Exam Comprehensive Medical Decision Making High Complexity Diagnoses Endotracheally intubated Z97.8 Acute and chronic respiratory failure with hypercapnia J96.22 Chronic respiratory failure with hypercapnia J96.12 Chronic obstructive pulmonary disease J44.9 COPD type: unspecified COPD Pneumonia J18.9 Laterality: right Lung location: lower lobe of lung Pneumonia type: due to unspecified organism Acute exacerbation of chronic obstructive airways disease J44.1 Time Spent (min) 15
--- NOTE | 2022-03-12 09:20 | XRR_ITS ---
PROCEDURE INFORMATION: Exam: XR Chest Exam date and time: 03/12/2022 10:05 AM Age: 56 years old Clinical indication: Condition or disease; Lung condition and disease; Pneumonia TECHNIQUE: Imaging protocol: Radiologic exam of the chest. Views: 1 view. COMPARISON: CR XR chest 1V portable [id number] 03/11/2022 8:50 AM FINDINGS: Tubes, catheters and devices: An enteric tube is noted extending below the level of the diaphragm and out of the field of view. Distal tip of the endotracheal tube is again not well visualized, but questionably approximately 5 cm above the karen. Lungs: No dense confluent lobar opacities identified. Mild interstitial lower lobe prominence. Pleural spaces: No pneumothorax. No pleural effusion. Heart/Mediastinum: The cardiomediastinal silhouette is within normal limits. Bones/joints: Unremarkable. XR/XR chest 1V portable [id number] IMPRESSION: No significant change from prior exam.
[2022-03-12 10:00] LABS: Partial Thromboplastin Time 25.8 SECONDS (23.9-36.7)
[2022-03-12] MEDS: dexmedeTOMIDine 0.9 % NaCL 400 MCG/100 ML PREMIX IV (10:28)
--- NOTE | 2022-03-12 10:31 | PC.CHAP ---
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 jewelry sales associate visit [] Patient/Family/Request visit [] Outpatient visit [] Follow-up visit [] Physician referral [] Code/Alert [x] Routine visit [] Staff referral [] Actively dying [x] Patient sleeping [] Family support [] [] Out of room [] Palliative care [] [] Receiving care in room [] Pre-surgical visit [] Trauma [] Long length of stay [x] ICU visit [x] Other: vent Relational/Emotional Strength [] Patient feels connected with others/family/visitors/staff [] Distress [] Loneliness/isolation [] Abandonment Spirituality of Patient [] Person of Alla [] Attends Hinduism of their Alla [] Believes in Prayer [] Reads Bible or Yarsani materials [] There are Spiritual issues to be addressed Director Distribution Interventions [x] Prayer [] Active listening [] Non-anxious presence [] Spiritual/emotional support [] Crisis/trauma care [] Spiritual counseling [] Bereavement support [] Provided bereavement packet [] Provided Bible/devotional materials [] Provided toy/stuffed animal, coloring book to patient or family member [] Provided Communion [] Anointing/[place] [] Salvation [x] Completed spiritual assessment [] Other: Impact on Illness or Injury [] Angry [] Fearful [] Anxious [] Often cries [] Exhaustion [] Unable to work [] Unable to attend orthodox [] Unable to walk/stand [] Unable to read [] Unable to drive [] Unable to eat/drink [] Unable to sleep [] Unable to be with family [] Patient intubated [] Other: Summary Time spent with patient
[2022-03-12 12:01] LABS: Glucose Point of Care 218 mg/dL (70-110)
--- NOTE | 2022-03-12 12:13 | PM.PN ---
Subjective Subjective: She is intubated, sedated, appears not in discomfort currently. Vitals/I&O/Wt Last Vital Signs Temp 97.4 F L 03/12/22 10:00 Pulse 74 03/12/22 11:21 Resp 14 03/12/22 11:21 BP 113/65 03/12/22 10:00 Pulse Ox 93 03/12/22 11:21 O2 Del Method 03/12/22 11:21 O2 Flow Rate 40 03/11/22 10:10 FiO2 45 03/12/22 11:21 03/11/22 03/12/22 03/12/22 22:59 06:59 14:59 Intake Total 482.718 / 682.718 200 / 882.718 500.431 / 500.431 Output Total 400 / 400 450 / 850 Balance 82.718 / 282.718 -250 / 32.718 500.431 / 500.431 Physical Exam Const: COMMON NORMALS: alert GENERAL APPEARANCE: cooperative and patient mechanically ventilated NUTRITIONAL APPEARANCE: obese ORIENTATION/CONSCIOUSNESS: Yes awake HENMT: COMMON NORMALS: oropharynx normal Neck/C-Spine: COMMON NORMALS: no JVD Resp: AUSCULTATION: no rhonchi, wheezes and diminished lung sounds Cardio: COMMON NORMALS: no JVD, regular rhythm, S1 normal heart sound present, S2 normal heart sound present and No murmurs present (Cardio) RHYTHM: regular rhythm HEART SOUNDS: S1 normal heart sound present and S2 normal heart sound present GI: COMMON NORMALS: Normal to inspection, nondistended, normoactive bowel sounds present, Soft to palpation and non-tender PALPATION: Yes Soft to palpation Extremity: COMMON NORMALS: no joint enlargement Neuro: COMMON NORMALS: moves all extremities SENSORIUM/ORIENTATION: Yes alert Skin: COMMON NORMALS: no rashes or lesions noted GENERAL SKIN EXAM: no rashes or lesions noted Data : 03/12/22 03:28 03/12/22 03:28 Micro: Microbiology 03/10/22 07:45 Gram Stain - Final Sputum - Endotracheal Tube Aspirate Sputum Culture - Preliminary A&P Assessment and plan (1) Acute and chronic respiratory failure with hypercapnia: Appreciate pulmonology assessment. Consideration of decreasing sedation today, weaning trial. She does still sound tight, but if weaning well, consideration may be for extubation. Will need leak test before hand given prior tonsillar enlargement. In the meantime continue pulmonary toilet and IV steroid, antibiotics. Question of possibly vent pressures going up after nebulization treatments. Will discuss with pulmonology. Sputum culture. Chronically on trilogy support at home. 3 L oxygen. Records requested for CT angiogram of the chest from [facility]. Status: Acute (2) Acute exacerbation of chronic obstructive airways disease: Status: Acute (3) Umbilical hernia: Status: Acute (4) Diverticulosis large intestine w/o perforation or abscess w/bleeding: Status: Chronic (5) Chronic respiratory failure with hypercapnia: Status: Acute (6) Chronic obstructive pulmonary disease: With severe exacerbation, as above. Status: Acute Qualifiers: COPD type: unspecified COPD Qualified Code(s): J44.9 - Chronic obstructive pulmonary disease, unspecified (7) Aspiration into airway: Status: Acute (8) Oropharyngeal dysphagia: Status: Acute (9) Nocturnal oxygen desaturation: Status: Acute (10) Multiple lung nodules on CT: Status: Acute (11) Endotracheally intubated: Status: Acute Plan Chronic hypercarbic respiratory failure Pickwickian syndrome Trilogy dependent at home At baseline uses 3 L of oxygen Active smoker Follows up with Dr. Reyez Upper airway obstruction due to lingular tonsillar hypertrophy, surgery was not an option because of her high risk of perioperative morbidity and mortality Attestations Medical Necessity Statement*: Continue management of acute respiratory failure. Critical Care Time: The high probability of a clinically significant, sudden or life threatening deterioration of the patient's respiratory system(s) required my full and direct attention, intervention and personal management. The critical care time is as shown. 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
[2022-03-12 13:23] LABS: Blood Gas Operator Identificat Anonymous; Blood Gas Sample Type CalVer; HGB O2 Sat 41.4 % (95-100); Methemoglobin 29.9 % (0.4-1.5)
[2022-03-12 13:36] LABS: Oxygen Saturation ABG 65.7; PO2 ABG 81.8 mmHg (80.0-100.0); Potassium Level - ABG 13.4 mmol/L (3.5-5.0); Total Hemoglobin 23.1 g/dL (12-16)
[2022-03-12 16:49] LABS: Glucose Point of Care 204 mg/dL (70-110)
[2022-03-12] MEDS: propofol 1,000 MG/100 ML INJ 19.19 MG IV (16:59)
[2022-03-12] MEDS: dexmedeTOMIDine 0.9 % NaCL 400 MCG/100 ML PREMIX 10.66 MCG IV (20:13)
[2022-03-13] VITALS (40 sets, daily range): BP systolic 108–143; BP diastolic 57–90; PULSE 63–97; RESP 12–20; TEMP 36.6–36.9; O2SAT 91–100
[2022-03-13] MEDS: ipratropium-albuterol 3 mL Neb INHALATION ×7 (00:01→23:59)
[2022-03-13] MEDS: heparin 5,000 unit/mL INJ 1 mL 5000 UNIT SUBCUT ×3 (01:18→17:16)
[2022-03-13] MEDS: propofol 1,000 MG/100 ML INJ 12.79 MG IV (01:38)
[2022-03-13] MEDS: dexmedeTOMIDine 0.9 % NaCL 400 MCG/100 ML PREMIX 10.66 MCG IV (03:24)
[2022-03-13 03:54] LABS: Basophils % 0.2 %; Eosinophils % 0.2 %; Hematocrit 48.1 % (37.0-47.0); Hemoglobin 14.6 g/dL (11.5-15.3); Lymphocytes # 0.9 10^3/uL (0.8-4.8); Lymphocytes % 8.4 %; Mean Corpuscular HGB Conc 30.4 g/dL (30.0-36.0); Mean Corpuscular Volume 92.3 fl (81-99); Mean Platelet Volume 10.2 fL (7.4-10.4); Monocytes # 0.4 10^3/uL (0.2-0.9); Monocytes % 3.4 %; Neutrophils # 9.64 10^3/uL (1.8-7.7); Neutrophils % 87.3 %; Nucleated Red Blood Cells % 0 %; Platelet Count 192 10^3/cmm (130-400); Red Blood Count 5.21 10^6/uL (4.1-5.3)
[2022-03-13 04:23] LABS: Alanine Aminotransferase 11 U/L (0-33); Albumin Level 3.2 g/dL (3.5-5.2); Alkaline Phosphatase 127 U/L (35-105); Aspartate Amino Transferase 28 U/L (0-32); Blood Urea Nitrogen 23 mg/dL (6-20); Calcium 7.5 mg/dL (8.5-10.5); Carbon Dioxide 38 mmol/L (22-29); Chloride 90 mmol/L (98-107); Globulin 4.1 g/dL (1.3-4.6); Glomerular Filtration Rate 165.7 mL/min (90-130); Glucose 190 mg/dL (65-115); Osmolality Calculated 295 mOsm/kg (285-295); Sodium 138 mmol/L (136-145); Total Bilirubin 0.3 mg/dL (0.15-1.2); Total Protein 7.3 g/dL (6.6-8.7)
[2022-03-13 04:28] LABS: Anion Gap 15.1 (5-19); Potassium 5.1 mmol/L (3.5-5.1)
[2022-03-13 05:51] LABS: ABG PH Result 7.33 (7.35-7.45); Alveolar-Arterial Oxygen Gradi 18.4 mmHg (5-10); Base Excess ABG 9.9 mmol/L (-2.0-2.0); Blood Gas Allen Test Pos; Blood Gas Operator Identificat JB; Blood Gas Sample Site Radial, right; Blood Gas Sample Type Arterial; Blood Gas Tidal Volume 0.35; HCO3 ABG 39.6 mmol/L (22-26); HGB O2 Sat 95.7 % (95-100); Methemoglobin 0.7 % (0.4-1.5); Oxygen Device VENT; Oxygen Saturation ABG 97.4; Potassium Level - ABG 4.6 mmol/L (3.5-5.0); Total Hemoglobin 15.7 g/dL (12-16)
[2022-03-13 06:00] LABS: ABG PCO2 75.4 mmHg (35-45)
--- NOTE | 2022-03-13 06:33 | XR_ITS ---
WS: [id number] XR chest 1V portable [id number] REASON FOR EXAM: pneumonia FINDINGS: There is no significant interval change compared to the previous examination of 03/11/2022. Endotracheal tube remains properly positioned with the tip at the level of the aortic arch. The heart and mediastinum are within normal limits. There are coarse interstitial reticular lung opacities in the lower lung mcintosh which have not change d over multiple examinations and presumably are chronic. There are no new findings or other interval change. XR/XR chest 1V portable [id number] IMPRESSION: Stable chest with no definite acute abnormality.
[2022-03-13] MEDS: budesonide 0.5 mg/2 mL Neb INHALATION ×2 (07:47→20:08)
[2022-03-13] MEDS: insulin lispro 100 unit/1 mL SUBCUT ×3 (08:00→17:14)
[2022-03-13 08:23] LABS: Glucose Point of Care 174 mg/dL (70-110)
--- NOTE | 2022-03-13 08:55 | PC.RESP ---
ETT CUFF LEAK TEST DONE. LEAK NOTED
--- NOTE | 2022-03-13 09:13 | PC.SOCIAL ---
IMM Update pg 2 of IMM updated and reviewed w/ patient who is currently awake and intubated. Copy signed, initialed and placed in chart and copy provided to patient.
--- NOTE | 2022-03-13 10:08 | PC.NURSE ---
SHOrtly after morning assessments, Nurse as instructed to start reducing sedation with a plan to extubate later today. Shortly after reducing propofol, patient became more alert, has been communicating with nurse through writing, and is following commands. Writing is difficult to understand and patient is becoming very agitated with difficulty communicating. Nurse explained to the patient the plan for extubation and the reasoning behind reducing sedation. Currently patient still has fentanyl at 25 and precedex at 0.4 for comfort while weaning.
[2022-03-13] MEDS: cefTRIAXone 1,000 MG in sodium chloride 0.9% (plus) 50 ML 100 MG IV (10:19)
[2022-03-13] MEDS: dexmedeTOMIDine 0.9 % NaCL 400 MCG/100 ML PREMIX 13.32 MCG IV (10:31)
[2022-03-13] MEDS: pantoprazole 40 mg SDV IVP ×2 (10:35→20:28)
[2022-03-13] MEDS: azithromycin 250 mg Tablet 500 MG PO (10:36)
[2022-03-13] MEDS: sennosides-docusate Tablet 1 TAB PO (10:36)
[2022-03-13] MEDS: propofol 1,000 MG/100 ML INJ 6.4 MG IV (10:43)
--- NOTE | 2022-03-13 12:45 | PM.PN ---
Subjective Subjective: She is awake, slightly slow response on sedation. Denies pain. Is not short of breath. Follows directions. She is looking forward Cetavlex to patient, discussed with her need for leak test preextubation and she is aware of tonsillar enlargement as previously noted which may complicate extubating. Vitals/I&O/Wt Last Vital Signs Temp 98.5 F 03/13/22 10:13 Pulse 97 03/13/22 12:20 Resp 12 03/13/22 11:10 BP 135/90 03/13/22 10:00 Pulse Ox 94 03/13/22 12:20 O2 Del Method 03/13/22 11:10 O2 Flow Rate 40 03/11/22 10:10 FiO2 35 03/13/22 12:20 03/12/22 03/13/22 03/13/22 22:59 06:59 14:59 Intake Total 156.730 / 697.689 144.270 / 841.959 186.802 / 186.802 Output Total 1450 / 1450 1150 / 2600 Balance -1293.270 / -752.311 -1005.730 / -1758.041 186.802 / 186.802 Physical Exam Const: COMMON NORMALS: alert GENERAL APPEARANCE: cooperative and patient mechanically ventilated NUTRITIONAL APPEARANCE: obese ORIENTATION/CONSCIOUSNESS: Yes awake OTHER: Alert, sluggish responses with sedation. HENMT: COMMON NORMALS: oropharynx normal Neck/C-Spine: COMMON NORMALS: no JVD Resp: AUSCULTATION: no rhonchi and wheezes OTHER: Less pronounced wheezes, better air entry Cardio: COMMON NORMALS: no JVD, regular rhythm, S1 normal heart sound present, S2 normal heart sound present and No murmurs present (Cardio) RHYTHM: regular rhythm HEART SOUNDS: S1 normal heart sound present and S2 normal heart sound present GI: COMMON NORMALS: Normal to inspection, nondistended, normoactive bowel sounds present, Soft to palpation and non-tender PALPATION: Yes Soft to palpation Extremity: COMMON NORMALS: no joint enlargement GENERAL: Yes edema (Trace) Neuro: COMMON NORMALS: moves all extremities SENSORIUM/ORIENTATION: Yes alert Skin: COMMON NORMALS: no rashes or lesions noted GENERAL SKIN EXAM: no rashes or lesions noted Data : 03/13/22 02:49 03/13/22 02:49 Micro: Microbiology 03/10/22 07:45 Gram Stain - Final Sputum - Endotracheal Tube Aspirate Sputum Culture - Final Staphylococcus aureus A&P Assessment and plan (1) Acute and chronic respiratory failure with hypercapnia: Today still with wheeze, but wheezes are less pronounced, better air entry. Weaning down sedation. Breathing trial. With planned air leak test and if doing well possible extubation to BiPAP. AVAPS at night. Will need leak test before hand given prior tonsillar enlargement. In the meantime continue pulmonary toilet and IV steroid, antibiotics. Question of possibly vent pressures going up after nebulization treatments. Continue nebs. Sputum culture. Chronically on trilogy support at home. 3 L oxygen. Records requested for CT angiogram of the chest from [facility]. Status: Acute (2) Acute exacerbation of chronic obstructive airways disease: Status: Acute (3) Umbilical hernia: Status: Acute (4) Diverticulosis large intestine w/o perforation or abscess w/bleeding: Status: Chronic (5) Chronic respiratory failure with hypercapnia: Status: Acute (6) Chronic obstructive pulmonary disease: With severe exacerbation, as above. Status: Acute Qualifiers: COPD type: unspecified COPD Qualified Code(s): J44.9 - Chronic obstructive pulmonary disease, unspecified (7) Aspiration into airway: Status: Acute (8) Oropharyngeal dysphagia: Status: Acute (9) Nocturnal oxygen desaturation: Status: Acute (10) Multiple lung nodules on CT: Status: Acute (11) Endotracheally intubated: Status: Acute Plan Chronic hypercarbic respiratory failure Pickwickian syndrome Trilogy dependent at home At baseline uses 3 L of oxygen Active smoker Follows up with Dr. Reyez Upper airway obstruction due to lingular tonsillar hypertrophy, surgery was not an option because of her high risk of perioperative morbidity and mortality Attestations Medical Necessity Statement*: Continue admission for acute respiratory failure, COPD exacerbation, and a lady with tonsillar enlargement, morbid obesity oxygen and trilogy dependent. Coding Level of Care Code Acute Changeover Operator for [facility] Fw Diagnoses Acute and chronic respiratory failure with hypercapnia J96.22 Acute exacerbation of chronic obstructive airways disease J44.1 Umbilical hernia K42.9 Diverticulosis large intestine w/o perforation or abscess w/bleeding K57.31 Chronic respiratory failure with hypercapnia J96.12 Chronic obstructive pulmonary disease J44.9 COPD type: unspecified COPD Aspiration into airway T17.908A Oropharyngeal dysphagia R13.12 Nocturnal oxygen desaturation G47.[address] R91.8 Endotracheally intubated Z97.8
[2022-03-13 13:03] LABS: Glucose Point of Care 176 mg/dL (70-110)
--- NOTE | 2022-03-13 15:16 | P.PN_ITS ---
Subjective Subjective: - pt seen at bedside multiple times - alert and following commands, leak test positive, she was succesfully extubated to BiPAP - Sputum cultures on admission positive for staph aureus sensitive to rocephin. - other labs and imaging reviewed Medications: Reviewed: Yes Vitals/I&O/Wt Last Vital Signs Temp 98.5 F 03/13/22 10:13 Pulse 97 03/13/22 12:20 Resp 12 03/13/22 11:10 BP 135/90 03/13/22 10:00 Pulse Ox 94 03/13/22 12:20 O2 Del Method 03/13/22 11:10 O2 Flow Rate 40 03/11/22 10:10 FiO2 35 03/13/22 12:20 03/13/22 03/13/22 03/13/22 06:59 14:59 22:59 Intake Total 144.270 / 841.959 186.802 / 186.802 Output Total 1150 / 2600 Balance -1005.730 / -1758.041 186.802 / 186.802 Physical Exam Narrative: PHYSICAL EXAM: General: morbidly obese, middle aged woman, lying in bed, HEENT:NCAT, PERRLA, EOMI Neck: Supple Lungs: Clear, Heart: s1/s2, RRR Abd: soft, NT, ND, BS + Normoactive Extremities: No edema 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 Laboratory Results WBC 11.0 10^3/uL (4.0-10.0) H 03/13/22 02:49 RBC 5.21 10^6/uL (4.1-5.3) 03/13/22 02:49 Hgb 14.6 g/dL (11.5-15.3) 03/13/22 02:49 Hct 48.1 % (37.0-47.0) H 03/13/22 02:49 MCV 92.3 fl (81-99) 03/13/22 02:49 MCH 28.0 pg (28.0-34.0) 03/13/22 02:49 MCHC 30.4 g/dL (30.0-36.0) 03/13/22 02:49 RDW 14.0 % (12.1-15.1) 03/13/22 02:49 Plt Count 192 10^3/cmm (130-400) 03/13/22 02:49 MPV 10.2 fL (7.4-10.4) 03/13/22 02:49 Neut % (Auto) 87.3 % 03/13/22 02:49 Lymph % (Auto) 8.4 % 03/13/22 02:49 Lipscomb % (Auto) 3.4 % 03/13/22 02:49 Eos % (Auto) 0.2 % 03/13/22 02:49 Baso % (Auto) 0.2 % 03/13/22 02:49 Neut # (Auto) 9.64 10^3/uL (1.8-7.7) H 03/13/22 02:49 Lymph # (Auto) 0.9 10^3/uL (0.8-4.8) 03/13/22 02:49 Lipscomb # (Auto) 0.4 10^3/uL (0.2-0.9) 03/13/22 02:49 Eos # (Auto) 0.0 10^3/uL (0.0-0.8) 03/13/22 02:49 Baso # (Auto) 0.0 10^3/uL (0.0-0.1) 03/13/22 02:49 Nucleated RBC % (auto) 0 % 03/13/22 02:49 Nucleated RBCs # 0.0 /100WBC 03/13/22 02:49 APTT 25.8 SECONDS (23.9-36.7) 03/12/22 09:22 D-Dimer 0.55 ug/mIFEU (0-0.59) 03/10/22 07:28 Specimen Type Arterial 03/13/22 05:24 Sample Site Radial, right 03/13/22 05:24 ABG pH 7.33 (7.35-7.45) L 03/13/22 05:24 ABG pCO2 75.4 mmHg (35-45) H* 03/13/22 05:24 ABG pO2 91.0 mmHg (80.0-100.0) 03/13/22 05:24 ABG HCO3 39.6 mmol/L (22-26) H 03/13/22 05:24 ABG O2 Saturation 97.4 03/13/22 05:24 ABG Base Excess 9.9 mmol/L (-2.0-2.0) H 03/13/22 05:24 Carlos Test Pos 03/13/22 05:24 A-a O2 Gradient 18.4 mmHg (5-10) H 03/13/22 05:24 Hematocrit 48.0 % (37-47) H 03/13/22 05:24 Hgb O2 Saturation 95.7 % (95-100) 03/13/22 05:24 Carboxyhemoglobin 1.0 %THgb (0.4-20.1) 03/13/22 05:24 Methemoglobin 0.7 % (0.4-1.5) 03/13/22 05:24 Total Hemoglobin 15.7 g/dL (12-16) 03/13/22 05:24 Sodium 139.0 mmol/L (131-143) 03/13/22 05:24 Potassium 4.6 mmol/L (3.5-5.0) 03/13/22 05:24 Glucose 195.0 mg/dL (70-115) H 03/13/22 05:24 Ionized Calcium 1.0 mmol/L (1.1-1.4) L 03/13/22 05:24 O2 Delivery Device Vent 03/13/22 05:24 FiO2 45.0 % 03/13/22 05:24 Tidal Volume 0.35 03/13/22 05:24 PEEP 10.0 cmH20 03/13/22 05:24 Boom Stick Man ID Steven 03/13/22 05:24 Sodium 138 mmol/L (136-145) 03/13/22 02:49 Potassium 5.1 mmol/L (3.5-5.1) 03/13/22 02:49 Chloride 90 mmol/L (98-107) L 03/13/22 02:49 Carbon Dioxide 38 mmol/L (22-29) H 03/13/22 02:49 Anion Gap 15.1 (5-19) 03/13/22 02:49 BUN 23 mg/dL (6-20) H 03/13/22 02:49 Creatinine 0.4 mg/dL (0.5-0.9) L 03/13/22 02:49 GFR Calculation 165.7 mL/min (90-130) H 03/13/22 02:49 Glucose 190 mg/dL (65-115) H 03/13/22 02:49 POC Glucose 176 mg/dL (70-110) H 03/13/22 12:59 Estimat Average Glucose 209 03/10/22 07:28 Hemoglobin A1c 8.9 % (4.0-6.0) H 03/10/22 07:28 Calculated Osmolality 295 mOsm/kg (285-295) 03/13/22 02:49 Calcium 7.5 mg/dL (8.5-10.5) L 03/13/22 02:49 Phosphorus 2.1 mg/dL (2.5-4.5) L 03/11/22 02:47 Magnesium 1.8 mg/dL (1.7-2.3) 03/11/22 02:47 Total Bilirubin 0.3 mg/dL (0.15-1.2) 03/13/22 02:49 AST 28 U/L (0-32) 03/13/22 02:49 ALT 11 U/L (0-33) 03/13/22 02:49 Alkaline Phosphatase 127 U/L (35-105) H 03/13/22 02:49 Troponin T Baseline 6 ng/L (0-10) 03/10/22 07:28 Troponin T 120 Minute 7.07 ng/L (0-10) 03/10/22 09:18 Delta Troponin T 1.07 ABS# (0-10) 03/10/22 09:18 Troponin T Hi Sens 6Hr 8.12 ng/L (0-10) 03/10/22 13:05 Troponin T Hi Sens 6Hr Delta 2.12 ng/L (0-12) 03/10/22 13:05 C-Reactive Protein 99.7 mg/L (0.0-4.9) H 03/11/22 02:47 Total Protein 7.3 g/dL (6.6-8.7) 03/13/22 02:49 Albumin 3.2 g/dL (3.5-5.2) L 03/13/22 02:49 Globulin 4.1 g/dL (1.3-4.6) 03/13/22 02:49 Procalcitonin 0.11 ng/mL (0-0.5) 03/10/22 07:28 TSH 0.81 uIU/mL (0.27-4.20) 03/10/22 07:28 Micro: Microbiology 03/10/22 07:45 Gram Stain - Final Sputum - Endotracheal Tube Aspirate Sputum Culture - Final Staphylococcus aureus A&P Assessment and plan (1) Endotracheally intubated: Status: Acute (2) Acute and chronic respiratory failure with hypercapnia: Status: Acute (3) Chronic respiratory failure with hypercapnia: Status: Acute (4) Chronic obstructive pulmonary disease: Status: Acute Qualifiers: COPD type: unspecified COPD Qualified Code(s): J44.9 - Chronic obstructive pulmonary disease, unspecified (5) Pneumonia: Status: Acute Qualifiers: Laterality: right Lung location: lower lobe of lung Pneumonia type: du e to unspecified organism Qualified Code(s): J18.9 - Pneumonia, unspecified organism (6) Acute exacerbation of chronic obstructive airways disease: Status: Acute (7) Staphylococcal pneumonia: Status: Acute Plan # Acute exacerbation of COPD # Chronic hypercapnic respiratory failure with underlying obesity hypoventilation/severe COPD/upper airway obstruction due to lingular tonsillar hypertrophy -Intubated on 03/10/22 mechanical ventilator - tolerating extubation to BiPAP well - will change to AVAPS -serum bicarb down 38 - Consistent with compensation in chronin resp acidosis -Continue Duoneb to q 4 hr tonja -continue rocephin, vancomycin untill final cutures - DC antibiotics after total 7 days - currently on iv solumedrol 40 mg q 12hr - will start tapering tomorrow -Taper off sedation - later in the evening - proceed with bedside swallow evaluation # CKD - Monitor Renal functions, electrolytes and input out put - ABG showed respiratory acidosis with compensation # H/o lingular tonsillar hypertrophy -Patient also complained of dysphagia and was evaluated by ENT for lingular tonsillar hypertrophy.Anesthesia and ENT canceled the case and reschedule her for evaluation at [facility] due to high risk of perioperative morbidity and mortality due to obesity hypoventilation syndrome and advanced COPD. -ENT at [facility] hesitating to the procedure and it was canceled given her very high risk perioperative mortality/morbidity #Grade 4 severe COPD on 3 L home oxygen #Chronic smoker 0.5 PPD X 35 years - Spirometry? 07/04/2020: very severe obstructive ventilatory defect. Postbronchodilator FEV1 28%.? Moderate gas transfer defect 56%.? Sloping of expiratory limb flow volume loop.? Patient failed to do maneuvers to measure lung volumes. -6-minute walk test 07/04/2020:?Patient 83% on room air not able to ambulate for 6 minutes but still holding her portable oxygen device -as out pt she is on Perforomist, Pulmicort 0.5 twice daily nebulizations and Yupelri 1 nebulization daily; Also uses DuoNeb as needed; Mucinex 600 mg p.o. twice daily as needed for chest congestion -she was counseled everytime in clinic to quit smoking and she said she is trying and currently down to 6 cigarettes and usually smokes whenever she is under stress -need to reschedule? pulmonary rehab and smoking cessation classes as last time she had COVID in January and could not continue -Recommended to stay up-to-date with flu vaccine and pneumonia vaccine -Previously evaluated at [facility] for EBV/LV RS/lung transplant-recommended patient to quit smoking for more than 6 months and lose weight to get BMI < 35 and patient understands the importance and says she is motivated and working towards it.. #Previously COVID? 12/25/20 - recevied monoclonal ab on 12/27/20: # Post viral syndrome - fatigue -Currently as out pt she is on her baseline 3 L nasal cannula - recommended to continue physical therapy as tolerated? #Encounter for lung cancer screening #Multiple nodules on her CAT scan October [id number] CT in October 2020 : no suspicious nodules -The patient age between 50 to 80 years, has more than [id number] history of smoking and active smoker/quit within the last 15 years, I have discussed about low-dose CT scan for lung cancer screening.? I have explained the risks and benefits to the patient.? I have explained to him that more than 90% of abnormalities that are found on the CT scan in a high risk patient turned out to be benign.? However this can lead to subsequent more CT scans as well as more invasive procedures.? The patient wants to go ahead and get the CT scan screening.?? -LDCT 12/26/21: negative LDCT #Obesity hypoventilation syndrome on Triology - Cannot rule out coexisting GRISELDA #Tiredness, daytime sleepiness, snoring, disturbed sleep-stop bang score greater than 5 - home sleep testing?08/01/2020: On Triology showed AHI less than 5 with mean saturation 89% and lowest was 70%. -she needs in lab poly somnography -face to face evaluation - no complaints #Uncontrolled sugars ranging from 2 30-2 60-probably secondary to steroids -Normal anion gap -Currently on insulin scale coverage -As a planning to taper steroids from tomorrow-his sugars may be well controlled ICU CHECKLIST: Problem list updated Verbal orders reviewed and signed Analgesia: fentanyl Glycemic Control: ISS Nutrition: NPO for now Restraint Renewal (within 24 hrs): yes Ulcer Prophylaxis: PPI Chemical Thromboprophylaxis: Prophylaxis:Lovenox Mechanical Thromboprophylaxis: SCD Need for Central line:na Need for Cardozo catheter: uop monitoring Critical Care Time (No Overlap):60 min This patient has a high probability of sudden, clinically significant deterioration, which requires the highest level of physician preparedness to intervene urgently. I managed/supervised life or organ supporting interventions that required frequent physician assessment. I devoted my full attention in the ICU to the direct care of this patient for the period of time indicated above. Time I spent with family or surrogate(s) is included only if the patient was incapable of providing necessary information or participating in decision making. Time devoted to teaching and to any procedures I billed separately is not included. Services Provided: Telemetry review Mechanical Ventilation Hemodynamic interpretation, assessment and management Review and interpretation of CXR Review and interpretation of lab values Review and interpretation of microbiologic data and culture results Review of medications and administration Review and interpretation of Nutrition requirements and management Discussion of management with other consultants and services Clinical update to family members recommendations conveyed to the hospitalist, RN, RT taking care of the patient. 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
[2022-03-13 17:00] LABS: Alveolar-Arterial Oxygen Gradi 10.5 mmHg (5-10); Arterial Blood Gas Hematocrit 44.5 % (37-47); Base Excess ABG 10.2 mmol/L (-2.0-2.0); Blood Gas Allen Test Pos; Blood Gas Operator Identificat CAK; Blood Gas Sample Site Radial, left; Blood Gas Sample Type Arterial; Carboxyhemoglobin < 1.0 %THgb (0.4-20.1); HCO3 ABG 37.8 mmol/L (22-26); HGB O2 Sat 96.6 % (95-100); Methemoglobin 0.2 % (0.4-1.5); Oxygen Device BIPAP; Oxygen Saturation ABG 97.7; PO2 ABG 95.3 mmHg (80.0-100.0); Potassium Level - ABG 4.2 mmol/L (3.5-5.0); Total Hemoglobin 14.5 g/dL (12-16)
[2022-03-13 17:02] LABS: ABG PCO2 61.6 mmHg (35-45)
[2022-03-13 17:05] LABS: Glucose Point of Care 185 mg/dL (70-110)
[2022-03-13] MEDS: magnesium sulfate premix 2 GM/50 ML PIGGYBACK IV (17:20)
[2022-03-13] MEDS: lanolin oint 7 gm 1 APPLIC TOPICAL (17:28)
--- NOTE | 2022-03-13 19:37 | PC.NURSE ---
at approximatley 1230, patient extubated to bipap. Extubation was uneventful. Patient is confused, but cooperative, and continues to become more alert.
--- NOTE | 2022-03-13 19:37 | PC.NURSE ---
Patient has been having occaisonal outpursts and pulling bipap off. Is having visual hallucinating and her mood is labile. Patient is easily redirectable, but her confusing is worsening. Nurse alerted Dr henderson and recieved an order for a blood gas.
[2022-03-13] MEDS: quetiapine 25 mg Tablet PO (20:29)
--- NOTE | 2022-03-13 22:11 | PC.NURSE ---
2200 BiPap 11/02 @ 35%
[2022-03-14] VITALS (26 sets, daily range): BP systolic 101–162; BP diastolic 49–103; PULSE 77–107; RESP 13–28; TEMP 36.3–36.8; O2SAT 93–99
[2022-03-14] MEDS: heparin 5,000 unit/mL INJ 1 mL 5000 UNIT SUBCUT ×3 (00:18→16:51)
[2022-03-14 04:13] LABS: Basophils % 0.1 %; Eosinophils % 0.3 %; Hematocrit 45.2 % (37.0-47.0); Hemoglobin 13.6 g/dL (11.5-15.3); Lymphocytes # 1.6 10^3/uL (0.8-4.8); Lymphocytes % 13.4 %; Mean Corpuscular HGB Conc 30.1 g/dL (30.0-36.0); Mean Corpuscular Hemoglobin 27.8 pg (28.0-34.0); Mean Corpuscular Volume 92.4 fl (81-99); Mean Platelet Volume 9.9 fL (7.4-10.4); Monocytes # 0.5 10^3/uL (0.2-0.9); Monocytes % 4.6 %; Neutrophils # 9.33 10^3/uL (1.8-7.7); Neutrophils % 80.7 %; Nucleated Red Blood Cells % 0 %; Platelet Count 214 10^3/cmm (130-400); Red Blood Count 4.89 10^6/uL (4.1-5.3); Red Cell Distribution Width 14.1 % (12.1-15.1); White Blood Count 11.6 10^3/uL (4.0-10.0)
[2022-03-14] MEDS: ipratropium-albuterol 3 mL Neb INHALATION ×5 (04:22→20:54)
[2022-03-14 04:40] LABS: Alanine Aminotransferase 11 U/L (0-33); Albumin Level 2.9 g/dL (3.5-5.2); Alkaline Phosphatase 96 U/L (35-105); Anion Gap 16.2 (5-19); Aspartate Amino Transferase 42 U/L (0-32); Blood Urea Nitrogen 18 mg/dL (6-20); Calcium 7.6 mg/dL (8.5-10.5); Carbon Dioxide 33 mmol/L (22-29); Chloride 91 mmol/L (98-107); Globulin 3.9 g/dL (1.3-4.6); Glomerular Filtration Rate 165.7 mL/min (90-130); Glucose 119 mg/dL (65-115); Osmolality Calculated 285 mOsm/kg (285-295); Potassium 4.2 mmol/L (3.5-5.1); Sodium 136 mmol/L (136-145); Total Bilirubin 0.4 mg/dL (0.15-1.2); Total Protein 6.8 g/dL (6.6-8.7)
[2022-03-14 08:06] LABS: Glucose Point of Care 84 mg/dL (70-110)
[2022-03-14] MEDS: budesonide 0.5 mg/2 mL Neb INHALATION ×2 (08:31→20:54)
[2022-03-14] MEDS: pantoprazole 40 mg SDV IVP ×2 (08:47→20:56)
[2022-03-14] MEDS: cefTRIAXone 1,000 MG in sodium chloride 0.9% (plus) 50 ML 100 MG IV (08:50)
[2022-03-14 11:04] LABS: Glucose Point of Care 221 mg/dL (70-110)
--- NOTE | 2022-03-14 12:58 | P.PN_ITS ---
Subjective Subjective: - pt seen at bedside -Doing well after extubation yesterday -Alert and following commands -We will do bedside physical therapy, swallow evaluation, and advance her diet, will transfer to floor Medications: Reviewed: Yes Vitals/I&O/Wt Last Vital Signs Temp 98.2 F 03/14/22 10:00 Pulse 98 03/14/22 11:59 Resp 20 H 03/14/22 11:59 BP 111/58 03/14/22 10:00 Pulse Ox 96 03/14/22 11:59 O2 Del Method 03/14/22 11:59 O2 Flow Rate 3 03/14/22 11:59 FiO2 35 03/14/22 04:00 03/13/22 03/14/22 03/14/22 22:59 06:59 14:59 Intake Total 123.375 / 404.307 Output Total 375 / 375 1250 / 1625 Balance -251.625 / 29.307 -1250 / -1220.693 Weight last 48 hrs Weight 223 lb 8.78 oz Physical Exam Narrative: PHYSICAL EXAM: General: morbidly obese, middle aged woman, lying in bed, HEENT:NCAT, PERRLA, EOMI Neck: Supple Lungs: Diffuse end expiratory wheeze Heart: s1/s2, RRR Abd: soft, NT, ND, BS + Normoactive Extremities: No edema KID CLUB ATTENDANT: awake follows commands SKIN: no rash Data : 03/14/22 03:31 03/14/22 03:31 Other Labs: Radiology Impressions Chest X-Ray 03/13/22 06:33 IMPRESSION: Stable chest with no definite acute abnormality. Laboratory Results WBC 11.6 10^3/uL (4.0-10.0) H 03/14/22 03:31 RBC 4.89 10^6/uL (4.1-5.3) 03/14/22 03:31 Hgb 13.6 g/dL (11.5-15.3) 03/14/22 03:31 Hct 45.2 % (37.0-47.0) 03/14/22 03:31 MCV 92.4 fl (81-99) 03/14/22 03:31 MCH 27.8 pg (28.0-34.0) L 03/14/22 03:31 MCHC 30.1 g/dL (30.0-36.0) 03/14/22 03:31 RDW 14.1 % (12.1-15.1) 03/14/22 03:31 Plt Count 214 10^3/cmm (130-400) 03/14/22 03:31 MPV 9.9 fL (7.4-10.4) 03/14/22 03:31 Neut % (Auto) 80.7 % 03/14/22 03:31 Lymph % (Auto) 13.4 % 03/14/22 03:31 [place]ham % (Auto) 4.6 % 03/14/22 03:31 Eos % (Auto) 0.3 % 03/14/22 03:31 Baso % (Auto) 0.1 % 03/14/22 03:31 Neut # (Auto) 9.33 10^3/uL (1.8-7.7) H 03/14/22 03:31 Lymph # (Auto) 1.6 10^3/uL (0.8-4.8) 03/14/22 03:31 [place]ham # (Auto) 0.5 10^3/uL (0.2-0.9) 03/14/22 03:31 Eos # (Auto) 0.0 10^3/uL (0.0-0.8) 03/14/22 03:31 Baso # (Auto) 0.0 10^3/uL (0.0-0.1) 03/14/22 03:31 Nucleated RBC % (auto) 0 % 03/14/22 03:31 Nucleated RBCs # 0.0 /100WBC 03/14/22 03:31 APTT 25.8 SECONDS (23.9-36.7) 03/12/22 09:22 D-Dimer 0.55 ug/mIFEU (0-0.59) 03/10/22 07:28 Specimen Type Arterial 03/13/22 16:48 Sample Site Radial, left 03/13/22 16:48 ABG pH 7.40 (7.35-7.45) 03/13/22 16:48 ABG pCO2 61.6 mmHg (35-45) H* 03/13/22 16:48 ABG pO2 95.3 mmHg (80.0-100.0) 03/13/22 16:48 ABG HCO3 37.8 mmol/L (22-26) H 03/13/22 16:48 ABG O2 Saturation 97.7 03/13/22 16:48 ABG Base Excess 10.2 mmol/L (-2.0-2.0) H 03/13/22 16:48 Carlos Test Pos 03/13/22 16:48 A-a O2 Gradient 10.5 mmHg (5-10) H 03/13/22 16:48 Hematocrit 44.5 % (37-47) 03/13/22 16:48 Hgb O2 Saturation 96.6 % (95-100) 03/13/22 16:48 Carboxyhemoglobin < 1.0 %THgb (0.4-20.1) 03/13/22 16:48 Methemoglobin 0.2 % (0.4-1.5) L 03/13/22 16:48 Total Hemoglobin 14.5 g/dL (12-16) 03/13/22 16:48 Sodium 135.0 mmol/L (131-143) 03/13/22 16:48 Potassium 4.2 mmol/L (3.5-5.0) 03/13/22 16:48 Glucose 165.0 mg/dL (70-115) H 03/13/22 16:48 Ionized Calcium 1.0 mmol/L (1.1-1.4) L 03/13/22 16:48 O2 Delivery Device Bipap 03/13/22 16:48 FiO2 35.0 % 03/13/22 16:48 Tidal Volume 0.35 03/13/22 05:24 PEEP 8.0 cmH20 03/13/22 16:48 Sign Manufacturer ID Cak 03/13/22 16:48 Sodium 136 mmol/L (136-145) 03/14/22 03:31 Potassium 4.2 mmol/L (3.5-5.1) 03/14/22 03:31 Chloride 91 mmol/L (98-107) L 03/14/22 03:31 Carbon Dioxide 33 mmol/L (22-29) H 03/14/22 03:31 Anion Gap 16.2 (5-19) 03/14/22 03:31 BUN 18 mg/dL (6-20) 03/14/22 03:31 Creatinine 0.4 mg/dL (0.5-0.9) L 03/14/22 03:31 GFR Calculation 165.7 mL/min (90-130) H 03/14/22 03:31 Glucose 119 mg/dL (65-115) H 03/14/22 03:31 POC Glucose 221 mg/dL (70-110) H 03/14/22 10:46 Estimat Average Glucose 209 03/10/22 07:28 Hemoglobin A1c 8.9 % (4.0-6.0) H 03/10/22 07:28 Calculated Osmolality 285 mOsm/kg (285-295) 03/14/22 03:31 Calcium 7.6 mg/dL (8.5-10.5) L 03/14/22 03:31 Phosphorus 2.1 mg/dL (2.5-4.5) L 03/11/22 02:47 Magnesium 1.8 mg/dL (1.7-2.3) 03/11/22 02:47 Total Bilirubin 0.4 mg/dL (0.15-1.2) 03/14/22 03:31 AST 42 U/L (0-32) H 03/14/22 03:31 ALT 11 U/L (0-33) 03/14/22 03:31 Alkaline Phosphatase 96 U/L (35-105) 03/14/22 03:31 Troponin T Baseline 6 ng/L (0-10) 03/10/22 07:28 Troponin T 120 Minute 7.07 ng/L (0-10) 03/10/22 09:18 Delta Troponin T 1.07 ABS# (0-10) 03/10/22 09:18 Troponin T Hi Sens 6Hr 8.12 ng/L (0-10) 03/10/22 13:05 Troponin T Hi Sens 6Hr Delta 2.12 ng/L (0-12) 03/10/22 13:05 C-Reactive Protein 99.7 mg/L (0.0-4.9) H 03/11/22 02:47 Total Protein 6.8 g/dL (6.6-8.7) 03/14/22 03:31 Albumin 2.9 g/dL (3.5-5.2) L 03/14/22 03:31 Globulin 3.9 g/dL (1.3-4.6) 03/14/22 03:31 Procalcitonin 0.11 ng/mL (0-0.5) 03/10/22 07:28 TSH 0.81 uIU/mL (0.27-4.20) 03/10/22 07:28 A&P Assessment and plan (1) Acute and chronic respiratory failure with hypercapnia: Status: Acute (2) Chronic obstructive pulmonary disease: Status: Acute Qualifiers: COPD type: unspecified COPD Qualified Code(s): J44.9 - Chronic obstructive pulmonary disease, unspecified (3) Acute exacerbation of chronic obstructive airways disease: Status: Acute (4) Staphylococcal pneumonia: Status: Acute Plan # Acute exacerbation of COPD # Chronic hypercapnic respiratory failure with underlying obesity hypoventilation/severe COPD/upper airway obstruction due to lingular tonsillar hypertrophy -Intubated on 03/10/22 mechanical ventilator - tolerating extubation well - will change to AVAPS at nighttime -serum bicarb down 38 - Consistent with compensation in chronin resp acidosis -Continue Duoneb to q 4 hr tonja -continue rocephin - DC antibiotics after total 7 days - currently on iv solumedrol 40 mg q 12hr -tapered to 40 Mg daily-we will switch to p.o. steroids tomorrow and taper over next 7 days -Proceed with bedside physical therapy, incentive spirometry, bedside swallow evaluation and advance diet as tolerated -Seroquel 25 mg at bedtime and can discontinue during discharge # CKD - Monitor Renal functions, electrolytes and input out put - ABG showed respiratory acidosis with compensation # H/o lingular tonsillar hypertrophy -Patient also complained of dysphagia and was evaluated by ENT for lingular tonsillar hypertrophy.Anesthesia and ENT canceled the case and reschedule her for evaluation at [facility] due to high risk of perioperative morbidity and mortality due to obesity hypoventilation syndrome and advanced COPD. -ENT at [facility] hesitating to the procedure and it was canceled given her very high risk perioperative mortality/morbidity #Grade 4 severe COPD on 3 L home oxygen #Chronic smoker 0.5 PPD X 35 years - Spirometry? 07/04/2020: very severe obstructive ventilatory defect. Postbronchodilator FEV1 28%.? Moderate gas transfer defect 56%.? Sloping of expiratory limb flow volume loop.? Patient failed to do maneuvers to measure lung volumes. -6-minute walk test 07/04/2020:?Patient 83% on room air not able to ambulate for 6 minutes but still holding her portable oxygen device -as out pt she is on Perforomist, Pulmicort 0.5 twice daily nebulizations and Yupelri 1 nebulization daily; Also uses DuoNeb as needed; Mucinex 600 mg p.o. twice daily as needed for chest congestion -she was counseled everytime in clinic to quit smoking and she said she is trying and currently down to 6 cigarettes and usually smokes whenever she is under stress -need to reschedule? pulmonary rehab and smoking cessation classes as last time she had COVID in January and could not continue -Recommended to stay up-to-date with flu vaccine and pneumonia vaccine -Previously evaluated at [place] for EBV/LV RS/lung transplant-recommended patient to quit smoking for more than 6 months and lose weight to get BMI < 35 and patient understands the importance and says she is motivated and working towards it.. #Previously COVID? 12/25/20 - recevied monoclonal ab on 12/27/20: # Post viral syndrome - fatigue -Currently as out pt she is on her baseline 3 L nasal cannula - recommended to continue physical therapy as tolerated? #Encounter for lung cancer screening #Multiple nodules on her CAT scan October [id number] CT in October 2020 : no suspicious nodules -The patient age between 50 to 80 years, has more than 40-ldnt-bbfy history of smoking and active smoker/quit within the last 15 years, I have discussed about low-dose CT scan for lung cancer screening.? I have explained the risks and benefits to the patient.? I have explained to him that more than 90% of abnormalities that are found on the CT scan in a high risk patient turned out to be benign.? However this can lead to subsequent more CT scans as well as more invasive procedures.? The patient wants to go ahead and get the CT scan screening.?? -LDCT 12/26/21: negative LDCT #Obesity hypoventilation syndrome on Triology - Cannot rule out coexisting GRISELDA #Tiredness, daytime sleepiness, snoring, disturbed sleep-stop bang score greater than 5 - home sleep testing?08/01/2020: On Triology showed AHI less than 5 with mean saturation 89% and lowest was 70%. -she needs in lab poly somnography -face to face evaluation - no complaints #Uncontrolled sugars ranging from 2 30-2 60-probably secondary to steroids -Normal anion gap -Currently on insulin scale coverage -As a planning to taper steroids -closely monitor sugars ICU CHECKLIST: Problem list updated Verbal orders reviewed and signed Analgesia: N/A Glycemic Control: ISS Nutrition: Bedside swallow evaluation and care start feeding Restraint Renewal (within 24 hrs): yes Ulcer Prophylaxis: PPI Chemical Thromboprophylaxis: Prophylaxis:Lovenox Mechanical Thromboprophylaxis: SCD Need for Central line:na Need for Cardozo catheter: No need Transfer: Stable to transfer to floor Critical Care Time (No Overlap):60 min This patient has a high probability of sudden, clinically significant deterior ation, which requires the highest level of physician preparedness to intervene urgently. I managed/supervised life or organ supporting interventions that required frequent physician assessment. I devoted my full attention in the ICU to the direct care of this patient for the period of time indicated above. Time I spent with family or surrogate(s) is included only if the patient was incapable of providing necessary information or participating in decision making. Time devoted to teaching and to any procedures I billed separately is not included. Services Provided: Telemetry review Mechanical Ventilation Hemodynamic interpretation, assessment and management Review and interpretation of CXR Review and interpretation of lab values Review and interpretation of microbiologic data and culture results Review of medications and administration Review and interpretation of Nutrition requirements and management Discussion of management with other consultants and services Clinical update to family members recommendations conveyed to the hospitalist, RN, RT taking care of the patient. Attestations Medical Necessity Statement*: Continue assessment and management of acute respiratory failure. Time Spent in Patient Care: Greater than 35 minutes (>than 50% of time spent in counselling and/or direct pt care on unit) . Critical Care Time: The high probability of a clinically significant, sudden or life threatening deterioration of the patient's respiratory, neurological, renal, endocrine system(s) required my full and direct attention, intervention and personal management. The critical care time is as shown. This time is in addition to time spent performing any reported procedures but includes the following: x Data and vital sign review and interpretation x Patient assessment, examination and intervention x Documentation x Medication orders and management Critical Care Time (min): 45 Coding Level of Care Code Established Pt Acute Applications System Analyst for Aditya Fwd Patient Type Established History Comprehensive Exam Comprehensive Medical Decision Making High Complexity Diagnoses Acute and chronic respiratory failure with hypercapnia J96.22 Chronic obstructive pulmonary disease J44.9 COPD type: unspecified COPD Acute exacerbation of chronic obstructive airways disease J44.1 Staphylococcal pneumonia J15.20 Time Spent (min) 45
--- NOTE | 2022-03-14 13:15 | PC.CHAP ---
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 patient partner visit [] Patient/Family/Request visit [] Outpatient visit [] Follow-up visit [] Physician referral [] Code/Alert [x] Routine visit [] Staff referral [] Actively dying [x] Patient sleeping [] Family support [] [] Out of room [] Palliative care [] [] Receiving care in room [] Pre-surgical visit [] Trauma [] Long length of stay [x] ICU visit [] Other: Relational/Emotional Strength [] Patient feels connected with others/family/visitors/staff [] Distress [] Loneliness/isolation [] Abandonment Spirituality of Patient [] Person of Alla [] Attends Episcopal of their Alla [] Believes in Prayer [] Reads Bible or Quaker materials [] There are Spiritual issues to be addressed Clerk General Interventions [x] Prayer [] Active listening [] Non-anxious presence [] Spiritual/emotional support [] Crisis/trauma care [] Spiritual counseling [] Bereavement support [] Provided bereavement packet [] Provided Bible/devotional materials [] Provided toy/stuffed animal, coloring book to patient or family member [] Provided Communion [] Anointing/[facility] [] Salvation [x] Completed spiritual assessment [] Other: Impact on Illness or Injury [] Angry [] Fearful [] Anxious [] Often cries [] Exhaustion [] Unable to work [] Unable to attend uatsdin [] Unable to walk/stand [] Unable to read [] Unable to drive [] Unable to eat/drink [] Unable to sleep [] Unable to be with family [] Patient intubated [] Other: Summary Time spent with patient
[2022-03-14] MEDS: insulin lispro 100 unit/1 mL SUBCUT ×2 (13:37→17:58)
[2022-03-14 16:20] LABS: Glucose Point of Care 276 mg/dL (70-110)
--- NOTE | 2022-03-14 18:39 | PC.NURSE ---
SHift summary: Uneventful shift. patient has been up to the chair for most of the day. Walked about 100 feet in the [place]. ALert and oriented to person, place, time, and situation. calm and cooperative. Started on a soft mechanical diet. CUrrently pending transfer to [facility].
--- NOTE | 2022-03-14 19:19 | PC.NURSE ---
Family contacts: Fidelina: [phone] Casandra: [phone] kristen: [phone] [facility]: [phone]
[2022-03-14] MEDS: guaiFENesin 600 mg Tablet PO (20:59)
[2022-03-14] MEDS: quetiapine 25 mg Tablet PO (20:59)
--- NOTE | 2022-03-14 23:10 | P.PN_ITS ---
Subjective Subjective: She was somewhat confused earlier, currently apologizing about being confused, states it was due to the medications, discussed with her it was not her fault. She is currently feeling better. Undergoing breathing treatment. Denies chest pain. She is very hungry. Tolerated sips and chips. Vitals/I&O/Wt Last Vital Signs Temp 98.2 F 03/14/22 10:00 Pulse 95 03/14/22 22:00 Resp 15 03/14/22 22:00 BP 157/103 03/14/22 22:00 Pulse Ox 98 03/14/22 21:00 O2 Del Method 03/14/22 20:00 O2 Flow Rate 3 03/14/22 20:00 FiO2 35 03/14/22 12:00 03/14/22 03/14/22 03/15/22 14:59 22:59 06:59 Intake Total 500 / 500 300 / 800 Output Total 750 / 750 Balance 500 / 500 -450 / 50 Weight last 48 hrs Weight 101.4 kg Physical Exam Const: COMMON NORMALS: alert GENERAL APPEARANCE: cooperative NUTRITIONAL APPEARANCE: obese ORIENTATION/CONSCIOUSNESS: Yes awake HENMT: COMMON NORMALS: oropharynx normal Neck/C-Spine: COMMON NORMALS: no JVD Resp: AUSCULTATION: no rhonchi, wheezes and diminished lung sounds OTHER: Improving wheezes, better air entry Cardio: COMMON NORMALS: no JVD, regular rhythm, S1 normal heart sound present, S2 normal heart sound present and No murmurs present (Cardio) RHYTHM: regular rhythm HEART SOUNDS: S1 normal heart sound present and S2 normal heart sound present GI: COMMON NORMALS: Normal to inspection, nondistended, normoactive bowel sounds present, Soft to palpation and non-tender PALPATION: Yes Soft to palpation Extremity: COMMON NORMALS: no joint enlargement GENERAL: Yes edema (Trace) Neuro: COMMON NORMALS: moves all extremities SENSORIUM/ORIENTATION: Yes alert Skin: COMMON NORMALS: no rashes or lesions noted GENERAL SKIN EXAM: no rashes or lesions noted Data : 03/14/22 03:31 03/14/22 03:31 A&P Assessment and plan (1) Acute and chronic respiratory failure with hypercapnia: Extubated successfully, currently doing well on nasal cannula, wheezes and air entry gradually improving. De-escalating IV steroids. Continue Rocephin. Nebulization. Diflucan added for oropharyngeal candidiasis. MSSA in sputum culture. Assessed by speech therapy, advance diet. Physical therapy assessment. Continue care on medical floor. Chronically on trilogy support at home. 3 L oxygen. Records requested for CT angiogram of the chest from [facility]. Status: Acute (2) Acute exacerbation of chronic obstructive airways disease: Status: Acute (3) Umbilical hernia: Status: Acute (4) Diverticulosis large intestine w/o perforation or abscess w/bleeding: Status: Chronic (5) Chronic respiratory failure with hypercapnia: Status: Acute (6) Chronic obstructive pulmonary disease: With severe exacerbation, as above. Status: Acute Qualifiers: COPD type: unspecified COPD Qualified Code(s): J44.9 - Chronic obstructive pulmonary disease, unspecified (7) Aspiration into airway: Status: Acute (8) Oropharyngeal dysphagia: Status: Acute (9) Nocturnal oxygen desaturation: Status: Acute (10) Multiple lung nodules on CT: Status: Acute (11) Endotracheally intubated: Status: Acute Plan Oropharyngeal candidiasis: Added Diflucan. Chronic hypercarbic respiratory failure Pickwickian syndrome Trilogy dependent at home At baseline uses 3 L of oxygen Active smoker Follows up with Dr. Reyez Upper airway obstruction due to lingular tonsillar hypertrophy, surgery was not an option because of her high risk of perioperative morbidity and mortality Attestations Medical Necessity Statement*: Continue admission for assessment of management of improving respiratory failure. Coding Level of Care Code Acute Clerical Car Checker for Chg Fwd Diagnoses Acute and chronic respiratory failure with hypercapnia J96.22 Acute exacerbation of chronic obstructive airways disease J44.1 Umbilical hernia K42.9 Diverticulosis large intestine w/o perforation or abscess w/bleeding K57.31 Chronic respiratory failure with hypercapnia J96.12 Chronic obstructive pulmonary disease J44.9 COPD type: unspecified COPD Aspiration into airway T17.908A Oropharyngeal dysphagia R13.12 Nocturnal oxygen desaturation G47.[address] nodules on [address] R91.8 Endotracheally intubated Z97.8
--- NOTE | 2022-03-14 23:50 | PC.NURSE ---
Transfer Note Patient transferred to [facility] from ICU via bed. Handoff report given to MARIO Maharaj. Patient oriented to environment and equipment. Covering service notified. Orders reviewed and will continue to monitor. Family and/or counter sales representative notified. Patient on 3LNC and is alert/oriented x4 at time of transfer. All patient belongings transferred and placed at bedside.
[2022-03-15] VITALS (11 sets, daily range): BP systolic 115–138; BP diastolic 70–80; PULSE 79–90; RESP 14–22; TEMP 36.7–36.9; O2SAT 93–100
[2022-03-15] MEDS: heparin 5,000 unit/mL INJ 1 mL 5000 UNIT SUBCUT ×2 (00:11→09:00)
[2022-03-15] MEDS: ipratropium-albuterol 3 mL Neb INHALATION ×3 (00:11→07:27)
--- NOTE | 2022-03-15 00:41 | PC.NURSE ---
Addendum entered by Charito James RN 03/15/22 04:26: 180 ml of fentanyl wasted with ANAMARIA Martinez. Original Note: Fentanyl Waste Wasted 180 mls of Fentanyl with ANAMARIA Garrett.
[2022-03-15 04:55] LABS: Basophils % 0.1 %; Eosinophils % 0.2 %; Hematocrit 44.9 % (37.0-47.0); Hemoglobin 13.5 g/dL (11.5-15.3); Lymphocytes # 3.3 10^3/uL (0.8-4.8); Mean Corpuscular HGB Conc 30.1 g/dL (30.0-36.0); Mean Corpuscular Hemoglobin 27.7 pg (28.0-34.0); Mean Corpuscular Volume 92.2 fl (81-99); Mean Platelet Volume 9.3 fL (7.4-10.4); Monocytes # 0.9 10^3/uL (0.2-0.9); Monocytes % 9.5 %; Neutrophils # 5.44 10^3/uL (1.8-7.7); Neutrophils % 55.6 %; Nucleated Red Blood Cells % 0 %; Platelet Count 196 10^3/cmm (130-400); Red Blood Count 4.87 10^6/uL (4.1-5.3); Red Cell Distribution Width 14.1 % (12.1-15.1); White Blood Count 9.8 10^3/uL (4.0-10.0)
[2022-03-15 05:19] LABS: Alanine Aminotransferase 12 U/L (0-33); Albumin Level 3.2 g/dL (3.5-5.2); Alkaline Phosphatase 92 U/L (35-105); Anion Gap 11.6 (5-19); Aspartate Amino Transferase 29 U/L (0-32); Blood Urea Nitrogen 12 mg/dL (6-20); Calcium 7.4 mg/dL (8.5-10.5); Carbon Dioxide 40 mmol/L (22-29); Chloride 94 mmol/L (98-107); Globulin 3.4 g/dL (1.3-4.6); Glomerular Filtration Rate 165.7 mL/min (90-130); Glucose 146 mg/dL (65-115); Osmolality Calculated 296 mOsm/kg (285-295); Potassium 3.6 mmol/L (3.5-5.1); Sodium 142 mmol/L (136-145); Total Bilirubin 0.4 mg/dL (0.15-1.2); Total Protein 6.6 g/dL (6.6-8.7)
[2022-03-15 06:20] LABS: Glucose Point of Care 141 mg/dL (70-110)
[2022-03-15] MEDS: budesonide 0.5 mg/2 mL Neb INHALATION (07:27)
[2022-03-15] MEDS: insulin lispro 100 unit/1 mL SUBCUT ×2 (09:00→12:03)
[2022-03-15] MEDS: cefTRIAXone 1,000 MG in sodium chloride 0.9% (plus) 50 ML 100 MG IV (09:03)
[2022-03-15] MEDS: guaiFENesin 600 mg Tablet PO (09:04)
[2022-03-15] MEDS: sennosides-docusate Tablet 1 TAB PO (09:05)
[2022-03-15] MEDS: pantoprazole 40 mg SDV IVP (09:05)
--- NOTE | 2022-03-15 10:41 | PC.SOCIAL ---
Imm update IMM updated with patient at bedside. Copy of page 2 provided. Patient verbalized understanding. Copy in chart initialed, dated and timed.
[2022-03-15 11:43] LABS: Glucose Point of Care 290 mg/dL (70-110)
--- NOTE | 2022-03-15 12:30 | PC.OT ---
OT EVALUATION ORDERS RECEIVED. PATIENT IS SCHEDULED FOR DISCHARGE TODAY. WILL HOLD OT EVALUATION.
--- NOTE | 2022-03-15 13:41 | P.DS_ITS ---
Discharge Providers Date of Admission: 03/10/22 06:34 Date of Discharge: March 15, 2022 Attending Provider at Admission: Génesis Toledo MD Attending Provider at Discharge: Rey Mariee Primary Care Provider: Wes Hart MD Diagnoses at Discharge Discharge Diagnosis (1) Acute and chronic respiratory failure with hypercapnia: Status: Acute (2) Acute exacerbation of chronic obstructive airways disease: Status: Acute (3) Umbilical hernia: Status: Acute (4) Diverticulosis large intestine w/o perforation or abscess w/bleeding: Status: Chronic (5) Chronic respiratory failure with hypercapnia: Status: Acute (6) Chronic obstructive pulmonary disease: Status: Acute Qualifiers: COPD type: unspecified COPD Qualified Code(s): J44.9 - Chronic obstructive pulmonary disease, unspecified (7) Aspiration into airway: Status: Acute (8) Oropharyngeal dysphagia: Status: Acute (9) Nocturnal oxygen desaturation: Status: Acute (10) Multiple lung nodules on CT: Status: Acute (11) Endotracheally intubated: Status: Acute Reason for Visit Reason for Visit: resp distress Hospital Course Hospital Course Pleasant 56-year-old with chronic respiratory failure, chronically on 3 L nasal cannula oxygen, also uses trilogy at home, with COPD, OHS, lingular tonsillar enlargement not found to be a safe candidate for surgical intervention, current smoker, pulmonary nodules, CKD, other chronic comorbidities was admitted for assessment of management for acute on chronic respiratory failure, with hypercapnic respiratory failure, respiratory acidosis, with severe COPD exacerbation, requiring intubation, mechanical ventilatory support, underwent treatment with IV steroids, ceftriaxone, vancomycin, scheduled breathing treatments, wean down on ventilatory support and with leak test extubated successfully to BiPAP, then transition to nasal cannula, AVAPS nightly. She is otherwise done well, she is noted to have improved air entry, decreasing wheezes on exam subjectively she is feeling better. At discharge she will complete course of antibiotics with cefdinir, complete steroid taper, continue nebulization, continue home oxygen and trilogy. She is asked to follow-up with pulmonology. Due to oropharyngeal candidiasis will complete a course of Diflucan. She is encouraged to continue her efforts in quitting smoking. Please continue to assist on this difficult task. Physical Exam Const: COMMON NORMALS: alert GENERAL APPEARANCE: cooperative NUTRITIONAL APPEARANCE: obese ORIENTATION/CONSCIOUSNESS: Yes awake HENMT: COMMON NORMALS: oropharynx normal Neck/C-Spine: COMMON NORMALS: no JVD Resp: AUSCULTATION: no rhonchi, wheezes and diminished lung sounds OTHER: Minimal wheezes, better air entry Cardio: COMMON NORMALS: no JVD, regular rhythm, S1 normal heart sound present, S2 normal heart sound present and No murmurs present (Cardio) RHYTHM: regular rhythm HEART SOUNDS: S1 normal heart sound present and S2 normal heart sound present GI: COMMON NORMALS: Normal to inspection, nondistended, normoactive bowel sounds present, Soft to palpation and non-tender PALPATION: Yes Soft to palpation Extremity: COMMON NORMALS: no joint enlargement GENERAL: Yes edema (Trace) Neuro: COMMON NORMALS: moves all extremities SENSORIUM/ORIENTATION: Yes alert Skin: COMMON NORMALS: no rashes or lesions noted GENERAL SKIN EXAM: no rashes or lesions noted Discharge Data Studies Completed and Pending Completed Studies During Hospitalization Category Date Time Status CXRP [XR chest 1V portable [id number]] Routine Exams 03/11/22 08:44 Completed XR chest 1V portable [id number] Routine Exams 03/12/22 09:20 Completed XR chest 1V portable [id number] Routine Exams 03/13/22 06:33 Completed XR chest 1V portable [id number] Stat Exams 03/10/22 07:15 Completed Pending at discharge Category Date Time Status Complete Blood Count w/Auto AM LABS Lab 03/16/22 04:00 Ordered Comprehensive Metabolic Panel AM LABS Lab 03/16/22 04:00 Ordered Radiology Impressions Chest X-Ray 03/13/22 06:33 IMPRESSION: Stable chest with no definite acute abnormality. Laboratory Results WBC 9.8 10^3/uL (4.0-10.0) 03/15/22 04:40 RBC 4.87 10^6/uL (4.1-5.3) 03/15/22 04:40 Hgb 13.5 g/dL (11.5-15.3) 03/15/22 04:40 Hct 44.9 % (37.0-47.0) 03/15/22 04:40 MCV 92.2 fl (81-99) 03/15/22 04:40 MCH 27.7 pg (28.0-34.0) L 03/15/22 04:40 MCHC 30.1 g/dL (30.0-36.0) 03/15/22 04:40 RDW 14.1 % (12.1-15.1) 03/15/22 04:40 Plt Count 196 10^3/cmm (130-400) 03/15/22 04:40 MPV 9.3 fL (7.4-10.4) 03/15/22 04:40 Neut % (Auto) 55.6 % 03/15/22 04:40 Lymph % (Auto) 34.0 % 03/15/22 04:40 [place] % (Auto) 9.5 % 03/15/22 04:40 Eos % (Auto) 0.2 % 03/15/22 04:40 Baso % (Auto) 0.1 % 03/15/22 04:40 Neut # (Auto) 5.44 10^3/uL (1.8-7.7) 03/15/22 04:40 Lymph # (Auto) 3.3 10^3/uL (0.8-4.8) 03/15/22 04:40 [place] # (Auto) 0.9 10^3/uL (0.2-0.9) 03/15/22 04:40 Eos # (Auto) 0.0 10^3/uL (0.0-0.8) 03/15/22 04:40 Baso # (Auto) 0.0 10^3/uL (0.0-0.1) 03/15/22 04:40 Nucleated RBC % (auto) 0 % 03/15/22 04:40 Nucleated RBCs # 0.0 /100WBC 03/15/22 04:40 APTT 25.8 SECONDS (23.9-36.7) 03/12/22 09: D-Dimer 0.55 ug/mIFEU (0-0.59) 03/10/22 07:28 Specimen Type Arterial 03/13/22 16:48 Sample Site Radial, left 03/13/22 16:48 ABG pH 7.40 (7.35-7.45) 03/13/22 16:48 ABG pCO2 61.6 mmHg (35-45) H* 03/13/22 16:48 ABG pO2 95.3 mmHg (80.0-100.0) 03/13/22 16:48 ABG HCO3 37.8 mmol/L (22-26) H 03/13/22 16:48 ABG O2 Saturation 97.7 03/13/22 16:48 ABG Base Excess 10.2 mmol/L (-2.0-2.0) H 03/13/22 16:48 Carlos Test Pos 03/13/22 16:48 A-a O2 Gradient 10.5 mmHg (5-10) H 03/13/22 16:48 Hematocrit 44.5 % (37-47) 03/13/22 16:48 Hgb O2 Saturation 96.6 % (95-100) 03/13/22 16:48 Carboxyhemoglobin < 1.0 %THgb (0.4-20.1) 03/13/22 16:48 Methemoglobin 0.2 % (0.4-1.5) L 03/13/22 16:48 Total Hemoglobin 14.5 g/dL (12-16) 03/13/22 16:48 Sodium 135.0 mmol/L (131-143) 03/13/22 16:48 Potassium 4.2 mmol/L (3.5-5.0) 03/13/22 16:48 Glucose 165.0 mg/dL (70-115) H 03/13/22 16:48 Ionized Calcium 1.0 mmol/L (1.1-1.4) L 03/13/22 16:48 O2 Delivery Device Bipap 03/13/22 16:48 FiO2 35.0 % 03/13/22 16:48 Tidal Volume 0.35 03/13/22 05:24 PEEP 8.0 cmH20 03/13/22 16:48 Red Hat Engineer ID Cak 03/13/22 16:48 Sodium 142 mmol/L (136-145) 03/15/22 04:40 Potassium 3.6 mmol/L (3.5-5.1) 03/15/22 04:40 Chloride 94 mmol/L (98-107) L 03/15/22 04:40 Carbon Dioxide 40 mmol/L (22-29) H 03/15/22 04:40 Anion Gap 11.6 (5-19) 03/15/22 04:40 BUN 12 mg/dL (6-20) 03/15/22 04:40 Creatinine 0.4 mg/dL (0.5-0.9) L 03/15/22 04:40 GFR Calculation 165.7 mL/min (90-130) H 03/15/22 04:40 Glucose 146 mg/dL (65-115) H 03/15/22 04:40 POC Glucose 290 mg/dL (70-110) H 03/15/22 11:16 Estimat Average Glucose 209 03/10/22 07:28 Hemoglobin A1c 8.9 % (4.0-6.0) H 03/10/22 07:28 Calculated Osmolality 296 mOsm/kg (285-295) H 03/15/22 04:40 Calcium 7.4 mg/dL (8.5-10.5) L 03/15/22 04:40 Phosphorus 2.1 mg/dL (2.5-4.5) L 03/11/22 02:47 Magnesium 1.8 mg/dL (1.7-2.3) 03/11/22 02:47 Total Bilirubin 0.4 mg/dL (0.15-1.2) 03/15/22 04:40 AST 29 U/L (0-32) 03/15/22 04:40 ALT 12 U/L (0-33) 03/15/22 04:40 Alkaline Phosphatase 92 U/L (35-105) 03/15/22 04:40 Troponin T Baseline 6 ng/L (0-10) 03/10/22 07:28 Troponin T 120 Minute 7.07 ng/L (0-10) 03/10/22 09:18 Delta Troponin T 1.07 ABS# (0-10) 03/10/22 09:18 Troponin T Hi Sens 6Hr 8.12 ng/L (0-10) 03/10/22 13:05 Troponin T Hi Sens 6Hr Delta 2.12 ng/L (0-12) 03/10/22 13:05 C-Reactive Protein 99.7 mg/L (0.0-4.9) H 03/11/22 02:47 Total Protein 6.6 g/dL (6.6-8.7) 03/15/22 04:40 Albumin 3.2 g/dL (3.5-5.2) L 03/15/22 04:40 Globulin 3.4 g/dL (1.3-4.6) 03/15/22 04:40 Procalcitonin 0.11 ng/mL (0-0.5) 03/10/22 07:28 TSH 0.81 uIU/mL (0.27-4.20) 03/10/22 07:28 Vitals Last Vital Signs Temp 98.2 F 03/15/22 11:37 Pulse 81 03/15/22 11:37 Resp 18 03/15/22 11:37 BP 137/80 03/15/22 11:37 Pulse Ox 93 03/15/22 11:37 O2 Del Method 03/15/22 11:37 O2 Flow Rate 3 03/15/22 07:27 FiO2 35 03/15/22 03:28 Discharge Plan Discharge Patient Disposition: Home Health Service Condition: Stable Prescriptions: New cefdinir 300 mg capsule 300 mg PO BID 3 Days Qty: 6 0RF prednisone 20 mg tablet See Rx Instructions .ROUTE .COMPLEX Qty: 20 0RF Rx Instructions: 3 tab daily for 3 days, then 2 tab for 3 days, then 1 tab for 3 days, then 1/2 tab for 3 days. fluconazole 100 mg tablet 100 mg PO DAILY 12 Days Qty: 12 0RF Continued Farxiga 10 mg tablet 10 mg PO DAILY clonazepam 0.5 mg tablet 0.5 mg PO TID PRN (Reason: Anxiety) Lantus Solostar U-100 Insulin 100 unit/mL (3 mL) insulin pen 25 unit SUBCUT BEDTIME (DME) Dexcom G6 Sensor Device See Rx Instructions .Route Qty: 3 4RF Rx Instructions: As directed (DME) Dexcom G6 Shock Absorber Installer Misc See Rx Instructions .Route Qty: 1 0RF Rx Instructions: Check BS 4 times a day (DME) Dexcom G6 Transmitter Device See Rx Instructions .Route Qty: 1 0RF Rx Instructions: As directed rosuvastatin 20 mg tablet 20 mg PO DAILY Qty: 90 3RF formoterol fumarate [Perforomist] 20 mcg/2 mL solution for nebulization 2 ml inhalation BID Qty: 120 3RF guaifenesin [Mucinex] 600 mg tablet extended release 12hr 600 mg PO BID PRN (Reason: congestion) Qty: 60 0RF insulin lispro [Humalog KwikPen Insulin] 100 unit/mL insulin pen 17 unit SUBCUT TID Qty: 15 3RF Rx Instructions: Inject 17 units subcut three times a day 15 minutes before meals. (DME) pen needle, diabetic [Comfort EZ Pen [place]] 31 gauge x 5/16 needle See Rx Instructions .Route Qty: 100 0RF Rx Instructions: As directed potassium chloride 10 mEq tablet extended release 10 meq PO DAILY Qty: 30 2RF furosemide [Lasix] 20 mg tablet 20 mg PO DAILY Qty: 30 1RF albuterol sulfate [ProAir HFA] 90 mcg/actuation HFA aerosol inhaler 2 inh inhalation QID PRN (Reason: shortness of breath or wheezing) Qty: 8.5 5RF Yupelri 175 mcg/3 mL solution for nebulization 175 mcg inhalation QAM ipratropium-albuterol 0.5 mg-3 mg(2.5 mg base)/3 mL solution for nebulization 3 ml INHALATION QID PRN (Reason: Shortness Of Breath) Qty: 360 3RF Combivent Respimat 20-100 mcg/actuation mist 1 puff INHALATION QID PRN (Reason: Shortness Of Breath) Vitamin C 500 mg Tablet 500 mg PO DAILY Vitamin D3 25 mcg (1,000 unit) Capsule 25 mcg PO DAILY Discontinued levofloxacin 500 mg tablet 500 mg PO DAILY Qty: 5 0RF Discharge Orders: Discharge Order (Routine); Ordered 03/15/22 Ordered By: Rey Mariee Referrals: Wes Hart MD [Primary Care Provider] - 4-7 days (Please call for am follow-up appointment in 4 to 7 days. Please ) Datar,Bienvenido Quiñones MD [Physician] - 2 weeks (Please call [facility] for an follow-up appointment in 2 weeks. ) Discharge Diet: Soft Mechanical Discharge Activity: Increase activity as tolerated, As per PT/OT instructions, Oxygen as instructed and Cpap/Bipap as instructed Patient Instructions: Prednisone (By mouth), Fluconazole (By mouth), Cefdinir (By mouth), How to Stop Smoking (GEN), Cigarette Smoking and Your Health (GEN), Opioid Safety Activity Restrictions/Additional Instructions: Please follow-up with your primary doctor for reassessment of continued improvement of COPD exacerbation. Please complete your antibiotic course and steroid taper. Continue nebulizations at home. Continue Trelegy. Follow-up with your lung specialist. Please work towards quitting smoking. Discharge Attestations Time Spent in Discharge Care*: greater than 30 min Status at Discharge: Cognitive status at discharge: cognitively intact , Behavioral status at discharge: cooperative , Quality Metrics Clinical Quality Measures [ No reported AMI, CVA or VTE this stay] Coding Level of Care Code Acute Chg FW DC note Diagnoses Acute and chronic respiratory failure with hypercapnia J96.22 Acute exacerbation of chronic obstructive airways disease J44.1 Umbilical hernia K42.9 Diverticulosis large intestine w/o perforation or abscess w/bleeding K57.31 Chronic respiratory failure with hypercapnia J96.12 Chronic obstructive pulmonary disease J44.9 COPD type: unspecified COPD Aspiration into airway T17.908A Oropharyngeal dysphagia R13.12 Nocturnal oxygen desaturation G47.[address] nodules on CT R91.8 Endotracheally intubated Z97.8
== END 2022-03-15 14:00 | disposition home health service (06) | DRG 208 ==
LOC: ICU 03-13 03:39 → MEDSURG 03-14 23:57
PROVIDERS: Internal Medicine Pulmonary Disease; Admitting Provider Internal Medicine; PCP Family Medicine; Visit Provider Internal Medicine
DX: J96.22 Acute and chronic respiratory failure with hypercapnia (principal); J44.1 Chronic obstructive pulmonary disease with (acute) exacerbation; E66.2 Morbid (severe) obesity with alveolar hypoventilation; E87.4 Mixed disorder of acid-base balance; Z99.81 Dependence on supplemental oxygen; F41.9 Anxiety disorder, unspecified; E11.319 Type 2 diabetes mellitus with unspecified diabetic retinopathy without macular edema; E11.22 Type 2 diabetes mellitus with diabetic chronic kidney disease; I12.9 Hypertensive chronic kidney disease with stage 1 through stage 4 chronic kidney disease, or unspecified chronic kidney disease; N18.9 Chronic kidney disease, unspecified; E78.00 Pure hypercholesterolemia, unspecified; Z68.39 Body mass index [BMI] 39.0-39.9, adult; F17.200 Nicotine dependence, unspecified, uncomplicated; K42.9 Umbilical hernia without obstruction or gangrene; K57.30 Diverticulosis of large intestine without perforation or abscess without bleeding; R13.12 Dysphagia, oropharyngeal phase; R91.8 Other nonspecific abnormal finding of lung field; Z79.4 Long term (current) use of insulin; J35.1 Hypertrophy of tonsils
CPT/HCPCS: 36415; 36416; 36600; 71045; 80048; 80051; 80053; 82330; 82803; 82805; 82962; 83036; 83735; 84100; 84145; 84443; 84484; 85025; 85378; 85730; 86140; 86403; 87070; 87077; 87186; 87205; 87449; 87641; 92526; 92610; 93005; 94002; 94003; 94640; 94660; 94664; 94799; 96372; C9113; J0696; J1644; J1815; J2704; J2920; J3010; J3475; J7030; J7050; J7611; J7626; Q0144

== ENCOUNTER → 2022-03-21 10:15 | Outpatient (BNVA) | payer MEDICARE, MEDICAID, SELFPAY | PROVIDERS: PCP Family Medicine; Visit Provider Internal Medicine Pulmonary Disease | DX: J44.9 Chronic obstructive pulmonary disease, unspecified (principal); Z71.6 Tobacco abuse counseling; E66.2 Morbid (severe) obesity with alveolar hypoventilation; J35.1 Hypertrophy of tonsils; B94.8 Sequelae of other specified infectious and parasitic diseases; R53.81 Other malaise; Z68.41 Body mass index [BMI] 40.0-44.9, adult; F17.200 Nicotine dependence, unspecified, uncomplicated; Z99.81 Dependence on supplemental oxygen | CPT/HCPCS: 99214 ==

== ENCOUNTER 2022-03-31 11:14 | Outpatient (CLI) | payer MEDICARE, MEDICAID, SELFPAY ==
[2022-03-31 12:05] LABS: Alanine Aminotransferase 37 U/L (0-33); Albumin Level 3.2 g/dL (3.5-5.2); Alkaline Phosphatase 159 U/L (35-105); Aspartate Amino Transferase 24 U/L (0-32); Blood Urea Nitrogen 6 mg/dL (6-20); Calcium 7.6 mg/dL (8.5-10.5); Carbon Dioxide 31 mmol/L (22-29); Chloride 90 mmol/L (98-107); Chol HDL Ratio 3.98 mg/dL (0.0-4.40); Cholesterol 251 mg/dL (0-200); Globulin 3.4 g/dL (1.3-4.6); Glomerular Filtration Rate 128.1 mL/min (90-130); Glucose 284 mg/dL (65-115); HDL Cholesterol 63 mg/dL (60-100); LDL Cholesterol Calculated 152 mg/dL (50-129); LDL HDL Ratio 2.41 RATIO (0.00-3.22); Osmolality Calculated 282 mOsm/kg (285-295); Sodium 132 mmol/L (136-145); Total Bilirubin 0.2 mg/dL (0.15-1.2); Total Protein 6.6 g/dL (6.6-8.7); Triglycerides 179 mg/dL (0-150)
[2022-03-31 12:09] LABS: Calcium 7.5 mg/dL (8.5-10.5)
[2022-03-31 12:17] LABS: Parathyroid Hormone 41.7 pg/mL (15-65)
[2022-03-31 12:23] LABS: Estmated Average Glucose 214; Hemoglobin A1C 9.1 % (4.0-6.0)
== END 2022-03-31 11:15 | disposition home or self-care (01) ==
LOC: LAB 11:16
PROVIDERS: PCP Family Medicine; Visit Provider Internal Medicine
DX: E11.649 Type 2 diabetes mellitus with hypoglycemia without coma (principal); E78.2 Mixed hyperlipidemia; E83.51 Hypocalcemia
CPT/HCPCS: 36415; 80053; 80061; 82310; 83036; 83970

== ENCOUNTER → 2022-04-01 14:19 | Outpatient (BNVA) | payer MEDICARE, MEDICAID, SELFPAY | PROVIDERS: PCP Family Medicine; Visit Provider Internal Medicine | DX: E11.649 Type 2 diabetes mellitus with hypoglycemia without coma (principal); E11.319 Type 2 diabetes mellitus with unspecified diabetic retinopathy without macular edema; E11.42 Type 2 diabetes mellitus with diabetic polyneuropathy; E78.2 Mixed hyperlipidemia; E78.00 Pure hypercholesterolemia, unspecified; E83.51 Hypocalcemia; Z79.4 Long term (current) use of insulin | CPT/HCPCS: 99214 ==

== ENCOUNTER → 2022-04-09 09:10 | Outpatient (BNVA) | payer MEDICARE, MEDICAID, SELFPAY | PROVIDERS: PCP Family Medicine; Referring Provider Family Medicine; Visit Provider Specialist | DX: G56.01 Carpal tunnel syndrome, right upper limb (principal) | CPT/HCPCS: 95908; 95909 ==

== ENCOUNTER 2022-04-29 06:00 | Outpatient (RCR) | payer MEDICARE, MEDICAID, SELFPAY | END 2022-05-28 23:59 | disposition home or self-care (01) | LOC: PULRHB 06:00 | PROVIDERS: PCP Family Medicine; Visit Provider Internal Medicine Pulmonary Disease | DX: J84.9 Interstitial pulmonary disease, unspecified (principal) | CPT/HCPCS: G0237; G0238 ==

== ENCOUNTER → 2022-05-08 11:12 | Outpatient (BNVA) | payer MEDICARE, MEDICAID, SELFPAY | PROVIDERS: PCP Family Medicine; Visit Provider Internal Medicine Pulmonary Disease | DX: J44.9 Chronic obstructive pulmonary disease, unspecified (principal); R53.81 Other malaise; E66.2 Morbid (severe) obesity with alveolar hypoventilation; J35.1 Hypertrophy of tonsils; G93.39 Other post infection and related fatigue syndromes; U09.9 Post COVID-19 condition, unspecified; Z68.41 Body mass index [BMI] 40.0-44.9, adult; Z99.81 Dependence on supplemental oxygen; Z87.891 Personal history of nicotine dependence | CPT/HCPCS: 99214 ==

== ENCOUNTER 2022-05-29 06:00 | Outpatient (RCR) | payer MEDICARE, MEDICAID, SELFPAY | END 2022-06-28 23:59 | disposition home or self-care (01) | LOC: PULRHB 06:00 | PROVIDERS: PCP Family Medicine; Visit Provider Internal Medicine Pulmonary Disease | DX: J84.9 Interstitial pulmonary disease, unspecified (principal) | CPT/HCPCS: G0237; G0238; G0239 ==

== ENCOUNTER 2022-06-06 10:29 | Emergency (ER) | payer MEDICARE, MEDICAID, SELFPAY ==
[2022-06-06 10:41] VITALS: BP 150/71; PULSE 110; RESP 17; TEMP 37; O2SAT 93; BMI 44.8
--- NOTE | 2022-06-06 10:45 | ECG_ITS ---
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 Measurements Intervals [place] Rate: 100 P: 68 SC: 157 QRS: 69 QRSD: 76 T: 87 QT: 357 QTc: 461 Interpretive Statements SINUS TACHYCARDIA LOW QRS VOLTAGE IN PRECORDIAL LEADS [QRS DEFLECTION < 1.0 mV IN CHEST LEADS] Compared to ECG 03/10/2022 16:45:53 Low QRS voltage now present Electronically Signed On 06-06-2022 13:07:11 CHLORINATOR OPERATOR by Nita Meza M.D. [id number]
[2022-06-06 12:13] LABS: Troponin(5th) Baseline 13 ng/L (0-10)
[2022-06-06 12:25] VITALS: BP 125/83; PULSE 89; O2SAT 93
--- NOTE | 2022-06-06 12:48 | ED_ITS ---
HPI - Chest Pain General: Chief Complaint: Chest Pain Stated Complaint: chest pain Time Seen by Provider: 06/06/22 12:24 Source: patient Mode of arrival: ambulatory History of Present Illness: 56-year-old female presents emergency room complaining of chest pain. She been little nauseated as well moderately productive cough slightly above her baseline. She has COPD and is normally on 3 L by nasal cannula she denies any radiation of the pain to the neck arms or back. She denies any abdominal pain nausea vomiting or diarrhea or fever. MD complaint: chest discomfort Onset (ago): hour(s) Timing of current episode: episodic Prior episodes: Yes Onset: during rest Pain location: left chest Pain radiation: none Severity: mild Associated symptoms: Reports dyspnea and leg edema; Deny abdominal pain, diaphoresis, fever(s), nausea, palpitations, sense of impending doom, syncope or vomiting Treatment prior to arrival: none Review of Systems Const: Reports: fatigue; Denies: fever(s), chills, malaise or diaphoresis ENMT: Denies: throat pain, ear or mastoid pain, nasal discharge or nasal congestion Card: Reports: chest pain and edema; Denies: palpitations, irregular heart rhythm or syncope Resp: Reports: dyspnea; Denies: productive cough, non-productive cough or wheezing GI: Denies: abdominal pain, nausea or vomiting : Denies: flank pain, difficulty voiding, dysuria, urinary frequency or urinary urgency Musc: Denies: neck pain or back pain Skin/Breast: Denies: rash or pruritus PFSH ED PFSH: Medical History Acute exacerbation of chronic obstructive airways disease Anxiety disorder Asthma Chronic obstructive pulmonary disease Chronic respiratory failure with hypercapnia Chronic respiratory failure with hypoxia and hypercapnia Colon polyp D-dimer, elevated Diabetic retinopathy associated with controlled type 2 diabetes mellitus Erythrocytosis Hypercholesteremia Hypertension Hypokalemia Leg cramps Long-term insulin use Obesity hypoventilation syndrome Obesity hypoventilation syndrome Oropharyngeal dysphagia Sepsis with acute hypoxic respiratory failure Smoker Tonsillar enlargement Type 2 diabetes mellitus Type 2 diabetes mellitus Surgical History History of carpal tunnel release History of tonsillectomy History of total abdominal hysterectomy Family History Father , at the of 70 Diabetes Cancer lung CAD (coronary artery disease) Mother , at the age of 55 Hypertension Lung disease Social History Smoking and tobacco status: former smoker Second hand smoke exposure: Yes Smoking risk assessment/counseling performed?: Yes Alcohol intake: current Alcohol intake frequency: holidays/special occasions only Alcohol type: wine Desire information about substance/drug rehabilitation?: No Counseling given: No Caregiver/support person: No Lives independently: Yes Household members: children Housing: House Marital status: Legally Current occupational status: disabled Current occupation: Disabled Pets and animals: No History of recent travel: No Current gender identity: Female Physical Exam Const: COMMON NORMALS: no acute distress GENERAL APPEARANCE: cooperative and comfortable ORIENTATION/CONSCIOUSNESS: Yes awake, Yes oriented to person, Yes oriented to place and Yes oriented to time HENMT: COMMON NORMALS: normocephalic, atraumatic and hearing grossly normal bilaterally HEAD & SCALP: normocephalic and atraumatic Resp: COMMON NORMALS: normal respiratory effort, No retractions and No use of accessory muscles AUSCULTATION: wheezes (Mild bilateral wheezes) Cardio: COMMON NORMALS: regular rate, regular rhythm and No murmurs present (Cardio) RATE: regular rate RHYTHM: regular rhythm GI: COMMON NORMALS: Soft to palpation and No hepatosplenomegaly present AUSCULTATION: Yes normoactive bowel sounds PALPATION: Yes Soft to palpation, No Tenderness to palpation present (GI), No Guarding due to palpation present (GI) and Yes No hepatosplenomegaly present Extremity: COMMON NORMALS: normal to inspection, capillary refill normal, no clubbing, cyanosis or edema, no calf tenderness and no pedal edema Neuro: SENSORIUM/ORIENTATION: Yes oriented to person, Yes oriented to place and Yes oriented to time Skin: COMMON NORMALS: no rashes or lesions noted GENERAL SKIN EXAM: no rashes or lesions noted Course Vital Signs: Vital signs: Vital Signs Temperature 98.6 F 06/06/22 10:41 Pulse Rate 89 06/06/22 15:31 Respiratory Rate 18 06/06/22 15:31 Blood Pressure 123/86 06/06/22 15:31 Pulse Oximetry 96 06/06/22 15:31 Oxygen Delivery Me thod 06/06/22 12:25 Oxygen Flow Rate 3 06/06/22 12:25 MDM - Chest Pain Medical Decision Making Labs imaging and EKGs reviewed. No acute ST changes on EKG. Patient has mild acute COPD exacerbation will discharge home. Steroid taper doxycycline aggressive use of albuterol for pulmonary toilet follow-up with primary care if not improving in next several days. Medical Records I reviewed the patient's medical records. Lab Data I reviewed the patient's lab results. 06/06/22 11:35 06/06/22 11:35 Radiology Impressions Chest X-Ray 06/06/22 12:55 IMPRESSION: Unremarkable frontal portable chest x-ray. Laboratory Results WBC 8.4 10^3/uL (4.0-10.0) 06/06/22 11:35 RBC 4.48 10^6/uL (4.1-5.3) 06/06/22 11:35 Hgb 12.7 g/dL (11.5-15.3) 06/06/22 11:35 Hct 39.9 % (37.0-47.0) 06/06/22 11:35 MCV 89.1 fl (81-99) 06/06/22 11:35 MCH 28.3 pg (28.0-34.0) 06/06/22 11:35 MCHC 31.8 g/dL (30.0-36.0) 06/06/22 11:35 RDW 12.7 % (12.1-15.1) 06/06/22 11:35 Plt Count 270 10^3/cmm (130-400) 06/06/22 11:35 MPV 9.9 fL (7.4-10.4) 06/06/22 11:35 Neut % (Auto) 62.3 % 06/06/22 11:35 Lymph % (Auto) 29.8 % 06/06/22 11:35 [place] % (Auto) 5.7 % 06/06/22 11:35 Eos % (Auto) 1.4 % 06/06/22 11:35 Baso % (Auto) 0.6 % 06/06/22 11:35 Neut # (Auto) 5.25 10^3/uL (1.8-7.7) 06/06/22 11:35 Lymph # (Auto) 2.5 10^3/uL (0.8-4.8) 06/06/22 11:35 [place] # (Auto) 0.5 10^3/uL (0.2-0.9) 06/06/22 11:35 Eos # (Auto) 0.1 10^3/uL (0.0-0.8) 06/06/22 11:35 Baso # (Auto) 0.1 10^3/uL (0.0-0.1) 06/06/22 11:35 Nucleated RBC % (auto) 0 % 06/06/22 11:35 Nucleated RBCs # 0.0 /100WBC 06/06/22 11:35 Sodium 140 mmol/L (136-145) 06/06/22 11:35 Potassium 4.1 mmol/L (3.5-5.1) 06/06/22 11:35 Chloride 96 mmol/L (98-107) L 06/06/22 11:35 Carbon Dioxide 35 mmol/L (22-29) H 06/06/22 11:35 Anion Gap 13.1 (5-19) 06/06/22 11:35 BUN 10 mg/dL (6-20) 06/06/22 11:35 Creatinine 0.5 mg/dL (0.5-0.9) 06/06/22 11:35 GFR Calculation 128.1 mL/min (90-130) 06/06/22 11:35 Glucose 135 mg/dL (65-115) H 06/06/22 11:35 Calculated Osmolality 291 mOsm/kg (285-295) 06/06/22 11:35 Calcium 7.7 mg/dL (8.5-10.5) L 06/06/22 11:35 Total Bilirubin 0.2 mg/dL (0.15-1.2) 06/06/22 11:35 AST 15 U/L (0-32) 06/06/22 11:35 ALT 15 U/L (0-33) 06/06/22 11:35 Alkaline Phosphatase 144 U/L (35-105) H 06/06/22 11:35 Troponin T Baseline 13 ng/L (0-10) H 06/06/22 11:35 Troponin T 120 Minute 10.97 ng/L (0-10) H 06/06/22 13:29 Delta Troponin T -2.03 ABS# (0-10) L 06/06/22 13:29 Total Protein 6.6 g/dL (6.6-8.7) 06/06/22 11:35 Albumin 3.6 g/dL (3.5-5.2) 06/06/22 11:35 Globulin 3.0 g/dL (1.3-4.6) 06/06/22 11:35 Discharge Plan Discharge Patient Disposition: Home Clinical Impression: Acute exacerbation of chronic obstructive airways disease Condition: Stable Prescriptions: New doxycycline hyclate 100 mg capsule 100 mg PO BID 10 Days Qty: 20 0RF prednisone 20 mg tablet 20 mg PO TID Qty: 15 0RF Rx Instructions: 1 p.o. 3 times daily x3 days, 1 p.o. twice daily x2 days, 1 p.o. daily x2 days albuterol sulfate 90 mcg/actuation HFA aerosol inhaler 2 inh INHALATION Q4H PRN (Reason: shortness of breath or wheezing) Qty: 18 0RF No Action Farxiga 10 mg tablet 10 mg PO DAILY clonazepam 0.5 mg tablet 0.5 mg PO TID PRN (Reason: Anxiety) Lantus Solostar U-100 Insulin 100 unit/mL (3 mL) insulin pen 60 unit SUBCUT BEDTIME (DME) Dexcom G6 Sensor Device See Rx Instructions .Route Qty: 3 4RF Rx Instructions: As directed (DME) Dexcom G6 Manager Business Intelligence Misc See Rx Instructions .Route Qty: 1 0RF Rx Instructions: Check BS 4 times a day (DME) Dexcom G6 Transmitter Device See Rx Instructions .Route Qty: 1 0RF Rx Instructions: As directed rosuvastatin 20 mg tablet 20 mg PO DAILY Qty: 90 3RF formoterol fumarate [Perforomist] 20 mcg/2 mL solution for nebulization 2 ml inhalation BID Qty: 120 3RF insulin lispro [Humalog KwikPen Insulin] 100 unit/mL insulin pen 17 unit SUBCUT TID Qty: 15 3RF Rx Instructions: Inject 17 units subcut three times a day 15 minutes before meals. ipratropium-albuterol 0.5 mg-3 mg(2.5 mg base)/3 mL solution for nebulization 3 ml INHALATION QID PRN (Reason: Shortness Of Breath) Qty: 360 3RF albuterol sulfate [ProAir HFA] 90 mcg/actuation HFA aerosol inhaler 2 inh inhalation QID PRN (Reason: shortness of breath or wheezing) Qty: 8.5 5RF (DME) pen needle, diabetic [Comfort EZ Pen [place]] 31 gauge x 3/16 needle See Rx Instructions .ROUTE .COMPLEX Qty: 100 0RF Dose Instruction: USE DIRECTED Rx Instructions: USE DIRECTED Yupelri 175 mcg/3 mL solution for nebulization 175 mcg inhalation QAM Combivent Respimat 20-100 mcg/actuation mist 1 puff INHALATION QID PRN (Reason: Shortness Of Breath) potassium chloride 10 mEq tablet extended release 10 meq PO DAILY PRN (Reason: take with lasix) Lasix 20 mg tablet 20 mg PO DAILY PRN (Reason: Edema) ascorbic acid (vitamin C) [Vitamin C] 500 mg Tablet 500 mg PO DAILY cholecalciferol (vitamin D3) [Vitamin D3] 25 mcg (1,000 unit) Capsule 25 mcg PO DAILY Discharge Orders: Discharge ED (Routine); Ordered 06/06/22 Ordered By: Thomas Red Referrals: Wes Hart MD [Primary Care Provider] - Discharge Diet: Usual diet Discharge Activity: Increase activity as tolerated Patient Instructions: Opioid Safety, Pain Management Activity Restrictions/Additional Instructions: You are seen today with atypical chest discomfort. Your cardiac enzymes and EKGs were unremarkable we will treat you for an exacerbation of your COPD with steroids antibiotics and aggressive use of albuterol to relieve your cough and congestion return to the ER or your primary care doctor if you have any worsening symptoms. Coding Level of Care Code ED Cardiothoracic Surgeon for Chg Fwd Exam Detailed
--- NOTE | 2022-06-06 12:55 | XR_ITS ---
WS: [id number] EXAMINATION: XR chest 1V portable [id number] REASON FOR EXAM: dyspnea/cough COMPARISON: Previous study 03/13/2022 ORDER DATE: 06/06/2022 12:55 PM TECHNIQUE: A single, portable frontal chest x-ray was obtained. X-RAY FINDINGS: The lungs are clear. Pleural spaces are clear. No pleural effusions or pneumothorax. Cardiomediastinal silhouette is unremarkable with minor atherosclerotic aortic change area No evidenc e for pulmonary edema. Soft tissue and osseous structures are unremarkable. No tubes or lines are present. XR/XR chest 1V portable [id number] IMPRESSION: Unremarkable frontal portable chest x-ray.
[2022-06-06 13:09] LABS: Basophils # 0.1 10^3/uL (0.0-0.1); Basophils % 0.6 %; Eosinophils # 0.1 10^3/uL (0.0-0.8); Eosinophils % 1.4 %; Hematocrit 39.9 % (37.0-47.0); Hemoglobin 12.7 g/dL (11.5-15.3); Lymphocytes # 2.5 10^3/uL (0.8-4.8); Lymphocytes % 29.8 %; Mean Corpuscular HGB Conc 31.8 g/dL (30.0-36.0); Mean Corpuscular Hemoglobin 28.3 pg (28.0-34.0); Mean Corpuscular Volume 89.1 fl (81-99); Mean Platelet Volume 9.9 fL (7.4-10.4); Monocytes # 0.5 10^3/uL (0.2-0.9); Monocytes % 5.7 %; Neutrophils # 5.25 10^3/uL (1.8-7.7); Neutrophils % 62.3 %; Nucleated Red Blood Cells % 0 %; Platelet Count 270 10^3/cmm (130-400); Red Blood Count 4.48 10^6/uL (4.1-5.3); Red Cell Distribution Width 12.7 % (12.1-15.1); White Blood Count 8.4 10^3/uL (4.0-10.0)
[2022-06-06 13:20] LABS: Alanine Aminotransferase 15 U/L (0-33); Albumin Level 3.6 g/dL (3.5-5.2); Alkaline Phosphatase 144 U/L (35-105); Anion Gap 13.1 (5-19); Aspartate Amino Transferase 15 U/L (0-32); Blood Urea Nitrogen 10 mg/dL (6-20); Calcium 7.7 mg/dL (8.5-10.5); Carbon Dioxide 35 mmol/L (22-29); Chloride 96 mmol/L (98-107); Creatinine Clr Calc Pharmacy 149.5414; Glomerular Filtration Rate 128.1 mL/min (90-130); Glucose 135 mg/dL (65-115); Osmolality Calculated 291 mOsm/kg (285-295); Potassium 4.1 mmol/L (3.5-5.1); Sodium 140 mmol/L (136-145); Total Bilirubin 0.2 mg/dL (0.15-1.2); Total Protein 6.6 g/dL (6.6-8.7)
[2022-06-06 13:54] VITALS: BP 123/86; PULSE 89; RESP 18; O2SAT 96
[2022-06-06 14:03] LABS: Troponin 5 2HR 10.97 ng/L (0-10)
[2022-06-06 14:05] LABS: Troponin 5 2HR Delta -2.03 ABS# (0-10)
[2022-06-06 15:31] VITALS: BP 123/86; PULSE 89; RESP 18; O2SAT 96
== END 2022-06-06 15:30 | disposition home or self-care (01) ==
PROVIDERS: Emergency Provider Family Medicine; PCP Family Medicine
DX: J44.1 Chronic obstructive pulmonary disease with (acute) exacerbation (principal)
CPT/HCPCS: 36415; 71045; 80053; 84484; 85025; 93005; 99285

== ENCOUNTER → 2022-06-09 09:34 | Outpatient (BNVA) | payer MEDICARE, MEDICAID, SELFPAY | PROVIDERS: PCP Family Medicine; Referring Provider Family Medicine; Visit Provider Specialist | DX: G56.01 Carpal tunnel syndrome, right upper limb (principal) | CPT/HCPCS: 73110; 99204 ==

== ENCOUNTER 2022-06-24 10:24 | Outpatient (CLI) | payer MEDICARE, MEDICAID, SELFPAY ==
--- NOTE | 2022-06-24 11:00 | USCV_ITS ---
Patricia Butcher Age: 56 Gender: F : 1965 Exam Date: 06/24/2022 10:34 Ordering Phys: Bienvenido Reyez MD Technologist: CT Exam Location: [facility] – [place] Indication: TIA Risk Factors: Previous Vascular Surgery: Right Brachial BP: / Left Brachial BP: / Right Left Velocity (cm/s) Spectral Plaque Velocity (cm/s) Spectral Plaque Syst/Diast Broadening Syst/Diast Broadening 89.40/ 17.30 Prox CCA 81.00 / 19.30 82.70/ 17.30 Mid CCA 81.90 / 21.20 96.10/ 17.30 Distal CCA 69.40 / 22.20 157.50/38.30 Prox ICA 69.40 / 22.20 166.50/37.60 Mid ICA 106.00/ 29.90 130.70/37.60 Distal ICA 96.20 / 32.40 221.30 ECA 191.50 1.73 ICA/CCA 1.29 Antegrade Vertebral Antegrade 60.10/ 25.10 cm/s 55.20/ 14.50 cm/s Tri Subclavian Tri 112.8 169.1 0 0 FINDINGS diffuse calcified plq noted bilaterally. some minor elevated velocitys on right CONCLUSIONS Right ICA stenosis 50-69%. Moderate calcified atheromatous plaque right carotid bulb/ICA. Left ICA stenosis <50%. Moderate calcified atheromatous plaque left carotid bulb/ICA. Normal antegrade Doppler flow noted in the right vertebral artery. Normal antegrade Doppler flow noted in the left vertebral artery. Mario Borjas MD (Electronically Signed) Final Date: 24 June 2022 11:32 S
== END 2022-06-24 10:25 | disposition home or self-care (01) ==
LOC: RAD 10:28
PROVIDERS: PCP Family Medicine; Visit Provider Internal Medicine Pulmonary Disease
DX: G45.9 Transient cerebral ischemic attack, unspecified (principal); R53.1 Weakness
CPT/HCPCS: 93880

== ENCOUNTER 2022-06-29 06:00 | Outpatient (RCR) | payer MEDICARE, MEDICAID, SELFPAY | END 2022-07-29 23:59 | disposition home or self-care (01) | LOC: PULRHB 06:00 | PROVIDERS: PCP Family Medicine; Visit Provider Internal Medicine Pulmonary Disease | DX: J84.9 Interstitial pulmonary disease, unspecified (principal); U09.9 Post COVID-19 condition, unspecified; J44.9 Chronic obstructive pulmonary disease, unspecified | CPT/HCPCS: G0239 ==

== ENCOUNTER → 2022-07-15 14:22 | Outpatient (BNVA) | payer MEDICARE, MEDICAID, SELFPAY | PROVIDERS: PCP Family Medicine; Visit Provider Thoracic Surgery (Cardiothoracic Vascular Surgery) | DX: I65.29 Occlusion and stenosis of unspecified carotid artery (principal); I10 Essential (primary) hypertension; Z87.891 Personal history of nicotine dependence | CPT/HCPCS: 99203 ==

== ENCOUNTER 2022-07-30 06:00 | Outpatient (RCR) | payer MEDICARE, MEDICAID, SELFPAY | END 2022-08-26 23:59 | disposition home or self-care (01) | LOC: PULRHB 06:00 | PROVIDERS: PCP Family Medicine; Visit Provider Internal Medicine Pulmonary Disease | DX: J84.9 Interstitial pulmonary disease, unspecified (principal) | CPT/HCPCS: G0239 ==

== ENCOUNTER → 2022-08-14 09:34 | Outpatient (BNVA) | payer MEDICARE, MEDICAID, SELFPAY | PROVIDERS: PCP Family Medicine; Visit Provider Internal Medicine Pulmonary Disease | DX: R42 Dizziness and giddiness (principal); R06.00 Dyspnea, unspecified; J44.9 Chronic obstructive pulmonary disease, unspecified; R53.81 Other malaise; Z86.16 Personal history of COVID-19; Z87.891 Personal history of nicotine dependence; Z99.81 Dependence on supplemental oxygen; E66.2 Morbid (severe) obesity with alveolar hypoventilation; Z68.42 Body mass index [BMI] 45.0-49.9, adult; G93.31 Postviral fatigue syndrome | CPT/HCPCS: 99214 ==

== ENCOUNTER 2022-08-27 06:00 | Outpatient (RCR) | payer MEDICARE, MEDICAID, SELFPAY | END 2022-09-26 23:59 | disposition home or self-care (01) | LOC: PULRHB 06:00 | PROVIDERS: PCP Family Medicine; Visit Provider Internal Medicine Pulmonary Disease | DX: J84.9 Interstitial pulmonary disease, unspecified (principal) | CPT/HCPCS: G0239 ==

== ENCOUNTER 2022-08-28 14:18 | Outpatient (CLI) | payer MEDICARE, MEDICAID, SELFPAY ==
[2022-08-28 15:34] LABS: Alanine Aminotransferase 16 U/L (0-33); Albumin Level 3.5 g/dL (3.5-5.2); Alkaline Phosphatase 187 U/L (35-105); Anion Gap 16.7 (5-19); Aspartate Amino Transferase 16 U/L (0-32); Blood Urea Nitrogen 9 mg/dL (6-20); Calcium 7.9 mg/dL (8.5-10.5); Carbon Dioxide 34 mmol/L (22-29); Chloride 96 mmol/L (98-107); Globulin 4.1 g/dL (1.3-4.6); Glomerular Filtration Rate 103.8 mL/min (90-130); Glucose 170 mg/dL (65-115); Osmolality Calculated 297 mOsm/kg (285-295); Potassium 4.7 mmol/L (3.5-5.1); Sodium 142 mmol/L (136-145); Total Bilirubin 0.2 mg/dL (0.15-1.2); Total Protein 7.6 g/dL (6.6-8.7)
== END 2022-08-28 14:19 | disposition home or self-care (01) ==
LOC: LAB 14:20
PROVIDERS: PCP Family Medicine; Visit Provider Internal Medicine
DX: E11.649 Type 2 diabetes mellitus with hypoglycemia without coma (principal)
CPT/HCPCS: 36415; 80053

== ENCOUNTER → 2022-08-29 08:52 | Outpatient (BNVA) | payer MEDICARE, MEDICAID, SELFPAY | PROVIDERS: PCP Family Medicine; Visit Provider Internal Medicine | DX: E11.649 Type 2 diabetes mellitus with hypoglycemia without coma (principal); E11.42 Type 2 diabetes mellitus with diabetic polyneuropathy; E11.319 Type 2 diabetes mellitus with unspecified diabetic retinopathy without macular edema; E78.2 Mixed hyperlipidemia; E20.9 Hypoparathyroidism, unspecified; Z79.4 Long term (current) use of insulin | CPT/HCPCS: 99214 ==

== ENCOUNTER 2022-09-07 14:38 | Emergency (ER) | payer MEDICARE, MEDICAID, SELFPAY ==
[2022-09-07 14:49] VITALS: BP 155/84; PULSE 93; RESP 18; TEMP 36.7; O2SAT 94
--- NOTE | 2022-09-07 16:25 | W.ED.BACK ---
HPI - Back Pain/Injury General: Chief Complaint: Back Pain/Injury Stated Complaint: sob/urinary pain Time Seen by Provider: 09/07/22 16:17 Source: patient Mode of arrival: wheelchair History of Present Illness: This 56-year-old female presents to the ER with left flank pain that started last night and has persisted till today. Patient denies any fall or trauma to the area. She believes her left kidney is hurting because she is dehydrated. Patient wants to lose weight and so started taking a new [id number] diet pills. Patient believes it is not working for her because she gained more weight instead. She is not sure if the diet pill contributes to her pain. She has no fever, nausea or vomiting. Associated symptoms: Reports abdominal pain (Left flank) Review of Systems General: Reports: 10 or more systems reviewed and unremarkable except in HPI and below GI: Reports: abdominal pain (Left flank) [facility] ED PFSH: Medical History Acute exacerbation of chronic obstructive airways disease Anxiety disorder Asthma Chronic obstructive pulmonary disease Chronic respiratory failure with hypercapnia Chronic respiratory failure with hypoxia and hypercapnia Colon polyp D-dimer, elevated Diabetic retinopathy associated with controlled type 2 diabetes mellitus Erythrocytosis Hypercholesteremia Hypertension Hypokalemia Leg cramps Long-term insulin use Obesity hypoventilation syndrome Obesity hypoventilation syndrome Oropharyngeal dysphagia Sepsis with acute hypoxic respiratory failure Smoker Tonsillar enlargement Type 2 diabetes mellitus Type 2 diabetes mellitus Surgical History History of carpal tunnel release History of tonsillectomy History of total abdominal hysterectomy Family History Father , at the of 70 Diabetes Cancer lung CAD (coronary artery disease) Mother , at the age of 55 Hypertension Lung disease Social History Smoking and tobacco status: former smoker Second hand smoke exposure: Yes Smoking risk assessment/counseling performed?: Yes Alcohol intake: current Alcohol intake frequency: holidays/special occasions only Alcohol type: wine Desire information about substance/drug rehabilitation?: No Counseling given: No Caregiver/support person: No Lives independently: Yes Household members: children Housing: House Marital status: Legally Current occupational status: disabled Current occupation: Disabled Pets and animals: No Current gender identity: Female Physical Exam Const: COMMON NORMALS: no acute distress, patient oriented x3, no limitations and alert NUTRITIONAL APPEARANCE: overweight Chest: COMMONS NORMALS: normal inspection of the chest Resp: COMMON NORMALS: normal respiratory effort, No retractions, No use of accessory muscles and clear to auscultation bilaterally AUSCULTATION: clear to auscultation bilaterally Cardio: COMMON NORMALS: regular rate, regular rhythm and No murmurs present (Cardio) RATE: regular rate RHYTHM: regular rhythm GI: COMMON NORMALS: Normal to inspection, nondistended, normoactive bowel sounds present OTHER: Minimal left flank tenderness. : COMMON NORMALS: Yes no CVA tenderness BLADDER/KIDNEY EXAM: Yes no CVA tenderness Back/Pelvis: COMMON NORMALS: no CVA tenderness and no thoracic nor lumbar tenderness Extremity: GENERAL: Yes normal exam except as noted Neuro: COMMON NORMALS: patient oriented x3 and no focal motor deficits SENSORIUM/ORIENTATION: Yes alert Psych: COMMON NORMALS: mental status grossly normal and cooperative Course Vital Signs: Vital signs: Vital Signs Temperature 98.1 F 09/07/22 14:49 Pulse Rate 88 09/07/22 19:00 Respiratory Rate 18 09/07/22 14:49 Blood Pressure 103/62 09/07/22 19:00 Pulse Oximetry 98 09/07/22 19:00 Oxygen Delivery Me thod 09/07/22 19:00 Oxygen Flow Rate 2 09/07/22 19:00 MDM - Back Pain/Injury Medical Decision Making Medical decision making: History as above. Abdomen is nonsurgical on exam and CT abdomen/pelvis is negative for any acute intra-abdominal process. Completed blood tests are unremarkable. Her urine appears to be contaminated. At this time, there is no indication to admit her. She will be treated symptomatically but she was advised to stop taking the [id number] weight loss medication. She will follow-up with her primary care physician. Reasons to return were discussed. Labs 09/07/22 16:44 09/07/22 16:44 Radiology Impressions Abdomen/Pelvis CT 09/07/22 16:34 IMPRESSION: 1. Negative for acute abdominopelvic pathology. 2. Stable appearance of a very small right adrenal gland nodule; benign adrenal adenoma favored. Laboratory Results WBC 7.9 10^3/uL (4.0-10.0) 09/07/22 16:44 RBC 4.80 10^6/uL (4.1-5.3) 09/07/22 16:44 Hgb 13.2 g/dL (11.5-15.3) 09/07/22 16:44 Hct 41.6 % (37.0-47.0) 09/07/22 16:44 MCV 86.7 fl (81-99) 09/07/22 16:44 MCH 27.5 pg (28.0-34.0) L 09/07/22 16:44 MCHC 31.7 g/dL (30.0-36.0) 09/07/22 16:44 RDW 11.9 % (12.1-15.1) L 09/07/22 16:44 Plt Count 273 10^3/cmm (130-400) 09/07/22 16:44 MPV 9.5 fL (7.4-10.4) 09/07/22 16:44 Neut % (Auto) 60.3 % 09/07/22 16:44 Lymph % (Auto) 29.5 % 09/07/22 16:44 [place] % (Auto) 7.4 % 09/07/22 16:44 Eos % (Auto) 2.2 % 09/07/22 16:44 Baso % (Auto) 0.5 % 09/07/22 16:44 Neut # (Auto) 4.76 10^3/uL (1.8-7.7) 09/07/22 16:44 Lymph # (Auto) 2.3 10^3/uL (0.8-4.8) 09/07/22 16:44 [place] # (Auto) 0.6 10^3/uL (0.2-0.9) 09/07/22 16:44 Eos # (Auto) 0.2 10^3/uL (0.0-0.8) 09/07/22 16:44 Baso # (Auto) 0.0 10^3/uL (0.0-0.1) 09/07/22 16:44 Nucleated RBC % (auto) 0 % 09/07/22 16:44 Nucleated RBCs # 0.0 /100WBC 09/07/22 16:44 Sodium 138 mmol/L (136-145) 09/07/22 16:44 Potassium 3.7 mmol/L (3.5-5.1) 09/07/22 16:44 Chloride 91 mmol/L (98-107) L 09/07/22 16:44 Carbon Dioxide 37 mmol/L (22-29) H 09/07/22 16:44 Anion Gap 13.7 (5-19) 09/07/22 16:44 BUN 9 mg/dL (6-20) 09/07/22 16:44 Creatinine 0.5 mg/dL (0.5-0.9) 09/07/22 16:44 GFR Calculation 128.1 mL/min (90-130) 09/07/22 16:44 Glucose 173 mg/dL (65-115) H 09/07/22 16:44 Calculated Osmolality 289 mOsm/kg (285-295) 09/07/22 16:44 Calcium 7.5 mg/dL (8.5-10.5) L 09/07/22 16:44 Total Bilirubin 0.2 mg/dL (0.15-1.2) 09/07/22 16:44 AST 14 U/L (0-32) 09/07/22 16:44 ALT 13 U/L (0-33) 09/07/22 16:44 Alkaline Phosphatase 172 U/L (35-105) H 09/07/22 16:44 Total Protein 7.9 g/dL (6.6-8.7) 09/07/22 16:44 Albumin 3.7 g/dL (3.5-5.2) 09/07/22 16:44 Globulin 4.2 g/dL (1.3-4.6) 09/07/22 16:44 Urine Color Yellow (Yellow) 09/07/22 16:08 Urine Appearance Sl hazy (CLEAR) A 09/07/22 16:08 Urine pH 5 (5-7) 09/07/22 16:08 Ur Specific [place] 1.010 (1.005-1.030) 09/07/22 16:08 Urine Protein Neg (Negative) 09/07/22 16:08 Urine Glucose (UA) Norm (Normal) 09/07/22 16:08 Urine Ketones Negative (Negative) 09/07/22 16:08 Urine Blood 2+ (Negative) H 09/07/22 16:08 Urine Nitrate Negative (Negative) 09/07/22 16:08 Urine Bilirubin Neg (Negative) 09/07/22 16:08 Urine Urobilinogen Norm mg/dL (Negative) 09/07/22 16:08 Ur Leukocyte Esterase Trace (Negative) H 09/07/22 16:08 Urine RBC 0-4 /hpf (0-2) H 09/07/22 16:08 Urine WBC 5-10 /hpf (0-5) H 09/07/22 16:08 Ur Squamous Epith Cells 5-10 /hpf (0-5) H 09/07/22 16:08 Amorphous Sediment Not Reportable 09/07/22 16:08 Urine Bacteria 1+ /hpf (NONE) H 09/07/22 16:08 Discharge Plan Discharge Patient Disposition: Home Clinical Impression: Left sided abdominal pain Condition: Stable Prescriptions: No Action Farxiga 10 mg tablet 10 mg PO DAILY clonazepam 0.5 mg tablet 0.5 mg PO TID PRN (Reason: Anxiety) (DME) Dexcom G6 Sensor Device See Rx Instructions .Route Qty: 3 4RF Rx Instructions: As directed (DME) Dexcom G6 Dermatology Technician Misc See Rx Instructions .Route Qty: 1 0RF Rx Instructions: Check BS 4 times a day (DME) Dexcom G6 Transmitter Device See Rx Instructions .Route Qty: 1 0RF Rx Instructions: As directed rosuvastatin 20 mg tablet 20 mg PO DAILY Qty: 90 3RF formoterol fumarate [Perforomist] 20 mcg/2 mL solution for nebulization 2 ml inhalation BID Qty: 120 3RF (DME) pen needle, diabetic [Comfort EZ Pen [place]] 31 gauge x 3/16 needle See Rx Instructions .ROUTE .COMPLEX Qty: 100 0RF Dose Instruction: USE DIRECTED Rx Instructions: USE DIRECTED Mounjaro 2.5 mg/0.5 mL pen injector 2.5 mg SUBCUT Q7D 30 Days Qty: 2.5 0RF Rx Instructions: 2.5 mg weekly for 1 month Mounjaro 5 mg/0.5 mL pen injector 5 mg SUBCUT Q7D 30 Days Qty: 2.5 0RF Rx Instructions: 5 mg weekly for 1 month Mounjaro 7.5 mg/0.5 mL pen injector 7.5 mg SUBCUT Q7D 30 Days Qty: 2.5 1RF Rx Instructions: 7.5 mg weekly for 1 month and continue ipratropium-albuterol 0.5 mg-3 mg(2.5 mg base)/3 mL solution for nebulization 3 ml INHALATION QID PRN (Reason: Shortness Of Breath) Qty: 360 3RF Lantus Solostar U-100 Insulin 100 unit/mL (3 mL) insulin pen 60 unit SUBCUT BEDTIME Qty: 54 3RF insulin lispro [Humalog KwikPen Insulin] 100 unit/mL insulin pen 17 unit SUBCUT TID Qty: 15 3RF Rx Instructions: Inject 17 units subcut three times a day 15 minutes before meals. calcitriol 0.25 mcg capsule 0.25 mcg PO DAILY Qty: 30 1RF Rx Instructions: 0.25 mcg once daily Yupelri 175 mcg/3 mL solution for nebulization 175 mcg inhalation QAM Combivent Respimat 20-100 mcg/actuation mist 1 puff INHALATION QID PRN (Reason: Shortness Of Breath) potassium chloride 10 mEq tablet extended release 10 meq PO DAILY PRN (Reason: take with lasix) Lasix 20 mg tablet 20 mg PO DAILY PRN (Reason: Edema) prednisone 20 mg tablet 20 mg PO TID Qty: 15 0RF Rx Instructions: 1 p.o. 3 times daily x3 days, 1 p.o. twice daily x2 days, 1 p.o. daily x2 days albuterol sulfate 90 mcg/actuation HFA aerosol inhaler 2 inh INHALATION Q4H PRN (Reason: shortness of breath or wheezing) Qty: 18 0RF ascorbic acid (vitamin C) [Vitamin C] 500 mg Tablet 500 mg PO DAILY cholecalciferol (vitamin D3) [Vitamin D3] 25 mcg (1,000 unit) Capsule 25 mcg PO DAILY Discharge Orders: Discharge ED (Routine); Ordered 09/07/22 Ordered By: Purvi Campos Referrals: Wes Hart MD [Primary Care Provider] - Discharge Diet: Usual diet Discharge Activity: Resume usual activity Patient Instructions: Abdominal Pain (ED), Opioid Safety, Pain Management Activity Restrictions/Additional Instructions: Continue taking your usual home medication. Exercise as much as your body can tolerate. Stop taking the [id number]-[id number] weight loss supplement. Follow-up with your primary care physician within a week for reevaluation. Return with new or worsening symptoms. Coding Level of Care Code ED Regulatory Process Manager for Aditya Lyons
--- NOTE | 2022-09-07 16:34 | CTR_ITS ---
PROCEDURE INFORMATION: Exam: CT Abdomen And Pelvis Without And With Contrast Exam date and time: 09/07/2022 3:53 PM Age: 56 years old Clinical indication: Abdominal pain; Flank; Right; Prior surgery; Surgery type: Hyst; Bladder sling; Additional info: Right flank pain TECHNIQUE: Imaging protocol: Computed tomography of the abdomen and pelvis without and with contrast. Radiation optimization: All CT scans at this facility use at least one of these dose optimization techniques: automated exposure control; mA and/or kV adjustment per patient size (includes targeted exams where dose is matched to clinical indication); or iterative reconstruction. Contrast material: OMNI 350; Contrast volume: 100 ml; Contrast route: INTRAVENOUS (IV); REPORTING DATA: Count of CT and Cardiac NM exams in prior 12 months: This patient has received [address] and 0 known cardiac nuclear medicine studies in the 12 months prior to the current study. COMPARISON: CT lung screening [id number] 12/26/2021 2:13 PM RADIATION DOSE METRICS: Total DLP (mGy-cm): 2356.93 FINDINGS: Liver: Normal. No mass. Gallbladder and bile ducts: Cholelithiasis. Gallbladder relatively contracted. No wall thickening. Negative for biliary system dilation. Pancreas: Normal. No ductal dilation. Spleen: Normal. No splenomegaly. Adrenal glands: Possible small nodule right adrenal gland but this finding stable from comparison. Normal left adrenal gland. The right-sided nodule measures about 2.2 cm x 1.5 cm in the transaxial plane. Kidneys and ureters: Negative for renal stones. Negative for hydronephrosis. Negative for perinephric inflammation. Unremarkable renal parenchyma enhancement. Stomach and bowel: Unremarkable. No obstruction. No mucosal thickening. Appendix: No evidence of appendicitis. Intraperitoneal space: Unremarkable. No free air. No significant fluid collection. Vasculature: Unremarkable. No abdominal aortic aneurysm. Lymph nodes: Unremarkable. No enlarged lymph nodes. Urinary bladder: Unremarkable as visualized. Reproductive: Hysterectomy. Bones/joints: Severe disc disease changes at L4-L5 and L5-S1. Negative for acute fracture. Soft tissues: Large fat containing midline umbilical ventral abdominal hernia. CT/CT abdomen pelvis wo/w [id number] IMPRESSION: 1. Negative for acute abdominopelvic pathology. 2. Stable appearance of a very small right adrenal gland nodule; benign adrenal adenoma favored.
[2022-09-07] MEDS: sodium chloride 0.9% 1,000 ML 999 ML IV (16:48)
[2022-09-07 16:52] LABS: Protein Urine Neg (Negative); Urine Appearance SL Hazy (CLEAR); Urine Color Yellow (Yellow); pH Urine 5 (5-7)
[2022-09-07 16:53] LABS: Add Urine Culture? No; Add Urine Microscopic? YES; Bacteria Urine 1+ /hpf; Bilirubin Urine Neg (Negative); Blood Urine 2+ (Negative); Glucose Urine UA Norm (Normal); Ketones Urine Negative (Negative); Leukocyte Esterase Urine Trace (Negative); Nitrate Urine Negative (Negative); RBC Urine 0-4 /hpf (0-2); Urobilinogen Urine Norm (Negative)
[2022-09-07] MEDS: iohexol 350 mg/mL 500 mL Btl (per mL) IV (16:58)
[2022-09-07 17:12] LABS: Basophils % 0.5 %; Eosinophils # 0.2 10^3/uL (0.0-0.8); Eosinophils % 2.2 %; Hematocrit 41.6 % (37.0-47.0); Hemoglobin 13.2 g/dL (11.5-15.3); Lymphocytes # 2.3 10^3/uL (0.8-4.8); Lymphocytes % 29.5 %; Mean Corpuscular HGB Conc 31.7 g/dL (30.0-36.0); Mean Corpuscular Hemoglobin 27.5 pg (28.0-34.0); Mean Corpuscular Volume 86.7 fl (81-99); Mean Platelet Volume 9.5 fL (7.4-10.4); Monocytes # 0.6 10^3/uL (0.2-0.9); Monocytes % 7.4 %; Neutrophils # 4.76 10^3/uL (1.8-7.7); Neutrophils % 60.3 %; Nucleated Red Blood Cells % 0 %; Platelet Count 273 10^3/cmm (130-400); Red Cell Distribution Width 11.9 % (12.1-15.1); White Blood Count 7.9 10^3/uL (4.0-10.0)
[2022-09-07 17:19] VITALS: BP 137/79; PULSE 88; O2SAT 98
[2022-09-07 17:42] LABS: Alanine Aminotransferase 13 U/L (0-33); Albumin Level 3.7 g/dL (3.5-5.2); Alkaline Phosphatase 172 U/L (35-105); Anion Gap 13.7 (5-19); Aspartate Amino Transferase 14 U/L (0-32); Blood Urea Nitrogen 9 mg/dL (6-20); Calcium 7.5 mg/dL (8.5-10.5); Carbon Dioxide 37 mmol/L (22-29); Chloride 91 mmol/L (98-107); Globulin 4.2 g/dL (1.3-4.6); Glomerular Filtration Rate 128.1 mL/min (90-130); Glucose 173 mg/dL (65-115); Osmolality Calculated 289 mOsm/kg (285-295); Potassium 3.7 mmol/L (3.5-5.1); Sodium 138 mmol/L (136-145); Total Bilirubin 0.2 mg/dL (0.15-1.2); Total Protein 7.9 g/dL (6.6-8.7)
[2022-09-07 18:14] VITALS: BP 119/67; PULSE 90; O2SAT 98
[2022-09-07 19:00] VITALS: BP 103/62; PULSE 88; O2SAT 98
[2022-09-07 19:30] VITALS: BP 111/88; PULSE 89; O2SAT 100
== END 2022-09-07 19:48 | disposition home or self-care (01) ==
PROVIDERS: Physician Assistant; Emergency Provider Family Medicine; PCP Family Medicine
DX: R10.9 Unspecified abdominal pain (principal); Z79.4 Long term (current) use of insulin; Z87.891 Personal history of nicotine dependence; J44.9 Chronic obstructive pulmonary disease, unspecified; E11.9 Type 2 diabetes mellitus without complications; I10 Essential (primary) hypertension
CPT/HCPCS: 74178; 80053; 81001; 85025; 96360; 99285; J7030; Q9967